=== PATIENT | female | born 2000 | race Caucasian/White ===

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

== ENCOUNTER 2022-06-24 16:35 | Emergency (ER) | payer OTHER, SELFPAY ==
[2022-06-24 16:53] VITALS: BP 140/79; PULSE 104; RESP 18; TEMP 36.7; O2SAT 98; BMI 30.7
--- NOTE | 2022-06-24 17:03 | EXP.UTC ---
Discharge Plan Disposition Patient Disposition: Home, Self-Care Condition: Good Prescriptions Prescriptions: New cephalexin 500 mg capsule 500 mg PO QID 7 Days Qty: 28 0RF No Action levothyroxine 112 mcg capsule 112 mcg PO DAILY loratadine 10 mg tablet See Rx Instructions .ROUTE .COMPLEX Qty: 90 0RF Dose Instruction: TAKE 1 TABLET BY MOUTH ONCE DAILY FOR ALLERGY SYMTPOMS Rx Instructions: TAKE 1 TABLET BY MOUTH ONCE DAILY FOR ALLERGY SYMTPOMS desmopressin 0.2 MG tablet 0.2 mg PO BID amitriptyline 25 MG tablet 25 mg PO DAILY prednisone 20 MG tablet 20 mg PO BID Qty: 10 0RF levofloxacin 500 MG tablet 500 mg PO DAILY Qty: 7 0RF ibuprofen 800 MG tablet 800 mg PO Q8HP PRN (Reason: Moderate Pain) Referrals Follow up/Referrals: Cliff Cruz MD [Primary Care Provider] - See instructions Activity Restrictions/Add. Instructions Additional Instructions/Restrictions: Keep the wound clean and dry. Keep a dressing on it if you are going to be getting it dirty. Watch the wound for signs of infection, such as redness, swelling, drainage, fever. etc. Take tylenol or ibuprofen for pain. Follow up with your regular doctor. Return in 7 days to have the sutures removed. GO TO THE ER FOR ANY WORSENING SYMPTOMS OR CONCERNS. Clinical Impressions Clinical Impression: Laceration of right thumb Instructions Patient Instructions: DI for Laceration Repair -- Finger Discharge ED Provider: Soto Frost [facility] [place] HPI General Stated complaint: [id number] LT thumb lac Mode of Arrival: Ambulatory Source of Information: Patient Limitations: No Limitations Time Seen by Provider: 06/24/22 17:03 Description of Symptoms (Recalled from Triage Doc. by RN): Laceration to L thumb, pt reports cut it when a knife while cutting a steak. No active bleeding noted. History of Present Illness Provider Complaint: She states that she was cutting steak when she slipped and cut her right thumb with the knife. Her tetanus immunization is up to date. Related Data Home Medications Medication Instructions Recorded Confirmed amitriptyline 25 mg tablet 25 mg PO DAILY migraines 05/18/17 02/03/21 desmopressin 0.2 mg tablet 0.2 mg PO BID Diabetes insipidus 05/18/17 02/03/21 ibuprofen 800 mg tablet 800 mg PO Q8HP PRN Moderate Pain 12/09/17 02/03/21 levothyroxine 112 mcg capsule 112 mcg PO DAILY thyroid 10/23/19 02/03/21 Previous Rx's Medication Instructions Recorded levofloxacin 500 mg tablet 500 mg PO DAILY #7 tabs 02/03/21 prednisone 20 mg tablet 20 mg PO BID #10 tabs 02/03/21 loratadine 10 mg tablet See Rx Instructions .Route 09/02/21 .COMPLEX #90 tabs cephalexin 500 mg capsule 500 mg PO QID 7 days #28 caps 06/24/22 Allergies Allergy/AdvReac Type Severity Reaction Status Date / Time No Known Allergies Allergy Verified 06/24/22 17:10 [facility] Disclaimer: The information contained in this section may have been updated after the patient was seen, as this information can be updated by other users. Medical History Encounter to establish care Social History Smoking Status: Never smoker alcohol intake: never substance use type: denies use current occupational status: other Travel in the last 8 weeks: None ROS Obtained: Yes All systems reviewed & no additional complaints except as documented Constitutional Constitutional: Denies chills and Denies fever(s) Eyes Eyes: Denies eye discharge ENT Ears, Nose, Mouth, and Throat: Denies dizziness, Denies otalgia and Denies sore throat Cardiovascular Cardiovascular: Denies chest pain Respiratory Respiratory: Denies shortness of breath, Denies chest congestion, Denies cough, Denies stridor and Denies wheezing Gastrointestinal Gastrointestingal: Denies nausea or vomiting Musculoskeletal Musculoskel
[2022-06-24 17:07] VITALS: BP 140/79; PULSE 104; RESP 17; TEMP 36.7; O2SAT 98; BMI 30.9
[2022-06-24 18:13] VITALS: BP 140/79; PULSE 104; RESP 17; TEMP 36.7
== END 2022-06-24 18:16 | disposition home or self-care (01) ==
PROVIDERS: Emergency Provider Nurse Practitioner Family; PCP Emergency Medicine
DX: S61.012A Laceration without foreign body of left thumb without damage to nail, initial encounter (principal); W26.0XXA Contact with knife, initial encounter
CPT/HCPCS: 12001; 99213; 99214; G0463

== ENCOUNTER 2022-08-31 17:57 | Emergency (ER) | payer OTHER, SELFPAY ==
[2022-08-31 18:07] VITALS: BP 143/84; PULSE 118; RESP 18; TEMP 36.8; O2SAT 96; BMI 32.5
[2022-08-31 18:16] LABS: Urine Pregnancy, HCG Qual. Negative (Negative)
[2022-08-31 18:30] VITALS: BP 122/71; PULSE 105; O2SAT 95
--- NOTE | 2022-08-31 18:49 | HMH.EDGENADL ---
Discharge Plan Disposition Patient Disposition: Home, Self-Care Prescriptions Prescriptions: No Action levothyroxine 112 mcg capsule 112 mcg PO DAILY desmopressin 0.2 MG tablet 0.2 mg PO BID Referrals Follow up/Referrals: Cliff Cruz MD [Primary Care Provider] - See instructions Activity Restrictions/Add. Instructions Additional Instructions/Restrictions: Please follow-up with your SUST[employer]INE[employer] doctor regarding your irregular menses and her abnormal uterine bleeding. Limited bedside ultrasound did not reveal an intrauterine in your urine test was negative. You may repeat your urine in 1 week that is possible that this was a false negative early on your but unlikely at this point given that you have not had a period in 2 months have had a regular menses. No other medical emergency was identified during your stay. You may take ibuprofen as needed for any type of discomfort that you are feeling return with any severe abdominal pain. Clinical Impressions Clinical Impression: Abnormal uterine bleeding, Encounter for medical screening examination Discharge ED Provider: Laina Arboleda General Adult HPI General Chief complaint: Vaginal Bleeding Stated complaint: test Time Seen by Provider: 08/31/22 18:49 Mode of Arrival: Ambulatory Source of Information: Patient Limitations: No Limitations Description of Symptoms (Recalled from ER Triage Doc. by RN): pt states she thinks she may be , she hasn't had a period in 2 months, reports lower abdominal pain and light vaginal bleeding, states she is spotting History of Present Illness HPI narrative: Patient is a 22-year-old female here to establish whether not she is . She states that she has not had a period in 2 months has had irregular menses in the past is trying to get and is a G2, P0 with 2 miscarriages in the past. She states that she has had some spotting but nothing of any significance no fevers or chills no significant abdominal pain basically wants to know whether not she is . Related Data Home Medications Medication Instructions Recorded Confirmed desmopressin 0.2 mg tablet 0.2 mg PO BID Diabetes insipidus 05/18/17 08/31/22 levothyroxine 112 mcg capsule 112 mcg PO DAILY thyroid 10/23/19 08/31/22 Allergies Allergy/AdvReac Type Severity Reaction Status Date / Time No Known Allergies Allergy Verified 06/24/22 17:10 [facility] Disclaimer: The information contained in this section may have been updated after the patient was seen, as this information can be updated by other users. Medical History Encounter to establish care Social History Smoking Status: Current every day smoker alcohol intake: never substance use type: denies use current occupational status: other Travel in the last 8 weeks: None ROS Obtained: Yes All systems reviewed & no additional complaints except as documented Physical Exam General General appearance: alert Respiratory Respiratory exam: Present normal lung sounds bilaterally Cardiovascular Cardiovascular exam: Present regular rate; Absent bradycardia Neurological Exam Neurological exam: Present alert and oriented X3 Medical Decision Making Rex Inquiry Pt receiving controlled substance: No Vital Signs: 08/31/22 18:07 08/31/22 18:30 Temperature 98.3 F Temperature Source Oral Pulse Rate 105 H Pulse Rate [Left Radial] 118 H Respiratory Rate 18 Blood Pressure 122/71 Blood Pressure [Right Arm] 143/84 H Blood Pressure Mean 88 Blood Pressure Mean [Right Arm] 103 Blood Pressure Source [Right Arm] Automatic Cuff Blood Pressure Position [Right Arm] Sitting 02 Sat by Pulse Oximetry 96 95 Oxygen Delivery Method Room Air Room Air Lab Data Lab results reviewed: Yes I reviewed the patient's lab results.
[2022-08-31 19:00] VITALS: BP 122/71; PULSE 105; RESP 16; TEMP 36.8
== END 2022-08-31 19:02 | disposition home or self-care (01) ==
PROVIDERS: Emergency Provider Student in an Organized Health Care Education/Training Program; PCP Emergency Medicine
DX: N93.9 Abnormal uterine and vaginal bleeding, unspecified (principal); R10.30 Lower abdominal pain, unspecified
CPT/HCPCS: 76705; 81025; 99283

== ENCOUNTER 2022-09-10 21:20 | Emergency (ER) | payer OTHER, SELFPAY ==
[2022-09-10 21:34] VITALS: BP 0/0; PULSE 0; RESP 0; TEMP -17.7; TEMP 0
== END 2022-09-10 21:50 | disposition left against medical advice (07) ==
LOC: ER 21:37
PROVIDERS: Emergency Provider Emergency Medicine; PCP Emergency Medicine
DX: Z53.21 Procedure and treatment not carried out due to patient leaving prior to being seen by health care provider (principal)
CPT/HCPCS: 99211

== ENCOUNTER → 2022-09-10 21:34 | Outpatient (CLI) | payer OTHER, SELFPAY ==
[2022-09-10 22:08] LABS: HCG Qualitative, Serum Negative (Negative)
[2022-09-10 22:32] LABS: HCG,Quantitative < 2 mIU/ml (0-5.42)
== END ==
PROVIDERS: PCP Emergency Medicine; Visit Provider Emergency Medicine
DX: Z32.00 Encounter for pregnancy test, result unknown (principal); N92.1 Excessive and frequent menstruation with irregular cycle
CPT/HCPCS: 84702; 84703

== ENCOUNTER 2022-10-10 14:18 | Emergency (ER) | payer OTHER, SELFPAY ==
[2022-10-10 14:19] VITALS: BP 117/75; PULSE 77; RESP 16; TEMP 36.4; O2SAT 99; BMI 32.9
--- NOTE | 2022-10-10 14:38 | HMH.EDGENADL ---
Discharge Plan Disposition Patient Disposition: Home, Self-Care Condition: Good Prescriptions Prescriptions: New clobetasol 0.05 % cream 1 applic topical BID 7 Days Qty: 15 0RF No Action levothyroxine 112 mcg capsule 112 mcg PO DAILY desmopressin 0.2 MG tablet 0.2 mg PO BID Referrals Follow up/Referrals: Cliff Cruz MD [Primary Care Provider] - See instructions Activity Restrictions/Add. Instructions Additional Instructions/Restrictions: At this time is felt you are safe to be discharged home. If new or worsening symptoms please do not hesitate to return to the emergency department. Please apply medication as prescribed. Clinical Impressions Clinical Impression: Contact dermatitis Discharge ED Provider: Vikram Garcia General Adult HPI General Chief complaint: Skin/Abscess/Foreign Body Stated complaint: rash on right side of face going into ear Time Seen by Provider: 10/10/22 14:25 Mode of Arrival: Ambulatory Source of Information: Patient Limitations: No Limitations Description of Symptoms (Recalled from ER Triage Doc. by RN): Presents to ED with complaints of right sided ear and face rash that appeared this morning. Patient reported using benadryl cream 1 hr [employer]. Patient also reports that her eyes are puffy . History of Present Illness HPI narrative: Patient is a 22-year-old female with no pertinent past medical history presents emergency department for evaluation of a rash. It is located retroauricular lesion on the right. Onset over the last 24 hours. Patient has been outside, unknown other exposures. Denies any other rashes. Denies oral involvement, chest pain, abdominal pain, acute arthralgias. Due to its itchiness she presents here for continued evaluation. No other acute complaints at this time. Related Data Home Medications Medication Instructions Recorded Confirmed desmopressin 0.2 mg tablet 0.2 mg PO BID Diabetes insipidus 05/18/17 08/31/22 levothyroxine 112 mcg capsule 112 mcg PO DAILY thyroid 10/23/19 08/31/22 Previous Rx's Medication Instructions Recorded clobetasol 0.05 % topical cream 1 applic topical BID 1 week #15 10/10/22 grams Allergies Allergy/AdvReac Type Severity Reaction Status Date / Time No Known Allergies Allergy Verified 06/24/22 17:10 [facility] Disclaimer: The information contained in this section may have been updated after the patient was seen, as this information can be updated by other users. Medical History Encounter to establish care Social History Smoking Status: Current every day smoker alcohol intake: never substance use type: denies use current occupational status: other Travel in the last 8 weeks: None ROS Obtained: Yes Systems reviewed as appropriate & no additional complaints except as documented Physical Exam General General appearance: alert and in no apparent distress Head Head exam: atraumatic and normocephalic Eye Eye exam: Present PERRL and EOMI; Absent conjunctival redness ENT ENT exam: Present normal oropharynx, mucous membranes moist and other (Retroauricular papular rash, no crusting, no oozing. No anterior effacement of the pinna, external auditory canal normal on the left, TM normal on the left) Neck Neck exam: Present normal inspection Chest Chest inspection: Present normal inspection and symmetric chest wall rise Respiratory Respiratory exam: Absent respiratory distress Cardiovascular Cardiovascular exam: Present regular rate and normal rhythm Abdominal Exam Abdominal exam: Absent tenderness Extremities Exam Extremities exam: Present normal inspection Neurological Exam Neurological exam: Present alert, oriented X3 and normal gait Psychiatric Psychiatric exam: Present normal affect Skin Skin exam: Present warm and dry Medical Decision Making Rex Inquiry Pt receiving
[2022-10-10 14:48] VITALS: BP 117/75; PULSE 77; RESP 16; TEMP 36.4; O2SAT 99
== END 2022-10-10 15:17 | disposition home or self-care (01) ==
PROVIDERS: Emergency Provider Emergency Medicine; PCP Emergency Medicine
DX: L23.9 Allergic contact dermatitis, unspecified cause (principal); F17.200 Nicotine dependence, unspecified, uncomplicated
CPT/HCPCS: 99283

== ENCOUNTER 2022-10-16 13:51 | Emergency (ER) | payer OTHER, SELFPAY ==
[2022-10-16 14:32] VITALS: BP 95/61; PULSE 76; RESP 19; TEMP 36.8; O2SAT 98; BMI 30.9
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
--- NOTE | 2022-10-16 14:40 | PC.NURSE ---
Rounded on patient; no needs at this time. call parikh within reach
[2022-10-16 15:05] LABS: Microscopic, Urine URINE MICROSCOPIC (MICROSCOPIC)
[2022-10-16 15:08] LABS: Basophils # 0.1 K/mm3 (0-0.2); Basophils % 0.8 % (0.1-2.0); Eosinophils # 0.3 K/mm3 (0.0-0.4); Eosinophils % 3.9 % (0.1-12.0); Hematocrit 41.1 % (37.0-47.0); Hemoglobin 13.5 g/dL (12.2-16.2); Lymphocytes # 3.3 K/mm3 (0.7-4.5); Lymphocytes % 37.4 % (10-50); Mean Corpuscular HGB Conc 32.9 g/dL (31.8-35.4); Mean Corpuscular Hemoglobin 27.5 pg (27.0-31.2); Mean Corpuscular Volume 83.7 fl (81-99); Mean Platelet Volume 9.2 fl (7.4-10.4); Monocytes # 0.5 K/mm3 (0.1-1.0); Monocytes % 5.2 % (1.7-9.3); Neutrophils # 4.6 K/mm3 (1.8-7.8); Neutrophils % 52.7 % (37.0-80.0); Platelet Count 219 K/mm3 (142-424); Red Blood Count 4.91 M/mm3 (4.20-5.40); White Blood Count 8.7 K/mm3 (4.5-13.0)
[2022-10-16 15:15] LABS: Alanine Aminotransferase 19 U/L (12-78); Albumin Level 4.2 g/dl (3.5-5.0); Albumin/Globulin Ratio 1.3 (1.1-1.8); Alkaline Phosphatase 94 U/L (38-126); Anion Gap 11.3 mEq/L (5-15); Aspartate Amino Transferase 29 U/L (14-36); Bilirubin,Total 0.2 mg/dl (0.2-1.3); Blood Urea Nitrogen 13 mg/dl (7-17); Calcium 9.5 mg/dl (8.4-10.2); Carbon Dioxide 30 mmol/L (22.0-30.0); Chloride 105 mmol/L (98-107); Creatinine Clearance Estimated 165 mL/min (50-200); Estimated Glomerular Filt Rate 107 ml/min (>60); GFR (African American) 129 ML/MIN (>60); Globulin 3.2 g/dL (1.3-3.2); Glucose 92 mg/dl (74-100); Potassium 4.3 mmoL/L (3.5-5.1); Sodium 142 mmol/L (136-145); Total Protein,Serum 7.4 g/dl (6.3-8.2)
[2022-10-16 15:17] LABS: Appearance,Urine CLEAR (Clear); Bilirubin,Urine Negative (Negative); Blood, Urine Negative (Negative); Color,Urine YELLOW (Yellow); Glucose,Urine (UA) Negative (Negative); Ketones,Urine Negative (Negative); Leukocyte Esterase,Urine Negative (Negative); Nitrate,Urine Negative (Negative); Protein,Urine Negative (Negative); Urobilinogen,Urine 0.2 EU/dl (0.2)
[2022-10-16 15:20] LABS: HCG Qualitative, Serum Negative (Negative)
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
[2022-10-16 16:36] VITALS: BP 128/79; PULSE 84; RESP 20; TEMP 36.8; O2SAT 99
== END 2022-10-16 16:37 | disposition home or self-care (01) ==
PROVIDERS: Emergency Provider Emergency Medicine; PCP Emergency Medicine
DX: R07.81 Pleurodynia (principal); F17.210 Nicotine dependence, cigarettes, uncomplicated; W22.8XXA Striking against or struck by other objects, initial encounter; Y93.I1 Activity, roller coaster riding
CPT/HCPCS: 71101; 80053; 81001; 84703; 85025; 99285

== ENCOUNTER → 2022-11-04 11:22 | Outpatient (CLI) | payer OTHER, SELFPAY ==
[2022-11-04 12:54] LABS: Chloride 103 mmol/L (98-107)
[2022-11-04 12:55] LABS: Potassium 4.3 mmoL/L (3.5-5.1); Sodium 139 mmol/L (136-145)
[2022-11-04 12:57] LABS: Alanine Aminotransferase 21 U/L (12-78); Anion Gap 10.3 mEq/L (5-15); Aspartate Amino Transferase 25 U/L (14-36); Bilirubin,Unconjugated 0.3 mg/dL (0.0-1.1); Blood Urea Nitrogen 13 mg/dl (7-17); Carbon Dioxide 30 mmol/L (22.0-30.0); Estimated Glomerular Filt Rate 127 ml/min (>60); GFR (African American) 154 ML/MIN (>60)
[2022-11-04 12:58] LABS: Albumin Level 4.1 g/dl (3.5-5.0); Alkaline Phosphatase 120 U/L (38-126); Bilirubin,Direct 0.2 mg/dl (0.0-0.4); Bilirubin,Indirect 0.3 mg/dL (0.0-0.9); Bilirubin,Total 0.5 mg/dl (0.2-1.3); Calcium 10.2 mg/dl (8.4-10.2); Chol/HDL Ratio 3.9 (1-3.5); Cholesterol 173 mg/dl (140-200); Glucose 93 mg/dl (74-100); HDL Cholesterol 44 mg/dl (40-60); Total Protein,Serum 7.3 g/dl (6.3-8.2); Triglycerides 175 mg/dl (30-150); VLDL Cholesterol 35 mg/dL (0-40)
[2022-11-04 13:09] LABS: Direct LDL Cholesterol 83.76 mg/dL (100-129)
[2022-11-04 13:19] LABS: Free T4 (Free Thyroxine) 1.43 ng/dl (0.78-2.19)
[2022-11-04 13:21] LABS: 25-OH Vitamin D, Total 38.3 ng/mL (30-100)
[2022-11-04 13:38] LABS: Gamma Glutamyl Transpeptidase 28 U/L (12-43)
[2022-11-04 13:39] LABS: Hemoglobin A1C 4.8 % (4.0-6.0)
[2022-11-05 08:34] LABS: Estradiol 18.9 pg/mL (.); LH 6.8 mIU/mL (.)
== END ==
PROVIDERS: PCP Emergency Medicine
DX: E23.2 Diabetes insipidus (principal); D44.4 Neoplasm of uncertain behavior of craniopharyngeal duct; E66.9 Obesity, unspecified; Z68.34 Body mass index [BMI] 34.0-34.9, adult
CPT/HCPCS: 36415; 80048; 80061; 80076; 82306; 82533; 82670; 82977; 83001; 83002; 83036; 84439

== ENCOUNTER 2022-12-22 13:51 | Emergency (ER) | payer OTHER, SELFPAY ==
[2022-12-22 13:53] VITALS: BP 120/72; PULSE 84; RESP 18; TEMP 36.3; O2SAT 97; BMI 35.2
[2022-12-22 14:15] VITALS: BP 120/72; PULSE 90; O2SAT 98
[2022-12-22 14:39] LABS: Coronavirus 19, PCR Not Detected (NotDetected); Influenza A, PCR Not Detected (NotDetected); Influenza B, PCR Not Detected (NotDetected)
--- NOTE | 2022-12-22 14:43 | HMH.EDGENADL ---
Discharge Plan Disposition Patient Disposition: Home, Self-Care Prescriptions Prescriptions: New hlvyirnwyxjpbxf-ysbdfwzjn-JV [Bromfed DM] 2-30-10 mg/5 mL syrup 5 ml PO Q6H PRN (Reason: cold symptoms) Qty: 118 0RF No Action levothyroxine 112 mcg capsule 112 mcg PO DAILY desmopressin 0.2 MG tablet 0.2 mg PO BID clobetasol 0.05 % cream 1 applic topical BID 7 Days Qty: 15 0RF Referrals Follow up/Referrals: Cliff Cruz MD [Primary Care Provider] - See instructions Activity Restrictions/Add. Instructions Additional Instructions/Restrictions: Call your family doctor to establish care for this visit to the emergency department and schedule follow-up within 48 hours to ensure improvement. If you have any worsening of your condition or any other concerning signs or symptoms, return to the emergency department or your primary care doctor for further evaluation. Take Tylenol 1000 mg every 6 hours (4 times daily) and ibuprofen 400 mg every 6 hours (4 times daily) as needed with food and water to prevent GI upset and kidney damage. Daily cetirizine or loratadine can help with symptoms of congestion long-term. Please take your cough syrup as prescribed. Clinical Impressions Clinical Impression: Rhinorrhea, URI (upper respiratory infection), Acute sore throat Discharge ED Provider: Ori Gonzalez General Adult HPI <Ori Gonzalez MD - Last Filed: 12/22/22 14:50> General Chief complaint: Upper Respiratory Infection Stated complaint: sore throat, soa, chills Time Seen by Provider: 12/22/22 14:00 Mode of Arrival: Ambulatory Source of Information: Patient Limitations: No Limitations Description of Symptoms (Recalled from ER Triage Doc. by RN): pt reports nasal congestion and sore throat that started today. History of Present Illness HPI narrative: 22-year-old female history of craniopharyngioma, schwannoma presenting with upper respiratory symptoms. Patient states started today, 12/22 when she woke up. Congestion, fevers and chills, intermittent cough that is nonproductive. Also having sore throat. Has not taken any medications including Tylenol, Motrin, antihistamines. Because has COVID exposure, wanted to come to the ER to ensure she did not have COVID. Related Data Home Medications Medication Instructions Recorded Confirmed desmopressin 0.2 mg tablet 0.2 mg PO BID Diabetes insipidus 05/18/17 08/31/22 levothyroxine 112 mcg capsule 112 mcg PO DAILY thyroid 10/23/19 08/31/22 Previous Rx's Medication Instructions Recorded clobetasol 0.05 % topical cream 1 applic topical BID 1 week #15 10/10/22 grams kiqcgrsosilveyw-jzeqkqhvileycmr-BC 5 ml PO Q6H PRN cold symptoms #118 12/22/22 2 mg-30 mg-10 mg/5 mL oral syrup mL (Bromfed DM) Allergies Allergy/AdvReac Type Severity Reaction Status Date / Time No Known Allergies Allergy Verified 06/24/22 17:10 PFSH <Ori Gonzalez MD - Last Filed: 12/22/22 14:50> PFS Disclaimer: The information contained in this section may have been updated after the patient was seen, as this information can be updated by other users. Medical History Encounter to establish care Social History Smoking Status: Never smoker alcohol intake: never substance use type: denies use current occupational status: other Travel in the last 8 weeks: None <Ori Gonzalez MD - Last Filed: 12/22/22 14:50> ROS Obtained: Yes All systems reviewed & no additional complaints except as documented Physical Exam <Ori Gonzalez MD - Last Filed: 12/22/22 14:50> General General appearance: alert and in no apparent distress Head Head exam: atraumatic and normocephalic Eye Eye exam: Present normal appearance, PERRL and EOMI ENT ENT exam: Present mucous membranes moist and other (rhinorrhea, pharyngeal erythema) Neck Neck exam: Present normal inspection, full ROM a
[2022-12-22 14:45] VITALS: BP 128/61; PULSE 87; O2SAT 99
[2022-12-22 15:08] LABS: Strep Scrn Group A (Rapid) Negative (Negative)
[2022-12-22 15:34] VITALS: BP 114/65; PULSE 83; O2SAT 96
--- NOTE | 2022-12-22 15:54 | PC.NURSE ---
Pt provided with drink and crackers for PO challenge
[2022-12-22 16:05] VITALS: BP 116/75; PULSE 76; RESP 18; TEMP 36.7; O2SAT 97
== END 2022-12-22 16:06 | disposition home or self-care (01) ==
PROVIDERS: Emergency Provider Emergency Medicine; PCP Emergency Medicine
DX: J02.9 Acute pharyngitis, unspecified (principal); R09.81 Nasal congestion; J06.9 Acute upper respiratory infection, unspecified
CPT/HCPCS: 87430; 87636; 99283

== ENCOUNTER 2022-12-23 19:50 | Emergency (ER) | payer OTHER, SELFPAY ==
[2022-12-23 19:52] VITALS: BP 126/82; PULSE 115; RESP 17; TEMP 36.8; O2SAT 98; BMI 35.2
--- NOTE | 2022-12-23 20:26 | HMH.EDGENADL ---
Discharge Plan Disposition Patient Disposition: Home, Self-Care Prescriptions Prescriptions: New prednisone 20 mg tablet 40 mg PO BID 5 Days Qty: 20 0RF Discontinued rknlwanxcudtjkq-ruyezrohb-RE [Bromfed DM] 2-30-10 mg/5 mL syrup 5 ml PO Q6H PRN (Reason: cold symptoms) Qty: 118 0RF No Action levothyroxine 112 mcg capsule 112 mcg PO DAILY desmopressin 0.2 MG tablet 0.2 mg PO BID clobetasol 0.05 % cream 1 applic topical BID Referrals Follow up/Referrals: Cliff Cruz MD [Primary Care Provider] - See instructions Activity Restrictions/Add. Instructions Additional Instructions/Restrictions: Call your family doctor to establish care for this visit to the emergency department and schedule follow-up within 48 hours to ensure improvement. If you have any worsening of your condition or any other concerning signs or symptoms, return to the emergency department or your primary care doctor for further evaluation. Take Tylenol 1000 mg every 6 hours (4 times daily) and ibuprofen 400 mg every 6 hours (4 times daily) as needed with food and water to prevent GI upset and kidney damage. Take prednisone each morning for 5 days. Daily cetirizine/Zyrtec will help as well. Clinical Impressions Clinical Impression: Medication side effect Discharge ED Provider: Ori Gonzalez General Adult HPI General Stated complaint: face is hot, feeling like she is allergic to medi Time Seen by Provider: 12/23/22 19:56 History of Present Illness HPI narrative: 22-year-old female with recent diagnosis of URI presenting with medication side effect. Patient states she took Bromfed about 3 hours prior to arrival. Woke up feeling flushed, hot. Nasal congestion improved, but patient concerned she is having allergic reaction. Denies nausea vomiting, abdominal cramping or pain, diarrhea, shortness of breath, chest pain, or any other concerns. No welts. Related Data Home Medications Medication Instructions Recorded Confirmed desmopressin 0.2 mg tablet 0.2 mg PO BID Diabetes insipidus 05/18/17 12/23/22 levothyroxine 112 mcg capsule 112 mcg PO DAILY thyroid 10/23/19 12/23/22 clobetasol 0.05 % topical cream 1 applic topical BID Skin Condition 12/23/22 12/23/22 Previous Rx's Medication Instructions Recorded prednisone 20 mg tablet 40 mg PO BID 5 days #20 tabs 12/23/22 Allergies Allergy/AdvReac Type Severity Reaction Status Date / Time No Known Allergies Allergy Verified 06/24/22 17:10 [facility] Disclaimer: The information contained in this section may have been updated after the patient was seen, as this information can be updated by other users. Medical History Encounter to establish care Social History Smoking Status: Never smoker alcohol intake: never substance use type: denies use current occupational status: other Travel in the last 8 weeks: None ROS Obtained: Yes All systems reviewed & no additional complaints except as documented Physical Exam General General appearance: alert and in no apparent distress Head Head exam: atraumatic and normocephalic Eye Eye exam: Present normal appearance, PERRL and EOMI ENT ENT exam: Present mucous membranes moist Neck Neck exam: Present normal inspection, full ROM and trachea midline Respiratory Respiratory exam: Absent respiratory distress, wheezes, stridor, accessory muscle use or prolonged expiratory phase Cardiovascular Cardiovascular exam: Present normal rhythm Abdominal Exam Abdominal exam: Present soft; Absent distention, tenderness, guarding, rebound, rigidity or normal bowel sounds Extremities Exam Extremities exam: Absent edema Neurological Exam Neurological exam: Present alert, oriented X3, CN II-XII intact and normal gait; Absent motor sensory deficit Skin Skin exam: Present warm, dry and erythema (facial flushing); Absen
[2022-12-23 20:27] VITALS: BP 125/80; PULSE 96; RESP 18; TEMP 36.7; O2SAT 100
== END 2022-12-23 20:43 | disposition home or self-care (01) ==
PROVIDERS: Emergency Provider Emergency Medicine; PCP Emergency Medicine
DX: R23.2 Flushing (principal); T48.3X5A Adverse effect of antitussives, initial encounter
CPT/HCPCS: 99283

== ENCOUNTER 2023-02-12 17:01 | Emergency (ER) | payer OTHER, SELFPAY ==
[2023-02-12 17:02] VITALS: BP 132/71; PULSE 78; RESP 18; TEMP 36.5; O2SAT 98; BMI 36.8
--- NOTE | 2023-02-12 17:35 | HMH.EDGENADL ---
Discharge Plan Disposition Patient Disposition: Home, Self-Care Prescriptions Prescriptions: New loperamide 2 mg capsule 2 mg PO Q6H PRN (Reason: loose stool) 5 Days Qty: 20 0RF Rx Instructions: Please take 4 mg initially, followed by 2 mg after each loose stool, maximum 16 mg/day ondansetron 4 mg tablet,disintegrating 4 mg PO Q6H PRN (Reason: nausea and vomiting) 5 Days Qty: 20 0RF No Action levothyroxine 112 mcg capsule 112 mcg PO DAILY desmopressin 0.2 MG tablet 0.2 mg PO BID clobetasol 0.05 % cream 1 applic topical BID prednisone 20 mg tablet 40 mg PO BID 5 Days Qty: 20 0RF Referrals Follow up/Referrals: Cliff Cruz MD [Primary Care Provider] - See instructions Activity Restrictions/Add. Instructions Additional Instructions/Restrictions: Your pharyngitis generalized malaise body aches and diarrhea with sick contacts are consistent with a viral syndrome. The treatment is supportive as discussed please take your loperamide as needed for your diarrhea your Zofran as needed for any nausea and vomiting that you had and take 1000 mg of Tylenol 3 times a day and 800 mg of ibuprofen 3 times a day as needed for body aches fevers or pain. Clinical Impressions Clinical Impression: Viral syndrome Discharge ED Provider: Laina Arboleda General Adult HPI General Chief complaint: Upper Respiratory Infection Stated complaint: diarrhea, vomiting, Time Seen by Provider: 02/12/23 17:24 Mode of Arrival: Ambulatory Source of Information: Patient Limitations: No Limitations Description of Symptoms (Recalled from ER Triage Doc. by RN): pt complains of cough, sore throat, runny nose x 3 days and took niquil for otc treatment History of Present Illness HPI narrative: Patient is a 22-year-old female with a history of craniopharyngioma and schwannoma but no ongoing or chronic medical problems who presents today with multiple complaints. She states she has had sick contacts at home and she has had some nausea with one episode of vomiting she has had diarrhea body aches and sore throat over the last few days. Related Data Home Medications Medication Instructions Recorded Confirmed desmopressin 0.2 mg tablet 0.2 mg PO BID Diabetes insipidus 05/18/17 12/23/22 levothyroxine 112 mcg capsule 112 mcg PO DAILY thyroid 10/23/19 12/23/22 clobetasol 0.05 % topical cream 1 applic topical BID Skin Condition 12/23/22 12/23/22 Previous Rx's Medication Instructions Recorded prednisone 20 mg tablet 40 mg PO BID 5 days #20 tabs 12/23/22 loperamide 2 mg capsule 2 mg PO Q6H PRN loose stool 5 days 02/12/23 #20 caps ondansetron 4 mg disintegrating 4 mg PO Q6H PRN nausea and 02/12/23 tablet vomiting 5 days #20 tabs Allergies Allergy/AdvReac Type Severity Reaction Status Date / Time No Known Allergies Allergy Verified 06/24/22 17:10 [facility] Disclaimer: The information contained in this section may have been updated after the patient was seen, as this information can be updated by other users. Medical History Encounter to establish care Social History Smoking Status: Current every day smoker alcohol intake: never substance use type: denies use current occupational status: other Travel in the last 8 weeks: None ROS Obtained: Yes All systems reviewed & no additional complaints except as documented Physical Exam General General appearance: alert ENT ENT exam: Present normal exam, normal oropharynx, mucous membranes moist, TM's normal bilaterally and normal external ear exam Neck Neck exam: Present normal inspection and full ROM Respiratory Respiratory exam: Present normal lung sounds bilaterally; Absent respiratory distress, wheezes or stridor Cardiovascular Cardiovascular exam: Present regular rate; Absent tachycardia Abdominal Exam Abdominal exam: Present soft; Ab
[2023-02-12 17:37] VITALS: BP 116/74; PULSE 79; RESP 17; TEMP 36.7; O2SAT 98
== END 2023-02-12 17:40 | disposition home or self-care (01) ==
PROVIDERS: Emergency Provider Student in an Organized Health Care Education/Training Program; PCP Emergency Medicine
DX: R11.2 Nausea with vomiting, unspecified (principal); R19.7 Diarrhea, unspecified; R07.0 Pain in throat; R05.9 Cough, unspecified; R09.81 Nasal congestion; B34.9 Viral infection, unspecified; F17.210 Nicotine dependence, cigarettes, uncomplicated
CPT/HCPCS: 99282

== ENCOUNTER 2023-02-14 17:24 | Emergency (ER) | payer OTHER, SELFPAY ==
[2023-02-14 17:26] VITALS: BP 129/86; PULSE 117; RESP 18; TEMP 37.3; O2SAT 95; BMI 36.8
[2023-02-14 17:46] VITALS: BMI 36.8
[2023-02-14 17:53] LABS: Coronavirus 19, PCR Not Detected (NotDetected); Influenza A, PCR Not Detected (NotDetected); Influenza B, PCR Not Detected (NotDetected)
[2023-02-14 18:03] LABS: Strep Scrn Group A (Rapid) Negative (Negative)
--- NOTE | 2023-02-14 18:26 | HMH.EDGENADL ---
Discharge Plan Disposition Patient Disposition: Home, Self-Care Prescriptions Prescriptions: New ondansetron 4 mg tablet,disintegrating 4 mg PO Q6H PRN (Reason: nausea and vomiting) Qty: 10 0RF No Action levothyroxine 112 mcg capsule 112 mcg PO DAILY desmopressin 0.2 MG tablet 0.2 mg PO BID clobetasol 0.05 % cream 1 applic topical BID prednisone 20 mg tablet 40 mg PO BID 5 Days Qty: 20 0RF loperamide 2 mg capsule 2 mg PO Q6H PRN (Reason: loose stool) 5 Days Qty: 20 0RF Rx Instructions: Please take 4 mg initially, followed by 2 mg after each loose stool, maximum 16 mg/day ondansetron 4 mg tablet,disintegrating 4 mg PO Q6H PRN (Reason: nausea and vomiting) 5 Days Qty: 20 0RF Referrals Follow up/Referrals: Cliff Cruz MD [Primary Care Provider] - See instructions Activity Restrictions/Add. Instructions Additional Instructions/Restrictions: Call your family doctor to establish care for this visit to the emergency department and schedule follow-up within 48 hours to ensure improvement. If you have any worsening of your condition or any other concerning signs or symptoms, return to the emergency department or your primary care doctor for further evaluation. Take Tylenol 1000 mg every 6 hours (4 times daily) and ibuprofen 400 mg every 6 hours (4 times daily) as needed with food and water to prevent GI upset and kidney damage. Zofran every 6 hours as needed for nausea and vomiting. Clinical Impressions Clinical Impression: Gastroenteritis Discharge ED Provider: Ori Gonzalez General Adult HPI General Chief complaint: Upper Respiratory Infection Stated complaint: POSSIBLE STREP OR COVID Time Seen by Provider: 02/14/23 17:32 Mode of Arrival: Ambulatory Source of Information: Patient Limitations: No Limitations Description of Symptoms (Recalled from ER Triage Doc. by RN): c/o v/d, sore throat, YAÑEZ, chills, cant breath out of her nose for a few days History of Present Illness HPI narrative: 22-year-old female no relevant medical history presenting with multiple complaints. Patient states that she has had cough productive of white sputum, vomiting and diarrhea, sore throat, body aches for the past few days. No known sick contacts. Patient was seen here couple days prior and was not swabbed. Wants to know if she has COVID or flu. Has not been taking any meds at home. Vomiting is nonbloody, nonbilious, diarrhea is also nonbloody. Has been able to tolerate p.o. intake, but with significant difficulty given vomiting with p.o. intake. No urinary symptoms. Related Data Home Medications Medication Instructions Recorded Confirmed desmopressin 0.2 mg tablet 0.2 mg PO BID Diabetes insipidus 05/18/17 12/23/22 levothyroxine 112 mcg capsule 112 mcg PO DAILY thyroid 10/23/19 12/23/22 clobetasol 0.05 % topical cream 1 applic topical BID Skin Condition 12/23/22 12/23/22 Previous Rx's Medication Instructions Recorded prednisone 20 mg tablet 40 mg PO BID 5 days #20 tabs 12/23/22 loperamide 2 mg capsule 2 mg PO Q6H PRN loose stool 5 days 02/12/23 #20 caps ondansetron 4 mg disintegrating 4 mg PO Q6H PRN nausea and 02/12/23 tablet vomiting 5 days #20 tabs ondansetron 4 mg disintegrating 4 mg PO Q6H PRN nausea and 02/14/23 tablet vomiting #10 tabs Allergies Allergy/AdvReac Type Severity Reaction Status Date / Time No Known Allergies Allergy Verified 06/24/22 17:10 [facility] Disclaimer: The information contained in this section may have been updated after the patient was seen, as this information can be updated by other users. Medical History Encounter to establish care Social History Smoking Status: Smoker, status unknown alcohol intake: never substance use type: denies use current occupational status: other Travel in the last 8 weeks: None ROS
[2023-02-14 20:06] LABS: Basophils % 0.4 % (0.1-2.0); Eosinophils # 0.1 K/mm3 (0.0-0.4); Eosinophils % 1.5 % (0.1-12.0); Hematocrit 39.5 % (37.0-47.0); Hemoglobin 13.4 g/dL (12.2-16.2); Lymphocytes # 1.6 K/mm3 (0.7-4.5); Lymphocytes % 17.8 % (10-50); Mean Corpuscular HGB Conc 33.8 g/dL (31.8-35.4); Mean Corpuscular Hemoglobin 28.2 pg (27.0-31.2); Mean Corpuscular Volume 83.4 fl (81-99); Monocytes # 0.4 K/mm3 (0.1-1.0); Monocytes % 4.6 % (1.7-9.3); Neutrophils # 6.9 K/mm3 (1.8-7.8); Neutrophils % 75.7 % (37.0-80.0); Platelet Count 245 K/mm3 (142-424); Red Blood Count 4.73 M/mm3 (4.20-5.40); Red Cell Distribution Width 13.4 % (11.5-17.5); White Blood Count 9.2 K/mm3 (4.5-13.0)
[2023-02-14 20:28] LABS: Chloride 105 mmol/L (98-107)
[2023-02-14 20:29] LABS: Potassium 3.8 mmoL/L (3.5-5.1); Sodium 138 mmol/L (136-145)
[2023-02-14 20:31] LABS: Alanine Aminotransferase 69 U/L (12-78); Aspartate Amino Transferase 47 U/L (14-36); Blood Urea Nitrogen 13 mg/dl (7-17); Creatinine Clearance Estimated 191 mL/min (50-200); Estimated Glomerular Filt Rate 107 ml/min (>60); GFR (African American) 129 ML/MIN (>60)
[2023-02-14 20:32] LABS: Albumin Level 3.9 g/dl (3.5-5.0); Albumin/Globulin Ratio 1.3 (1.1-1.8); Alkaline Phosphatase 83 U/L (38-126); Anion Gap 8.8 mEq/L (5-15); Bilirubin,Total 0.3 mg/dl (0.2-1.3); Carbon Dioxide 28 mmol/L (22.0-30.0); Globulin 3.1 g/dL (1.3-3.2); Glucose 89 mg/dl (74-100)
[2023-02-14 20:53] LABS: HCG,Quantitative < 2 mIU/ml (0-5.42)
[2023-02-14 21:04] VITALS: BP 112/70; PULSE 70; RESP 16; TEMP 36.8; O2SAT 98
== END 2023-02-14 21:05 | disposition home or self-care (01) ==
PROVIDERS: Emergency Provider Emergency Medicine; PCP Emergency Medicine
DX: K52.9 Noninfective gastroenteritis and colitis, unspecified (principal); R11.2 Nausea with vomiting, unspecified; R00.0 Tachycardia, unspecified; R51.9 Headache, unspecified; R07.0 Pain in throat; R68.83 Chills (without fever); R09.81 Nasal congestion; R05.9 Cough, unspecified; F17.210 Nicotine dependence, cigarettes, uncomplicated
CPT/HCPCS: 80053; 84702; 85025; 87430; 87636; 96361; 96374; 96375; 99284; J2405

== ENCOUNTER 2023-07-12 14:45 | Emergency (ER) | payer OTHER, SELFPAY ==
[2023-07-12 14:55] VITALS: BP 120/71; PULSE 99; RESP 18; TEMP 36.6; O2SAT 97; BMI 37.8
--- NOTE | 2023-07-12 14:55 | XR_ITS ---
FINAL REPORT CLINICAL HISTORY: pain, fell today and a couple days ago COMPARISON: 12/12/2017 FINDINGS: Right ankle Three views were obtained. There is no acute fracture or dislocation. The joint spaces appear normal. No soft tissue abnormality is identified. IMPRESSION: No acute process. Reviewed, Interpreted and Dictated by Salinas Lindsey MD Transcribed by Renee Cuba Authenticated and [facility]
--- NOTE | 2023-07-12 14:55 | XR_ITS ---
FINAL REPORT CLINICAL HISTORY: pain, fell today and a couple days ago FINDINGS: Right tibia fibula Two views were obtained. There is no acute fracture or dislocation. The joint spaces appear normal. No soft tissue abnormality is identified. IMPRESSION: No acute process. Reviewed, Interpreted and Dictated by Salinas Lindsey MD Transcribed by Renee Cuba Authenticated and [facility]
--- NOTE | 2023-07-12 14:58 | ED_ITS ---
Discharge Plan Disposition Patient Disposition: Home, Self-Care Condition: Good Prescriptions Prescriptions: New ibuprofen 600 mg tablet 600 mg PO Q6HP PRN (Reason: Mild Pain) Qty: 30 0RF No Action levothyroxine 112 mcg capsule 112 mcg PO DAILY desmopressin 0.2 MG tablet 0.2 mg PO BID clobetasol 0.05 % cream 1 applic topical BID prednisone 20 mg tablet 40 mg PO BID 5 Days Qty: 20 0RF ondansetron 4 mg tablet,disintegrating 4 mg PO Q6H PRN (Reason: nausea and vomiting) Qty: 10 0RF loperamide 2 mg capsule 2 mg PO Q6H PRN (Reason: loose stool) 5 Days Qty: 20 0RF Rx Instructions: Please take 4 mg initially, followed by 2 mg after each loose stool, maximum 16 mg/day ondansetron 4 mg tablet,disintegrating 4 mg PO Q6H PRN (Reason: nausea and vomiting) 5 Days Qty: 20 0RF Referrals Follow up/Referrals: Sai Hale DO [Primary Care Provider] - See instructions Hailey Rai DPM [Staff Physician] - See instructions Activity Restrictions/Add. Instructions Additional Instructions/Restrictions: Rest the extremity, apply ice for 15 minutes as tolerated three or four times per day, Wear the love wrap for compression, Elevate the extremity as tolerated while you are resting. Take ibuprofen for pain. I sent in a prescription to your pharmacy. Follow up with Dr. Rai (podiatry) if you continue to have symptoms. I put in a referral but you need to call her office and schedule an appointment. Follow up with your regular doctor. GO TO THE ER FOR ANY WORSENING SYMPTOMS Clinical Impressions Clinical Impression: Right foot sprain, Right ankle sprain Instructions Patient Instructions: DI for Ankle Sprain, DI for Foot Sprain, How to Apply an Elastic Wrap on Ankle Discharge ED Provider: Soto [facility] General Stated complaint: AO4/16@home, pain in Rt ankle Time Seen by Provider: 07/12/23 14:58 History of Present Illness Provider Complaint: She states that earlier today she twisted her right ankle. Since then she has had right ankle and right foot pain. She states that her pain is worse when she bears weight on the heel of that foot. She denies any other injury. Related Data Home Medications Medication Instructions Recorded Confirmed desmopressin 0.2 mg tablet 0.2 mg PO BID Diabetes insipidus 05/18/17 12/23/22 levothyroxine 112 mcg capsule 112 mcg PO DAILY thyroid 10/23/19 12/23/22 clobetasol 0.05 % topical cream 1 applic topical BID Skin Condition 12/23/22 12/23/22 Previous Rx's Medication Instructions Recorded prednisone 20 mg tablet 40 mg (2 x 20 mg) PO BID 5 days 12/23/22 #20 tabs loperamide 2 mg capsule 2 mg PO Q6H PRN loose stool 5 days 02/12/23 #20 caps ondansetron 4 mg disintegrating 4 mg PO Q6H PRN nausea and 02/12/23 tablet vomiting 5 days #20 tabs ondansetron 4 mg disintegrating 4 mg PO Q6H PRN nausea and 02/14/23 tablet vomiting #10 tabs ibuprofen 600 mg tablet 600 mg PO Q6HP PRN Mild Pain #30 07/12/23 tabs Allergies Allergy/AdvReac Type Severity Reaction Status Date / Time No Known Allergies Allergy Verified 07/12/23 15:06 [facility] Disclaimer: The information contained in this section may have been updated after the patient was seen, as this information can be updated by other users. Medical History Encounter to [facility] Social History Smoking Status: Smoker, status unknown alcohol intake: never substance use type: denies use current occupational status: other Travel in the last 8 weeks: None ROS Obtained: Yes All systems reviewed & no additional complaints except as documented Constitutional Constitutional: Denies chills and Denies fever(s) Eyes Eyes: Denies eye discharge ENT Ears, Nose, Mouth, and Throat: Denies dizziness, Denies otalgia and Denies sore throat Cardiovascular Cardiovascular: Denies chest pain Respiratory Respiratory: Denies shortness of breath, Denies chest congestion, Denies cough, Denies stridor and Denies wheezing Gastrointestinal Gastrointestingal: Denies nausea or vomiting Musculoskeletal Musculoskeletal: Reports as per HPI Integumentary/Breasts Skin/Breast: Denies redness, Denies rash and Denies wounds Neurologic Neurologic: Denies dizziness and Denies paresthesias Allergic/Immunologic Allergic/Immunologic: Denies wheezing Physical Exam General General appearance: alert and in no apparent distress Head Head exam: atraumatic, normocephalic and normal inspection Eye Eye exam: Present normal appearance, PERRL and EOMI ENT ENT exam: Present normal exam, normal oropharynx, mucous membranes moist, TM's normal bilaterally and normal external ear exam Neck Neck exam: Present normal inspection, full ROM and trachea midline; Absent meningismus or lymphadenopathy Chest Chest inspection: Present normal inspection and symmetric chest wall rise; Absent tenderness Respiratory Respiratory exam: Present normal lung sounds bilaterally; Absent respiratory distress Cardiovascular Cardiovascular exam: Present regular rate and normal rhythm; Absent JVD Abdominal Exam Abdominal exam: Present soft and normal bowel sounds; Absent distention, tenderness or guarding Extremities Exam Extremities exam: Present normal capillary refill; Absent calf tenderness Expanded Lower Extremity Exam Right: Knee exam: Present normal inspection, full ROM and knee extension intact; Absent tenderness Lower leg exam: Present full ROM, tenderness and Achilles tendon intact; Absent swelling, abrasion, laceration, ecchymosis, deformity, crepitus, dislocation, erythema, palpable cord or Homans' sign Ankle exam: Present full ROM and tenderness; Absent swelling, abrasion, laceration, ecchymosis, deformity, crepitus, dislocation, erythema, tenderness over talofibular lig or anterior draw sign Foot/toe exam: Present full ROM, tenderness and swelling; Absent abrasion, laceration, ecchymosis, deformity, crepitus, dislocation, erythema, amputation, puncture wound, foreign body, calcaneal tenderness, tenderness at base of 5th metatarsal, nail avulsion or subungual hematoma Neurovascular/Tendon exam: Present normal capillary refill and normal 2- point discrimination; Absent pulse deficit, motor deficit, sensory deficit, tendon deficit, extremity cold to touch or pallor Gait: observed and limited by pain Back Exam Back exam: Present normal inspection; Absent tenderness Neurological Exam Neurological exam: Present alert and oriented X3 Psychiatric Psychiatric exam: Present normal affect and normal mood Skin Skin exam: Present warm, dry, intact and normal color Lymphatic Lymphatic Findings: no adenopathy Medical Decision Making Medical Records Medical records reviewed: No I reviewed the patient's medical records. Rex Inquiry Pt receiving controlled substance: No Orders (Tests/Meds): ORDERS Category Date Time Status Fibula/tibia XR right 2 views [XR tibia fibula RT 2V] Exams 07/12/23 14:55 Ordered Stat XR ankle RT min 3V Stat Exams 07/12/23 14:55 Ordered Radiology Data #1: Image(s): Ankle Image Reviewed: Yes I reviewed the patient's radiology image Preliminary Findings: No Fracture Seen #2: Image(s): Foot/Toes Image Reviewed: Yes I reviewed the patient's radiology image Preliminary Findings: No Fracture Seen Procedures Risk/Benefits of Procedure(s) Were Explained: Yes Orthopedic Splinting/Casting Injury #1: Side: right Lower Extremity Injury Location: lower leg, ankle and foot Lower Extremity Immobilizer: boot orthosis and applied by nurse/dr lucero Post Cast/Splinting Neuro Status: intact and no change Post Cast/Splinting Vasc Status: intact and no change
--- NOTE | 2023-07-12 15:18 | PC.NURSE ---
Pt back from RAD
[2023-07-12 16:05] VITALS: BP 120/71; PULSE 99; RESP 18; TEMP 36.6; O2SAT 97
== END 2023-07-12 16:05 | disposition home or self-care (01) ==
PROVIDERS: Emergency Provider Nurse Practitioner Family; PCP Internal Medicine
DX: S93.401A Sprain of unspecified ligament of right ankle, initial encounter (principal); S93.601A Unspecified sprain of right foot, initial encounter; F17.210 Nicotine dependence, cigarettes, uncomplicated; X50.1XXA Overexertion from prolonged static or awkward postures, initial encounter
CPT/HCPCS: 73590; 73610; 99212; 99214; G0463

== ENCOUNTER 2023-07-26 13:17 | Outpatient (CLI) | payer OTHER, SELFPAY ==
--- NOTE | 2023-07-26 13:27 | XR_ITS ---
FINAL REPORT CLINICAL HISTORY: foot pain..keeps giving out..fell on it 2 days ago COMPARISON: None FINDINGS: Three views of the right foot show no evidence of acute displaced fracture or dislocation of the visualized bony architecture. The joint spaces appear normal. IMPRESSION: Unremarkable exam. Reviewed, Interpreted and Dictated by Shana Branham MD Transcribed by Ara Thurston Authenticated and [facility]
== END 2023-07-26 23:59 | disposition home or self-care (01) ==
LOC: RAD 13:18
PROVIDERS: PCP Internal Medicine; Visit Provider Nurse Practitioner
DX: M79.671 Pain in right foot (principal); S93.601A Unspecified sprain of right foot, initial encounter
CPT/HCPCS: 73630

== ENCOUNTER 2023-08-15 17:35 | Emergency (ER) | payer OTHER, SELFPAY ==
[2023-08-15 17:36] VITALS: BP 138/86; PULSE 77; RESP 15; TEMP 37; O2SAT 97; BMI 36.8
--- NOTE | 2023-08-15 17:59 | XR_ITS ---
PROCEDURE INFORMATION: Exam: XR Right Ankle Exam date and time: 08/15/2023 6:31 PM Age: 23 years old Clinical indication: Pain; Ankle; Right; Additional info: Inversion injury, achilles injury TECHNIQUE: Imaging protocol: Radiologic exam of the right ankle. Views: 3 or more views. COMPARISON: CR XR ANKLE RT MIN 3V 07/12/2023 2:58 PM FINDINGS: Bones/joints: Normal. Soft tissues: Normal. IMPRESSION: No acute findings.
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
[2023-08-15] MEDS: ACETAMINOPHEN 500MG TAB 1000 MG PO (18:12)
[2023-08-15 18:19] LABS: Urine Pregnancy, HCG Qual. Negative (Negative)
[2023-08-15 19:28] VITALS: BP 128/75; PULSE 74; RESP 15; TEMP 36.7
== END 2023-08-15 19:29 | disposition home or self-care (01) ==
PROVIDERS: Emergency Provider Emergency Medicine; PCP Internal Medicine
DX: M79.671 Pain in right foot (principal); S99.911A Unspecified injury of right ankle, initial encounter; R22.41 Localized swelling, mass and lump, right lower limb; F17.210 Nicotine dependence, cigarettes, uncomplicated; X50.0XXA Overexertion from strenuous movement or load, initial encounter
CPT/HCPCS: 73610; 81025; 99283

== ENCOUNTER 2023-09-14 13:41 | Outpatient (CLI) | payer OTHER, SELFPAY ==
--- NOTE | 2023-09-14 13:47 | MR_ITS ---
FINAL REPORT TECHNIQUE: Multiplanar MRI without gadolinium enhancement CLINICAL HISTORY: LATERAL SIDED Rt Ankle AND HEEL PAIN. INSTABILITY IN ANKLE. COMPARISON: None FINDINGS: Articular cartilage: No focal osteochondral defect Marrow signal: Marrow edema in the lateral malleolus with suggestion of healing nondisplaced fracture. Joint fluid: Small Tendons: No evidence of tear Ligaments: Major ligaments unremarkable Plantar fascia: No evidence of tear or fasciitis. IMPRESSION: No evidence of ligamentous injury. Edema of the lateral malleolus with a questionable extremely subtle nondisplaced healing fracture. Reviewed, Interpreted and Dictated by Shana Branham MD Transcribed by Ara Thurston Authenticated and [facility]
== END 2023-09-14 23:59 | disposition home or self-care (01) ==
LOC: RAD 13:43
PROVIDERS: PCP Internal Medicine Adolescent Medicine; Visit Provider Orthopaedic Surgery
DX: M25.571 Pain in right ankle and joints of right foot (principal); S99.911A Unspecified injury of right ankle, initial encounter
CPT/HCPCS: 73721

== ENCOUNTER 2023-10-11 13:59 | Outpatient (CLI) | payer OTHER, SELFPAY ==
--- NOTE | 2023-10-11 14:12 | XR_ITS ---
FINAL REPORT CLINICAL HISTORY: SOB - smoker COMPARISON: 02/03/2021 FINDINGS: PA and lateral views of the chest were obtained. The cardiac and mediastinal silhouettes are within normal limits. The lungs are clear. There is no pleural effusion or pneumothorax. No acute osseous abnormality is identified. IMPRESSION: No radiographic evidence of acute cardiac or pulmonary disease. Reviewed, Interpreted and Dictated by Yazmin Banerjee MD Transcribed by Renee Cuba Authenticated and [facility]
[2023-10-11 14:29] LABS: Basophils # 0.1 K/mm3 (0-0.2); Basophils % 0.6 % (0.1-2.0); Eosinophils # 0.2 K/mm3 (0.0-0.4); Eosinophils % 1.8 % (0.1-12.0); Hematocrit 45.4 % (37.0-47.0); Hemoglobin 15.2 g/dL (12.2-16.2); Lymphocytes # 3.2 K/mm3 (0.7-4.5); Lymphocytes % 31.5 % (10-50); Mean Corpuscular HGB Conc 33.5 g/dL (31.8-35.4); Mean Corpuscular Hemoglobin 28.6 pg (27.0-31.2); Mean Corpuscular Volume 85.2 fl (81-99); Mean Platelet Volume 8.3 fl (7.4-10.4); Monocytes # 0.5 K/mm3 (0.1-1.0); Monocytes % 4.5 % (1.7-9.3); Neutrophils # 6.3 K/mm3 (1.8-7.8); Neutrophils % 61.6 % (37.0-80.0); Platelet Count 276 K/mm3 (142-424); Red Blood Count 5.33 M/mm3 (4.20-5.40); Red Cell Distribution Width 14.5 % (11.5-17.5); White Blood Count 10.3 K/mm3 (4.8-10.8)
[2023-10-11 14:31] LABS: Urine Pregnancy, HCG Qual. Negative (Negative)
[2023-10-11 14:40] LABS: Alanine Aminotransferase 28 U/L (12-78); Albumin Level 4.4 g/dl (3.5-5.0); Albumin/Globulin Ratio 1.4 (1.1-1.8); Alkaline Phosphatase 102 U/L (38-126); Anion Gap 12.2 mEq/L (5-15); Aspartate Amino Transferase 29 U/L (14-36); Bilirubin,Total 0.5 mg/dl (0.2-1.3); Blood Urea Nitrogen 15 mg/dl (7-17); Calcium 10.1 mg/dl (8.4-10.2); Carbon Dioxide 27 mmol/L (22.0-30.0); Chloride 105 mmol/L (98-107); Estimated Glomerular Filt Rate 106 ml/min (>60); GFR (African American) 128 ML/MIN (>60); Globulin 3.2 g/dL (1.3-3.2); Glucose 101 mg/dl (74-100); Potassium 4.2 mmoL/L (3.5-5.1); Sodium 140 mmol/L (136-145); Total Protein,Serum 7.6 g/dl (6.3-8.2)
--- NOTE | 2023-10-11 14:47 | ECG_ITS ---
APPROVED REPORT Exam: Resting ECG HR:82 bpm ECG Measurements Heart Rate 82 AXES KS 153 P 31 QRSd 73 QRS 45 QT 360 T 24 QTc 398 Conclusion SINUS RHYTHM NORMAL ECG UNCONFIRMED REPORT Electronically signed by : Yfn Orosco MD 10/12/2023 07:09:45
[2023-10-22 04:48] LABS: 1,25 Dihydroxy Vitamin D 43 pg/mL (.); 1,25-Dihydroxy, Vitamin D-2 <10 pg/mL (.); 1,25-Dihydroxy, Vitamin D-3 43 pg/mL (.)
== END 2023-10-11 23:59 | disposition home or self-care (01) ==
PROVIDERS: PCP Internal Medicine Adolescent Medicine; Visit Provider Podiatrist
DX: Z01.818 Encounter for other preprocedural examination (principal)
CPT/HCPCS: 36415; 71046; 80053; 81025; 82652; 85025; 93005

== ENCOUNTER 2023-10-11 23:03 | Emergency (ER) | payer OTHER, SELFPAY ==
[2023-10-11 23:04] VITALS: BP 125/88; PULSE 97; RESP 20; TEMP 36.9; O2SAT 99; BMI 36.7
--- NOTE | 2023-10-11 23:13 | XR_ITS ---
PROCEDURE INFORMATION: Exam: XR Right Hand Exam date and time: 10/11/2023 11:14 PM Age: 23 years old Clinical indication: Pain; Hand; Right; Additional info: Trauma TECHNIQUE: Imaging protocol: Radiologic exam of the right hand. Views: 3 or more views. Total images: 3 COMPARISON: CR XR HAND RT MIN 3V 04/09/2019 11:55 PM FINDINGS: Bones/joints: No acute fracture or joint dislocation. No concerning bone lesions or calcifications. Joint spaces are unremarkable. Soft tissues: Unremarkable soft tissues. IMPRESSION: Negative right hand.
--- NOTE | 2023-10-11 23:16 | XR_ITS ---
PROCEDURE INFORMATION: Exam: XR Right Wrist Exam date and time: 10/11/2023 11:14 PM Age: 23 years old Clinical indication: Pain; Wrist; Right TECHNIQUE: Imaging protocol: Radiologic exam of the right wrist. Views: 3 or more views. Total images: 3 COMPARISON: CR XR WRIST RT MIN 3V 10/11/2023 11:14 PM FINDINGS: Bones/joints: No acute fracture or joint dislocation. No concerning bone lesions or calcifications. Carpal alignment is well maintained. Joint spaces are appropriate for age. Soft tissues: Unremarkable soft tissues. IMPRESSION: Negative right wrist.
[2023-10-11] MEDS: IBUPROFEN 400 MG TABLET 800 MG PO (23:26)
[2023-10-11] MEDS: ACETAMINOPHEN 500MG TAB 1000 MG PO (23:26)
[2023-10-11 23:30] VITALS: BP 124/87; PULSE 95; O2SAT 99
--- NOTE | 2023-10-11 23:44 | ED_ITS ---
Discharge Plan Disposition Patient Disposition: Home, Self-Care Condition: Good Prescriptions Prescriptions: No Action levothyroxine 112 mcg capsule 112 mcg PO DAILY desmopressin 0.2 MG tablet 0.2 mg PO BID ibuprofen 600 mg tablet 600 mg PO Q6HP PRN (Reason: Mild Pain) Qty: 30 0RF Referrals Follow up/Referrals: Yfn Orosco MD [Primary Care Provider] - See instructions Activity Restrictions/Add. Instructions Additional Instructions/Restrictions: You were evaluated in the emergency department today. Your x-rays do not demonstrate any acute broken bones. Please take Tylenol and ibuprofen at home as needed for pain. Ice the area to reduce swelling. Follow-up with your primary care provider over the next week for reassessment. Return to the emergency department for new or worsening symptoms. Clinical Impressions Clinical Impression: Right wrist sprain, Contusion of hand, right Stand Alone Forms Stand Alone Forms: Work/School Release Instructions Patient Instructions: DI for Contusion, DI for Wrist Strain Discharge ED Provider: Stephanie Russell General Adult HPI General Chief complaint: Extremity Injury, Upper Stated complaint: AO07/16 RT hand inj Time Seen by Provider: 10/11/23 23:09 Mode of Arrival: Ambulatory Source of Information: Patient Limitations: No Limitations Description of Symptoms (Recalled from ER Triage Doc. by RN): 23 F presents from home after punching a wall because she was angry. Patient has obvious ecchymosis and swelling to the dorsal aspect of right hand. Patient unable to make a fist or flatten hand out. Pulse and sensation intact. History of Present Illness HPI narrative: This patient is a 23-year-old female presenting to the emergency department for evaluation with concern for right hand injury. Patient reports that approximately 30 minutes prior to arrival, she got angry and punched a wall. She has bruising and swelling to the dorsal aspect of her right hand. She has limited range of motion secondary to pain. No open wounds. No numbness, tingling, or other concerns. She was well prior to this. Related Data Home Medications Medication Instructions Recorded Confirmed desmopressin 0.2 mg tablet 0.2 mg PO BID Diabetes insipidus 05/18/17 10/10/23 levothyroxine 112 mcg capsule 112 mcg PO DAILY thyroid 10/23/19 10/10/23 Previous Rx's Medication Instructions Recorded ibuprofen 600 mg tablet 600 mg PO Q6HP PRN Mild Pain #30 07/12/23 tabs Allergies Allergy/AdvReac Type Severity Reaction Status Date / Time No Known Allergies Allergy Verified 10/10/23 14:21 [facility] Disclaimer: The information contained in this section may have been updated after the patient was seen, as this information can be updated by other users. Medical History Brain tumor (benign) Brain tumor Torn ligament Encounter to establish care Surgical History H/O brain surgery Social History Smoking Status: Current every day smoker alcohol intake: never substance use type: denies use current occupational status: other Travel in the last 8 weeks: None ROS Obtained: Yes All systems reviewed & no additional complaints except as documented Physical Exam General General appearance: alert and in no apparent distress Head Head exam: atraumatic and normocephalic Eye Eye exam: Present normal appearance, PERRL and EOMI ENT ENT exam: Present normal exam, normal oropharynx, mucous membranes moist and normal external ear exam Neck Neck exam: Present normal inspection, full ROM and trachea midline; Absent tenderness Chest Chest inspection: Present normal inspection and symmetric chest wall rise; Absent tenderness Respiratory Respiratory exam: Present normal lung sounds bilaterally; Absent respiratory distress, wheezes, stridor or accessory muscle use Cardiovascular Cardiovascular exam: Present regular rate and normal rhythm Abdominal Exam Abdominal exam: Present soft; Absent distention, tenderness or guarding Extremities Exam Extremities exam: Present tenderness (Bruising and tenderness to palpation of the dorsal aspect of the right hand, worse at the third and fourth metacarpals), normal capillary refill and other (Compartment soft, neurovascularly intact dis tally.); Absent full ROM (Limited range of motion of the right hand secondary to pain) or edema Back Exam Back exam: Present normal inspection and full ROM; Absent tenderness Neurological Exam Neurological exam: Present alert, oriented X3, CN II-XII intact and normal gait; Absent motor sensory deficit Psychiatric Psychiatric exam: Present normal affect and normal mood Skin Skin exam: Present warm and dry Medical Decision Making Medical Records Medical records reviewed: Yes I reviewed the patient's medical records. Rex Inquiry Pt receiving controlled substance: No Vital Signs: 10/11/23 23:04 10/11/23 23:30 Temperature 98.5 F Temperature Source Oral Pulse Rate 95 H Pulse Rate [Bilateral] 97 H Respiratory Rate 20 Blood Pressure 124/87 Blood Pressure [Right Arm] 125/88 Blood Pressure Mean 99 Blood Pressure Mean [Right Arm] 100 Blood Pressure Source [Right Arm] Automatic Cuff Blood Pressure Position [Right Arm] Sitting 02 Sat by Pulse Oximetry 99 99 Oxygen Delivery Method Room Air Room Air Lab Data Lab results reviewed: Yes I reviewed the patient's lab results. Orders (Tests/Meds): ED MEDICATIONS Discontinued Medications Generic Name Dose Route Start Last Admin Trade Name Freq PRN Reason Stop Dose Admin Acetaminophen 1,000 mg 10/11/23 23:16 10/11/23 23:26 Acetaminophen 500mg Tab PO 10/11/23 23:17 1,000 mg ONCE ONE Administration Ibuprofen 800 mg 10/11/23 23:16 10/11/23 23:26 Ibuprofen 400 Mg Tablet PO 10/11/23 23:17 800 mg ONCE ONE Administration ORDERS Category Date Time Status XR hand RT min 3V Stat Exams 10/11/23 23:13 Completed XR wrist RT min 3V Stat Exams 10/11/23 23:16 Completed Medical Decision Narrative: In summary, this patient is a 23-year-old female presenting to the Emergency Department for evaluation of pain and swelling to the dorsal aspect of the right hand after punching a wall. Differential diagnoses considered include but are not limited to fracture, contusion, strain/pain, neurovascular injury. Ruling out the most morbid conditions drove assessment. On exam, the patient is well-appearing. She is neurovascularly intact workup included to the right wrist and hand. She was given oral Tylenol and ibuprofen for pain. I independently interpreted x-ray prior to the radiologist read and noted no obvious fracture. Please see their read for final interpretation. Patient has no scaphoid tenderness, so patient was not splinted. She was given an Sherif wrap for compression and supportive management. At this time, she is deemed to be appropriate for discharge. Advised that she follow-up very closely outpatient for reassessment should her pain persist, as sometimes fractures can be missed on initial x-ray. She was given instructions for supportive management, strict return precautions, and she was discharged after all questions were answered. Critical Care Critical Care Time Critical Care Time: No
[2023-10-12 00:05] VITALS: BP 124/68; PULSE 80; RESP 16; TEMP 36.7; O2SAT 98
--- NOTE | 2023-10-12 00:06 | PC.NURSE ---
pt requested a velcro wrist splint instead of love wrap, [employer] ARCHITECT applied and pms intact post application
== END 2023-10-12 00:07 | disposition home or self-care (01) ==
PROVIDERS: Emergency Provider Emergency Medicine; PCP Internal Medicine Adolescent Medicine
DX: S63.501A Unspecified sprain of right wrist, initial encounter (principal); S60.221A Contusion of right hand, initial encounter; F17.210 Nicotine dependence, cigarettes, uncomplicated; W22.8XXA Striking against or struck by other objects, initial encounter
CPT/HCPCS: 73110; 73130; 99283

== ENCOUNTER 2023-10-18 14:11 | Emergency (ER) | payer OTHER, SELFPAY ==
[2023-10-18 14:40] VITALS: BP 120/78; PULSE 87; RESP 20; TEMP 36.5; O2SAT 98; BMI 36.7
--- NOTE | 2023-10-18 14:42 | EXP.UTC ---
Discharge Plan Disposition Patient Disposition: Home, Self-Care Condition: Good Prescriptions Prescriptions: New ondansetron 4 mg Tablet,Disintegrating 4 mg PO Q8H PRN (Reason: Nausea) Qty: 12 0RF triamcinolone acetonide 0.1 % cream 1 applic topical BID PRN (Reason: itching) Qty: 30 0RF No Action desmopressin 0.2 mg tablet 0.2 mg PO DAILY norethindrone-e.estradiol-iron [[place] 04/16 ()] 1 mg-20 mcg (21)/75 mg (7) tablet 1 tab PO DAILY levothyroxine 125 mcg tablet 125 mcg PO DAILY Referrals Follow up/Referrals: Yfn Orosco MD [Primary Care Provider] - See instructions Activity Restrictions/Add. Instructions Additional Instructions/Restrictions: Drink plenty of fluids. Water or a sports electrolyte drink (like gatorade) would be best. Take tylenol or ibuprofen for pain or fever. Take the medications as directed. Follow up with your regular doctor. GO TO THE ER FOR ANY WORSENING SYMPTOMS Apply the topical steroid cream to the affected area of your right arm as directed. Clinical Impressions Clinical Impression: Gastroenteritis, Insect bite of arm, right Stand Alone Forms Stand Alone Forms: Work/School Release Instructions Patient Instructions: Viral Gastroenteritis, DI for Viral Gastroenteritis -- Adult, Ondansetron Discharge ED Provider: Soto Frost [facility] General Stated complaint: n/v/d Time Seen by Provider: 10/18/23 14:42 History of Present Illness Provider Complaint: She states that she has had n/v/d since early this morning. She denies any abdominal pain. She is also having redness and itching of an area on her right upper arm. Related Data Home Medications Medication Instructions Recorded Confirmed desmopressin 0.2 mg tablet 0.2 mg PO DAILY 10/18/23 10/18/23 levothyroxine 125 mcg tablet 125 mcg PO DAILY 10/18/23 10/18/23 norethindrone 1 mg-ethinyl 1 tab PO DAILY 10/18/23 10/18/23 estradiol 20 mcg (21)-iron 75 mg (7) tablet ([place] 04/16 ()) Previous Rx's Medication Instructions Recorded ondansetron 4 mg disintegrating 4 mg PO Q8H PRN Nausea #12 tabs 07/23/24 tablet triamcinolone acetonide 0.1 % 1 applic topical BID PRN itching 10/18/23 topical cream #30 grams Allergies Allergy/AdvReac Type Severity Reaction Status Date / Time No Known Allergies Allergy Verified 10/10/23 14:21 [facility] Disclaimer: The information contained in this section may have been updated after the patient was seen, as this information can be updated by other users. Medical History Brain tumor (benign) Brain tumor Torn ligament Encounter to establish care Surgical History H/O brain surgery Social History Smoking Status: Current every day smoker alcohol intake: never substance use type: denies use current occupational status: other Travel in the last 8 weeks: None ROS Obtained: Yes All systems reviewed & no additional complaints except as documented Constitutional Constitutional: Denies chills, Denies fever(s) and Reports poor appetite ENT Ears, Nose, Mouth, and Throat: Denies dizziness and Denies sore throat Cardiovascular Cardiovascular: Denies dyspnea Respiratory Respiratory: Denies chest congestion, Denies cough and Denies dyspnea Gastrointestinal Gastrointestingal: Reports as per HPI and abdominal pain Genitourinary Female Genitourinary: Denies difficulty voiding, Denies dysuria, Denies hematuria, Denies urinary frequency, Denies urinary incontinence, Denies urinary hesitancy and Denies urinary urgency Musculoskeletal Musculoskeletal: Denies arthralgias Integumentary/Breasts Skin/Breast: Denies rash Neurologic Neurologic: Denies dizziness Physical Exam General General appearance: alert and in no apparent distress Head Head exam: atraumatic and normocephalic Eye Eye exam: Present normal appearance, PERRL and EOMI ENT ENT exam: Present normal exam, normal oropharynx, mucous membranes moist, TM's normal bilaterally and normal external ear exam Neck Neck exam: Present normal inspection, full ROM and trachea midline; Absent tenderness, meningismus or lymphadenopathy Chest Chest inspection: Present normal inspection and symmetric chest wall rise; Absent tenderness, rash or abscess Respiratory Respiratory exam: Present normal lung sounds bilaterally; Absent respiratory distress, wheezes or stridor Cardiovascular Cardiovascular exam: Present regular rate and normal rhythm; Absent irregular rhythm, systolic murmur, diastolic murmur or JVD Abdominal Exam Abdominal exam: Present soft and hyperactive bowel sounds; Absent distention, tenderness, guarding, rebound, rigidity, psoas sign, obturator sign, heel tap sign, Tavarez's sign, Rovsing's sign or tenderness at McBurney's Point Extremities Exam Extremities exam: Present normal inspection and full ROM; Absent tenderness Back Exam Back exam: Present normal inspection and full ROM; Absent tenderness, CVA tenderness (R) or CVA tenderness (L) Neurological Exam Neurological exam: Present alert, oriented X3 and CN II-XII intact Psychiatric Psychiatric exam: Present normal affect and normal mood Skin Skin exam: Present warm, dry, intact and normal color Lymphatic Lymphatic Findings: no adenopathy Medical Decision Making Medical Records Medical records reviewed: No I reviewed the patient's medical records. Rex Inquiry Pt receiving controlled substance: No
[2023-10-18] MEDS: PROMETHAZINE HCL 25MG/ML 1ML VIAL 25 MG IM (15:07)
[2023-10-18 15:17] VITALS: BP 120/78; PULSE 87; RESP 20; TEMP 36.5; O2SAT 98
== END 2023-10-18 15:25 | disposition home or self-care (01) ==
PROVIDERS: Emergency Provider Nurse Practitioner Family; PCP Internal Medicine Adolescent Medicine
DX: K52.9 Noninfective gastroenteritis and colitis, unspecified (principal); R11.2 Nausea with vomiting, unspecified; S40.861A Insect bite (nonvenomous) of right upper arm, initial encounter; W57.XXXA Bitten or stung by nonvenomous insect and other nonvenomous arthropods, initial encounter
CPT/HCPCS: 96372; 99212; 99214; G0463; J2550

== ENCOUNTER 2023-11-16 07:54 | Day surgery (SDC) | payer OTHER, SELFPAY ==
--- NOTE | 2023-11-14 11:37 | SUR.PREOP ---
attempted to call patient twice with no voicemail set up to leave a message. will try again later or again tomorrow
[2023-11-15 12:43] VITALS: BMI 40.2
[2023-11-16] VITALS (9 sets, daily range): BP systolic 107–163; BP diastolic 66–105; PULSE 86–112; RESP 15–21; TEMP 36.1–36.6; O2SAT 95–100
[2023-11-16] MEDS: LACTATED RINGERS 1000ML 1,000 ML 25 ML IV (08:32)
--- NOTE | 2023-11-16 08:39 | EXP.ANES.CKL ---
[facility] Disclaimer: The information contained in this section may have been updated after the patient was seen, as this information can be updated by other users. Medical History (Updated 11/16/23 @ 08:31 by Yaneli Chen RN) Hypothyroid Insect bite of arm, right Gastroenteritis Brain tumor (benign) Brain tumor Torn ligament Encounter to establish care Surgical History H/O brain surgery Family History Other No significant family history Social History (Updated 11/16/23 @ 08:31 by Yaneli Chen RN) Smoking Status: Current every day smoker alcohol intake: never substance use type: denies use current occupational status: unemployed Travel in the last 8 weeks: None [facility] Anesthesia Checklist Patient Identification Patient Identification: Arm Band, Family and Verbal (Name & ) Structural Data Admitted From: Home Planned Operative Procedure/s: RT. ORFI Tib/Fib w/ankle stabilization Consent for Planned Operative Procedure(s) Verified: Yes Verified Documents: Surgical Consent and History and Physical NPO Status Verified Time NPO: 23:00 Chart Verification Results Verified: CBC, BMP, ECG, Chest Xray and HCG Additional verifications Patient : No Anesthesia Reactions: No Hx Blood Transfusions: Yes Blood Transfusion Reaction: No Cardiovascular Assessment Heart Sounds: S1 & S2 Pulse Rhythm: Irregular Peripheral Edema: No Airway Assessment Mallampati Score:: Class II C-Spine Mobility Assessed: Yes (FROM) TMJ Mobility Assessed: Yes Dentition: Good Dentition (Nothing loose per pt.) Neurological Assessment Level of Consciousness: Awake, Alert, Appropriate and Follows Commands Hx Seizures: No Numbness or tingling in extremities: No Anesthesia Plan Anesthesia Risk discussed: Yes Anesthesia Plan: Verified ASA Class: III Anesthesia Type: General Preoperative Comments Pre-Operative Comments: Extensively explained R/B/A of popliteal/adductor canal block for post-op pain control w/pt./mother/boyfriend. Pt declines to accept peripheral nerve block.
[2023-11-16 08:48] LABS: HCG Qualitative, Serum Negative (Negative)
[2023-11-16] MEDS: CEFAZOLIN SODIUM 2 GM in 0.9 % SODIUM CHLORIDE 100 ML IV (10:05)
--- NOTE | 2023-11-16 11:10 | XR_ITS ---
FINAL REPORT CLINICAL HISTORY: ANKLE ORIF .37 mgy 0.09 fluoro time FINDINGS: FLUOROSCOPY LESS THAN 1 HOUR HISTORY: Fluoroscopy guidance. FINDINGS: Fluoroscopic guidance was provided for right ankle ORIF. A single spot film was obtained. A total of 0.09 minutes of fluoroscopy time were used. DAP: 0.37 mGy IMPRESSION: As above. Reviewed, Interpreted and Dictated by Salinas Lindsey MD Transcribed by Ara Thurston Authenticated and [facility]
--- NOTE | 2023-11-16 11:15 | XR_ITS ---
FINAL REPORT CLINICAL HISTORY: Postop ankle stab COMPARISON: 08/15/2023 FINDINGS: RIGHT ANKLE 3 views of the right ankle were obtained. There is no acute fracture or dislocation. There is some high density lateral to the lateral malleolus. Overlying skin gina are noted. There is subcutaneous emphysema consistent with recent surgery. The mortise is intact. IMPRESSION: Postoperative changes overlying the lateral malleolus as described. Reviewed, Interpreted and Dictated by Salinas Lindsey MD Transcribed by Ara Thurston Authenticated and [facility]
--- NOTE | 2023-11-16 11:37 | P.PNANES_ITS ---
[facility] Anesthesia Record Part I Anesthesia Record I Intake, IV Amount: 1,900 Hydration: Adequate Estimated blood loss (mL): 0 Urine output (mL): 0 Blood Pressure: 107/86 SaO2: 97 Pulse Rate: 110 Airway Patency: Patent Respiratory Rate: 16 Temperature: 97.5 F Patient is:: Awake and Stable Stable to PACU at:: 11:35
[2023-11-16] MEDS: MORPHINE 2MG/ML SYRINGE 2 MG IV (11:49)
--- NOTE | 2023-11-16 12:05 | SUR.PHASEI ---
1150 - Laina Avalos CRNA notified of pt c/o pain. Pt received nerve block in pre-op, currently reporting pain to be a 10/10 in her right ankle. 1156 - Laina Avalos CRNA at bedside. Time out performed at 1159 for popliteal block by this nurse. Popliteal nerve block performed by Laina Avalos CRNA. Times [phone] Pt tolerated procedure and reports improvement in pain.
--- NOTE | 2023-11-16 12:05 | EXP.OP.NOTE ---
Date of procedure: 11/16/23 Pre-op Diagnosis:: Right ankle instability Right peroneal tendinitis Right ankle pain Right nondisplaced distal fibula fracture Post-op Diagnosis:: Same Procedure performed:: Right modified Brostr?m ankle ligament stabilization (ATFL, CFL) Peroneus brevis tendon debridement and repair Peroneus longus tenosynovectomyv Bone graft distal fibular fracture Right ankle synovectomy Surgeon:: Hailey Rai DPM BREWERY REPRESENTATIVE:: Juliocesar Avalos Anesthesia: GETA and regional (RLE nerve block) Estimated blood loss (mL): 20 Operative findings:: Right ankle instability noted. Attenuation of ATFL and CFL. ATFL tear noted. Tenosynovitis of the peroneus longus. Tenosynovitis with a 2 cm split tear of the peroneus brevis at the level of the distal fibula. The distal fibula fracture visible on MRI appeared to be healed on intraoperative x-ray and when looking directly at the bone. When putting in the distal fibula anchor to reattach the ATFL, the distal fibula bone was soft and crumbly. Bone graft was inserted at the level of the distal fibula to strengthen and harden the bone. Bone graft was checked on intraoperative fluoroscopy and no bone graft extended into the ankle joint. Post bone hardening and post soft tissue repair, range of motion was smooth without crepitus and there was a negative anterior drawer. Operative note:: On this date and time patient was deemed an appropriate surgical candidate. Pre-op regional nerve block performed by anesthesia. With informed consent signed, the patient was taken to the operating theater. The patient was positioned supine. General anesthesia was induced. Tourniquet was applied to the right thigh. The lower extremity was prepped and draped in normal sterile fashion. IV Ancef given. Right modified Brostr?m lateral ankle ligament stabilization: Attention was directed to the lateral ankle where intra-op fluoroscopy was utilized to una anatomical landmarks. A linear incision was made distal to the lateral ankle and extending over the distal fibula. Dissection was carried thru skin and subcutaneous tissue with care taken to maintain surgical hemostasis and safely retract neurovascular structures. Dissection was then carried thru deep fascia to bone. The peroneal tendons were visible and safely retracted. ATFL and CFL was noted to be torn. The ATFL was noted to be attenuated with thick fibrous scar tissue. The tendons were sharply debrided and a 3.5 mm anchor was inserted in standard technique. A 4.5 mm anchor was inserted into the lateral talus to use as an internal brace. When inserted into the distal fibula the bone was soft and cracked at the area of the previous distal fibula fracture site. Right ankle bone graft: The patient was initially consented for ORIF but given that the fracture was healed on x-ray and was not visible clinically, it was decided not to do that procedure. When the anchor was inserted and the bone was noted to be soft decision was made to debride the distal part of the fibula and pack synthetic bone graft into the defect. No internal fixation was utilized. Utilizing intraoperative fluoroscopy the ankle joint was taken through range of motion. There was reduction of talar tilt and negative anterior ankle drawer. Despite the bone being soft and cracking, the 2 bone anchors were intact and felt intact once the bone graft had hardened. 2-0 Vicryl was used to re-enforce the extensor retinaculum into the repair. The wound was flushed with copious amounts of normal sterile saline. Right peroneus longus tenosynovectomy, peroneus brevis debridement and repair: There was synovitis noted around the peroneal tendons. There was a low-lying muscle belly noted to the brevis tendon. It was sharply debrided. The longus was intact with no obvious tear noted. The brevis had a longitudinal split tear inferior to the lateral malleolus. Tendon tear and flattened tissue was sharply debrided. A piece of the tendon was sent as a specimen. Utilizing 4-0 Vicryl the tendon was re-tubularized in a running locking baseball fashion. Wounds were flushed. Right ankle synovectomy: The ankle joint was visualized and there was scar tissue and synovitis noted in the ankle joint. Synovitic fluid was expressed. Using 15 blade the synovitic tissue was sharply debrided. The ankle joint was flushed with copious amounts of normal sterile saline. Talus was identified and there was a small scuff noted medially but no definitive fracture or deep defect noted to the medial dome. The wound was flushed with copious amounts of normal sterile saline. Vicryl was then utilized to reapproximate the deep issue and subcutaneous layer in a running fashion. 2-0 Nylon and skin gina used to reapproximate the skin. The tourniquet was deflated at 100 minutes and immediate hyperemic response was noted to the digits. The wounds were cleansed. Xeroform, dry sterile dressing was then applied. The patient was awoken from anesthesia and transferred to recovery with vital signs stable and neurovascular status intact. She appeared to tolerate procedure and anesthesia well without complication. Materials: Paracus 3.5mm bone anchorx2, 4.5mm knotless anchor (internal brace), [employer] Prodense x1 (10cc) Discharge/Plan: Patient is to maintain splint clean dry and intact. Polar pack/ice behind the knee and elevate on foam ramp or two pillows. Non weight bearing with crutches and RKS. Obtain post op films, 3 views right ankle. Follow up in one week. Tourniquet time (min): 100 Condition: stable Disposition: same day Specimens:: Right peroneal tendon Complications:: None
--- NOTE | 2023-11-17 10:48 | EXP.ANES.II ---
[facility] Anesthesia Record Part II Anesthesia Record Part II Discharge Time: 11:55 Destination: Surgical Day Care (OP Surgery) PACU nurse assessment reviewed?: Yes Patient Condition:: Good Anesthesia Complications:: None Swallowing reflex intact?: Yes Airway Patency: Patent Cyanosis?: No Blood Pressure: 163/105 SaO2: 98 Respiratory Rate: 21 Pulse Rate: 98 Temperature: 97.8 F Mental Status: Alert & Oriented Pain level:: 10 Nausea and/or vomitting:: None Intake, IV Amount: 0 Hydration: Adequate
[2023-11-17 10:49] VITALS: BP 163/105; PULSE 98; RESP 21; TEMP 36.6; O2SAT 98
== END 2023-11-16 12:40 | disposition home or self-care (01) ==
PROVIDERS: Visit Provider Podiatrist
PROC: (CPT 27828; principal; 2023-11-16 09:15)
PROC: (CPT 27626; 2023-11-16 09:15)
DX: M25.371 Other instability, right ankle (principal); F17.210 Nicotine dependence, cigarettes, uncomplicated; Z79.899 Other long term (current) drug therapy; S86.311A Strain of muscle(s) and tendon(s) of peroneal muscle group at lower leg level, right leg, initial encounter; S82.831K Other fracture of upper and lower end of right fibula, subsequent encounter for closed fracture with nonunion; M76.71 Peroneal tendinitis, right leg
CPT/HCPCS: 27626; 27658; 27696; 28120; 73600; 73610; 76000; 84703; 96374; C1602; C1713; J0690; J1100; J2250; J2270; J2405; J3010; J7120

== ENCOUNTER 2023-12-22 12:30 | Outpatient (CLI) | payer OTHER, SELFPAY | END 2023-12-22 23:59 | disposition home or self-care (01) | LOC: LAB.DROPOF 12-23 14:44 | PROVIDERS: PCP Podiatrist; Visit Provider Podiatrist | DX: Z51.89 Encounter for other specified aftercare (principal) | CPT/HCPCS: 87070; 87077; 87186; 87205 ==

== ENCOUNTER 2023-12-27 11:17 | Outpatient (RCR) | payer OTHER, SELFPAY ==
--- NOTE | 2023-12-27 11:54 | HMH.PTOPWND ---
Rehab Outpt Wound Evaluation Rehab OP Wound Evaluation Start: 12/27/23 11:22 Freq: Status: Active Protocol: Document 12/27/23 11:47 PHOALYSHA (Rec: 12/27/23 11:54 PHORWILBUR [id number]) E-signed By Ric Salmeron, PT Subjective/History History History This is the initial PT eval for Nubia Tate, 23 yowf who presents with R lateral foot wound after complications with post-surgical healing. Pt presents S/P L lateral ankle tendon repair ~ 6 wks ago. She reports she was healing well until she, fell through a porch and suffered resulting wound dehiscence. She is continuing to take her prescribed oral abx and using appropriate dressings currently. She reports no pain at this time. PMH of 2 prior brain tumor removals as a child. Subjective Subjective No pain or TTP noted at this time. New diagnosis of cancer in past 12 No months? Wound Eval Wound Right Lateral Foot Wound Type Incision Is This a Chronic Wound Yes Wound Length (cm) 1.0 Wound Width (cm) 1.0 Wound Depth (cm) 0.1 Wound Bed Appearance Beefy Red,[place] Percentage Granulated (%) 100 Wound Margins Description Well Defined Tunneling Position 1 o'clock Tunneling Depth (cm) 1.1 Drainage Description Serosanguineous Drainage Amount Small Wound Topical Solution/Irrigant Saline Irrigant Primary Dressing Silver Dressing Comment opticell Ag Wound Secondary Dressing Type Composite Comment optifoam gentle border lite Wound Debridement Method Gauze,Mechanical Wound Debridement Amount of Tissue Minimal Removed Dressing Change Patient Tolerance Tolerated Well Wound Problems/Impairments Impairments Problems/Impairmments Impaired Walking,Impaired Stair Climbing,Increased Edema ,Wound Care Needs,Impaired Self Care/Self Management Prognosis Rehab Potential Good Comment Skilled therapy is indicated to reduce overall wound surface area and return pt to PLOF. Clinical Impression Consistent with Diagnosis Yes Short Term Goals Number of Weeks 2 Decrease Wound Area Yes: by 25% Fci Goals Number of Weeks 4 Decrease Wound Area Yes: by 75% Decrease Drainage Yes: by 75% Outpatient Therapy Plan of Care Treatment Plan May Include Therapeutic Exercise Including Home Yes Exercise Program Manual Therapy Techniques Yes Neuromuscular Re-education Yes Therapeutic Activities to Return to Yes Previous Functional/Work Level ADL/Self Care Education Yes Orthotics/Bracing/Splinting Yes Manual Lymphatic Drainage Yes Wound Care Yes Eval/Re-Eval Yes Frequency Times per week 1-2 Duration Number of Weeks 4 Addendums This patient is a candidate for social No or vocational rehab? Patient/Guardian verbally acknowledges Yes understanding of treatment program and consents to further treatment? Patient/Guardian verbally acknowledges Yes understanding of diagnosis, prognosis and goals for treatment? Eval Complexity PT Charges 67313 - High Complexity PHYSICIAN CERTIFICATION: I certify the specified therapy services for Nubia Tate are required, authorized, and reviewed every 30 days.
== END 2023-12-27 11:20 | disposition home or self-care (01) ==
LOC: PT 11:17
PROVIDERS: Visit Provider Podiatrist
DX: Z98.890 Other specified postprocedural states (principal); T81.89XA Other complications of procedures, not elsewhere classified, initial encounter
CPT/HCPCS: 97163

== ENCOUNTER 2024-01-04 09:31 | Outpatient (CLI) | payer OTHER, SELFPAY | END 2024-01-04 23:59 | disposition home or self-care (01) | LOC: LAB.DROPOF 01-05 09:32 | PROVIDERS: Visit Provider Podiatrist | DX: S91.001D Unspecified open wound, right ankle, subsequent encounter; T81.31XS Disruption of external operation (surgical) wound, not elsewhere classified, sequela | CPT/HCPCS: 87070; 87205 ==

== ENCOUNTER 2024-01-17 19:41 | Emergency (ER) | payer OTHER, SELFPAY ==
[2024-01-17 19:42] VITALS: BP 120/97; PULSE 91; RESP 20; TEMP 36.8; O2SAT 97; BMI 37.8
--- NOTE | 2024-01-17 19:49 | HMH.EDGENADL ---
Discharge Plan Disposition Patient Disposition: Home, Self-Care Condition: Good Prescriptions Prescriptions: No Action mupirocin 2 % ointment 1 applic topical BID 21 Days Qty: 22 1RF Rx Instructions: Apply to affected area up to twice daily ibuprofen 800 mg tablet 800 mg PO BID PRN (Reason: pain) 30 Days Qty: 60 2RF desmopressin 0.2 mg tablet 0.2 mg PO DAILY levothyroxine 125 mcg tablet 125 mcg PO DAILY Referrals Follow up/Referrals: Beverly Wallace DO [Staff Physician] - See instructions Provider,Referral, [Primary Care Provider] - See instructions Activity Restrictions/Add. Instructions Additional Instructions/Restrictions: Please call in the morning to establish an appointment with [facility]. Follow-up with your PCP for any new or worsening symptoms or return to the ER as needed. Clinical Impressions Clinical Impression: Vaginal bleeding Print Language Print Language: Lao Discharge ED Provider: Ori Gonzalez General Adult HPI <SAMAN England - Last Filed: 01/17/24 21:24> General Chief complaint: Vaginal Bleeding Stated complaint: vaginal bleeding Time Seen by Provider: 01/17/24 19:49 History of Present Illness HPI narrative: Patient presents for evaluation of vaginal bleeding. Patient states that she took a test and November that was positive. However since 01/09/2024 patient reports vaginal bleeding with some cramping. She does not have an [facility]. And the last 2 days patient is going through a box of tampons. She denies any fever chills hemoptysis hematochezia melena hematemesis. Patient does have a history of pituitary tumor status post resection is on DDAVP and control pills as a result. Related Data Home Medications ?Medication ?Instructions ?Recorded ?Confirmed desmopressin 0.2 mg tablet 0.2 mg PO DAILY 10/18/23 01/04/24 levothyroxine 125 mcg tablet 125 mcg PO DAILY 10/18/23 01/04/24 Previous Rx's ?Medication ?Instructions ?Recorded mupirocin 2 % topical ointment 1 applic topical BID cellulitis 3 12/22/23 weeks #22 grams ibuprofen 800 mg tablet 800 mg PO BID PRN pain 30 days #60 01/12/24 tabs Allergies Allergy/AdvReac Type Severity Reaction Status Date / Time No Known Allergies Allergy Verified 01/12/24 10:21 [facility] <SAMAN England - Last Filed: 01/17/24 21:24> [facility] Disclaimer: The information contained in this section may have been updated after the patient was seen, as this information can be updated by other users. Medical History Hypothyroid Insect bite of arm, right Gastroenteritis Brain tumor (benign) 2019 Brain tumor 2009, malignant Torn ligament right ankle Encounter to establish care Surgical History H/O brain surgery malignant tumor removed 06/21/18 Family History Other No significant family history Social History Smoking Status: Never smoker alcohol intake: never substance use type: denies use current occupational status: unemployed Travel in the last 8 weeks: None Other Medical History Have you received the Flu Vaccine for this season: Yes Have you received the Pneumonia Vaccine: Yes <SAMAN England - Last Filed: 01/17/24 21:24> ROS Obtained: Yes Systems reviewed as appropriate & no additional complaints except as documented Physical Exam <SAMAN England - Last Filed: 01/17/24 21:24> General General appearance: alert and in no apparent distress Respiratory Respiratory exam: Present normal lung sounds bilaterally Cardiovascular Cardiovascular exam: Present regular rate Neurological Exam Neurological exam: Present alert and oriented X3 Medical Decision Making <SAMAN England - Last Filed: 01/17/24 21:24> Medical Records Medical records reviewed: Yes I reviewed the patient's medical records. Screening: Per USPSTF and CDC recommendations, given the prevalence of disease in our region, it is our hospital?s policy to screen for HIV and viral Hepatitis for all patients aged 18 and over and those with ongoing risk factors. Rex Inquiry Pt receiving controlled substance: No Vital Signs: 01/17/24 19:42 01/17/24 20:47 01/17/24 21:35 Temperature 98.2 F 98.2 F Temperature Source Oral Pulse Rate 85 80 Pulse Rate [Right Radial] 91 H Respiratory Rate 20 18 Blood Pressure 119/89 132/79 Blood Pressure [Right Arm] 120/97 H Blood Pressure Mean [Right Arm] 104 02 Sat by Pulse Oximetry 97 98 Oxygen Delivery Method Room Air Room Air Lab Data Lab results reviewed: Yes I reviewed the patient's lab results. Lab Results 01/17/24 20:00: Urine Color Yellow, Urine Appearance Clear, Urine pH 6.0, Ur Specific [place] 1.025, Urine Protein Negative, Urine Glucose (UA) Negative, Urine Ketones Negative, Urine Blood 2+ A, Urine Nitrate Negative, Urine Bilirubin Negative, Urine Urobilinogen 0.2, Ur Leukocyte Esterase Negative, Urine RBC Occasional, Urine WBC Occasional, Ur Squamous Epith Cells Occasional, Urine Bacteria 1+, Urine HCG, Qual Negative 01/17/24 20:15: WBC 9.0, RBC 5.00, Hgb 14.1, Hct 42.0, MCV 83.9, MCH 28.1, MCHC 33.5, RDW 14.3, Plt Count 253, MPV 8.7, Neut % (Auto) 59.5, Lymph % (Auto) 32.4, [place] % (Auto) 5.0, Eos % (Auto) 2.3, Baso % (Auto) 0.8, Neut # (Auto) 5.4, Lymph # (Auto) 2.9, [place] # (Auto) 0.5, Eos # (Auto) 0.2, Baso # (Auto) 0.1, Sodium 138, Potassium 4.1, Chloride 105, Carbon Dioxide 26, Anion Gap 11.1, BUN 14, Creatinine 0.70, Estimated Creat Clear 200, Estimated GFR 106, Est GFR ( Amer) 128, Glucose 99, Calcium 9.7, HCG, Quant < 2 01/17/24 20:15 01/17/24 20:15 Orders (Tests/Meds): ORDERS Category Date Time Status BMP [Basic Metabolic Panel] Stat Lab 01/17/24 20:15 Completed CBC w/Auto Diff [Complete Blood Count Auto Diff] Stat Lab 01/17/24 20:15 Completed HCG,Quantitative Stat Lab 01/17/24 20:15 Completed UA [Urinalysis and Microscopic] Stat Lab 01/17/24 20:00 Completed Urine , HCG Qual. Stat Lab 01/17/24 20:00 Completed Medical Decision Narrative: In summary patient is a 23-year-old female who presents to the emergency department for evaluation of vaginal bleeding. Patient is hemodynamically stable upon arrival, afebrile. Physical exam is remarkable for diffuse mild abdominal tenderness to palpation but normal bowel sounds no rebound or guarding or rigidity.. Differential diagnosis includes dysfunctional uterine bleeding versus miscarriage. Initial workup will be conducted with hematologic labs urinalysis. Initial interventions were considered however given vaginal bleeding and possible miscarriage are deferred for now. Initial workup reviewed by me shows that her urine is negative urinalysis itself shows 2+ blood and microscopic exam shows occasional red blood cells occasional white blood cells occasional epithelial cells and 1+ bacteria and her hematologic labs are nonactionable beta-hCG serum is less than 2. Given this patient is referred to [facility] for ongoing follow-up and care. <Ori Gonzalez MD - Last Filed: 01/18/24 15:46> Vital Signs: 01/17/24 19:42 01/17/24 20:47 01/17/24 21:35 Temperature 98.2 F 98.2 F Temperature Source Oral Pulse Rate 85 80 Pulse Rate [Right Radial] 91 H Respiratory Rate 20 18 Blood Pressure 119/89 132/79 Blood Pressure [Right Arm] 120/97 H Blood Pressure Mean [Right Arm] 104 02 Sat by Pulse Oximetry 97 98 Oxygen Delivery Method Room Air Room Air Lab Data Lab Results 01/17/24 20:00: Urine Color Yellow, Urine Appearance Clear, Urine pH 6.0, Ur Specific [place] 1.025, Urine Protein Negative, Urine Glucose (UA) Negative, Urine Ketones Negative, Urine Blood 2+ A, Urine Nitrate Negative, Urine Bilirubin Negative, Urine Urobilinogen 0.2, Ur Leukocyte Esterase Negative, Urine RBC Occasional, Urine WBC Occasional, Ur Squamous Epith Cells Occasional, Urine Bacteria 1+, Urine HCG, Qual Negative 01/17/24 20:15: WBC 9.0, RBC 5.00, Hgb 14.1, Hct 42.0, MCV 83.9, MCH 28.1, MCHC 33.5, RDW 14.3, Plt Count 253, MPV 8.7, Neut % (Auto) 59.5, Lymph % (Auto) 32.4, [place] % (Auto) 5.0, Eos % (Auto) 2.3, Baso % (Auto) 0.8, Neut # (Auto) 5.4, Lymph # (Auto) 2.9, [place] # (Auto) 0.5, Eos # (Auto) 0.2, Baso # (Auto) 0.1, Sodium 138, Potassium 4.1, Chloride 105, Carbon Dioxide 26, Anion Gap 11.1, BUN 14, Creatinine 0.70, Estimated Creat Clear 200, Estimated GFR 106, Est GFR ( Amer) 128, Glucose 99, Calcium 9.7, HCG, Quant < 2 Orders (Tests/Meds): ORDERS Category Date Time Status BMP [Basic Metabolic Panel] Stat Lab 01/17/24 20:15 Completed CBC w/Auto Diff [Complete Blood Count Auto Diff] Stat Lab 01/17/24 20:15 Completed HCG,Quantitative Stat Lab 01/17/24 20:15 Completed UA [Urinalysis and Microscopic] Stat Lab 01/17/24 20:00 Completed Urine , HCG Qual. Stat Lab 01/17/24 20:00 Completed Medical Decision Narrative: In summary patient is a 23-year-old female who presents to the emergency department for evaluation of vaginal bleeding. Patient is hemodynamically stable upon arrival, afebrile. Physical exam is remarkable for diffuse mild abdominal tenderness to palpation but normal bowel sounds no rebound or guarding or rigidity.. Differential diagnosis includes dysfunctional uterine bleeding versus miscarriage. Initial workup will be conducted with hematologic labs urinalysis. Initial interventions were considered however given vaginal bleeding and possible miscarriage are deferred for now. Initial workup reviewed by me shows that her urine is negative urinalysis itself shows 2+ blood and microscopic exam shows occasional red blood cells occasional white blood cells occasional epithelial cells and 1+ bacteria and her hematologic labs are nonactionable beta-hCG serum is less than 2. Given this patient is referred to [facility] for ongoing follow-up and care. I was consulted by the ELLIS, and we discussed the complexity of the problems being addressed. I approved the treatment and management plan for this patient's care in the Emergency Department, thus performing a substantive portion of the medical decision making. Ori Gonzalez MD Critical Care <SAMAN England - Last Filed: 01/17/24 21:24> Critical Care Time Critical Care Time: No
--- NOTE | 2024-01-17 19:58 | PC.NURSE ---
Lab called asking if type & screen was still needed. In the TAR it is confirmed she is O + blood type. Lakhwinder France PA-C states it is no longer needed. Lab educated on this, .
[2024-01-17 20:03] LABS: Microscopic, Urine URINE MICROSCOPIC (MICROSCOPIC)
[2024-01-17 20:06] LABS: Appearance,Urine CLEAR (Clear); Bilirubin,Urine Negative (Negative); Blood, Urine 2+ (Negative); Color,Urine YELLOW (Yellow); Glucose,Urine (UA) Negative (Negative); Ketones,Urine Negative (Negative); Leukocyte Esterase,Urine Negative (Negative); Nitrate,Urine Negative (Negative); Protein,Urine Negative (Negative); Specific Gravity, Urine 1.025 (1.005-1.030); Urobilinogen,Urine 0.2 EU/dl (0.2)
[2024-01-17 20:22] LABS: Urine Pregnancy, HCG Qual. Negative (Negative)
[2024-01-17 20:26] LABS: RBC,Urine Occasional #/hpf (0-3); Squamous Epithelial Cell,Urine Occasional #/hpf (0-5); WBC,Urine Occasional #/hpf (0-3)
[2024-01-17 20:27] LABS: Bacteria,Urine 1+ /lpf
[2024-01-17 20:39] LABS: Chloride 105 mmol/L (98-107); Sodium 138 mmol/L (136-145)
[2024-01-17 20:40] LABS: Potassium 4.1 mmoL/L (3.5-5.1)
[2024-01-17 20:43] LABS: Anion Gap 11.1 mEq/L (5-15); Blood Urea Nitrogen 14 mg/dl (7-17); Calcium 9.7 mg/dl (8.4-10.2); Carbon Dioxide 26 mmol/L (22.0-30.0); Creatinine Clearance Estimated 200 mL/min (50-200); Estimated Glomerular Filt Rate 106 ml/min (>60); GFR (African American) 128 ML/MIN (>60); Glucose 99 mg/dl (74-100)
[2024-01-17 20:47] VITALS: BP 119/89; PULSE 85; O2SAT 98
[2024-01-17 20:51] LABS: Basophils # 0.1 K/mm3 (0-0.2); Basophils % 0.8 % (0.1-2.0); Eosinophils # 0.2 K/mm3 (0.0-0.4); Eosinophils % 2.3 % (0.1-12.0); Hemoglobin 14.1 g/dL (12.2-16.2); Lymphocytes # 2.9 K/mm3 (0.7-4.5); Lymphocytes % 32.4 % (10-50); Mean Corpuscular HGB Conc 33.5 g/dL (31.8-35.4); Mean Corpuscular Hemoglobin 28.1 pg (27.0-31.2); Mean Corpuscular Volume 83.9 fl (81-99); Mean Platelet Volume 8.7 fl (7.4-10.4); Monocytes # 0.5 K/mm3 (0.1-1.0); Neutrophils # 5.4 K/mm3 (1.8-7.8); Neutrophils % 59.5 % (37.0-80.0); Platelet Count 253 K/mm3 (142-424); Red Cell Distribution Width 14.3 % (11.5-17.5)
[2024-01-17 21:20] LABS: HCG,Quantitative < 2 mIU/ml (0-5.42)
[2024-01-17 21:35] VITALS: BP 132/79; PULSE 80; RESP 18; TEMP 36.8; O2SAT 98
== END 2024-01-17 21:36 | disposition home or self-care (01) ==
PROVIDERS: Physician Assistant; Emergency Provider Emergency Medicine
DX: N93.9 Abnormal uterine and vaginal bleeding, unspecified (principal)
CPT/HCPCS: 80048; 81001; 81025; 84702; 85025; 99283

== ENCOUNTER 2024-02-06 13:48 | Outpatient (CLI) | payer OTHER, SELFPAY ==
--- NOTE | 2024-02-06 13:51 | US_ITS ---
PROCEDURE: US TRANSVAGINAL CLINICAL INDICATION: f/u on SAB COMPARISON: No exams were available for comparison FINDINGS: Transvaginal sonographic images of the pelvis were obtained. UTERUS: 6.1cm x 3.3cmx 3.0cm retroverted with a combined endometrial thickness of 5.1mm. LEFT OVARY: Not visualized RIGHT OVARY: 22cmx 1.3cmx1.1cm with a volume of 1.6ml. Right ovary is seen and appears normal. Doppler flow to right ovary is seen. There is no fluid in the cul-de-sac. IMPRESSION: 1. Retroverted uterus normal in shape and size. The endometrium is thin. Examination was difficult. 2. There does not appear to be any retained products of conception. 3. The right ovary is seen and appears normal. There are a few small right ovarian follicles. The left ovary was not visualized. 4. No fluid in the cul-de-sac. Dictated by: Willie Foley MD 02/06/2024 16:01 Willie Foley MD in OV 02/06/2024 16:01
== END 2024-02-06 23:59 | disposition home or self-care (01) ==
LOC: RAD 13:48
PROVIDERS: Visit Provider Obstetrics & Gynecology
DX: O03.9 Complete or unspecified spontaneous abortion without complication (principal)
CPT/HCPCS: 76830

== ENCOUNTER 2024-04-27 15:40 | Outpatient (CLI) | payer OTHER, SELFPAY ==
[2024-04-27 17:13] LABS: HIV Combo NEGATIVE (Negative)
[2024-04-27 17:21] LABS: Hepatitis C Ab Qual. W/ RFX NEGATIVE (Negative)
[2024-04-28 00:35] LABS: RPR W/RFX Titers Nonreactive (Nonreactive)
[2024-04-28 05:11] LABS: HBsAg Screen Negative (Negative); HCV Ab Non Reactive (Non Reactive); Hep A Ab, IGM Negative (Negative); Hep B Core Ab, IgM Negative (Negative)
== END 2024-04-27 23:59 | disposition home or self-care (01) ==
LOC: LAB 15:41
PROVIDERS: Visit Provider Obstetrics & Gynecology
DX: R53.83 Other fatigue (principal)
CPT/HCPCS: 36415; 80074; 86592; 86803; 87389

== ENCOUNTER 2024-06-01 10:57 | Outpatient (CLI) | payer OTHER, SELFPAY | END 2024-06-01 23:59 | disposition home or self-care (01) | LOC: LAB.DROPOF 06-02 10:58 | PROVIDERS: PCP Student in an Organized Health Care Education/Training Program; Visit Provider Student in an Organized Health Care Education/Training Program | DX: Z20.822 Contact with and (suspected) exposure to COVID-19 (principal) | CPT/HCPCS: 87635 ==

== ENCOUNTER 2024-06-19 06:14 | Emergency (ER) | payer OTHER, SELFPAY ==
[2024-06-19 06:20] VITALS: BP 131/91; PULSE 79; RESP 20; TEMP 36.4; O2SAT 98; BMI 35.9
--- NOTE | 2024-06-19 06:24 | PC.NURSE ---
Pt awake alert and oriented Skin pink warm and dry Resp full and easy Speech clear and appropriate
--- NOTE | 2024-06-19 06:27 | HMH.EDGENADL ---
Discharge Plan Disposition Patient Disposition: Home, Self-Care Condition: Good Prescriptions Prescriptions: No Action norethindrone-e.estradiol-iron [[place] 04/16 (28)] 1 mg-20 mcg (21)/75 mg (7) tablet PO DAILY oseltamivir 75 mg capsule 75 mg PO BID 5 Days Qty: 10 0RF benzonatate 100 mg capsule 100 mg PO BID PRN (Reason: cough) Qty: 20 0RF ondansetron 4 mg tablet,disintegrating 4 mg PO Q8H PRN (Reason: nausea and vomiting) Qty: 14 0RF desmopressin 0.2 mg tablet 0.2 mg PO DAILY levothyroxine 125 mcg tablet 125 mcg PO DAILY Referrals Follow up/Referrals: Kaitlynn De Souza PA [Primary Care Provider] - See instructions Activity Restrictions/Add. Instructions Additional Instructions/Restrictions: You were evaluated in the ER and are appropriate for discharge at this time. Take Tylenol and ibuprofen if needed for sore throat, body aches, fever, etc. Do not exceed the recommended dose on the bottle. Drink water and eat a small snack each time you take these medications to avoid side effects. Drink plenty of fluids including water, Gatorade, Pedialyte. Follow-up the results of the viral swab and the patient portal. Make an appointment with your primary care doctor for reevaluation in 2 to 3 days. Return to the ER with new, worsening, or otherwise concerning symptoms. Clinical Impressions Clinical Impression: Pharyngitis, Nasal congestion Stand Alone Forms Stand Alone Forms: Work/School Release Print Language Print Language: [place] Islander Discharge ED Provider: Vibha Syed Adult HPI General Chief complaint: Upper Respiratory Infection Stated complaint: sore throat, tonsils swollen, congestion Time Seen by Provider: 06/19/24 06:26 Mode of Arrival: Ambulatory Source of Information: Patient Description of Symptoms (Recalled from ER Triage Doc. by RN): Pt states she woke up with swollen tonsils and congestion History of Present Illness HPI narrative: 24-year-old female who reports a history of central hypothyroidism, diabetes insipidus, history of brain tumor with removal in 2008 presents to the ER for complaints of sore throat, congestion. 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 She has not had fevers, does report chills, no numbness, tingling, or weakness, no headache, dizziness, no chest pain or difficulty breathing, she reports mild cough, no nausea or vomiting, she has had mild diarrhea, no abdominal pain, no dysuria or hematuria. She reports no chance of being . No other complaints or concerns at this time. Related Data Home Medications ?Medication ?Instructions ?Recorded ?Confirmed desmopressin 0.2 mg tablet 0.2 mg PO DAILY 10/18/23 06/01/24 levothyroxine 125 mcg tablet 125 mcg PO DAILY 10/18/23 06/01/24 norethindrone 1 mg-ethinyl tab PO DAILY 04/27/24 06/01/24 estradiol 20 mcg (21)-iron 75 mg (7) tablet ([place] 04/16 (28)) Previous Rx's ?Medication ?Instructions ?Recorded benzonatate 100 mg capsule 100 mg PO BID PRN cough #20 caps 05/29/24 oseltamivir 75 mg capsule 75 mg PO BID 5 days #10 caps 05/29/24 ondansetron 4 mg disintegrating 4 mg PO Q8H PRN nausea and 06/01/24 tablet vomiting #14 tabs Allergies Allergy/AdvReac Type Severity Reaction Status Date / Time No Known Allergies Allergy Verified 06/01/24 16:59 PFSH PFS Disclaimer: The information contained in this section may have been updated after the patient was seen, as this information can be updated by other users. Medical History Hypothyroid Insect bite of arm, right Gastroenteritis Brain tumor (benign) 2019 Brain tumor 2009, malignant Torn ligament right ankle Encounter to establish care Surgical History History of ankle surgery H/O brain surgery malignant tumor removed 06/21/18 Family History Other No significant family history Social History Smoking Status: Current every day smoker alcohol intake: never substance use type: denies use current occupational status: unemployed Travel in the last 8 weeks: None Have you lived/traveled outside US in past 30 days?: No Contact w/someone who lives/traveled outside US past 30 days?: No Exposure to someone with infectious disease in past 14 days?: Yes Do you have a fever (greater than 100.4 F or 38 C)?: No Have you tested positive for COVID-19: No Exposed to someone with COVID-19 in past 14 days?: No Do you have a sore throat?: Yes Do you have a cough?: No Do you have any weakness?: No Do you have any diarrhea?: No Are you experiencing any unusual bleeding?: No Do you have any muscle aches/pain?: No Do you have any abdominal pain?: No Are you experiencing loss of taste or smell?: No Other Medical History Have you received the Flu Vaccine for this season: Yes Have you received the Pneumonia Vaccine: Yes ROS Obtained: Yes Systems reviewed as appropriate & no additional complaints except as documented Per HPI Physical Exam General General appearance: alert and in no apparent distress Head Head exam: atraumatic and normocephalic Eye Eye exam: Present PERRL and EOMI ENT ENT exam: Present mucous membranes moist and other (Mildly erythematous tonsils without significant enlargement, no exudate) Neck Neck exam: Present normal inspection, full ROM and lymphadenopathy (Slight anterior cervical chain lymphadenopathy, nodes are mildly enlarged but not significantly tender, they are soft and mobile) Chest Chest inspection: Present symmetric chest wall rise Respiratory Respiratory exam: Present normal lung sounds bilaterally; Absent respiratory distress, wheezes or stridor Cardiovascular Cardiovascular exam: Present regular rate and normal rhythm Abdominal Exam Abdominal exam: Present soft; Absent distention or tenderness Extremities Exam Extremities exam: Present full ROM Neurological Exam Neurological exam: Present alert and oriented X3; Absent motor sensory deficit Psychiatric Psychiatric exam: Present normal affect and normal mood Skin Skin exam: Present warm and dry Medical Decision Making Medical Records Medical records reviewed: Yes I reviewed the patient's medical records. Screening: Per USPSTF and CDC recommendations, given the prevalence of disease in our region, it is our hospital?s policy to screen for HIV and viral Hepatitis for all patients aged 18 and over and those with ongoing risk factors. MR Comment: Review of records demonstrates patient was exposed to COVID back in May. She saw Kaitlynn De Souza and reported symptoms of loss of taste and smell. She was actively being treated with Tamiflu for flu a at that time. Rex Inquiry Pt receiving controlled substance: No Vital Signs: 06/19/24 06:20 Temperature 97.5 F L Temperature Source Oral Pulse Rate [Right Brachial] 79 Respiratory Rate 20 Blood Pressure [Right Arm] 131/91 H Blood Pressure Mean [Right Arm] 104 Blood Pressure Source [Right Arm] Automatic Cuff Blood Pressure Position [Right Arm] Sitting 02 Sat by Pulse Oximetry 98 Oxygen Delivery Method Room Air Lab Data Lab Results 06/19/24 06:23: Group A Strep Rapid Negative Orders (Tests/Meds): ED MEDICATIONS Discontinued Medications Generic Name Dose Route Start Last Admin Trade Name Ronak PRN Reason Stop Dose Admin Acetaminophen 1,000 mg 06/19/24 06:31 06/19/24 06:34 Acetaminophen 500mg Tab PO 06/19/24 06:32 1,000 mg ONCE ONE Administration Ibuprofen 600 mg 06/19/24 06:31 06/19/24 06:34 Ibuprofen 600 Mg Tablet PO 06/19/24 06:32 600 mg ONCE ONE Administration ORDERS Category Date Time Status Rapid PCR Covid and Flu A/B Stat Lab 06/19/24 06:26 Ordered Rapid Strep Scrn Group A [Strep Scrn Group A (Rapid)] Lab 06/19/24 06:26 Ordered Stat Strep Screen Confirmation Stat Micro 06/19/24 06:23 Received Medical Decision Narrative: In summary, this 24-year-old female with comorbidities described in the HPI which may not be at goal therapy presents to the emergency department today with sore throat, congestion, mild cough. On initial evaluation patient is hemodynamically stable, afebrile, she has mildly enlarged and erythematous tonsils with no exudate, mild anterior cervical chain lymphadenopathy, lungs clear bilaterally, remainder of exam benign. Differential diagnosis includes but is not limited to viral syndrome including COVID, influenza, other virus, also considered the possibility of strep throat otherwise lower suspicion for the. Based on these concerns, I ordered viral swab, strep test. Patient received Tylenol and ibuprofen for symptomatic management in the ER. Strep test is negative. Patient reports she had reaction to Tamiflu in the past so she is not interested in receiving this medication even if she is positive for flu. 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 She has the patient portal and is going to follow-up the results of the swab in the portal. Patient was given instructions on symptomatic management, follow up instructions, and return precautions for the emergency department. Patient indicated understanding and was discharged in stable condition. Critical Care Critical Care Time Critical Care Time: No
[2024-06-19 06:30] LABS: Coronavirus 19, PCR Not Detected (NotDetected); Influenza A, PCR Not Detected (NotDetected); Influenza B, PCR Not Detected (NotDetected)
[2024-06-19] MEDS: IBUPROFEN 600 MG TABLET PO (06:34)
[2024-06-19] MEDS: ACETAMINOPHEN 500MG TAB 1000 MG PO (06:34)
[2024-06-19 06:39] LABS: Strep Scrn Group A (Rapid) Negative (Negative)
[2024-06-19 06:50] VITALS: BP 110/68; PULSE 77; RESP 20; TEMP 36.7; O2SAT 97
== END 2024-06-19 06:53 | disposition home or self-care (01) ==
PROVIDERS: Emergency Provider Emergency Medicine; PCP Student in an Organized Health Care Education/Training Program
DX: J02.9 Acute pharyngitis, unspecified (principal); R09.81 Nasal congestion
CPT/HCPCS: 87430; 87636; 99283

== ENCOUNTER 2024-07-25 19:22 | Emergency (ER) | payer OTHER, SELFPAY ==
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
--- NOTE | 2024-07-25 20:25 | PC.NURSE ---
Attemped to call EMS again for a transfer to , no answer at this time
[2024-07-25 20:47] VITALS: BP 135/88; PULSE 100; TEMP 36.4; O2SAT 98
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
[2024-07-25] MEDS: LORazepam 1MG TABLET 1 MG PO (20:48)
[2024-07-25] MEDS: AMOXICILLIN/CLAVULANATE POTASSIUM 875/125MG TABLET 1 EACH PO (20:48)
[2024-07-25 21:00] VITALS: BP 129/82; PULSE 105; O2SAT 97
[2024-07-25 21:25] VITALS: BP 119/83; PULSE 107; RESP 18; TEMP 36.7; O2SAT 99; BMI 34.8
[2024-07-25 21:30] VITALS: BP 133/94; PULSE 105; O2SAT 98
[2024-07-25] MEDS: LIDOCAINE 1% W/EPI 1:100,000 20ML VIAL 20 ML IJ (21:36)
--- NOTE | 2024-07-25 21:42 | PC.NURSE ---
Dr Gerber at bedside
[2024-07-25] MEDS: OXYCODONE 5MG IMMEDIATE RELEASE TABLET 5 MG PO (21:57)
[2024-07-25 22:04] VITALS: BP 117/81; PULSE 98; RESP 18; TEMP 36.7; O2SAT 98
== END 2024-07-25 22:06 | disposition home or self-care (01) ==
PROVIDERS: Emergency Provider Student in an Organized Health Care Education/Training Program; PCP Family Medicine
DX: L02.211 Cutaneous abscess of abdominal wall (principal)
CPT/HCPCS: 10060; 99284

== ENCOUNTER 2024-10-07 18:12 | Emergency (ER) | payer OTHER, SELFPAY ==
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
--- OUTSIDE RECORDS SUMMARY | 2024-10-07 18:23 | XMS_ITS | Encounter Summary ---
Author Organization [facility] Address [address] [place] [address] Care Team Providers Care Terminal Operator Name Role Phone Cliff Cruz MD Primary Care Provider [phone] Source Comments This information has been disclosed to you from confidential records protectfrom disclosure by state law. You shall make no further disclosure of thisinformation without the specific, written, and informed release of theindividual to whom it pertains, or as otherwise permitted by law. A generalauthorization for the release of medical or other information is not sufficientfor the purposes of the release of HIV test results or diagnoses. [id number] Health Encounter Details Date Type Department Care Team (Late st Contact Info) Description 06/22/2018 Ophth Exam [facility] Ophthalmology at [address] [place] [address] Jerson Nielsen MD [address] [place] [id number] Social History Tobacco Use Types Packs/Day Years Used Date Smoking Tobacco: Never Smokeless Tobacco: Never Alcohol Use Standard Drinks/Week Comments No 0 (1 standard drink = 0.6 oz pur e alcohol) Comments No Sex and Gender Information Value Date Recorded Sex Assigned at Not on file Legal Sex Female 4:10 PM EST Gender Identity Not on file Sexual Orientation Not on file documented as of this encounter Plan of Treatment Not on file documented as of this encounter Visit Diagnoses Not on filedocumented in this encounter Care Teams Terminal Operator Relationship Specialty Start Date End Date Cliff Cruz MD [address] [place] [id number] PCP - General Emergency Medicine 05/22/18 documented as of this encounter
--- OUTSIDE RECORDS SUMMARY | 2024-10-07 18:23 | XMS_ITS | Clinical Summary ---
Author Organization [facility] Address [address] [place] [id number] Care Team Providers Care Metal Bonder Name Role Phone Cliff Cruz MD Primary Care Provider [phone] Source Comments This information has been disclosed to you from confidential records protectedfrom disclosure by state law. You shall make no further disclosure of thisinformation without the specific, written, and informed release of theindividual to whom it pertains, or as otherwise permitted by law. A generalauthorization for the release of medical or other information is not sufficientfor the purposes of therelease of HIV test results or diagnoses. [id number] Allergies No known active allergies Medications levothyroxine (SYNTHROID, LEVOTHROID) 88 MCG tablet 9 Active amitriptyline (ELAVIL) 25 MG tablet 9 Active estradiol (ESTRACE) 1 MG tablet 9 Active medroxyPROGESTE Dereck (PROVERA) 10 MG tablet Take by mouth. 8 Active loratadine (CLARITIN) 10 mg tablet 9 Active ibuprofen (ADVIL,MOTRIN) 800 MG tablet 9 Active mupirocin (BACTROBAN) 2 % ointmentIndicat ions:Acoustic neuroma (CMS-HCC) Apply topically 3 times a day. Use for five days prior to surgery 22 g 9 Active desmopressin (DDAVP) 0.2 MG tabletIndicatio ns:Diabetes insipidus (CMS-HCC) Take 3 tablets (0.6 mg total) by mouth 2 times a day. 30 tablet 9 Active desmopressin (DDAVP) 0.2 MG tabletIndicatio ns:Diabetes insipidus (CMS-HCC) Take 1 tablet (0.2 mg total) by mouth daily. 30 tablet 9 Active pantoprazole (PROTONIX) 40 MG tablet Take 1 tablet (40 mg total) by mouth daily. 30 tablet 9 Active polyethylene glycol (MIRALAX) 17 gram packet Take 17 g by mouth daily. 14 packet 9 Active bacitracin-poly myxin b (POLYSPORIN) ointment Apply topically 2 times a day. 30 g 9 Active carboxymethylce llulose sodium (REFRESH TEARS) 0.5 % Drop Place 2 drops into both eyes 3 times a day. 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 Overview (05/19/2018): Added automatically from request for surgery [id number] Family History Medical History Relation Comments Hypertension Maternal Grandfather Diabetes Maternal Grandmother Hypertension Maternal Grandmother Relation Status Comments Maternal Grandfather Maternal Grandmother Mother Alive Social History Tobacco Use Types Packs/Day Years Used Date Smoking Tobacco: Every Day E-cigs/Vape Smokeless Tobacco: Never Tobacco Cessation:Ready to Q uit: Not Asked Alcohol Use Standard Drinks/Week Comments No 0 (1 standard drink = 0.6 oz pur e alcohol) PHQ-2 Answer Date Recorded PHQ-2 Total Score 0 01/27/2023 Yearly Questionnaire Answer Date Record ed Do you need any assistance w ith obtaining housing, meals, medication, transportation or medical equipment? No 01/27 Assistance needed for: Not on file 3 Yearly Questionnaire Answer Date Record ed Do you need any assistance w ith obtaining housing, meals, medication, transportation or medical equipment? No 01/27 Assistance needed for: Not on file 3 Yearly Questionnaire Answer Date Record ed Do you need any assistance w ith obtaining housing, meals, medication, transportation or medical equipment? No 01/27 Assistance needed for: Not on file Comments No Sex and Gender Information Value Date Recorded Sex Assigned at Not on file Legal Sex Female 4:10 PM EST Gender Identity Not on file Sexual Orientation Not on file Last Filed Vital Signs Vital Sign Reading Time Taken Comments Blood Pressure 114/83 01/27/2023 3:24 PM EDT Pulse 91 01/27/2023 3:24 PM EDT Temperature 36.7 C (98 F) 06/26/2018 12:00 PM EDT Respiratory Rate 14 10/02/2018 12:0 1 PM EDT Oxygen Saturation 100% 01/27/2023 3:24 PM EDT Inhaled Oxygen Concentration 100% 01/27/2023 3 :24 PM EDT Weight 94.7 kg (208 lb 11.2 oz) 01/27/2023 3:24 PM EDT Height 162.6 cm (5' 4 ) 01/27/2023 3:24 PM EDT Body Mass Index 35.82 01/27/2023 3:24 PM EDT Plan of Treatment Health Maintenance Due Date Last Done Comments Diabetes Screening 2002 Hepatitis C Screening (Online [employer]) 2002 Immunization: HPV (1 - 3-dose series) 2017 Alcohol Misuse Screening 2020 HIV Screening 2020 Immunization: Pneumococcal (1 of 2 - PCV) 2021 04/23/2003, 2002, 2002, Additional history exists Cervical Cancer Screening/Pap Smear (Online [employer]) 2023 Immunization: DTaP/Tdap/Td (7 - Td or Tdap) 08/25/2023 08/24/2013, 06/10/2006, 05/14/2004, Additional history exists Immunization: COVID-19 ( season) 2023 Depression Screening 01/28/2024 01/27/2023 Immunization: Influenza (Online [employer]) (#1) 2024 01/11/2018, 01/08/2016, 03/02/2013, Additional history exists Immunization: Hepatitis B Completed 2003, 2002, 2002 Immunization: Meningococcal ACWY Aged Out 08/24/2013 No longer eligible based on patient's age to complete this topic Medical Devices Implanted Type Area Hiv/Aids Care Nurse Device Identifier Shelf Expiration Date Model / Serial / Lot Gft Sft Tis 3x3in Drfrm Spng - [id number] Implanted:Qty: 1 on 06/21/2018 by Hernandez Phillips MD at [facility] Graft Brain [employer] 10/26/2019 [id number] / / [id number] Plt .4mm Strg Crnmxf Ti 2 Hl - [id number] Implanted:Qty: 1 on 06/21/2018 by Hernandez Phillips MD at [facility] Plate Right: Brain CHITO LEIBINGER [id number] / / Plt 62x30x.3mm Sm Suboccipital - [id number] Implanted:Qty: 1 on 06/21/2018 by Hernandez Phillips MD at [facility] Plate Right: Brain CH[employer]O LEIBINGER [id number] / / Scr Bn 4mm 1.5mm Slf Drl Ax - [id number] Implanted:Qty: 9 on 06/21/2018 by Hernandez Phillips MD at [facility] Screw Right: Brain [employer] LEIBINGER [id number] / / [facility] Advance Directives For more information, please contact: [phone] * Full Code (Latest Code Status on File) Date Activated Date Inactivated Comments 06/21/2018 7:28 PM 06/26/2018 8:02 PM * Full Code Date Activated Date Inactivated Comments 06/20/2018 7:33 PM 06/21/2018 7:28 PM Care Teams Metal Bonder Relationship Specialty Start Date End Date Cliff Cruz MD [address] [facility] [place] [address] PCP - General Emergency Medicine 05/22/18"
--- OUTSIDE RECORDS SUMMARY | 2024-10-07 18:23 | XMS_ITS | Clinical Summary ---
Author Organization Healthcare Address [address] [place] [address] Care Team Providers Care Radio Engineering Teacher Name Role Phone Cliff Cruz MD Primary Care Provider [phone] Allergies No known active allergies Medications methocarbamol (Robaxin) 500 MG tablet Take 1 tablet (500 mg) by mouth 4 (four) times a day if needed for muscle spasms for up to 10 days. 40 tablet 05/02/2023 Active Social History Tobacco Use Types Packs/Day Years Used Date Smoking Tobacco: Every Day Comments Unknown Sex and Gender Information Value Date Recorded Sex Assigned at Not on file Legal Sex Female 8:53 PM EDT Gender Identity Not on file Sexual Orientation Not on file Last Filed Vital Signs Vital Sign Reading Time Taken Comments Blood Pressure 110/74 05/28/2023 10:20 PM EST Pulse 97 05/28/2023 10:20 PM EST Temperature 36.8 C (98.2 F) 05/28/2023 10:20 PM EST Respiratory Rate 19 05/28/2023 10:20 PM EST Oxygen Saturation 98% 05/28/2023 10:20 PM EST Inhaled Oxygen Concentration - - Weight 95.8 kg (211 lb 3.2 oz) 05/28/2023 10:20 PM EST Height 154.9 cm (5' 1 ) 05/28/2023 10:20 PM EST Body Mass Index 39.91 05/28/2023 10:20 PM EST Plan of Treatment Health Maintenance Due Date Last Done Comments [facility]-Depression Screening 2002 [facility]-HIV Screening 2002 [facility]-Hepatitis C Screening 2002 [facility]-Infant/Child/Adol SDOH Screenings 2002 [facility]-Obesity Intervention 2008 HPV Vaccines (1 - 3-dose series) 2017 [facility]-Hepatitis A Vaccines (2 of 2 - 2-dose series) 07/12/2018 01/11/2018 [facility]- SDOH Screenings 2020 [facility]-Adult SDOH Screenings 2020 [facility]-Pap Smear 2023 [facility]-DTaP,Tdap,and Td Vaccines (7 - Td or Tdap) 08/25/2023 08/24/2013, 06/10/2006, 05/14/2004, Additional history exists [id number] Vaccine (1 - 2023- season) 2023 [facility]-Influenza Vaccine (#1) 11/26/202401/11, 01/08/2016, 03/02/2013, Additional history exists [facility]-Zoster Vaccines (1 of 2) 2052 08/24/2013, 11/01/2003 [facility]-Pneumococcal Vaccine: Pediatrics (0 to 5 Years) and At-Risk Patients (6 to 49 Years) Aged Out 04/23/2003, 2002, 2002, Additional history exists No longer eligible based on patient's age to complete this topic [facility]-HIB Vaccines Completed 11/01/2003, 12/2002, 2002 [facility]-Hepatitis B Vaccines Completed 004, 2002, 2002 [facility]-IPV Vaccines Completed 06/10/2006, , 2002, Additional history exists [facility]-Varicella Vaccines Completed 08/24/2013, 2003 [facility]-Rotavirus Vaccines Aged Out No lo nger eligible based on patient's age to complete this topic Insurance [employer] [facility] MEDICAID Care Teams Radio Engineering Teacher Relationship Specialty Start Date End Date Cliff Cruz MD [address] [place] [id number] PCP - General 08/08/20
[2024-10-07 18:25] VITALS: BP 126/82; PULSE 104; RESP 20; TEMP 36.9; O2SAT 99; BMI 37.5
[2024-10-07 18:39] LABS: Microscopic, Urine URINE MICROSCOPIC (MICROSCOPIC)
[2024-10-07 18:40] LABS: Bilirubin,Urine Negative (Negative); Color,Urine YELLOW (Yellow); Glucose,Urine (UA) Negative (Negative); Ketones,Urine Negative (Negative); Leukocyte Esterase,Urine Negative (Negative); PH,Urine 7.0 (5.0-8.5); Protein,Urine Negative (Negative); Specific Gravity, Urine <= 1.005 (1.005-1.030); Urobilinogen,Urine 0.2 EU/dl (0.2)
[2024-10-07 18:43] LABS: Urine Pregnancy, HCG Qual. Negative (Negative)
[2024-10-07 19:02] LABS: Bacteria,Urine Trace /lpf; Squamous Epithelial Cell,Urine Occasional #/hpf (0-5); WBC,Urine Occasional #/hpf (0-3)
[2024-10-07 19:19] VITALS: BP 120/73; PULSE 103; RESP 20; TEMP 36.9; O2SAT 97
== END 2024-10-07 19:27 | disposition home or self-care (01) ==
PROVIDERS: Physician Assistant; Emergency Provider Student in an Organized Health Care Education/Training Program; PCP Family Medicine
DX: R10.84 Generalized abdominal pain (principal); R11.0 Nausea
CPT/HCPCS: 81001; 81025; 99283

== ENCOUNTER 2024-10-10 16:41 | Outpatient (CLI) | payer OTHER, SELFPAY ==
--- OUTSIDE RECORDS SUMMARY | 2024-10-10 16:44 | XMS_ITS | Clinical Summary ---
Author Organization Healthcare Address [address] [place] [address] Care Team Providers Care Production Line Operator Name Role Phone Cliff Cruz MD Primary Care Provider + [phone] Allergies No known active allergies Medications methocarbamol [...] 08/25/2023 08/24/2013, 06/10/2006, 05/14/2004, Additional history exists [id number] Vaccine (1 - 2023- season) 2023 [facility]-Influenza [...] age to complete this topic Insurance [employer] [facility] MEDICAID Care Teams Production Line Operator Relationship Specialty Start Date End Date Cliff Cruz MD [address] [place] [id number] PCP - General 08/08/20
--- OUTSIDE RECORDS SUMMARY | 2024-10-10 16:44 | XMS_ITS | Clinical Summary ---
Author Organization [facility] Address [address] [place] [address] Care Team Providers Care Draw Frame Operator Name Role Phone Cliff Cruz MD Primary Care Provider [phone] Source Comments This information has been disclosed [...] therelease of HIV test results or diagnoses. [id number] Allergies No known active allergies Medications [...] (05/19/2018): Added automatically from request for surgery [id number] Family History Medical History Relation Comments Hypertension [...] Comments Diabetes Screening 2002 Hepatitis C Screening (Dinos Rulehart) 2002 Immunization: HPV (1 - 3-dose series) 2017 Alcohol Misuse Screening 2020 HIV Screening 2020 Immunization: Pneumococcal (1 of 2 - PCV) 2021 04/23/2003, 2002, 2002, Additional history exists Cervical Cancer Screening/Pap Smear (Dinos Rulehart) 2023 Immunization: DTaP/Tdap/Td (7 - Td or Tdap) 08/25/2023 08/24/2013, 06/10/2006, 05/14/2004, Additional history exists Immunization: COVID-19 ( season) 2023 Depression Screening 01/28/2024 01/27/2023 Immunization: Influenza (Dinos Rulehart) (#1) 2024 01/11/2018, 01/08/2016, 03/02/2013, Additional history exists Immunization: Hepatitis B Completed 2003, 2002, 2002 Immunization: Meningococcal ACWY Aged Out 08/24/2013 No longer eligible based on patient's age to complete this topic Medical Devices Implanted Type Area Collector Device Identifier Shelf Expiration Date Model / Serial / Lot Gft Sft Tis 3x3in Drfrm Spng - [id number] Implanted:Qty: 1 on 06/21/2018 by Hernandez Phillips MD at [facility] Main Graft Brain [employer] 10/26/2019 [id number] / / [id number] Plt .4mm Strg Crnmxf Ti 2 Hl - [id number] Implanted:Qty: 1 on 06/21/2018 by Hernandez Phillips MD at [facility] Main Plate Right: Brain CHITO LEIBINGER [id number] / / Plt 62x30x.3mm Sm Suboccipital - [id number] Implanted:Qty: 1 on 06/21/2018 by Hernandez Phillips MD at [facility] Main Plate Right: Brain CHITO LEIBINGER [id number] / / Scr Bn 4mm 1.5mm Slf Drl Ax - [id number] Implanted:Qty: 9 on 06/21/2018 by Hernandez Phillips MD at [facility] Main Screw Right: Brain CHITO LEIBINGER [id number] / / [facility] Advance Directives For more information, please contact: [phone] * Full Code (Latest Code Status on File) Date Activated Date Inactivated Comments 06/21/2018 7:28 PM 06/26/2018 8:02 PM * Full Code Date Activated Date Inactivated Comments 06/20/2018 7:33 PM 06/21/2018 7:28 PM Care Teams Draw Frame Operator Relationship Specialty Start Date End Date Cliff Cruz MD [address] [place] [address] PCP - General Emergency Medicine 05/22/18
--- OUTSIDE RECORDS SUMMARY | 2024-10-10 16:44 | XMS_ITS | Encounter Summary ---
Author Organization [facility] Address [address] [place] [address] Care Team Providers Care Manager Regulatory Name Role Phone Cliff Cruz MD Primary Care Provider [phone] Source Comments This information has been disclosed [...] release of HIV test results or diagnoses. [id number] Health Encounter Details Date Type Department Care Team (Late st Contact Info) Description 06/22/2018 Ophth Exam [facility] Ophthalmology at [address] [place] [address] Jesron Nielsen MD [address] [place] [address] Social History Tobacco Use Types Packs/Day [...] on filedocumented in this encounter Care Teams Manager Regulatory Relationship Specialty Start Date End Date Cliff Cruz MD [address] [place] [id number] PCP - General Emergency Medicine 05/22/18 documented as of this encounter
[2024-10-12 04:18] LABS: Neisseria gonorrhoeae, NAA Negative (Negative)
== END 2024-10-10 23:59 | disposition home or self-care (01) ==
LOC: LAB.DROPOF 16:42
PROVIDERS: PCP Obstetrics & Gynecology; Visit Provider Obstetrics & Gynecology
DX: R10.9 Unspecified abdominal pain (principal)
CPT/HCPCS: 87491; 87591

== ENCOUNTER 2024-10-25 14:38 | Outpatient (CLI) | payer OTHER, SELFPAY ==
--- OUTSIDE RECORDS SUMMARY | 2024-08-29 13:00 | XMS_ITS | Encounter Summary ---
Author Organization [facility] Address [address] [place] [id number] Care Team Providers Care Mechanical Handyman Name Role Phone Cliff Cruz M.D. Primary Care Provider [phone] Reason for Visit * Reason Comments Follow Up Encounter Details Date Type Department Care Team (Latest Contact Info) Description 08/29/2024 1:00 PM EDT Office Visit [facility] Division of Endocrinology [address] [place] [phone] Cathleen Bajwa M.D. 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 Yes 08/29/2024 If you are in a relationship , do you feel safe in that relationship? Yes 08/29/2024 Safety and Environment Answer Date Vladislav rded Do you have any concerns of physical abuse, sexual abuse, or neglect of your child? No 08/29/2024 Is an adult hurting you or your family? No 08/29/2024 Has someone ever touched you in a sexual way that was not ok with you? No 08/29/2024 Is someone hurting your or your family? No 08/29/2024 Historical abuse worry Not on file If you have firearms in the home, are they all in locked storage AND unloaded? Not on file 08/29/2024 Comments Unknown Sex and Gender Information Value Date Recorded Sex Assigned at Not on file Legal Sex Female 5:31 AM EST Gender Identity Not on file Sexual Orientation Not on file documented as of this encounter Last Filed Vital Signs Vital Sign Reading Time Taken Comments Blood Pressure 123/77 08/29/2024 1:42 PM EDT Pulse 90 08/29/2024 1:42 PM EDT Temperature - - Respiratory Rate - - Oxygen Saturation - - Inhaled Oxygen Concentration - - Weight 94.3 kg (207 lb 14.3 oz) 08/29/2024 1:42 PM EDT Height 158 cm (5' 2.21 ) 08/29/2024 1:42 PM EDT Body Mass Index 37.77 08/29/2024 1:42 PM EDT documented in this encounter Patient Instructions * Patient Instructions* Cathleen Merino M.D. - 08/29/2024 1:00 PM EDT Thank you for coming to your Endocrine visit today. Please review the below instruction We will reach out to some of our contacts in fertility to find the appropriate person to refer you to. We will reach out when we have the results of your labs. We would like for you to follow up with endocrinology in 1 year. Contact information Kelli preferred Families who need assistance with [employer] can email [email or web address] or call [phone] or Patient-Related Calls Please call Option #1 - Scheduling Option #2 - Refills Option #3 - To speak to your clinical cps team lead Refills Please contact your pharmacy for refills first. If your pharmacy cannot refill your medication, refills will be completed by our staff during regular office hours and may take up to 48 business hours. However, for medications requiring prior authorizations or through specialty pharmacies, it may take 2 or more weeks. If your medication bottle says you are out of refills, please call our office [phone] option #2. Patients must keep their scheduled appointments to obtain refills. Patients who do not keep appointments may be referred to their primary doctor. [facility] Lab Hours Where We Perform Lab Testing Laboratory testing is available at the following [facility] locations: Location Tuesday-Tuesday [facility] ([facility]) - Test Referral Center 7 am - 8 pm 8 am - 3 pm 10 am - 2 pm [place] 8 am - 11 pm 8 am - 7 pm Noon - 7 pm [facility] 8:30 am - 5 pm closed closed [place] 9 am - 5 pm closed closed [facility] 8 am - 11 pm 8 am - 7 pm Noon - 7 pm [place] 7 am - 8 pm 8 am - 3 pm 10 am - 2 pm [place] 8 am - 11 pm 8 am - 7 pm Noon - 7 pm [facility] 8 am - 6 pm 8 am - noon closed To Schedule an appointment The Scheduling Center at [facility] is committed to helping families quickly schedule appointments, procedures and testing. Call our Scheduling Center for information and assistance: Tuesday - : 7:30 a.m. to 6 p.m. Tuesday: 7:30 a.m. to 5:30 p.m. documented in this encounter Progress Notes * Cathleen Merino M.D. - 08/29/2024 1:00 PM EDT Nubia Tate is a 24 y.o. 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 She was last seen on 05/18/2023. Medications: Levothyroxine 125 mcg daily DDAVP 0.6mg/0.2mg/0.6mg (07:00/13:00/19:00) OCP- intermittently taking Growth hormone - off 2019 HPI Updated history 08/30/24: Nubia is a 24 year old female with craniopharyngioma s/p resection in 09/2008 without any radiation or chemotherapy treatment. She is followed by endocrinology for central DI, growth hormone deficiency, central hypothyroidism, and hypogonadotropic hypogonadism. She is accompanied to the visit by tristen. She is due for labs today. 1. DI - Nubia is able to sleep through the night without UOP. She tends to have urine breakthrough ~1 hour before her next DDAVP dose is due. Overall, she is satisfied with current treatment regimen. She was unsure whether it was safe to continue DDAVP, since someone at her [employer] office told her that the DDAVP might be causing some issues with her ability to get . 2. Growth - Nubia was on GH but due to insurance issues has been off GH for multiple years now. Oncology was fine with restarting treatment but she remains off. She previously noted interest in a weekly version if available. 3. Thyroid - Doing well on current dose Levothyroxine 125 mcg. Overall good energy levels. 4. Hypogonadism - Notable history is that Nubia reports ending in miscarriage in 2020. Previously diagnosed as hypogonadotropic hypogonadism with low but detectable AMH levels. In the past year (2023), Nubia reports 2 miscarriages which have caused significant psychological distress. Prior to each , she had stopped her OCP for a week or two. After her last miscarriage (Jan 2024), she has been consistent with her OCP. She is wondering how her underlying medical issues may be impacting her ability to conceive and maintain a . Within the next 5 years, wants to have a baby and wants to have her own place. She is currently from her but has not formally completed her divorce, and she is with another partner who she would like to have children with. Interested in meeting with a fertility specialist. On her OCP, she has a period each month. Since her last visit, diagnosed with bipolar disorder, anxiety, and PTSD. She is doing a better on medication currently. Historic Labs Latest Reference Range & Units 05/18/23 11:45 ANTI-MULLERIAN HORMONE 0.401 - 16.015 ng/mL 1.218 ESTRADIOL US pg/mL 15.1 FSH mIU/mL 6.3 GLUCOSE LEVEL 65 - 106 mg/dL 94 T4 FREE 0.90 - 2.30 ng/dL 1.50 Ref. Range 06/01/2018 10:54 GLUCOSE LEVEL Latest Ref Range: 65 - 106 mg/dL 92 HEMOGLOBIN A1C Latest Ref Range: <=6.3 % 4.6 IGF-I, SOMATOMEDIN C Latest Ref Range: 127.9 - 541.5 ng/mL 82.7 (L) T4 FREE BY DIRECT DIALYSIS Latest Ref Range: 1.0 - 2.8 ng/dL 2.5 Ref. Range 10/21/2016 12:16 10/21/2016 12:49 CORTISOL 0 MIN LO DOSE ACTH STIM Latest Units: mcg/dL 7.9 CORTISOL 20 MIN LO DOSE ACTH STIM Latest Units: mcg/dL 22.3 Interim reports reviewed: office notes historical medical records growth curves Review of Systems Review of systems, including Constitutional, Eyes, HENT, Lungs, Cardiovascular, Endocrine, GI, , Musculoskeletal, Skin, Psychiatric, Neurologic, Hematologic, and Allergic were reviewed and normal except as noted in the HPI or as follows: All previously documented Additional History No Data Recorded cm I have reviewed past medical, surgical, social and family history, medications and allergies as documented in the patient's electronic medical record. Physical Exam BP 123/77 (BP Location: Right arm, Patient Position: Sitting, Cuff Size: Adult) Pulse 90 Ht 158cm Wt 94.3 kg BMI 37.77 kg/m?? Facility age limit for growth %zoe is 20 years. Facility age limit for growth %zoe is 20 years. Body mass index is 37.77 kg/m??. Facility age limit for growth %zoe is 20 years. Growth %ile Smart[employer] can only be used for patients less than 20 years old. Body surface area is 2.03 meters squared. Patient Vitals for the past 1000 hrs: BP Pulse Method BP Location Patient Position Cuff Size Activity 08/29/24 1342 123/77 90 Dinemap Right arm Sitting Adult Quiet General: alert, active, well developed, obese and in no acute distress Skin: no rashes, moist with normal texture Neck: supple Lungs: clear to auscultation, with good air entry throughout. No wheezes, crackles, or stridor. Cardiac: regular rate and rhythm, normal S1 and S2, no murmur Abdomen: nondistended Ext: well perfused, no edema Assessment Nubia is a 24 y.o. female with craniopharyngioma s/p resection in 09/2008 without any radiation or chemotherapy treatment. She is followed by endocrinology for central DI, growth hormone deficiency, central hypothyroidism, and partial hypogonadotropic hypogonadism. 1. DI- Nubia describes good control of DI with current dose of DDAVP: 0.6mg/0.2mg/0.6mg (07:00/13:00/19:00). We reviewed that DDAVP is NOT associated with decreased ability to conceive or maintain a and that she should continue this medication as she needs it to appropriately maintain herfree water balance. 2. GH Deficiency- Reviewed with primary oncology team at prior visit and medically okay to resume, but insurance and professional security officer shortage are barriers. Nubia is not interested in pursuing adult GHT at this time. 3. Hypothyroidism - Nubia is clinically euthyroid. Repeat labs today. 4. 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 Last AMH was normal at 1.218. She has now undergone several miscarriages. It is possible with her HHthat she has enough function to periodically ovulate but is unable to produce adequate levels of hormones to maintain a healthy . Given the severe psychological distress that miscarriages elicit, we discussed continuing her OCP until Nubia is able to meet with a fertility specialist and better understand her options. We agree with her [employer] [facility]'s recommendation to start a vitamin if she is planning to conceive. 5. ACTH - prior ACTH stimulation test results are reassuring. Plan 1. Laboratory Work: CMP, A1c, estradiol, AMH, free T4, 25OH Vit D 2. Treatment: Continue Levothyroxine 125 mcg daily Continue DDAVP 0.6mg/0.2mg/0.6mg (07:00/13:00/19:00) Continue Lo-estrin for estrogen HRT; advised on condom use to prevent STI 3. We will reach out to the oncology fertility team to coordinate referral to adult fertility specialists 4. Follow up 6 months Cathleen Merino MD, MPH Clinical Fellow Division of Endocrinology [facility] * Kait Avitia, R.N. - 08/29/2024 1:00 PM EDT This RN used 23 G butterfly needle to patient's LAC for lab draw per MD orders. Patient tolerated well. * Cathleen Bajwa M.D. - 08/29/2024 1:00 PM EDT I have reviewed the history and examined the patient. I have reviewed the resident/fellow's note and agree with their findings and plan as documented. Nubia presents for follow up. Overall she is doing well but does report another interval miscarriage (now 3rd). She confirmed with a home test each time. She had a follow up visitwith gynecology for ultrasound to confirm passing of all products of conception. Currently, Nubia is on OCP for hormone replacement of partial HH and contraception. She is and from that partner. She is interested in future with a different partner. Referral made to fertility specialist for evaluation of recurrent miscarriage and fertility potential (AMH low but detectable). Cathleen Bajwa M.D. Endocrinology attending documented in this encounter Plan of Treatment Upcoming Encounters Date Type Department Care Team (Late st Contact Info) Description 02/12/2025 8:10 AM EST Appointment [facility] Division of Endocrinology [address] [place] [phone] Cathleen Bajwa M.D. 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 T4 FREE, RAPID Routine 08/29/2024 2:57 PM EDT Child craniopharyngioma GLYCOSYLATED HGB (HGB A1C) Routine 08/29/2024 2:57 PM EDT Child craniopharyngioma ESTRADIOL US Routine 08/29/2024 2:57 PM EDT Child craniopharyngioma 25OH VITAMIN D Routine 08/29/2024 2:57 PM EDT 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 CHEMISTRY ORDERABLES Fi nal Result Performing Organization Address City/[facility]/ZIP Co de Phone Number [facility] [address] [place] [address] * T4 Free, Rapid (08/29/2024 2:57 PM EDT) Thyroxine Free 1.40 0.90 - 2.30 ng/dL ATELLICA IM SARS-COV-2 TOTAL (COV2T)_[employer] [facility]EUA 08/29/2024 4:24 PM EDT [facility] Blood Venipuncture / Unknown 08/29/2024 2:57 PM EDT 08/29/2024 3:51 PM EDT Cathleen Merino M.D. CHEMISTRY ORDERABLES Fi nal Result Performing Organization Address [facility] Co de Phone Number [facility] [address] [place] [address], [place] * Anti-Mullerian Hormone (08/29/2024 2:57 PM EDT) ANTI-MULLERIAN HORMONE 1.270 0.401 - 16.015 ng/mL 08/31/2024 10:55 PM EDT [facility] Comment: INTERPRETIVE INFORMATION: Anti-Mullerian Hormone FEMALE: 6 months - 14 years: 0.256 - 6.345 ng/mL 15-17 years: 0.861 - 10.451 ng/mL 18-29 years: 0.401 - 16.015 ng/mL 30-39 years: 0.176 - 11.705 ng/mL 40-45 years: 6.282 ng/mL or less 46-50 years: 0.064 ng/mL or less Post-menopausal: 0.003 ng/mL or less MALE: 6-11 months: 56.677 - 495.299 ng/mL 1-6 years: 33.442 - 342.450 ng/mL 7-9 years: 20.245 - 189.781 ng/mL 10-12 years: 2.903 - 178.243 ng/mL 13 years and older: 2.079 - 30.656 ng/mL This test was developed and its performance characteristics determined by [employer]. It has not been cleared or approved by the [place] Food and Drug Administration. This test was performed in a CLIA certified laboratory and is intended for clinical purposes. Performed By: [facility] [employer] [address] [place] [id number] Stock Selector: Mich Salazar MD, PhD CLIA Number: [id number] Blood Venipuncture / Unknown 08/29/2024 2:57 PM EDT 08/29/2024 3:51 PM EDT Cathleen Merino M.D. CHEMISTRY ORDERABLES Fi nal Result Performing Organization Address [facility] Co de Phone Number [address] [address] * Estradiol Us (08/29/2024 2:57 PM EDT) ESTRADIOL BY TMS 218.8 pg/mL 09/04/19 25 2:11 AM EDT [facility] Comment: REFERENCE INTERVAL: Estradiol by Automated Logistics Specialist Pre-menopausal: Early follicular 30.0-100.0 pg/mL Pre-menopausal: Late follicular 100.0-400.0 pg/mL Pre-menopausal: Luteal 50.0-150.0 pg/mL Post-menopausal 2.0-21.0 pg/mL REFERENCE INTERVAL: Estradiol by Automated Logistics Specialist For a complete set of all established reference intervals, refer to [employer]/Tests/Pub/[id number]. This test was developed and its performance characteristics determined by [employer]. It has not been cleared or approved by the US Food and Drug Administration. This test was performed in a CLIA certified laboratory and is intended for clinical purposes. Performed By: [employer] [address] [place], [place] [id number] Stock Selector: Mich Salazar MD, PhD CLIA Number: [id number] Blood Venipuncture / Unknown 08/29/2024 2:57 PM EDT 08/29/2024 3:51 PM EDT Cathleen Merino M.D. CHEMISTRY ORDERABLES Fi nal Result Performing Organization Address [facility]/ZIP Co de Phone Number [address] [address] * Glycosated Hgb (Hgb A1C) (08/29/2024 2:57 PM EDT) Hb A1c 4.9 <=6.3 % 08/30/2024 11: 29 AM EDT [facility] Blood Venipuncture / Unknown 08/29/2024 2:57 PM EDT 08/29/2024 3:51 PM EDT Cathleen Merino M.D. CHEMISTRY ORDERABLES nal Result [facility] [address] [place] [address] * (ABNORMAL) Comp Metabolic Panel (BMP+Alb,TProt,AST,ALT,Alk phos,Tbili) (08/29/2024 2:57 PM EDT) Pathologist [facility] Potassium 4.3 3.5 - 5.1 mmol/L ATELLICA IM SARS-COV-2 TOTAL (COV2T)_[employer] [facility]EUA 08/29/2024 4:24 PM EDT [facility] Chloride 105 98 - 107 mmol/L ATELLICA IM SARS-COV-2 TOTAL (COV2T)_[employer] [facility]EUA 08/29/2024 4:24 PM EDT [facility] Carbon Dioxide 27 20 - 31 mmol/L ATELLICA IM SARS-COV-2 TOTAL (COV2T)_[employer]EUA 08/29/2024 4:24 PM EDT [facility] Anion Gap 7 4 - 15 mmol/L ATELLICA IM SARS-COV-2 TOTAL (COV2T)_[employer]EUA 08/29/2024 4:24 PM EDT [facility] Blood Urea Nitrogen 13 9 - 23 mg/dL ATELLICA IM SARS-COV-2 TOTAL (COV2T)_[employer]EUA 08/29/2024 4:24 PM EDT [facility] Creatinine 0.62 0.50 - 0.80 mg/dL ATELLICA IM SARS-COV-2 TOTAL (COV2T)_[employer] [facility]EUA 08/29/2024 4:24 PM EDT [facility] Glucose 86 65 - 106 mg/dL ATELLICA IM SARS-COV-2 TOTAL (COV2T)_[facility] [employer] [facility]EU08/29/2024 4:24 PM EDT [facility] Calcium 10.1 8.7 - 10.4 mg/dL ATELLICA IM SARS-COV-2 TOTAL (COV2T)_[facility] [facility]EU08/29/2024 4:24 PM EDT [facility] Albumin 4.0 3.4 - 5.0 gm/dL ATELLICA IM SARS-COV-2 TOTAL (COV2T)_[facility]EU08/29/2024 4:24 PM EDT [facility] Alkaline Phosphatase 102 46 - 116 unit/L ATELLICA IM SARS-COV-2 TOTAL (COV2T)_[facility] [facility] [facility]EU08/29/2024 4:24 PM EDT [facility] Alanine Aminotransferase 34 9 - 40 unit/L ATELLICA IM SARS-COV-2 TOTAL (COV2T)_[facility]EU08/29/2024 4:24 PM EDT [facility] Aspartate Aminotransferase 32 8 - 35 unit/L ATELLICA IM SARS-COV-2 TOTAL (COV2T)_[facility]EU08/29/2024 4:24 PM EDT [facility] Bilirubin Total 0.3 0.1 - 1.0 mg/dL ATELLICA IM SARS-COV-2 TOTAL (COV2T)_[facility]EU08/29/2024 4:24 PM EDT [facility] Globulin 3.6 gm/dl ATELLICA IM SARS-COV-2 TOTAL (COV2T)_[facility]EU08/29/2024 4:24 PM EDT [facility] Albumin/Globulin Ratio 1 1 - 2 ATELLICA IM SARS-COV-2 TOTAL (COV2T)_[facility]EUA 08/29/2024 4:24 PM EDT [facility] Sodium 139 136 - 145 mmol/L ATELLICA IM SARS-COV-2 TOTAL (COV2T)_[facility]UA 08/29/2024 4:24 PM EDT [facility] TOTAL PROTEIN LEVEL 7.6 5.7 - 8.2 gm/dL ATELLICA IM SARS-COV-2 TOTAL (COV2T)_[employer] [facility]EUA 08/29/2024 4:24 PM EDT [facility] Estimated Gfr >60 >=60 mL/min/1.7 3m2 ATELLICA IM SARS-COV-2 TOTAL (COV2T)_[employer] [facility] [facility]EUA 08/29/2024 4:24 PM EDT [facility] Comment:Estimated GFR calcul ated using CKD-EPI study equation. Hemolysis None to Slight(A ) None Detected ATELLICA IM SARS-COV-2 TOTAL (COV2T)_[employer] [facility]EUA 08/29/2024 4:24 PM EDT [facility] Comment: The presence of hemolysis in the specimen may result in falsely elevated results for: Ammonia, AST, CK, GGT, Iron, Magnesium, LDH, Phenobarbitol, Phosphorus, Potassium and TIBC. falsely decreased results for: Amylase, B-hCG, Cholesterol, CK-MB, Direct Bilirubin, Prolactin and Troponin-I. Blood Venipuncture / Unknown 08/29/2024 2:57 PM EDT 08/29/2024 3:51 PM EDT us Cathleen Merino M.D. 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 Primary Care [address] [place] [address] PCP - General External Family Practice 12/22/15 documented as of this encounter
--- NOTE | 2024-10-25 14:30 | US_ITS ---
PROCEDURE: US TRANSVAGINAL CLINICAL INDICATION: Pain associated with IUD COMPARISON: US US TRANSVAGINAL from 02/06/2024 FINDINGS: Transvaginal sonographic images of the pelvis were obtained. UTERUS: 5.4cm x 3.6 cmx 3.6 cm retroverted with a combined endometrial thickness of 11.4mm. There is an IUD within the uterine cavity that appears to be in the correct position. LEFT OVARY: Not visualized RIGHT OVARY: Not visualized Both ovaries are not seen. There is no fluid in the cul-de-sac. IMPRESSION: 1. Retroverted uterus normal in shape and size. The endometrium is thickened measuring 11.4 mm. 2. There is an IUD within the uterine cavity in the correct position. 3. Neither ovary could be seen in both transvaginally and transabdominally. 4. No fluid in the cul-de-sac. Dictated by: Willie Foley MD 10/25/2024 20:09 Willie Foley MD in OV 10/25/2024 20:09
--- OUTSIDE RECORDS SUMMARY | 2024-10-25 14:41 | XMS_ITS | Encounter Summary ---
Author Organization [facility] Address [address] [place] [address] Care Team Providers Care Station Supervisor Name Role Phone Cliff Cruz M.D. Primary Care Provider [phone] Reason for Visit * Reason Onset Date Comments Lab Results 09/03/2024 Encounter Details Date Type Department Care Team (Late st Contact Info) Description 09/03/2024 Telephone [facility] Division of Endocrinology [address] [place] [phone] Cathleen Merino M.D. Endocrinology [address] [place] [address] [address] [place] [address] Lab Results Social History Tobacco Use Types Packs/Day Years [...] on file documented as of this encounter Miscellaneous Notes * Telephone Encounter - Cathleen Merino M.D. - 09/03/2024 10:08 AM EDT Called to share results from recent labs. No changes based on current results. No answer, left voicemail and will try to call again later. Addendum 1:20 PM: Nubia reached out to me. I shared lab results and let her know to be looking out for a call from material yard clerk to assist with referral to adult fertility specialists. Latest Reference Range & Units 08/29/24 14:57 VITAMIN D 25-HYDROXY 20.0 - 60.0 ng/mL 32.7 TOTAL PROTEIN LEVEL 5.7 - 8.2 gm/dL 7.6 ANTI-MULLERIAN HORMONE 0.401 - 16.015 ng/mL 1.270 ESTRADIOL US pg/mL 218.8 GLUCOSE LEVEL 65 - 106 mg/dL 86 HEMOGLOBIN A1C <=6.3 % 4.9 Latest Reference Range & Units 08/29/24 14:57 SODIUM LEVEL 136 - 145 mmol/L 139 POTASSIUM LEVEL 3.5 - 5.1 mmol/L 4.3 CHLORIDE LEVEL 98 - 107 mmol/L 105 CO2 LEVEL 20 - 31 mmol/L 27 BUN 9 - 23 mg/dL 13 CREATININE LEVEL 0.50 - 0.80 mg/dL 0.62 ESTIMATED GFR >=60 mL/min/1.73m2 >60 ANION GAP 4 - 15 mmol/L 7 GLUCOSE LEVEL 65 - 106 mg/dL 86 CALCIUM 8.7 - 10.4 mg/dL 10.1 TOTAL PROTEIN LEVEL 5.7 - 8.2 gm/dL 7.6 ALBUMIN LEVEL 3.4 - 5.0 gm/dL 4.0 GLOBULIN gm/dl 3.6 A/G RATIO 1 - 2 1 ALT 9 - 40 unit/L 34 AST 8 - 35 unit/L 32 BILIRUBIN TOTAL 0.1 - 1.0 mg/dL 0.3 ALK PHOS 46 - 116 unit/L 102 Cathleen Merino MD, MPH Clinical Fellow Division of Endocrinology [facility] documented in this encounter Plan of Treatment Upcoming Encounters Date Type Department Care Team (Late st Contact Info) Description 02/12/2025 8:10 AM EST Appointment [facility] Division of Endocrinology [address] [place] [phone] Cathleen Bajwa M.D. Endocrinology [address] [place] [address] [place] [phone] Discharge Disposition: Home or Self Care documented as of this encounter Visit Diagnoses Not on filedocumented in this encounter Care Teams Station Supervisor Relationship Specialty Start Date End Date Cliff Cruz M.D. Primary Care [address] [place] [address] PCP - General External Family Practice 12/22/15 documented as of this encounter
--- OUTSIDE RECORDS SUMMARY | 2024-10-25 14:41 | XMS_ITS | Encounter Summary ---
Author Organization [facility] Address [address] [place] [address] Care Team Providers Care Cutter Brake Lining Name Role Phone Cliff Cruz M.D. Primary Care Provider [phone] Reason for Visit * Reason Comments Medication Refill Encounter Details Date Type Department Care Team (Late st Contact Info) Description 03/11/2020 Refill [facility] Division of Endocrinology [address] [place] [phone] Cathleen Gray M.D. Endocrinology [address] [place] [address] [address] [place] [address] Medication Refill Social History Tobacco Use Types Packs/Day Years Used Date Smoking Tobacco: Never Smokeless Tobacco: Never Alcohol Use Standard Drinks/Week Comments No 0 (1 standard drink = 0.6 oz pur e alcohol) Intimate Partner Violence Answer Date R ecorded Safe in relationship? (up to 18) Yes 03/09/2020 Safe in relationship? (18 and older) Not on file 03/09/2020 Safety and Environment Answer Date Vladislav rded Abuse or neglect worry (Parent/Guardian) No 03/09/2020 Adult hurting you or family (11-18) No 03/09/2020 Someone touched you in a sexual way? (11-18) No 03/09/2020 Someone hurting you or family (18 and older) Not on file 03/09/2020 Historical abuse worry Not on file 0 If you have firearms in the home, are they all in locked storage AND unloaded? Not on file 03/09/2020 (RETIRED 12/2021) Guns In Home Not on file 1 05/10/2019 (RETIRED 12/2021) Guns Unloaded or Locked Away N ot on file 03/09/2020 Comments Unknown Sex and Gender Information Value Date Recorded Sex Assigned at Not on file Legal Sex Female 5:31 AM EST Gender Identity Not on file Sexual Orientation Not on file documented as of this encounter Miscellaneous Notes * Telephone Encounter - Ai Gonzalez R.N. - 03/11/2020 5:23 PM EST Spoke to patient's mother after refill requested for DDAVP. She does not want to transfer care to or [place] Location. [place]. She stated Nubia has not had periods yet and has not seen a Sfd[employer] Technical Architect as recommended. She agreed to follow up on this before her follow up in Apr. documented in this encounter Plan of Treatment Upcoming Encounters Date Type Department Care Team (Late st Contact Info) Description 02/12/2025 8:10 AM EST Appointment [facility] Division of Endocrinology [address] [place] [phone] Cathleen Bajwa M.D. 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 BELLI: [id number] Primary Care [address] [place] [address] PCP - General External Family Practice 12/22/15 documented as of this encounter
--- OUTSIDE RECORDS SUMMARY | 2024-10-25 14:41 | XMS_ITS | Encounter Summary ---
Author Organization [facility] Address [address] [place] [address] Care Team Providers Care Well Logger Name Role Phone Cliff Cruz M.D. Primary Care Provider [phone] Reason for Visit * Reason Comments Medication Refill Encounter Details Date Type Department Care Team (Late st Contact Info) Description 10/05/2024 Refill [facility] Division of Endocrinology [address] [place] [phone] Cathleen Bajwa M.D. Endocrinology [address] [place] [address] [place] [phone] Medication Refill Social History Tobacco Use [...] encounter Miscellaneous Notes * Telephone Encounter - Nalini Rivero R.N. - 10/05/2024 4:46 PM EDT 11 refills sent last month documented in this encounter Plan of Treatment Upcoming Encounters Date Type Department Care Team (Late st Contact Info) Description 02/12/2025 8:10 AM EST Appointment [facility] Division of Endocrinology [address] [place] [phone] Cathleen Bajwa M.D. 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 Primary Care [address] [place] [address] PCP - General External Family Practice 12/22/15 documented as of this encounter
--- OUTSIDE RECORDS SUMMARY | 2024-10-25 14:41 | XMS_ITS | Encounter Summary ---
Author Organization [facility] Address [address] [place] [address] Care Team Providers Care Store Promoter Name Role Phone Cliff Cruz M.D. Primary Care Provider [phone] [phone] Encounter Details Date Type Department Care Team (Late st Contact Info) Description 07/24/2012 Telephone [facility] Cancer and Blood Diseases [place] [address] [place] [phone] Lou Arboleda LISW Social History Tobacco Use Types Packs/Day Years Used Date Smoking Tobacco: Never Assessed Comments Unknown Sex and Gender Information Value Date Recorded Sex Assigned at Not on file Legal Sex Female 5:31 AM EST Gender Identity Not on file Sexual Orientation Not on file documented as of this encounter Progress Notes * Lou Arboleda LISW - 07/24/2012 2:39 PM EDT Left message for Nubia's mother to call me in regards to having a nomination made for Nubia to become enrolled with the [facility] program which will allow in home therapy and support. documented in this encounter Plan of Treatment Upcoming Encounters Date Type Department Care Team (Late st Contact Info) Description 02/12/2025 8:10 AM EST Appointment [facility] Division of Endocrinology [address] [place] [address] Cathleen Bajwa M.D. Endocrinology [facility] [address] [place] [address] Discharge Disposition: Home or Self Care documented as of this encounter Visit Diagnoses Not on filedocumented in this encounter Care Teams Store Promoter Relationship Specialty Start Date End Date Cliff Cruz M.D. Primary Care [address] [place] [address] PCP - General External Family Practice 12/22/15 documented as of this encounter
--- OUTSIDE RECORDS SUMMARY | 2024-10-25 14:41 | XMS_ITS | Encounter Summary ---
Author Organization [facility] Address [address] [place] [address] Care Team Providers Care Moveman Name Role Phone Cliff Cruz M.D. Primary Care Provider [phone] Reason for Visit * Reason Comments Medication Refill Encounter Details Date Type Department Care Team (Late st Contact Info) Description 05/27/2020 Refill [facility] Division of Endocrinology [address] [place] [phone] Cathleen Bajwa M.D. Endocrinology [address] [place] [address] [address] [place] [address] Medication Refill Social History Tobacco [...] as of this encounter Plan of Treatment Upcoming Encounters Date Type Department Care Team (Late st Contact Info) Description 02/12/2025 8:10 AM EST Appointment [facility] Division of Endocrinology [address] [place] [phone] Cathleen Bajwa M.D. Endocrinology [address] [place] [phone] Discharge Disposition: Home or Self Care documented as of this encounter Visit Diagnoses Diagnosis Attention deficit disorder with hyperactivity Attention deficit disorder Attention deficit disorder without mention of hyperactivity documented in this encounter Care Teams Moveman Relationship Specialty Start Date End Date Cliff Cruz M.D. Primary Care [address] [place] [address] PCP - General External Family Practice 12/22/15 documented as of this encounter
--- OUTSIDE RECORDS SUMMARY | 2024-10-25 14:41 | XMS_ITS | Encounter Summary ---
Author Organization [facility] Address [address] [place] [address] Care Team Providers Care Pants Cutter Name Role Phone Cliff Cruz M.D. Primary Care Provider [phone] Reason for Visit * Reason Comments Medication Refill Encounter Details Date Type Department Care Team (Late st Contact Info) Description 05/27/2020 Refill [facility] Division of Endocrinology [address] [place] [phone] Cathleen Gray M.D. Endocrinology [address] [place] [address] [address] [place] [address] Medication Refill Social History Tobacco [...] Info) Description 02/12/2025 8:10 AM EST Appointment [facility] Division of Endocrinology [address] [place] [phone] Cathleen Bajwa M.D. 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 Primary Care [address] [place] [address] PCP - General External Family Practice 12/22/15 documented as of this encounter
--- OUTSIDE RECORDS SUMMARY | 2024-10-25 14:41 | XMS_ITS | Encounter Summary ---
Author Organization [facility] Address [address] [place] [address] Care Team Providers Care High School Band Teacher Name Role Phone Cliff Cruz M.D. Primary Care Provider [phone] Encounter Details Date Type Department Care Team (Late st Contact Info) Description 02/14/2013 Telephone [facility] Division of Endocrinology [address] [place] [phone] Cathleen Gray M.D. Endocrinology [address] [place] [address] [place] [phone] Social History Tobacco Use Types Packs/Day Years Used Date Smoking Tobacco: Never Assessed Comments Unknown Sex and Gender Information Value Date Recorded Sex Assigned at Not on file Legal Sex Female 5:31 AM EST Gender Identity Not on file Sexual Orientation Not on file documented as of this encounter Miscellaneous Notes * Telephone Encounter - Darlene Lin R.N. - 02/14/2013 2:41 PM EST Faxed for the second time * Telephone Encounter - Beverley Abarca - 02/14/2013 1:35 PM EST Lab calling for orders. Free T4 and Renal function. Please fax to [phone]. Please call [phone] and let them know it has been faxed. documented in this encounter Plan of Treatment Upcoming Encounters Date Type Department Care Team (Late st Contact Info) Description 02/12/2025 8:10 AM EST Appointment [facility] Division of Endocrinology [address] [place] [phone] Cathleen Bajwa M.D. Endocrinology [address] [place] [address] [place] [phone] Discharge Disposition: Home or Self Care documented as of this encounter Visit Diagnoses Not on filedocumented in this encounter Care Teams High School Band Teacher Relationship Specialty Start Date End Date Cliff Cruz M.D. Primary Care [address] [place] [address] PCP - General External Family Practice 12/22/15 documented as of this encounter
--- OUTSIDE RECORDS SUMMARY | 2024-10-25 14:41 | XMS_ITS | Encounter Summary ---
Author Organization [facility] Address [address] [place] [address] Care Team Providers Care Court Messenger Name Role Phone Cliff Cruz M.D. Primary Care Provider +1 [phone] Encounter Details Date Type Department Care Team (Late st Contact Info) Description 02/15/2013 Abstract [facility] Division of Endocrinology [address] [place] [phone] Cathleen Gray M.D. Endocrinology [address] [place] [address] [address] [place] [address] Social History Tobacco Use Types Packs/Day [...] Info) Description 02/12/2025 8:10 AM EST Appointment [facility] Division of Endocrinology [address] [place] [phone] Cathleen Bajwa M.D. Endocrinology [address] [place] [address] [place], [address] [place] [address] Discharge Disposition: Home or Self Care documented as of this encounter Procedures Procedure Name Priority Date/Time Associated Diagnosis Comments EXTERNAL LAB RENAL PROFILE (KIDNEY) Routine 02/07/2013 4:43 PM EST documented in this encounter Results * (ABNORMAL) External Lab Renal Profile (02/07/2013 4:43 PM EST) SODIUM LEVEL EXT 143 136 - 145 mmoL/L EXTERNAL LAB POTASSIUM LEVEL EXT 3.7 3.5 - 5.1 mmoL/L EXTERNAL LAB CHLORIDE LEVEL EXT 103 98 - 107 mmoL/L EXTERNAL LAB CO2 LEVEL EXT 29 21.0 - 32.0 mmoL/L EXTERNAL LAB BUN EXT 15 7 - 18 mg/dL EXTERNAL LAB CREATININE LEVEL EXT 0.5(A) 0.6 - 1.0 mg/dL EXTERNAL LAB PERFORMING LAB IN NARRATIVE Yes EXTERNAL LAB GLUCOSE LEVEL EXT 89 74 - 106 mg/dL EXTERNAL LAB CALCIUM EXT 8.9 8.5 - 10.1 mg/dL EXTERNAL LAB PHOSPHORUS (PHOSPHATE) 3.7 3.4 - 5.0 gm/dL EXTERNAL LAB ALBUMIN LEVEL EXT 3.7 3.4 - 5.0 gm/dL EXTERNAL LAB T4 FREE EXT 1.01 0.76 - 1.46 ng/dL EXTERNAL LAB Blood specimen (specimen) 02/07/2013 4:43 PM EST Narrative EXTERNAL LAB - 02/07/2013 4:43 PM EST [facility] [place] [address] us Historical Provider EXTERNAL LAB ORDERABLES Maria Elena l Result EXTERNAL LAB documented in this encounter Visit Diagnoses Not on filedocumented in this encounter Care Teams Court Messenger Relationship Specialty Start Date End Date Cliff Cruz M.D. BELLI: [id number] Primary Care [address] [place] [address] PCP - General External Family Practice 12/22/15 documented as of this encounter
--- OUTSIDE RECORDS SUMMARY | 2024-10-25 14:41 | XMS_ITS | Encounter Summary ---
Author Organization [facility] Address [address] [place] [address] Care Team Providers Care Facer Operator Name Role Phone Cliff Cruz M.D. Primary Care Provider [phone] Reason for Visit * Reason Onset Date Comments Schedule Appointment 06/14/2016 Have made n umerous attempts to contact patient to schedule and havent been able to get ahold of them. Multiple numbers on [employer] don't work. Will go ahead and schedule and mail itinerary. [place] [id number] Encounter Details Date Type Department Care Team (Late st Contact Info) Description 06/14/2016 Telephone [facility] Cancer and Blood Diseases [place] [address] [place] [phone] Anand Magana M.D. Hematology-Oncology [address] [place] [address] [address] [place] [address] Schedule Appointment (Have made numerous attempts to contact patient to schedule and havent been able to get ahold of them. Multiple numbers on [employer] don't work. Will go ahead and schedule and mail itinerary. Ricky [id number]) Social History Tobacco Use Types Packs/Day Years Used Date Smoking Tobacco: Never Alcohol Use Standard Drinks/Week Comments No 0 (1 standard drink = 0.6 oz pur e alcohol) Comments Unknown Sex and Gender Information Value Date Recorded Sex Assigned at Not on file Legal Sex Female 5:31 AM EST Gender Identity Not on file Sexual Orientation Not on file documented as of this encounter Plan of Treatment Upcoming Encounters Date Type Department Care Team (Late st Contact Info) Description 02/12/2025 8:10 AM EST Appointment [facility] Division of Endocrinology [address] [place] [phone] Cathleen Bajwa M.D. Endocrinology [address] [place] [address] [place] [phone] Discharge Disposition: Home or Self Care documented as of this encounter Visit Diagnoses Not on filedocumented in this encounter Care Teams Facer Operator Relationship Specialty Start Date End Date Cliff Cruz M.D. Primary Care [address] [place] [address] PCP - General External Family Practice 12/22/15 documented as of this encounter
--- OUTSIDE RECORDS SUMMARY | 2024-10-25 14:41 | XMS_ITS | Encounter Summary ---
Author Organization [facility] Address [address] [place] [address] Care Team Providers Care Geophysical Laboratory Supervisor Name Role Phone Cliff Cruz M.D. Primary Care Provider +1 -[phone] Encounter Details Date Type Department Care Team (Late st Contact Info) Description 07/24/2012 Telephone [facility] Cancer and Blood Diseases [place] [address] [place] [phone] Lou Arboleda LISW Social History Tobacco Use Types Packs/Day Years Used Date Smoking Tobacco: Never Assessed Comments Unknown Sex and Gender Information Value Date Recorded Sex Assigned at Not on file Legal Sex Female 5:31 AM EST Gender Identity Not on file Sexual Orientation Not on file documented as of this encounter Progress Notes * Lou Arboleda LISW - 07/24/2012 4:20 PM EDT Spoke with Nubia Prado's mother, about my conversation with Nubia Byrd's school counselor. I told her about the [facility] Intensive Treatment Team program, and she expressed interest. I urged her to call Alma Franco and request a nomination be made. I told mom I would follow up with her in about a week or two. documented in this encounter Plan of Treatment Upcoming Encounters Date Type Department Care Team (Late st Contact Info) Description 02/12/2025 8:10 AM EST Appointment [facility] Division of Endocrinology [address] [place] [phone] Cathleen Bajwa M.D. Endocrinology [address] [place] [address] [place] [phone] Discharge Disposition: Home or Self Care documented as of this encounter Visit Diagnoses Not on filedocumented in this encounter Care Teams Geophysical Laboratory Supervisor Relationship Specialty Start Date End Date Cliff Cruz M.D. Primary Care [address] [place] [address] PCP - General External Family Practice 12/22/15 documented as of this encounter
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
--- OUTSIDE RECORDS SUMMARY | 2024-10-25 14:41 | XMS_ITS | Encounter Summary ---
Author Organization [facility] Address [address] [place] [address] Care Team Providers Care Hot Dip Tinning Supervisor Name Role Phone Cliff Cruz M.D. Primary Care Provider +1 -[phone] Encounter Details Date Type Department Care Team (Late st Contact Info) Description 04/22/2018 Abstract [facility] Cancer and Blood Diseases [place] [address] [place] [phone] Anand Magana M.D. Hematology-Oncology [address] [place] [address] [place] [phone] Social History Tobacco Use Types Packs/Day [...] Info) Description 02/12/2025 8:10 AM EST Appointment [facility] Division of Endocrinology [address] [place] [phone] Cathleen Bajwa M.D. Endocrinology [address], [address] [place] [address] Discharge Disposition: Home or Self Care documented as of this encounter Visit Diagnoses Not on filedocumented in this encounter Care Teams Hot Dip Tinning Supervisor Relationship Specialty Start Date End Date Cliff Cruz M.D. Primary Care [address] [place] [address] PCP - General External Family Practice 12/22/15 documented as of this encounter
--- OUTSIDE RECORDS SUMMARY | 2024-10-25 14:41 | XMS_ITS | Encounter Summary ---
Author Organization [facility] Address [address] [place] [address] Care Team Providers Care Mysql Database Developer Name Role Phone Cliff Cruz M.D. Primary Care Provider +1 -[phone] Encounter Details Date Type Department Care Team (Late st Contact Info) Description 05/01/2009 Abstract [facility] Cancer and Blood Diseases [place] [address] [place] [phone] Crepe Sole Scourer, [facility] Social History Tobacco Use Types Packs/Day Years Used Date Smoking Tobacco: Never Assessed Comments Unknown Sex and Gender Information Value Date Recorded Sex Assigned at Not on file Legal Sex Female 5:31 AM EST Gender Identity Not on file Sexual Orientation Not on file documented as of this encounter Last Filed Vital Signs Vital Sign Reading Time Taken Comments Blood Pressure - - Pulse - - Temperature - - Respiratory Rate - - Oxygen Saturation - - Inhaled Oxygen Concentration - - Weight 24.5 kg (54 lb 0.2 oz) 03/06/2009 4:21 PM EST Height 111.8 cm (3' 8.02 ) 03/06/2009 4:21 PM ES T Body Mass Index 19.6 03/06/2009 4:21 PM EST Body Mass Index Percentile 95.09% 03/06/2009 4:2 1 PM EST Growth Chart: CDC (Girls, 2- 20 Years) documented in this encounter Plan of Treatment Upcoming Encounters Date Type Department Care Team (Late st Contact Info) Description 02/12/2025 8:10 AM EST Appointment [facility] Division of Endocrinology [facility] [place] [address] Cathleen Bajwa M.D. Endocrinology [address] [place], [place] [address], [address] [place] [address] Discharge Disposition: Home or Self Care documented as of this encounter Visit Diagnoses Not on filedocumented in this encounter Care Teams Mysql Database Developer Relationship Specialty Start Date End Date Cliff Cruz M.D. Primary Care [address] [place] [address] PCP - General External Family Practice 12/22/15 documented as of this encounter
--- OUTSIDE RECORDS SUMMARY | 2024-10-25 14:41 | XMS_ITS | Encounter Summary ---
Author Organization [facility] Address [address] [place] [address] Care Team Providers Care Business Performance Specialist Name Role Phone Cliff Cruz M.D. Primary Care Provider +1 -[phone] Reason for Visit * Reason Onset Date Comments medication/supply question:Other 10/11/2024 Patient calling and didn't know if medication needs a PA for Synthroid and desmopressin. Encounter Details Date Type Department Care Team (Late st Contact Info) Description 10/11/2024 Telephone [facility] Division of Endocrinology [address] [place] [phone] Delilah Mujica Medical Asst medication/supply question:Other (Patient calling and didn't know if medication needs a PA for Synthroid and desmopressin.) Social History Tobacco Use Types Packs/Day Years [...] encounter Miscellaneous Notes * Telephone Encounter - Delilah Mujica Director Surgical - 10/11/2024 2:43 PM EDT Marisol ( [facility])reports the Provider that Rx medications was not covered by [place] Medicaid verbal was give to switch to Dr Bajwa for the following :desmopressin (DDAVP) 0.2 MG tabletOrder Details: TAKE 3 TABLETS BY MOUTH EACH MORNING , ONE TABLET MIDDAY AND 3 TABS AT BEDTIME Dispense: 210 tablet, Refills: 11 ordered Admin Instructions: TAKE 3 TABLETS BY MOUTH EACH MORNING , ONE TABLET MIDDAY AND 3 TABS AT BEDTIME Ordering Department: [facility] ENDOCRINOLOGY Authorized By: Cathleen Merino M.D. And Levothyroxine (synthroid 125 mcg tablet -vv Take 1 tablet by mouth at bedtime. Dispense: 30 tablet, Refills: 11 ordered Ordering Department: [facility] ENDOCRINOLOGY Authorized By: Cathleen Merino M No additional questions * Telephone Encounter - Delilah Mujica Director Surgical - 10/11/2024 2:11 PM EDT Images from the original note were not included. Patient calling and didn't know if medication needs a PA for Synthroid and desmopressin. Patient reports she will have pharmacy reach out to us . No further questions Nalini Rivero R.N. 10/05/24 4:46 PM Note 11 refills sent last month Order refused Desmopressin Acetate 0.2 MG TAKE 3 TABLETS BY MOUTH EACH MORNING , ONE TABLET MIDDAY AND 3 TABS AT BEDTIME Protocol Details documented in this encounter Plan of Treatment Upcoming Encounters Date Type Department Care Team (Late st Contact Info) Description 02/12/2025 8:10 AM EST Appointment [facility] Division of Endocrinology [address] [place] [phone] Cathleen Bajwa M.D. Endocrinology [address] [place] [address] [place] [phone] Discharge Disposition: Home or Self Care documented as of this encounter Visit Diagnoses Not on filedocumented in this encounter Care Teams Business Performance Specialist Relationship Specialty Start Date End Date Cliff Cruz M.D. Primary Care [address] [place] [address] PCP - General External Family Practice 12/22/15 documented as of this encounter
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
--- OUTSIDE RECORDS SUMMARY | 2024-10-25 14:41 | XMS_ITS | Encounter Summary ---
Author Organization [facility] Address [address] [place] [address] Care Team Providers Care Supervisor [address] Name Role Phone Cliff Cruz M.D. Primary Care Provider +1 -[phone] Reason for Visit * Reason Onset Date Comments Fertility Counseling 08/31/2024 Encounter Details Date Type Department Care Team (Late st Contact Info) Description 08/31/2024 Telephone [facility] Division of Gynecology [address] [place] [phone] Mely Barragan, R.N. Fertility Counseling Social History Tobacco Use Types Packs/Day Years [...] encounter Miscellaneous Notes * Telephone Encounter - Mely Barragan R.N. - 08/31/2024 9:34 AM EDT Patient seeking information regarding Reproductive endocrinology infertility physician. 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 [facility] [phone] RN attempted to contact patient, left detailed voicemail requesting a call back. Mely Barragan R.N. documented in this encounter Plan of Treatment Upcoming Encounters Date Type Department Care Team (Late st Contact Info) Description 02/12/2025 8:10 AM EST Appointment [facility] Division of Endocrinology [address] [place] [phone] Cathleen Bajwa M.D. Endocrinology [address] [place] [address] [place] [phone] Discharge Disposition: Home or Self Care documented as of this encounter Visit Diagnoses Not on filedocumented in this encounter Care Teams Supervisor Eng[address] Relationship Specialty Start Date End Date Cliff Cruz M.D. Primary Care [address] [place] [address] PCP - General External Family Practice 12/22/15 documented as of this encounter
--- OUTSIDE RECORDS SUMMARY | 2024-10-25 14:41 | XMS_ITS | Encounter Summary ---
Author Organization [facility] Address [address] [place] [address] Care Team Providers Care Road Cutter Name Role Phone Cliff Cruz M.D. Primary Care Provider +1 -[phone] Encounter Details Date Type Department Care Team (Late st Contact Info) Description 12/09/2015 Abstract [facility] Cancer and Blood Diseases [place] [address] [place] [phone] Emma Syed R.N. Social History Tobacco Use Types Packs/Day Years [...] Info) Description 02/12/2025 8:10 AM EST Appointment [facility] Division of Endocrinology [address] [place] [phone] Cathleen Bajwa M.D. Endocrinology [address] [place] [address] [address] [place] [address] Discharge Disposition: Home or Self Care documented as of this encounter Visit Diagnoses Not on filedocumented in this encounter Care Teams Road Cutter Relationship Specialty Start Date End Date Cliff Cruz M.D. BELLI: [id number] Primary Care [address] [place] [address] PCP - General External Family Practice 12/22/15 documented as of this encounter
--- OUTSIDE RECORDS SUMMARY | 2024-10-25 14:41 | XMS_ITS | Encounter Summary ---
Author Organization [facility] Address [address] [place] [address] Care Team Providers Care Candy Supervisor Name Role Phone Cliff Cruz M.D. Primary Care Provider +1 -[phone] Encounter Details Date Type Department Care Team (Late st Contact Info) Description 10/10/2024 Orders Only [facility] Division of Endocrinology [address] [place] [address] Jerica Nichosl, R.N. 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 - 10/10/2024 11:42 AM EDT Can not gume scripts written from Dr. Samson, daryl licensure in [place] - reordered from Dr. Bajwa documented in this encounter Plan of Treatment Upcoming Encounters Date Type Department Care Team (Late st Contact Info) Description 02/12/2025 8:10 AM EST Appointment [facility] Division of Endocrinology [address] [place] [phone] Cathleen Bajwa M.D. 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 Primary Care [address] [place] [address] PCP - General External Family Practice 12/22/15 documented as of this encounter
--- OUTSIDE RECORDS SUMMARY | 2024-10-25 14:41 | XMS_ITS | Encounter Summary ---
Author Organization [facility] Address [address] [place] [address] Care Team Providers Care Flat Cutter Name Role Phone Cliff Cruz M.D. Primary Care Provider +1 -[phone] Reason for Visit * Reason Onset Date Comments medications: medication refill 05/18/2013 Encounter Details Date Type Department Care Team (Late st Contact Info) Description 05/18/2013 Telephone [facility] Division of Endocrinology [address] [place] [phone] Lida Mak M.D. [address] [place], [place] [id number] medications: medication refill Social History Tobacco Use Types Packs/Day Years Used Date Smoking Tobacco: Never Assessed Comments Unknown Sex and Gender Information Value Date Recorded Sex Assigned at Not on file Legal Sex Female 5:31 AM EST Gender Identity Not on file Sexual Orientation Not on file documented as of this encounter Miscellaneous Notes * Telephone Encounter - Camila Tavera R.N. - 05/18/2013 3:38 PM EST Dose confirmed * Telephone Encounter - Dania Astudillo - 05/18/2013 2:51 PM EST Pharmacy is calling for (2) refills: levothyroxine and Desmopressin. Please call them: [phone] fax: [phone]. Nubia has an appt scheduled with Dr. Mak 05/24/13. documented in this encounter Plan of Treatment Upcoming Encounters Date Type Department Care Team (Late st Contact Info) Description 02/12/2025 8:10 AM EST Appointment [facility] Division of Endocrinology [address] [place] [phone] Cathleen Bajwa M.D. 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 Primary Care [address] [place] [address] PCP - General External Family Practice 12/22/15 documented as of this encounter
--- OUTSIDE RECORDS SUMMARY | 2024-10-25 14:41 | XMS_ITS | Encounter Summary ---
Author Organization [facility] Address [address] [place] [address] Care Team Providers Care Night Worker Name Role Phone Cliff Cruz M.D. Primary Care Provider +1 -[phone] Encounter Details Date Type Department Care Team (Late st Contact Info) Description 12/09/2015 Abstract [facility] Cancer and Blood Diseases [place] [address] [place] [phone] Emma Syed R.N. Social History Tobacco [...] Appointment [facility] Division of Endocrinology [address] [place] [phone] Cathleen Bajwa M.D. Endocrinology [address] [place] [address] [address] [place] [address] Discharge Disposition: Home or Self Care documented as of this encounter Visit Diagnoses Not on filedocumented in this encounter Care Teams Night Worker Relationship Specialty Start Date End Date Cliff Cruz M.D. BELLI: [id number] Primary Care [address] [place] [address] PCP - General External Family Practice 12/22/15 documented as of this encounter
--- OUTSIDE RECORDS SUMMARY | 2024-10-25 14:42 | XMS_ITS | Encounter Summary ---
Author Organization [facility] Address [address] [place] [address] Care Team Providers Care Physiotherapy Aide Name Role Phone Cliff Cruz M.D. Primary Care Provider [phone] Reason for Visit * Reason Comments Medication Refill Elavil and motrin Encounter Details Date Type Department Care Team (Late st Contact Info) Description 01/28/2021 Refill [facility] Division of Neurology [address] [place] [phone] Dania Arce M.D. Neurology [address] [place] [address] [place] [address] Medication Refill (Elavil and motrin) Social History Tobacco Use Types Packs/Day Years Used Date Smoking Tobacco: Never Smokeless Tobacco: Never Alcohol Use Standard Drinks/Week Comments No 0 (1 standard drink = 0.6 oz pur e alcohol) Intimate Partner Violence Answer Date R ecorded If you are in a relationship , do you feel safe in that relationship? Yes 06/03/2020 If you are in a relationship , do you feel safe in that relationship? Yes 06/03/2020 Safety and Environment Answer Date Vladislav rded Do you have any concerns of physical abuse, sexual abuse, or neglect of your child? No 06/03/2020 Is an adult hurting you or your family? No 06/03/2020 Has someone ever touched you in a sexual way that was not ok with you? No 06/03/2020 Is someone hurting your or your family? No 06/03/2020 Historical abuse worry Not on file If you have firearms in the home, are they all in locked storage AND unloaded? Not on file 06/03/2020 (RETIRED 12/2021) Guns In Home Not on file 0 06/03/2020 (RETIRED 12/2021) Guns Unloaded or Locked Away N ot on file 06/03/2020 Comments Unknown Sex and Gender Information Value Date Recorded Sex Assigned at Not on file Legal Sex Female 5:31 AM EST Gender Identity Not on file Sexual Orientation Not on file documented as of this encounter Miscellaneous Notes * Telephone Encounter - Agustina Mak R.N. - 01/28/2021 3:20 PM EDT Both numbers on file are out of service. Patient was last seen by Dr. Arce in 2019. RN will refuse Rxs and request family to contact neurology in regards to establishing care with newneurologist. * Telephone Encounter - Yun Bauer, Manager Activities - 01/28/2021 3:03 PM EDT Please review, pt is due for an appt. No appt has been scheduled yet. Medication refill request for: Elavil and motrin LAST TELEHEALTH VISIT: LAST IN CLINIC VISIT : No appointment found Advised to follow up in: 1 year Follow up appointment: No appointment found PHARMACY IS VERIFIED AND PLACED IN PENDED ORDER. (If there is a discrepancy, a question or needs appt ., please send to nurse pool . ) documented in this encounter Plan of Treatment Upcoming Encounters Date Type Department Care Team (Late st Contact Info) Description 02/12/2025 8:10 AM EST Appointment [facility] Division of Endocrinology [address] [place] [address] Cathleen Bajwa M.D. Endocrinology [facility], [address] [place] [address] Discharge Disposition: Home or Self Care documented as of this encounter Visit Diagnoses Diagnosis Migraine without aura and without status migrainosus, not intractable Migraine without aura, without mention of intractable migraine without mention of status migrainosus documented in this encounter Care Teams Physiotherapy Aide Relationship Specialty Start Date End Date Cliff Cruz M.D. Primary Care [address] [place] [address] PCP - General External Family Practice 12/22/15 documented as of this encounter
--- OUTSIDE RECORDS SUMMARY | 2024-10-25 14:42 | XMS_ITS | Clinical Summary ---
Author Organization [facility] Address [address] [place] [address] Care Team Providers Care Spool Cleaner Hand Name Role Phone Cliff Cruz M.D. Primary Care Provider [phone] Source Comments [facility] is fully rolled out with thefollowing exceptions:[facility] Allergies No known active allergies Medications ARIPiprazole 10 MG tablet Take 1 tablet by mouth 1 time a day. Active hydrOXYzine pamoate (VISTARIL) 25 MG capsule Take 1 capsule by mouth 1 time a day. 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 30 tablet 10/12/19 25 Active norethindrone-ethinyl estradiol-iron (MALIK FE 04/16) 1-20 MG-MCG tabletIndications:Kelsie tral hypothyroidism,Hypogo nadotropic hypogonadism Take 1 tablet by mouth at bedtime. 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 30 tablet 08/30/19 25 025 Discontin ued(Physi anali to reorder) norethindrone-ethinyl estradiol-iron (MALIK FE 04/16) 1-20 MG-MCG tabletIndications:Hyp ogonadotropic hypogonadism Take 1 tablet by mouth at bedtime. 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 TAKE 3 TABLETS BY MOUTH EACH MORNING , ONE TABLET MIDDAY AND 3 TABS AT BEDTIME 210 tablet 08/30/19 25 025 Discontin ued(Physi anali to reorder) Active Problems Problem Noted Date Diagnosed Date Obesity due to excess calori es without serious comorbidity with body mass index (BMI) in 95th to 98th percentile for age in pediatric patient 06/01/2018 Hypogonadotropic hypogonadism 10/23/2016 Cranial nerve lesion 01/08/2016 Overview (08/25/2017): Right cranial nerve VIII lesion - stable Repeat Audiogram in 1 year, MRI in one year 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 Given that she has not had symptoms from this lesion will follow up on next MRI, will obtain hearing screen at that time. MRI 06/2015 - Stable MRI though there is a slight increase in conspicuity of the right internal auditory canal lesion, presumably a schwannoma. Stable postsurgical findings in the suprasellar region without evidence of residual/recurrent tumor. Repeat MRI in 1 year (or 3-4 months after starting growth hormone) MRI 07/2016: Stable MRI - repeat MRI in 1 year MRI 07/2017: Stable MRI - repeat MRI in 1 year Generalized headaches 10/09/2008 Overview (08/25/2017): Doing well since on Elavil. Dr. Arce has been following. Resolved Problems Problem Noted Date Diagnosed Date Resolved Date Tension type headache 08/25/20172017 Sensorineural hearing loss ( SNHL) of right ear with unrestricted hearing of left ear 08/19/2017 08/25/2017 Migraine without aura and wi thout status migrainosus, not intractable 01/08/2016 08/25/2017 Abnormal weight gain 01/08/2016 017 Hypogonadotropic hypogonadism 01/08/2016 08/19/2016 Cognitive complaints 01/30/2015 016 GHD (growth hormone deficiency) 07/25/2014 08/25/2017 Overview (07/17/2015): Going to discuss restarting GH with endocrine Migraine 12/13/2013 07/17/2015 GHD (growth hormone deficiency) 05/24/2013 05/30/2013 Growth problem from early or fast puberty, height < expected for age 0205/24/2013 05/30/2013 Abnormal weight gain 05/24/2013 016 Secondary hypersomnolence disorder 05/24/2013 07/17/2015 Vitamin D deficiency 05/24/2013 016 Paranasal sinus disease 05/24/201306/27 Overview (05/30/2013): ? Secondary to Perennial Rhinits. Will start on Claritin. 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 Central hypopit. Excessive somnolence disorder 11/12/2010 05/20/2011 Surgical Resection of brain tumor 07/16/2010 05/20/2011 Other headache syndromes(339.89) 05/14/2010 05/15/2010 Concussion with loss of cons ciousness <= 30 min 05/14/2010 05/15/2010 Short stature 05/14/2010 07/17/2015 Overview (05/30/2013): On Growth hormone. Growth deceleration 05/14/2010 11/18/19 12 Overview (05/20/2011): To be seen by alen in 2-3 weeks Excessive somnolence disorder 11/20/2009 05/15/2010 Severe frontal headaches 11/20/2009 Migraine 11/20/2009 11/18/2011 Overview (05/20/2011): Re-Eval by Dr Arce in 2-3 weeks. Sleep apnea 07/10/2009 05/20/2011 Hyperopia 10/09/2008 11/12/2010 Overview (05/15/2010): Seen in ophtho -due for follow up soon Regular astigmatism 10/09/2008 05/15/19 11 Encounters Date Type Department Care Team Description 10/11/2024 Telephone [facility] Division of Endocrinology [address] [place] [address] Delilah Mujica, Wick Tender medication/supply question:Other (Patient calling and didn't know if medication needs a PA for Synthroid and desmopressin.) 10/10/2024 Orders Only [facility] Division of Endocrinology [address] [place] [address] Jerica Nichols, R.N. 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 Medication Refill 09/03/2024 Telephone [facility] Division of Endocrinology [address] [place] [phone] Cathleen Merino M.D. Lab Results 08/31/2024 Telephone [facility] Division of Gynecology [address] [place] [phone] Mely Barragan R.N. Fertility Counseling 08/29/2024 1:00 PM EDT Office Visit [facility] Division of Endocrinology [address] [place] [phone] Cathleen Bajwa M.D. 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; Craniopharyngioma; History of recurrent miscarriages Discharge Disposition: Home or Self Care from Last 3 Months Immunizations Immunization Administration Dates Next Due Dtap, Unspecified Formulation 06/10/2006 ,05/14/2004,2002,09/04,2002 Haemophilus Influenzae Type B Vaccine, Prp-omp Conjugate 2002 Hep B, Unspecified Formulation 2002 HepB/HiB Vaccine 11/01/2003,2002 Hepatitis A Vaccine 01/11/2018 Influenza Vaccine 0.25 mL 03/02/2013,03/06/2009 Influenza Vaccine 0.5 mL - f or patients 6 months and older 01/08/2016 Influenza, Injectable, Quadr ivalent, Contains Preservative 01/11/2018 Measles/Mumps/Rubella Vaccine 06/10/2006, 005 Meningococcal Vaccine 08/24/2013 Pneumococcal 7 Conjugate 04/23/2003,11/26,2002,07/05 Polio Vaccine Inactivated 06/10/2006,,2002,07/05 TDAP Vaccine 08/24/2013 Varicella Virus Vaccine 08/24/2013,11/01/2003 Family History Medical History Relation Name Comments Arthritis, Rheumatoid Father Liver Disease Maternal Aunt Stroke Maternal Aunt Thyroid Disease Maternal Aunt Anxiety Maternal Grandfather Diabetes Maternal Grandfather Hyperlipidemia Maternal Grandfather Anxiety Maternal Grandmother Hepatitis C Maternal Grandmother Liver Disease Maternal Grandmother Thyroid Disease Maternal Grandmother Anxiety Mother Bipolar Disorder Mother Bruising Mother Depression Mother Diabetes Type 2 Mother Heart Disease Mother Hypertension Mother ADHD/ADD Other Defects Other MGGM's brother with spina bifida Cancer Other MGGF - prostate cancer Learning Disabilities Other Other Other MGGm - diabetes Sickle Cell Anemia Other distant c ousin with sickle cell Jaundice Sister at Anemia Neg Hx Autoimmune Disease Neg Hx Bleeding Prob Neg Hx Clotting Disorder Neg Hx Gallstones Neg Hx Genetic Disease Neg Hx Hearing Loss Neg Hx Immunodeficiency Neg Hx Kidney Problems Neg Hx Lung Disease Neg Hx Malignant Hyperthermia Neg Hx Pancreatitis Neg Hx Rashes/Skin Problems Neg Hx Splenectomy Neg Hx Thalassemia Neg Hx Relation Name Status Comments Father Maternal Aunt Maternal Grandfather Maternal Grandmother Mother Other Sister Social History Tobacco Use Types Packs/Day Years Used Date Smoking Tobacco: Never Smokeless Tobacco: Never Tobacco Cessation:Counseling Given: Not Answered Alcohol Use Standard Drinks/Week Comments No 0 [...] Pulse 90 08/29/2024 1:42 PM EDT Temperature 36.7 C (98.1 F) 01/13/2023 1:06 PM EDT Respiratory Rate 16 01/13/2023 1:06 PM EDT Oxygen Saturation - - Inhaled Oxygen Concentration - - Weight 94.3 kg (207 lb 14.3 oz) 08/29/2024 1:42 PM EDT Height 158 cm (5' 2.21 ) 08/29/2024 1:42 PM EDT Body Mass Index 37.77 08/29/2024 1:42 PM EDT Plan of Treatment Upcoming Encounters Date Type Department Care Team (Late st Contact Info) Description 02/12/2025 8:10 AM EST Appointment [facility] Division of Endocrinology [address] [place] [phone] Cathleen Bajwa M.D. Endocrinology [address] [place] [address] [place] [phone] Discharge Disposition: Home or Self Care Health Maintenance Due Date Last Done Comments MENINGOCOCCAL B VACCINE (1 of 2 - Standard) 2018 DTAP/Tdap/Td IMMUNIZATION (7 - Td or Tdap) 08/25/2023 08/24/2013, 06/10/2006, 05/14/2004, Additional history exists COVID-19 Vaccine ( - season) 2023 HPV IMMUNIZATION (3 - 3-dose series) 10/25/2024 05/24/2024, 04/27/2024 AMB SEASONAL FLU VACCINE (#1) 11/26/2024 01/11/2018, 01/08/2016, 03/02/2013, Additional history exists PNEUMOCOCCAL IMMUNIZATION Aged Out 2003, 2002, 2002, Additional history exists No longer eligible based on patient's age to complete this topic HEPATITIS B IMMUNIZATION Completed 004, 2002, 2002 HIB IMMUNIZATION Completed 11/01/2003, 12/2002, 2002 IPV IMMUNIZATION Completed 06/10/2006, , 2002, Additional history exists MMR IMMUNIZATION Completed 06/10/2006, 05/14/2004 MCV4 IMMUNIZATION Aged Out 08/24/2013 No longer eligible based on patient's age to complete this topic VARICELLA IMMUNIZATION Completed 08/24/2013, 2003 Respiratory Syncytial Virus (RSV) <20mo Aged Out No longer eligible based on patient's age to complete this topic Medical Devices Implanted Type Area Exhibition Designer Device Identifier Shelf Expiration Date Model / Serial / Lot Screws Self Drilling 3mm Implanted:Qty: 13 on 10/25/2008 at [facility] [employer] [facility] [id number]. [id number] / / Description:SCREWS SELF DRIL LING 3MM Screw Empergency 4mm Implanted:Qty: 1 on 10/25/2008 at [employer] [facility] 05.503 .[id number]. 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 ANTI-MULLERIAN HORMONE Routine 08/29/2024 2:57 PM EDT 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 It has not been cleared or approved by the US Food and Drug Administration. This test was performed in a CLIA certified laboratory and is intended for clinical purposes. Performed By: [facility] [address] [place] [address] Medical Registrar: Mich Salazar MD, PhD CLIA Number: [id number] Blood Venipuncture / Unknown 08/29/2024 2:57 PM EDT 08/29/2024 3:51 PM EDT Cathleen Merino M.D. CHEMISTRY ORDERABLES Fi nal Result [place] [address] [place] [address] * (ABNORMAL) Comp Metabolic Panel (BMP+Alb,TProt,AST,ALT,Alk phos,Tbili) (08/29/2024 2:57 PM EDT) [facility] Potassium 4.3 3.5 - 5.1 mmol/L ATELLICA IM SARS-COV-2 TOTAL (COV2T)_[facility] [facility]UA 08/29/2024 4:24 PM EDT [facility] Chloride 105 98 - 107 mmol/L ATELLICA IM SARS-COV-2 TOTAL (COV2T)_[facility]UA 08/29/2024 4:24 PM EDT [facility] Carbon Dioxide 27 20 - 31 mmol/L ATELLICA IM SARS-COV-2 TOTAL (COV2T)_[facility]UA 08/29/2024 4:24 PM EDT [facility] Anion Gap 7 4 - 15 mmol/L ATELLICA IM SARS-COV-2 TOTAL (COV2T)_[facility] 08/29/2024 4:24 PM EDT [facility] Blood Urea Nitrogen 13 9 - 23 mg/dL ATELLICA IM SARS-COV-2 TOTAL (COV2T)_[employer] [facility] [employer]UA 08/29/2024 4:24 PM EDT [facility] Creatinine 0.62 0.50 - 0.80 mg/dL ATELLICA IM SARS-COV-2 TOTAL (COV2T)_[employer] [facility] [employer]UA 08/29/2024 4:24 PM EDT [facility] Glucose 86 65 - 106 mg/dL ATELLICA IM SARS-COV-2 TOTAL (COV2T)_[facility]UA 08/29/2024 4:24 PM EDT [facility] Calcium 10.1 8.7 - 10.4 mg/dL ATELLICA IM SARS-COV-2 TOTAL (COV2T)_[facility]UA 08/29/2024 4:24 PM EDT [facility] Albumin 4.0 3.4 - 5.0 gm/dL ATELLICA IM SARS-COV-2 TOTAL (COV2T)_[facility]08/29/2024 4:24 PM EDT [facility] Alkaline Phosphatase 102 46 - 116 unit/L ATELLICA IM SARS-COV-2 TOTAL (COV2T)_[facility] [employer]08/29/2024 4:24 PM EDT [facility] Alanine Aminotransferase 34 9 - 40 unit/L ATELLICA IM SARS-COV-2 TOTAL (COV2T)_[facility] [employer]08/29/2024 4:24 PM EDT [facility] Aspartate Aminotransferase 32 8 - 35 unit/L ATELLICA IM SARS-COV-2 TOTAL (COV2T)_[facility] [employer]08/29/2024 4:24 PM EDT [facility] Bilirubin Total 0.3 0.1 - 1.0 mg/dL ATELLICA IM SARS-COV-2 TOTAL (COV2T)_[facility] [employer]08/29/2024 4:24 PM EDT [facility] Globulin 3.6 gm/dl ATELLICA IM SARS-COV-2 TOTAL (COV2T)_[facility] [employer]08/29/2024 4:24 PM EDT [facility] Albumin/Globulin Ratio 1 1 - 2 ATELLICA IM SARS-COV-2 TOTAL (COV2T)_[facility] [employer]08/29/2024 4:24 PM EDT [facility] Sodium 139 136 - 145 mmol/L ATELLICA IM SARS-COV-2 TOTAL (COV2T)_[facility] [employer]08/29/2024 4:24 PM EDT [facility] TOTAL PROTEIN LEVEL 7.6 5.7 - 8.2 gm/dL ATELLICA IM SARS-COV-2 TOTAL (COV2T)_[facility] [employer]08/29/2024 4:24 PM EDT [facility] Estimated Gfr >60 >=60 mL/min/1.7 3m2 ATELLICA IM SARS-COV-2 TOTAL (COV2T)_[facility] [employer]08/29/2024 4:24 PM EDT [facility] Comment:Estimated GFR calcul ated using CKD-EPI study equation. Hemolysis None to Slight(A ) None Detected ATELLICA IM SARS-COV-2 TOTAL (COV2T)_[employer] [facility] [employer]EUA 08/29/2024 4:24 PM EDT [facility] Comment: The presence of hemolysis in [...] ORDERABLES Fi nal Result Performing Organization Address [facility] Co de Phone Number [facility] [address] [place] [address], * T4 Free, Rapid (08/29/2024 2:57 PM EDT) Pathologist [facility] Thyroxine Free 1.40 0.90 - 2.30 ng/dL ATELLICA IM SARS-COV-2 TOTAL (COV2T)_[employer] 08/29/2024 4:24 PM EDT [facility] Blood Venipuncture / Unknown 08/29/2024 2:57 PM EDT 08/29/2024 3:51 PM EDT Cathleen Merino M.D. CHEMISTRY ORDERABLES Fi nal Result Performing Organization Address [facility] Co de Phone Number [facility] [address] [place] [address], * Glycosated Hgb (Hgb A1C) (08/29/2024 2:57 PM EDT) Pathologist [facility] Hb A1c 4.9 <=6.3 % 08/30/2024 11: 29 AM EDT [facility] Blood Venipuncture / Unknown 08/29/2024 2:57 PM EDT 08/29/2024 3:51 PM EDT Cathleen Merino M.D. CHEMISTRY ORDERABLES Fi nal Result [facility] [address] [place] [address] * Estradiol Us (08/29/2024 2:57 PM EDT) ESTRADIOL BY TMS 218.8 pg/mL 09/04/19 2:11 AM EDT [facility] Comment: REFERENCE INTERVAL: Estradiol by Shore Working Supervisor Pre-menopausal: Early follicular 30.0-100.0 pg/mL Pre-menopausal: Late follicular 100.0-400.0 pg/mL Pre-menopausal: Luteal 50.0-150.0 pg/mL Post-menopausal 2.0-21.0 pg/mL REFERENCE INTERVAL: Estradiol by [employer] Working Super[employer] For a complete set of all established reference intervals, refer to [id number]. This test was developed and its performance characteristics determined by [facility]. It has not been cleared or approved by the [place] Food and Drug Administration. This test was performed in a CLIA certified laboratory and is intended for clinical purposes. Performed By: [facility] [address] [place] [address] Medical Registrar: Mich Salazar MD, PhD CLIA Number: [id number] Blood Venipuncture / Unknown 08/29/2024 2:57 PM EDT 08/29/2024 3:51 PM EDT Cathleen Merino M.D. CHEMISTRY ORDERABLES Fi nal Result Performing Organization Address City/[facility]/ZIP Co de Phone Number [address] [address] * 25OH Vitamin D (08/29/2024 2:57 PM EDT) Vitamin D 25 [place] 32.7 20.0 - 60.0 ng/mL 08/30/2024 11:52 AM EDT [facility] Blood Venipuncture / Unknown 08/29/2024 2:57 PM EDT 08/29/2024 3:51 PM EDT Narrative [facility] - 08/30/2024 11:52 AM EDT IOM recommended ranges Cathleen Merino M.D. CHEMISTRY ORDERABLES Fi nal Result [facility] [address] [place] [address] from Last 3 Months Insurance [facility] Care Teams Spool Cleaner Hand Relationship Specialty Start Date End Date Cliff Cruz M.D. Primary [address] [address] PCP - General External Family Practice 12/22/15
--- OUTSIDE RECORDS SUMMARY | 2024-10-25 14:42 | XMS_ITS | Encounter Summary ---
Author Organization [facility] Address [address] [place] [address] Care Team Providers Care Sweeping Compound Blender Name Role Phone Cliff Cruz M.D. Primary Care Provider +1 -[phone] Encounter Details Date Type Department Care Team (Late st Contact Info) Description 02/20/2010 Abstract [facility] Division of Endocrinology [address] [place] [phone] Lida Gonzalez, RGael. Social History Tobacco Use Types Packs/Day Years [...] - Inhaled Oxygen Concentration - - Weight 25.6 kg (56 lb 7 oz) 06/26/2009 12:46 PM EDT Height 113.5 cm (3' 8.69 ) 06/26/2009 12:46 PM E DT Body Mass Index 19.87 06/26/2009 12:46 PM EDT Body Mass Index Percentile 95.06% 06/26/2009 12: 46 PM EDT Growth Chart: CDC (Girls, 2- 20 Years) documented in this encounter Plan of Treatment Upcoming Encounters Date Type Department Care Team (Late st Contact Info) Description 02/12/2025 8:10 AM EST Appointment [facility] Division of Endocrinology [address] [place] [address] Cathleen Bajwa M.D. Endocrinology [facility] [place] [address], [address] [place] [address] Discharge Disposition: Home or Self Care documented as of this encounter Visit Diagnoses Not on filedocumented in this encounter Care Teams Sweeping Compound Blender Relationship Specialty Start Date End Date Cliff Cruz M.D. Primary Care [address] [place] [address] PCP - General External Family Practice 12/22/15 documented as of this encounter
--- OUTSIDE RECORDS SUMMARY | 2024-10-25 14:42 | XMS_ITS | Encounter Summary ---
Author Organization [facility] Address [address] [place] [address] Care Team Providers Care Clinical Services Manager Name Role Phone Cliff Cruz M.D. Primary Care Provider +1 -[phone] Encounter Details Date Type Department Care Team (Late st Contact Info) Description 11/23/2011 [facility][1] Social Work [facility] Cancer and Blood Diseases [place] [address] [place] [phone] Lou Arboleda LISW Social History Tobacco Use Types Packs/Day Years Used Date Smoking Tobacco: Never Assessed Comments Unknown Sex and Gender Information Value Date Recorded Sex Assigned at Not on file Legal Sex Female 5:31 AM EST Gender Identity Not on file Sexual Orientation Not on file documented as of this encounter Progress Notes * Lou Arboleda LISW - 11/23/2011 12:53 PM EDT Spoke with a [facility] canvas products sales representative. She reported that they do not have any counseling resources in the [facility] area. They only have access to local resources. I attempted to call Nubia Prado's mother, to discuss progress in locating counseling resources. documented in this encounter Plan of Treatment Upcoming Encounters Date Type Department Care Team (Late st Contact Info) Description 02/12/2025 8:10 AM EST Appointment [facility] Division of Endocrinology [address] [place] [address] Cathleen Bajwa M.D. Endocrinology [address] [place], [place] [address], [address] [place] [address] Discharge Disposition: Home or Self Care documented as of this encounter Visit Diagnoses Not on filedocumented in this encounter Care Teams Clinical Services Manager Relationship Specialty Start Date End Date Cliff Cruz M.D. Primary Care [address] [place] [address] PCP - General External Family Practice 12/22/15 documented as of this encounter
--- OUTSIDE RECORDS SUMMARY | 2024-10-25 14:42 | XMS_ITS | Encounter Summary ---
Author Organization [facility] Address [address] [place] [address] Care Team Providers Care Plant Protection Guard Name Role Phone Cliff Cruz M.D. Primary Care Provider +1 -[phone] Reason for Visit * Reason Comments Medication Refill Encounter Details Date Type Department Care Team (Late st Contact Info) Description 11/29/[address] [facility] Division of Neurology [address] [place] [phone] Dania Arce M.D. Neurology [address] [place] [address] [place] [address] Medication Refill Social History Tobacco [...] encounter Miscellaneous Notes * Telephone Encounter - Dania Guan Medical Asst - 12/02/2020 4:16 PM EDT Called [facility] the pharmacy verified that they have 5 refills on file. documented in this encounter Plan of Treatment Upcoming Encounters Date Type Department Care Team (Late st Contact Info) Description 02/12/2025 8:[address] [facility] Division of Endocrinology [address] [place] [phone] Cathleen Bajwa M.D. Endocrinology [address] [place] [address] [place] [phone] Discharge Disposition: Home or Self Care documented as of this encounter Visit Diagnoses Diagnosis Migraine without aura and without status migrainosus, not intractable Migraine without aura, without mention of intractable migraine without mention of status migrainosus documented in this encounter Care Teams Plant Protection Guard Relationship Specialty Start Date End Date Cliff Cruz M.D. RAHEL: [id number] Primary Care [address] [place] [address] PCP - General External Family Practice 12/22/15 documented as of this encounter
--- OUTSIDE RECORDS SUMMARY | 2024-10-25 14:42 | XMS_ITS | Encounter Summary ---
Author Organization [facility] Address [address] [place] [address] Care Team Providers Care Assistant Mechanic Name Role Phone Cliff Cruz M.D. Primary Care Provider +1 -[phone] Reason for Visit * Reason Comments Medication Refill Encounter Details Date Type Department Care Team (Late st Contact Info) Description 06/22/2019 Refill [facility] Division of Endocrinology [address] [place] [phone] Humera Dolan M.D. Endocrinology [address] [place] [address] [address] [place] [address] Medication Refill Social History Tobacco [...] Info) Description 02/12/2025 8:10 AM EST Appointment [facility] Division of Endocrinology [address] [place] [phone] Cathleen Bajwa M.D. 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 Primary Care [address] [place] [address] PCP - General External Family Practice 12/22/15 documented as of this encounter
--- OUTSIDE RECORDS SUMMARY | 2024-10-25 14:42 | XMS_ITS | Encounter Summary ---
Author Organization [facility] Address [address] [place] [address] Care Team Providers Care Cinder Pit Worker Name Role Phone Cliff Cruz M.D. Primary Care Provider +1 -[phone] Reason for Visit * Reason Comments Medication Refill Encounter Details Date Type Department Care Team (Late st Contact Info) Description 12/11/2019 Refill [facility] Division of Endocrinology [address] [place] [phone] Ara Vasquez M.D. Endocrinology [address] [place] [address] [place] [phone] Medication Refill Social History Tobacco Use [...] Telephone Encounter - Darlene Lin R.N. - 12/11/2019 1:45 PM EDT Limited refilll documented in this encounter Plan of Treatment Upcoming Encounters Date Type Department Care Team (Late st Contact Info) Description 02/12/2025 8:10 AM EST Appointment [facility] Division of Endocrinology [address] [place] [phone] Cathleen Bajwa M.D. 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 Primary Care [address] [place] [address] PCP - General External Family Practice 12/22/15 documented as of this encounter
--- OUTSIDE RECORDS SUMMARY | 2024-10-25 14:42 | XMS_ITS | Encounter Summary ---
Author Organization [facility] Address [address] [place] [address] Care Team Providers Care Wire Preparation Worker Name Role Phone Cliff Cruz M.D. Primary Care Provider +1 -[phone] Encounter Details Date Type Department Care Team (Late st Contact Info) Description 07/01/2020 Abstract [facility] Cancer and Blood Diseases [place] [address] [place] [phone] Emma Syed R.N. Social History Tobacco [...] Info) Description 02/12/2025 8:10 AM EST Appointment [facility] Division of Endocrinology [address] [place] [phone] Cathleen Bajwa M.D. Endocrinology [address] [place] [address] [place] [phone] Discharge Disposition: Home or Self Care documented as of this encounter Visit Diagnoses Not on filedocumented in this encounter Care Teams Wire Preparation Worker Relationship Specialty Start Date End Date Cliff Cruz M.D. Primary Care [address] [place] [address] PCP - General External Family Practice 12/22/15 documented as of this encounter
--- OUTSIDE RECORDS SUMMARY | 2024-10-25 14:42 | XMS_ITS | Clinical Summary ---
Author Organization [facility] Address [address] [place] [address] Care Team Providers Care Payroll Accounting Clerk Name Role Phone Cliff Cruz MD Primary Care Provider + [phone] Allergies No known active allergies Medications methocarbamol [...] 08/25/2023 08/24/2013, 06/10/2006, 05/14/2004, Additional history exists [id number] Vaccine (1 - 2023- season) 2023 UKY-Influenza [...] age to complete this topic Insurance [employer] [facility] MEDICAID Care Teams Payroll Accounting Clerk Relationship Specialty Start Date End Date Cliff Cruz MD [address] [place] [address] PCP - General 08/08/20
--- OUTSIDE RECORDS SUMMARY | 2024-10-25 14:42 | XMS_ITS | Encounter Summary ---
Author Organization [facility] Address [address] [place] [address] Care Team Providers Care Turbo Electric Operator Name Role Phone Cliff Cruz M.D. Primary Care Provider +1 -[phone] Reason for Visit * Reason Comments Medication Refill Encounter Details Date Type Department Care Team (Late st Contact Info) Description 01/09/2020 Refill [facility] Division of Neurology [address] [place] [phone] Dania Arce M.D. Neurology [address] [place] [address] [place] [address] Medication Refill Social History Tobacco [...] Miscellaneous Notes * Telephone Encounter - Dania Arce M.D. - 01/11/2020 12:12 PM EDT I refilled the ibuprofen. * Telephone Encounter - Darlene Stein C.M.A. - 01/09/2020 2:50 PM EDT Medication refill request for: Ibuprofen Medication dose, strength, and quantity verified? yes Last recorded patient weight: Wt Readings from Last 1 Encounters: 11/09/19 92.2 kg (98 %, Z= 2.03)* * Growth percentiles are based on CDC (Girls, 2-20 Years) data. LAST TELEHEALTH VISIT: LAST IN CLINIC VISIT : 11/2018 Advised to follow up in: 12 m Follow up appointment: No appointment found Action: Refill pended to nurse for review. Pharmacy: [facility] documented in this encounter Plan of Treatment Upcoming Encounters Date Type Department Care Team (Late st Contact Info) Description 02/12/2025 8:10 AM EST Appointment [facility] Division of Endocrinology [address] [place] [phone] Cathleen Bajwa M.D. Endocrinology [address] [place] [phone] Discharge Disposition: Home or Self Care documented as of this encounter Visit Diagnoses Diagnosis Migraine without aura and without status migrainosus, not intractable Migraine without aura, without mention of intractable migraine without mention of status migrainosus documented in this encounter Care Teams Turbo Electric Operator Relationship Specialty Start Date End Date Cliff rCuz M.D. Primary Care [address] [place] [address] PCP - General External Family Practice 12/22/15 documented as of this encounter
--- OUTSIDE RECORDS SUMMARY | 2024-10-25 14:42 | XMS_ITS | Encounter Summary ---
Author Organization [facility] Address [address] [place] [address] Care Team Providers Care Course Instructor Name Role Phone Cliff Cruz M.D. Primary Care Provider +1 -[phone] Reason for Visit * Reason Comments Medication Refill Encounter Details Date Type Department Care Team (Late st Contact Info) Description 12/11/2019 Refill [facility] Division of Endocrinology [address] [place] [phone] Cathleen Gray M.D. Endocrinology [address] [place] [address] [place] [phone] Medication Refill Social History Tobacco Use [...] Encounter - Darlene Lin R.N. - 12/11/2019 1:40 PM EDT Limited refills documented in this encounter Plan of Treatment Upcoming Encounters Date Type Department Care Team (Late st Contact Info) Description 02/12/2025 8:10 AM EST Appointment [facility] Division of Endocrinology [address] [place] [phone] Cathleen Bajwa M.D. 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 Primary Care [address] [place] [address] PCP - General External Family Practice 12/22/15 documented as of this encounter
== END 2024-10-25 23:59 | disposition home or self-care (01) ==
LOC: RAD 14:38
PROVIDERS: PCP Obstetrics & Gynecology; Visit Provider Obstetrics & Gynecology
DX: N85.4 Malposition of uterus (principal); R93.89 Abnormal findings on diagnostic imaging of other specified body structures; T83.84XA Pain due to genitourinary prosthetic devices, implants and grafts, initial encounter; Z30.431 Encounter for routine checking of intrauterine contraceptive device
CPT/HCPCS: 76830

== ENCOUNTER 2024-11-02 15:20 | Emergency (ER) | payer OTHER, SELFPAY ==
[2024-11-02 15:28] VITALS: BP 153/99; PULSE 90; RESP 18; TEMP 36.6; O2SAT 98; BMI 39.1
--- OUTSIDE RECORDS SUMMARY | 2024-11-02 15:29 | XMS_ITS | Encounter Summary ---
Author Organization [facility] Address [address] [place] [address] Care Team Providers Care Spaghetti Machine Operator Name Role Phone Cliff Cruz M.D. 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 I told her about the [facility] Intensive Treatment Team program, and she expressed [...] Appointment [facility] Division of Endocrinology [address] [place] [phone] Cathleen Bajwa M.D. Endocrinology [address] [place] [address] [place] [phone] Discharge Disposition: Home or Self Care documented as of this encounter Visit Diagnoses Not on filedocumented in this encounter Care Teams Spaghetti Machine Operator Relationship Specialty Start Date End Date Cliff Cruz M.D. Primary Care [address] [place] [address] PCP - General External Family Practice 12/22/15 documented as of this encounter
--- OUTSIDE RECORDS SUMMARY | 2024-11-02 15:29 | XMS_ITS | Encounter Summary ---
Author Organization [facility] Address [address] [place] [address] Care Team Providers Care Dishtank Operator Name Role Phone Cliff Cruz M.D. Primary Care Provider [phone] [phone] Encounter Details Date Type Department Care Team (Late st Contact Info) Description 07/24/[address] [facility] Cancer and Blood Diseases [place] [address] [place] [phone] Lou Arboleda LISW Social History Tobacco [...] Description 02/12/2025 8:10 AM EST Appointment [facility] Division of Endocrinology [address] [place] [address] Cathleen Bajwa M.D. Endocrinology [facility], [address] [place] [address] Discharge Disposition: Home or Self Care documented as of this encounter Visit Diagnoses Not on filedocumented in this encounter Care Teams Dishtank Operator Relationship Specialty Start Date End Date Cliff Cruz M.D. Primary Care [address] [place] [address] PCP - General External Family Practice 12/22/15 documented as of this encounter
--- OUTSIDE RECORDS SUMMARY | 2024-11-02 15:29 | XMS_ITS | Encounter Summary ---
Author Organization [facility] Address [address] [place] [address] Care Team Providers Care Jar Capper Name Role Phone Cliff Cruz M.D. Primary Care Provider +1 -[phone] Encounter Details Date Type Department Care Team (Late st Contact Info) Description 07/18/2012 HemOnc Social Work [facility] [place] [facility] Cancer and Blood Diseases [place] [address] [place] [phone] Lou Arboleda LISW Social History Tobacco [...] for the family. It is called the [facility] Intensive Treatment Team. It is offered as [...] Info) Description 02/12/2025 8:10 AM EST Appointment [facility] [place] [facility] Division of Endocrinology [address] [place] [phone] Cathleen Bajwa M.D. Endocrinology [address] [place] [address] [place] [phone] Discharge Disposition: Home or Self Care documented as of this encounter Visit Diagnoses Not on filedocumented in this encounter Care Teams Jar Capper Relationship Specialty Start Date End Date Cliff Cruz M.D. Primary Care [address] [place] [address] PCP - General External Family Practice 12/22/15 documented as of this encounter
--- OUTSIDE RECORDS SUMMARY | 2024-11-02 15:30 | XMS_ITS | Encounter Summary ---
Author Organization [facility] Address [address] [place] [address] Care Team Providers Care Dramatic Reader Name Role Phone Cliff Cruz M.D. Primary Care Provider +1 -[phone] Reason for Visit * Reason Comments Medication Refill Elavil and motrin Encounter Details Date Type Department Care Team (Late st Contact Info) Description 01/28/2021 Refill [facility] Division of Neurology [address] [place] [phone] Dania Arce M.D. Neurology [address] [place] [address] [place] [address] Medication Refill (Elavil and motrin) [...] Yes 06/03/2020 Safety and Environment Answer Date Vldaislav rded Do you have any concerns of [...] newneurologist. * Telephone Encounter - Yun Bauer, Extractor Loader And Unloader - 01/28/2021 3:03 PM EDT Please review, [...] Info) Description 02/12/2025 8:10 AM EST Appointment [facility] Division of Endocrinology [address] [place] [address] Cathleen Bajwa M.D. Endocrinology [facility], [address] [place] [address] Discharge Disposition: Home or Self Care documented as of this encounter Visit Diagnoses Diagnosis Migraine without aura and without status migrainosus, not intractable Migraine without aura, without mention of intractable migraine without mention of status migrainosus documented in this encounter Care Teams Dramatic Reader Relationship Specialty Start Date End Date Cliff Cruz M.D. Primary Care [address] [place] [address] PCP - General External Family Practice 12/22/15 documented as of this encounter
--- OUTSIDE RECORDS SUMMARY | 2024-11-02 15:30 | XMS_ITS | Encounter Summary ---
Author Organization [facility] Address [address] [place] [address] Care Team Providers Care Plisse Machine Operator Name Role Phone Cliff Cruz M.D. Primary Care Provider +1 -[phone] Reason for Visit * Reason Comments Medication Refill Encounter Details Date Type Department Care Team (Late st Contact Info) Description 05/27/2020 Refill [facility] Division of Endocrinology [address] [place] [phone] Cathleen Gray M.D. Endocrinology [address] [place] [address] [address] [place] [address] Medication Refill Social History Tobacco [...] Info) Description 02/12/2025 8:10 AM EST Appointment [facility] Division of Endocrinology [address] [place] [phone] Cathleen Bajwa M.D. 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 Primary Care [address] [place] [address] PCP - General External Family Practice 12/22/15 documented as of this encounter
--- OUTSIDE RECORDS SUMMARY | 2024-11-02 15:30 | XMS_ITS | Encounter Summary ---
Author Organization [facility] Address [address] [place] [address] Care Team Providers Care Rubber Engraver Name Role Phone Cliff Cruz M.D. Primary Care Provider +1 -[phone] Encounter Details Date Type Department Care Team (Late st Contact Info) Description 12/09/2015 Abstract [facility] Cancer and Blood Diseases [place] [address] [place] [phone] Emma Syed R.N. Social History Tobacco [...] 02/12/2025 8:10 AM EST Appointment [facility] Division of Endocrinology [address] [place] [phone] Cathleen Bajwa M.D. Endocrinology [address] [place] [address] [address] [place] [address] Discharge Disposition: Home or Self Care documented as of this encounter Visit Diagnoses Not on filedocumented in this encounter Care Teams Rubber Engraver Relationship Specialty Start Date End Date Cliff Cruz M.D. BELLI: [id number] Primary Care [address] [place] [address] PCP - General External Family Practice 12/22/15 documented as of this encounter
--- OUTSIDE RECORDS SUMMARY | 2024-11-02 15:30 | XMS_ITS | Encounter Summary ---
Author Organization [facility] Address [address] [place] [address] Care Team Providers Care Automotive Service Manager Name Role Phone Cliff Cruz M.D. Primary Care Provider +1 -[phone] Encounter Details Date Type Department Care Team (Late st Contact Info) Description 04/22/2018 Abstract [facility] Cancer and Blood Diseases [place] [address] [place] [phone] Anand Magana M.D. Hematology-Oncology [address] [place] [address] [place] [phone] Social History Tobacco Use Types Packs/Day [...] Info) Description 02/12/2025 8:10 AM EST Appointment [facility] Division of Endocrinology [address] [place] [phone] Cathleen Bajwa M.D. Endocrinology [address], [address] [place] [address] Discharge Disposition: Home or Self Care documented as of this encounter Visit Diagnoses Not on filedocumented in this encounter Care Teams Automotive Service Manager Relationship Specialty Start Date End Date Cliff Cruz M.D. Primary Care [address] [place] [address] PCP - General External Family Practice 12/22/15 documented as of this encounter
--- OUTSIDE RECORDS SUMMARY | 2024-11-02 15:30 | XMS_ITS | Encounter Summary ---
Author Organization [facility] Address [address] [place] [address] Care Team Providers Care Spiral Spring Winder Name Role Phone Cliff Cruz M.D. Primary Care Provider +1 -[phone] Reason for Visit * Reason Onset Date Comments Fertility Counseling 08/31/2024 Encounter Details Date Type Department Care Team (Late st Contact Info) Description 08/31/2024 Telephone [facility] Division of Gynecology [address] [place] [phone] Mely Barragan, R.N. Fertility Counseling Social [...] including hypogonadotropic hypogonadism. [facility] [phone] RN attempted to contact patient, left detailed voicemail requesting a call back. Mely Barragan R.N. documented in this encounter Plan of Treatment Upcoming Encounters Date Type Department Care Team (Late st Contact Info) Description 02/12/2025 8:10 AM EST Appointment [facility] Division of Endocrinology [address] [place] [phone] Cathleen Bajwa M.D. Endocrinology [address] [place] [address] [place] [address] Discharge Disposition: Home or Self Care documented as of this encounter Visit Diagnoses Not on filedocumented in this encounter Care Teams Spiral Spring Winder Relationship Specialty Start Date End Date Cliff Cruz M.D. Primary Care [address] [place] [address] PCP - General External Family Practice 12/22/15 documented as of this encounter
--- OUTSIDE RECORDS SUMMARY | 2024-11-02 15:30 | XMS_ITS | Encounter Summary ---
Author Organization [facility] Address [address] [place] [address] Care Team Providers Care Educational Assistant Teacher Name Role Phone Cliff Cruz M.D. Primary Care Provider +1 -[phone] Encounter Details Date Type Department Care Team (Late st Contact Info) Description 02/15/2013 Abstract [facility] Division of Endocrinology [address] [place] [phone] Cathleen Gray M.D. Endocrinology [address] [place] [address] [address] [place] [address] Social History Tobacco Use Types [...] 02/12/2025 8:10 AM EST Appointment [facility] Division of Endocrinology [address] [place] [phone] Cathleen Bajwa M.D. Endocrinology [address] [place] [address] Rebecca, [address] [place] [address] Discharge Disposition: Home or Self [...] EXTERNAL LAB - 02/07/2013 4:43 PM EST [facility] [place] [address] us Historical Provider EXTERNAL LAB ORDERABLES Maria Elena l Result EXTERNAL LAB documented in this encounter Visit Diagnoses Not on filedocumented in this encounter Care Teams Educational Assistant Teacher Relationship Specialty Start Date End Date Cliff Cruz M.D. BELLI: [id number] Primary Care [address] [place] [address] PCP - General External Family Practice 12/22/15 documented as of this encounter
--- OUTSIDE RECORDS SUMMARY | 2024-11-02 15:30 | XMS_ITS | Clinical Summary ---
Author Organization [facility] Address [address] [place] [address] Care Team Providers Care Natural Resources Technician Name Role Phone Cliff Cruz MD Primary Care Provider + [phone] Allergies No known active allergies Medications methocarbamol [...] 08/25/2023 08/24/2013, 06/10/2006, 05/14/2004, Additional history exists [id number] Vaccine (1 - 2023- season) 2023 UKY-Influenza [...] age to complete this topic Insurance [employer] [facility] MEDICAID Care Teams Natural Resources Technician Relationship Specialty Start Date End Date Cliff Cruz MD [address] [place] [address] PCP - General 08/08/20
--- OUTSIDE RECORDS SUMMARY | 2024-11-02 15:30 | XMS_ITS | Encounter Summary ---
Author Organization [facility] Address [address] [place] [address] Care Team Providers Care Transitions Manager Name Role Phone Cliff Cruz M.D. Primary Care Provider +1 -[phone] Encounter Details Date Type Department Care Team (Late st Contact Info) Description 10/10/[address] [facility] Division of Endocrinology [address] [place] [address] Jerica Nichols, R.N. Central hypothyroidism; [...] written from Dr. Samson, daryl licensure in [place] - reordered from Dr. Bajwa documented in this encounter Plan of Treatment Upcoming Encounters Date Type Department Care Team (Late st Contact Info) Description 02/12/2025 8:10 AM EST Appointment [facility] Division of Endocrinology [address] [place] [phone] Cathleen Bajwa M.D. 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 Primary Care [address] [place] [address] PCP - General External Family Practice 12/22/15 documented as of this encounter
--- OUTSIDE RECORDS SUMMARY | 2024-11-02 15:30 | XMS_ITS | Encounter Summary ---
Author Organization [facility] Address [address] [place] [address] Care Team Providers Care Client Reporting Associate Name Role Phone Cliff Cruz M.D. Primary Care Provider +1 -[phone] Encounter Details Date Type Department Care Team (Late st Contact Info) Description 02/20/2010 Abstract [facility] Division of Endocrinology [address] [place] [phone] Lida Gonzalez, RGael. Social History Tobacco [...] 06/26/2009 12: 46 PM EDT Growth Chart: [facility] (Girls, 2- 20 Years) documented in this encounter Plan of Treatment Upcoming Encounters Date Type Department Care Team (Late st Contact Info) Description 02/12/2025 8:10 AM EST Appointment [facility] Division of Endocrinology [address] [place] [address] Cathleen Bajwa M.D. Endocrinology [facility] [place], [address] [place] [address] Discharge Disposition: Home or Self Care documented as of this encounter Visit Diagnoses Not on filedocumented in this encounter Care Teams Client Reporting Associate Relationship Specialty Start Date End Date Cliff Cruz M.D. Primary Care [address] [place] [address] PCP - General External Family Practice 12/22/15 documented as of this encounter
--- OUTSIDE RECORDS SUMMARY | 2024-11-02 15:30 | XMS_ITS | Encounter Summary ---
Author Organization [facility] Address [address] [place] [address] Care Team Providers Care Home Paraprofessional Name Role Phone Cliff Cruz M.D. Primary Care Provider +1 -[phone] Reason for Visit * Reason Onset Date Comments Lab Results 09/03/2024 Encounter Details Date Type Department Care Team (Late st Contact Info) Description 09/03/2024 Telephone [facility] Division of Endocrinology [address] [place] [phone] Cathleen Merino M.D. Endocrinology [address] [place] [address] [address] [place] [address] Lab Results Social History Tobacco [...] be looking out for a call from electrical power station technician to assist with referral to adult fertility [...] MD, MPH Clinical Fellow Division of Endocrinology [facility] documented in this encounter Plan of Treatment Upcoming Encounters Date Type Department Care Team (Late st Contact Info) Description 02/12/2025 8:10 AM EST Appointment [facility] Division of Endocrinology [address] [place] [phone] Cathleen Bajwa M.D. Endocrinology [address] [place] [address] [place] [phone] Discharge Disposition: Home or Self Care documented as of this encounter Visit Diagnoses Not on filedocumented in this encounter Care Teams Home Paraprofessional Relationship Specialty Start Date End Date Cliff Cruz M.D. Primary Care [address] [place] [address] PCP - General External Family Practice 12/22/15 documented as of this encounter
--- OUTSIDE RECORDS SUMMARY | 2024-11-02 15:30 | XMS_ITS | Encounter Summary ---
Author Organization [facility] Address [address] [place] [address] Care Team Providers Care Corporate Development Analyst Name Role Phone Cliff Cruz M.D. Primary Care Provider +1 -[phone] Reason for Visit * Reason Onset Date Comments medication/supply question:Other 10/11/2024 Patient calling and didn't know if medication needs a PA for Synthroid and desmopressin. Encounter Details Date Type Department Care Team (Late st Contact Info) Description 10/11/2024 Telephone [facility] Division of Endocrinology [address] [place] [phone] Delilah Mujica Medical Asst medication/supply question:Other [...] Notes * Telephone Encounter - Delilah Mujica Munitions Handler Supervisor - 10/11/2024 2:43 PM EDT Marisol ( [facility])reports the Provider that Rx medications [...] AND 3 TABS AT BEDTIME Ordering Department: [facility] Authorized By: Cathleen Merino M.D. And Levothyroxine (synthroid 125 mcg tablet -vv Take 1 tablet by mouth at bedtime. Dispense: 30 tablet, Refills: 11 ordered Ordering Department: [facility] Authorized By: Cathleen Merino M No additional questions * Telephone Encounter - Delilah Mujica Munitions Handler Supervisor - 10/11/2024 2:11 PM EDT Images from [...] Description 02/12/2025 8:10 AM EST Appointment [facility] Division of Endocrinology [address] [place] [phone] Cathleen Bajwa M.D. Endocrinology [address] [place] [address] [place] [phone] Discharge Disposition: Home or Self Care documented as of this encounter Visit Diagnoses Not on filedocumented in this encounter Care Teams Corporate Development Analyst Relationship Specialty Start Date End Date Cliff Cruz M.D. Primary Care [address] [place] [address] PCP - General External Family Practice 12/22/15 documented as of this encounter
--- OUTSIDE RECORDS SUMMARY | 2024-11-02 15:30 | XMS_ITS | Encounter Summary ---
Author Organization [facility] Address [address] [place] [address] Care Team Providers Care Application Chemist Name Role Phone Cliff Cruz M.D. Primary Care Provider +1 -[phone] Reason for Visit * Reason Comments Medication Refill Encounter Details Date Type Department Care Team (Late st Contact Info) Description 12/11/2019 Refill [facility] Division of Endocrinology [address] [place] [phone] Cathleen Gray M.D. Endocrinology [address] [place] [address] [place] [phone] Medication Refill Social History Tobacco Use [...] Info) Description 02/12/2025 8:10 AM EST Appointment [facility] Division of Endocrinology [address] [place] [phone] Cathleen Bajwa M.D. 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 Primary Care [address] [place] [address] PCP - General External Family Practice 12/22/15 documented as of this encounter
--- OUTSIDE RECORDS SUMMARY | 2024-11-02 15:30 | XMS_ITS | Encounter Summary ---
Author Organization [facility] Address [address] [place] [address] Care Team Providers Care High Heel Builder Name Role Phone Cliff Cruz M.D. Primary Care Provider +1 -[phone] Encounter Details Date Type Department Care Team (Late st Contact Info) Description 02/14/2013 Telephone [facility] Division of Endocrinology [address] [place] [phone] Cathleen Gray M.D. Endocrinology [address] [place] [address] [place] [phone] Social History Tobacco Use Types Packs/Day [...] T4 and Renal function. Please fax to [phone]. Please call [phone] and let them know it has been faxed. documented in this encounter Plan of Treatment Upcoming Encounters Date Type Department Care Team (Late st Contact Info) Description 02/12/2025 8:10 AM EST Appointment [facility] Division of Endocrinology [address] [place] [phone] Cathleen Bajwa M.D. Endocrinology [address] [place] [address] [place] [phone] Discharge Disposition: Home or Self Care documented as of this encounter Visit Diagnoses Not on filedocumented in this encounter Care Teams High Heel Builder Relationship Specialty Start Date End Date Cliff Cruz M.D. Primary Care [address] [place] [address] PCP - General External Family Practice 12/22/15 documented as of this encounter
--- OUTSIDE RECORDS SUMMARY | 2024-11-02 15:30 | XMS_ITS | Encounter Summary ---
Author Organization [facility] Address [address] [place] [address] Care Team Providers Care Equine Vet Name Role Phone Cliff Cruz M.D. Primary Care Provider +1 -[phone] Encounter Details Date Type Department Care Team (Late st Contact Info) Description 05/31/2012 [facility] Cancer and Blood Diseases [place] [address] [place] [phone] Lou Arboleda LISW Social History Tobacco [...] Info) Description 02/12/2025 8:10 AM EST Appointment [facility] Division of Endocrinology [address] [place] [phone] Cathleen Bajwa M.D. Endocrinology [address] [facility] [address] [place] [address] Discharge Disposition: Home or Self Care documented as of this encounter Visit Diagnoses Not on filedocumented in this encounter Care Teams Equine Vet Relationship Specialty Start Date End Date Cliff Cruz M.D. Primary Care [address] [place] [address] PCP - General External Family Practice 12/22/15 documented as of this encounter
--- OUTSIDE RECORDS SUMMARY | 2024-11-02 15:30 | XMS_ITS | Encounter Summary ---
Author Organization [facility] Address [address] [place] [address] Care Team Providers Care Direct Mail Marketer Name Role Phone Cliff Cruz M.D. Primary Care Provider +1 -[phone] Reason for Visit * Reason Comments Medication Refill Encounter Details Date Type Department Care Team (Late st Contact Info) Description 10/05/[address] [facility] Division of Endocrinology [address] [place] [phone] Cathleen Bajwa M.D. Endocrinology [address] [place] [address] [place] [phone] Medication Refill Social History Tobacco Use [...] 02/12/2025 8:10 AM EST Appointment [facility] Division of Endocrinology [address] [place] [phone] Cathleen Bajwa M.D. 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 Primary Care [address] [place] [address] PCP - General External Family Practice 12/22/15 documented as of this encounter
--- OUTSIDE RECORDS SUMMARY | 2024-11-02 15:30 | XMS_ITS | Encounter Summary ---
Author Organization [facility] Address [address] [place] [address] Care Team Providers Care Credit Compliance Officer Name Role Phone Cliff Cruz M.D. Primary Care Provider +1 -[phone] Reason for Visit * Reason Comments Medication Refill Encounter Details Date Type Department Care Team (Late st Contact Info) Description 11/29/2020 Refill [facility] Division of Neurology [address] [place] [phone] Dania Arce M.D. Neurology [address] [place] [address] [place] [address] Medication Refill Social History Tobacco [...] Info) Description 02/12/2025 8:10 AM EST Appointment [facility] Division of Endocrinology [address] [place] [phone] Cathleen Bajwa M.D. Endocrinology [address] [place] [address] [place] [phone] Discharge Disposition: Home or Self Care documented as of this encounter Visit Diagnoses Diagnosis Migraine without aura and without status migrainosus, not intractable Migraine without aura, without mention of intractable migraine without mention of status migrainosus documented in this encounter Care Teams Credit Compliance Officer Relationship Specialty Start Date End Date Cliff Cruz M.D. RAHEL: [phone] Primary Care [address] [place] [address] PCP - General External Family Practice 12/22/15 documented as of this encounter
--- OUTSIDE RECORDS SUMMARY | 2024-11-02 15:30 | XMS_ITS | Encounter Summary ---
Author Organization [facility] Address [address] [place] [address] Care Team Providers Care Dye Room Helper Name Role Phone Cliff Cruz M.D. Primary Care Provider +1 -[phone] Reason for Visit * Reason Onset Date Comments medications: medication refill 05/18/2013 Encounter Details Date Type Department Care Team (Late st Contact Info) Description 05/18/[address] [facility] Division of Endocrinology [address] [place] [phone] Lida Mak M.D. [address] [place], [place] [phone] medications: medication refill Social History Tobacco Use [...] refills: levothyroxine and Desmopressin. Please call them: [phone] fax: [phone]. Nubia has an appt scheduled with Dr. Mak 05/24/13. documented in this encounter Plan of Treatment Upcoming Encounters Date Type Department Care Team (Late st Contact Info) Description 02/12/2025 8:[address] [facility] Division of Endocrinology [address] [place] [phone] Cathleen Bajwa M.D. 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 Primary Care [address] [place] [address] PCP - General External Family Practice 12/22/15 documented as of this encounter
--- OUTSIDE RECORDS SUMMARY | 2024-11-02 15:30 | XMS_ITS | Encounter Summary ---
Author Organization [facility] Address [address] [place] [address] Care Team Providers Care Hoop Punch And Coiler Operator Helper Name Role Phone Cliff Cruz M.D. Primary Care Provider +1 -[phone] Encounter Details Date Type Department Care Team (Late st Contact Info) Description 07/01/2020 Abstract [facility] Cancer and Blood Diseases [place] [address] [place] [phone] Emma Syed R.N. Social History Tobacco [...] Info) Description 02/12/2025 8:10 AM EST Appointment [facility] Division of Endocrinology [address] [place] [phone] Cathleen Bajwa M.D. Endocrinology [address] [place] [address] [place] [phone] Discharge Disposition: Home or Self Care documented as of this encounter Visit Diagnoses Not on filedocumented in this encounter Care Teams Hoop Punch And Coiler Operator Helper Relationship Specialty Start Date End Date Cliff Cruz M.D. Primary Care [address] [place] [address] PCP - General External Family Practice 12/22/15 documented as of this encounter
--- OUTSIDE RECORDS SUMMARY | 2024-11-02 15:30 | XMS_ITS | Encounter Summary ---
Author Organization [facility] Address [address] [place] [address] Care Team Providers Care Senior Qa Analyst Name Role Phone Cliff Cruz M.D. Primary Care Provider +1 -[phone] Reason for Visit * Reason Comments Medication Refill Encounter Details Date Type Department Care Team (Late st Contact Info) Description 06/22/2019 Refill [facility] Division of Endocrinology [address] [place] [phone] Humera Dolan M.D. Endocrinology [address] [place] [address] [address] [place] [address] Medication Refill Social History Tobacco [...] Info) Description 02/12/2025 8:10 AM EST Appointment [facility] Division of Endocrinology [address] [place] [phone] Cathleen Bajwa M.D. 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 Primary Care [address] [place] [address] PCP - General External Family Practice 12/22/15 documented as of this encounter
--- OUTSIDE RECORDS SUMMARY | 2024-11-02 15:30 | XMS_ITS | Encounter Summary ---
Author Organization [facility] Address [address] [place] [address] Care Team Providers Care Oil Field Pumper Name Role Phone Cliff Cruz M.D. Primary Care Provider +1 -[phone] Reason for Visit * Reason Comments Medication Refill Encounter Details Date Type Department Care Team (Late st Contact Info) Description 03/11/2020 Refill [facility] Division of Endocrinology [address] [place] [phone] Cathleen Gray M.D. Endocrinology [address] [place] [address] [address] [place] [address] Medication Refill Social History Tobacco [...] not want to transfer care to or [place] Location. [place]. She stated Nubia has not had periods yet and has not seen a Head Stock Operator as recommended. She agreed to follow up on this before her follow up in Apr. documented in this encounter Plan of Treatment Upcoming Encounters Date Type Department Care Team (Late st Contact Info) Description 02/12/2025 8:10 AM EST Appointment [facility] Division of Endocrinology [address] [place] [phone] Cathleen Bajwa M.D. 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 BELLI: [id number] Primary Care [address] [place] [address] PCP - General External Family Practice 12/22/15 documented as of this encounter
--- OUTSIDE RECORDS SUMMARY | 2024-11-02 15:30 | XMS_ITS | Encounter Summary ---
Author Organization [facility] Address [address] [place] [address] Care Team Providers Care Meteorological Technician Name Role Phone Cliff Cruz M.D. Primary Care Provider +1 [phone] Encounter Details Date Type Department Care Team (Late st Contact Info) Description 12/09/2015 Abstract [facility] Cancer and Blood Diseases [place] [address] [place] [phone] Emma Syed R.N. Social History Tobacco [...] Info) Description 02/12/2025 8:10 AM EST Appointment [facility] Division of Endocrinology [address] [place] [phone] Cathleen Bajwa M.D. Endocrinology [address] [place] [address] 7[address] [place] [address] Discharge Disposition: Home or Self Care documented as of this encounter Visit Diagnoses Not on filedocumented in this encounter Care Teams Meteorological Technician Relationship Specialty Start Date End Date Cliff Cruz M.D. BELLI: [phone] Primary Care [address] [place] [address] PCP - General External Family Practice 12/22/15 documented as of this encounter
--- OUTSIDE RECORDS SUMMARY | 2024-11-02 15:30 | XMS_ITS | Clinical Summary ---
Author Organization [facility] Address [address] [place] [address] Care Team Providers Care Etl Analyst Developer Name Role Phone Cliff Curz M.D. Primary Care Provider +1 -[phone] Source Comments [facility] is fully rolled out with thefollowing exceptions:[facility] Allergies No known active allergies Medications ARIPiprazole [...] Type Department Care Team Description 10/11/2024 Telephone [facility] Division of Endocrinology [address] [place] [address] Delilah Mujica, Surgical Services Tech medication/supply question:Other (Patient calling and didn't know if medication needs a PA for Synthroid and desmopressin.) 10/10/2024 Orders Only [facility] Division of Endocrinology [address] [place] [address] Jerica Nichols, R.N. 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 Medication Refill 09/03/2024 Telephone [facility] Division of Endocrinology [address] [place] [address] Cathleen Merino M.D. Lab Results 08/31/2024 Telephone [facility] Division of Gynecology [address] [place] [phone] Mely Barragan R.N. Fertility Counseling 08/29/2024 1:00 PM EDT Office Visit [facility] Division of Endocrinology [address] [place] [phone] Cathleen Bajwa M.D. 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 Endocrinology [address] [place] [address] [place] [phone] Discharge Disposition: Home or Self Care [...] this topic Medical Devices Implanted Type Area Accounts Payable Specialist Device Identifier Shelf Expiration Date Model / Serial / Lot Screws Self Drilling 3mm Implanted:Qty: 13 on 10/25/2008 at [facility] [employer] RUST 04. [id number]. [id number] / / Description:SCREWS SELF DRIL LING 3MM Screw Empergency 4mm Implanted:Qty: 1 on 10/25/2008 at [employer] RUST 05.503 .114. 01 / / Description:SCREW EMPERGENCY 4MM Plate -X 14mm X 14m Implanted:Qty: 1 on 10/25/2008 at [employer] RUST 04.503 .065 / / Description:PLATE -X 14MM X 14M Plate Adaption 7 Holes Implanted:Qty: 1 on 10/25/2008 at [employer] 04.503 .071 / / Description:PLATE ADAPTION 7 [...] - 16.015 ng/mL 08/31/2024 10:55 PM EDT [facility] Comment: INTERPRETIVE INFORMATION: Anti-Mullerian Hormone [...] developed and its performance characteristics determined by [facility]. It has not been cleared or approved by the US Food and Drug Administration. This test was performed in a CLIA certified laboratory and is intended for clinical purposes. Performed By: [facility] [address] [place] [address] Nautical Instrument Mechanic: Mich Salazar MD, PhD CLIA Number: [id number] Blood Venipuncture / Unknown 08/29/2024 2:57 PM EDT 08/29/2024 3:51 PM EDT Cathleen Merino M.D. CHEMISTRY ORDERABLES Fi nal Result [place] [address] [place] [address] * (ABNORMAL) Comp Metabolic Panel (BMP+Alb,TProt,AST,ALT,Alk phos,Tbili) (08/29/2024 2:57 PM EDT) [facility] Potassium 4.3 3.5 - 5.1 mmol/L ATELLICA IM SARS-COV-2 TOTAL (COV2T)_[facility] [employer] 08/29/2024 4:24 PM EDT [facility] Chloride 105 98 - 107 mmol/L ATELLICA IM SARS-COV-2 TOTAL (COV2T)_[facility] [employer]UA 08/29/2024 4:24 PM EDT [facility] Carbon Dioxide 27 20 - 31 mmol/L ATELLICA IM SARS-COV-2 TOTAL (COV2T)_[facility] [employer]UA 08/29/2024 4:24 PM EDT [facility] Anion Gap 7 4 - 15 mmol/L ATELLICA IM SARS-COV-2 TOTAL (COV2T)_[facility] [employer]UA 08/29/2024 4:24 PM EDT [facility] Blood Urea Nitrogen 13 9 - 23 mg/dL ATELLICA IM SARS-COV-2 TOTAL (COV2T)_[facility] [employer]UA 08/29/2024 4:24 PM EDT [facility] Creatinine 0.62 0.50 - 0.80 mg/dL ATELLICA IM SARS-COV-2 TOTAL (COV2T)_[facility] [employer]UA 08/29/2024 4:24 PM EDT [facility] Glucose 86 65 - 106 mg/dL ATELLICA IM SARS-COV-2 TOTAL (COV2T)_[facility] [employer] 08/29/2024 4:24 PM EDT [facility] Calcium 10.1 8.7 - 10.4 mg/dL ATELLICA IM SARS-COV-2 TOTAL (COV2T)_[facility] [employer] 08/29/2024 4:24 PM EDT [facility] Albumin 4.0 3.4 - 5.0 gm/dL ATELLICA IM SARS-COV-2 TOTAL (COV2T)_[facility] [employer]08/29/2024 4:24 PM EDT [facility] Alkaline Phosphatase 102 46 - 116 unit/L ATELLICA IM SARS-COV-2 TOTAL (COV2T)_[facility] [employer]08/29/2024 4:24 PM EDT [facility] Alanine Aminotransferase 34 9 - 40 unit/L ATELLICA IM SARS-COV-2 TOTAL (COV2T)_[facility] [employer]08/29/2024 4:24 PM EDT [facility] Aspartate Aminotransferase 32 8 - 35 unit/L ATELLICA IM SARS-COV-2 TOTAL (COV2T)_[facility] [employer]08/29/2024 4:24 PM EDT [facility] Bilirubin Total 0.3 0.1 - 1.0 mg/dL ATELLICA IM SARS-COV-2 TOTAL (COV2T)_[facility] [employer]08/29/2024 4:24 PM EDT [facility] Globulin 3.6 gm/dl ATELLICA IM SARS-COV-2 TOTAL (COV2T)_[facility] [employer]08/29/2024 4:24 PM EDT [facility] Albumin/Globulin Ratio 1 1 - 2 ATELLICA IM SARS-COV-2 TOTAL (COV2T)_[facility] [employer]08/29/2024 4:24 PM EDT [facility] Sodium 139 136 - 145 mmol/L ATELLICA IM SARS-COV-2 TOTAL (COV2T)_[facility] [employer]08/29/2024 4:24 PM EDT [facility] TOTAL PROTEIN LEVEL 7.6 5.7 - 8.2 gm/dL ATELLICA IM SARS-COV-2 TOTAL (COV2T)_[facility] [employer]08/29/2024 4:24 PM EDT [facility] Estimated Gfr >60 >=60 mL/min/1.7 3m2 ATELLICA IM SARS-COV-2 TOTAL (COV2T)_[facility] [employer]08/29/2024 4:24 PM EDT [facility] Comment:Estimated GFR calcul ated using CKD-EPI study equation. Hemolysis None to Slight(A ) None Detected ATELLICA IM SARS-COV-2 TOTAL (COV2T)_[facility] [employer] 08/29/2024 4:24 PM EDT [facility] Comment: The presence of hemolysis in [...] ORDERABLES Fi nal Result Performing Organization Address [facility] Co de Phone Number [facility] [address] [place] [address], * T4 Free, Rapid (08/29/2024 2:57 PM EDT) Pathologist [facility] Thyroxine Free 1.40 0.90 - 2.30 ng/dL ATELLICA IM SARS-COV-2 TOTAL (COV2T)_[facility] 08/29/2024 4:24 PM EDT [facility] Blood Venipuncture / Unknown 08/29/2024 2:57 PM EDT 08/29/2024 3:51 PM EDT Cathleen Merino M.D. CHEMISTRY ORDERABLES Fi nal Result Performing Organization Address [facility] Co de Phone Number [facility] [address] [place] [address], * Glycosated Hgb (Hgb A1C) (08/29/2024 2:57 PM EDT) Pathologist [facility] Hb A1c 4.9 <=6.3 % 08/30/2024 11: 29 AM EDT [facility] EDL Blood Venipuncture / Unknown 08/29/2024 2:57 PM EDT 08/29/2024 3:51 PM EDT Cathleen Merino M.D. CHEMISTRY ORDERABLES Fi nal Result [facility] [address] [place] [address] * Estradiol Us (08/29/2024 2:57 PM EDT) ESTRADIOL BY TMS 218.8 pg/mL 09/04/19 2:11 AM EDT [facility] Comment: REFERENCE INTERVAL: Estradiol by Post Splitter Pre-menopausal: Early follicular 30.0-100.0 pg/mL Pre-menopausal: Late follicular 100.0-400.0 pg/mL Pre-menopausal: Luteal 50.0-150.0 pg/mL Post-menopausal 2.0-21.0 pg/mL REFERENCE INTERVAL: Estradiol by Post Splitter For a complete set of all established reference intervals, refer to [employer]/Tests/Pub/[id number]. This test was developed and its performance characteristics determined by [facility]. It has not been cleared or approved by the US Food and Drug Administration. This test was performed in a CLIA certified laboratory and is intended for clinical purposes. Performed By: [facility] [address] [place] [address] Nautical Instrument Mechanic: Mich Salazar MD, PhD CLIA Number: [id number] Blood Venipuncture / Unknown 08/29/2024 2:57 PM EDT 08/29/2024 3:51 PM EDT Cathleen Merino M.D. CHEMISTRY ORDERABLES Fi nal Result Performing Organization Address City/[facility]/ZIP Co de Phone Number [address] [address] * 25OH Vitamin D (08/29/2024 2:57 PM EDT) Vitamin D 25 [place] 32.7 20.0 - 60.0 ng/mL 08/30/2024 11:52 AM EDT [facility] Blood Venipuncture / Unknown 08/29/2024 2:57 PM EDT 08/29/2024 3:51 PM EDT Narrative [facility] - 08/30/2024 11:52 AM EDT IOM recommended ranges Cathleen Merino M.D. CHEMISTRY ORDERABLES Fi nal Result [facility] [address] [place] [address] from Last 3 Months Insurance [facility] Medicaid Address: [facility] [id number] [place] [address] [facility] Care Teams Etl Analyst Developer Relationship Specialty Start Date End Date Cliff Cruz M.D. Primary [address] [address] PCP - General External Family Practice 12/22/15
--- OUTSIDE RECORDS SUMMARY | 2024-11-02 15:30 | XMS_ITS | Encounter Summary ---
Author Organization [facility] Address [address] [place] [address] Care Team Providers Care It Software Developer Name Role Phone Cliff Cruz M.D. Primary Care Provider +1 -[phone] Reason for Visit * Reason Comments Medication Refill Encounter Details Date Type Department Care Team (Late st Contact Info) Description 01/09/2020 Refill [facility] Division of Neurology [address] [place] [phone] Dania Arce M.D. Neurology [address] [place] [address] [place] [address] Medication Refill Social History Tobacco [...] Refill pended to nurse for review. Pharmacy: [facility] documented in this encounter Plan of Treatment Upcoming Encounters Date Type Department Care Team (Late st Contact Info) Description 02/12/2025 8:10 AM EST Appointment [facility] Division of Endocrinology [address] [place] [phone] Cathleen Bajwa M.D. Endocrinology [address] [place] [phone] Discharge Disposition: Home or Self Care documented as of this encounter Visit Diagnoses Diagnosis Migraine without aura and without status migrainosus, not intractable Migraine without aura, without mention of intractable migraine without mention of status migrainosus documented in this encounter Care Teams It Software Developer Relationship Specialty Start Date End Date Cliff Cruz M.D. Primary Care [address] [place] [address] PCP - General External Family Practice 12/22/15 documented as of this encounter
--- OUTSIDE RECORDS SUMMARY | 2024-11-02 15:30 | XMS_ITS | Encounter Summary ---
Author Organization [facility] Address [address] [place] [address] Care Team Providers Care Fry Cook Name Role Phone Cliff Cruz M.D. Primary Care Provider +1 -[phone] Encounter Details Date Type Department Care Team (Late st Contact Info) Description 11/23/2011 [facility] Social Work [facility] Cancer and Blood Diseases [place] [address] [place] [phone] Lou Arboleda LISW Social History Tobacco [...] 11/23/2011 12:53 PM EDT Spoke with a [facility] business development representative. She reported that they do not have any counseling resources in the [place] area. They only have access to local resources. I attempted to call Nubia Prado's mother, to discuss progress in locating counseling resources. documented in this encounter Plan of Treatment Upcoming Encounters Date Type Department Care Team (Late st Contact Info) Description 02/12/2025 8:10 AM EST Appointment [facility] Division of Endocrinology [address] [place] [address] Cathleen Bajwa M.D. Endocrinology [address] [place], [place] [address], [address] [place] [address] Discharge Disposition: Home or Self Care documented as of this encounter Visit Diagnoses Not on filedocumented in this encounter Care Teams Fry Cook Relationship Specialty Start Date End Date Cliff Cruz M.D. Primary Care [address] [place] [address] PCP - General External Family Practice 12/22/15 documented as of this encounter
--- OUTSIDE RECORDS SUMMARY | 2024-11-02 15:30 | XMS_ITS | Encounter Summary ---
Author Organization [facility] Address [address] [place] [address] Care Team Providers Care Grinding Supervisor Name Role Phone Cliff Cruz M.D. Primary Care Provider +1 -[phone] Reason for Visit * Reason Comments Medication Refill Encounter Details Date Type Department Care Team (Late st Contact Info) Description 12/11/2019 Refill [facility] Division of Endocrinology [address] [place] [phone] Ara Vasquez M.D. Endocrinology [address] [place] [address] [place] [phone] Medication Refill Social History Tobacco Use [...] Info) Description 02/12/2025 8:10 AM EST Appointment [facility] Division of Endocrinology [address] [place] [phone] Cathleen Bajwa M.D. 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 Primary Care [address] [place] [address] PCP - General External Family Practice 12/22/15 documented as of this encounter
--- OUTSIDE RECORDS SUMMARY | 2024-11-02 15:30 | XMS_ITS | Encounter Summary ---
Author Organization [facility] Address [address] [place] [address] Care Team Providers Care Half Backer Name Role Phone Cliff Cruz M.D. Primary Care Provider +1 -[phone] Reason for Visit * Reason Onset Date Comments Schedule Appointment 06/14/2016 Have made n umerous attempts to contact patient to schedule and havent been able to get ahold of them. Multiple numbers on [employer] don't work. Will go ahead and schedule and mail itinerary. Ricky [id number] Encounter Details Date Type Department Care Team (Late st Contact Info) Description 06/14/2016 Telephone [facility] Cancer and Blood Diseases [place] [address] [place] [phone] Anand Magana M.D. Hematology-Oncology [address] [place] [address] [address] [place] [address] Schedule Appointment (Have made numerous attempts to contact patient to schedule and havent been able to get ahold of them. Multiple numbers on [employer] don't work. Will go ahead and schedule and mail itinerary. Ricky [phone]) Social History Tobacco Use Types Packs/Day Years [...] Info) Description 02/12/2025 8:10 AM EST Appointment [facility] Division of Endocrinology [address] [place] [phone] Cathleen Bajwa M.D. Endocrinology [address] [place] [address] [place] [phone] Discharge Disposition: Home or Self Care documented as of this encounter Visit Diagnoses Not on filedocumented in this encounter Care Teams Half Backer Relationship Specialty Start Date End Date Cliff Cruz M.D. Primary Care [address] [place] [address] PCP - General External Family Practice 12/22/15 documented as of this encounter
--- OUTSIDE RECORDS SUMMARY | 2024-11-02 15:30 | XMS_ITS | Encounter Summary ---
Author Organization [facility] Address [address] [place] [address] Care Team Providers Care Cosmetologist Apprentice Name Role Phone Cliff Cruz M.D. Primary Care Provider +1 -[phone] Reason for Visit * Reason Comments Medication Refill Encounter Details Date Type Department Care Team (Late st Contact Info) Description 05/27/2020 Refill [facility] Division of Endocrinology [address] [place] [phone] Cathleen Bajwa M.D. Endocrinology [address] [place] [address] [address] [place] [address] Medication Refill Social History Tobacco [...] Info) Description 02/12/2025 8:10 AM EST Appointment [facility] Division of Endocrinology [address] [place] [phone] Cathleen Bajwa M.D. Endocrinology [address] [place] [phone] Discharge Disposition: Home or Self Care documented as of this encounter Visit Diagnoses Diagnosis Attention deficit disorder with hyperactivity Attention deficit disorder Attention deficit disorder without mention of hyperactivity documented in this encounter Care Teams Cosmetologist Apprentice Relationship Specialty Start Date End Date Cliff Cruz M.D. Primary Care [address] [place] [address] PCP - General External Family Practice 12/22/15 documented as of this encounter
--- OUTSIDE RECORDS SUMMARY | 2024-11-02 15:30 | XMS_ITS | Encounter Summary ---
Author Organization [facility] Address [address] [place] [address] Care Team Providers Care Payer Specialist Name Role Phone Cliff Cruz M.D. Primary Care Provider +1 [phone] Encounter Details Date Type Department Care Team (Late st Contact Info) Description 05/01/2009 Abstract [facility] Cancer and Blood Diseases [place] [address] [place] [phone] Tankage Grinder Operator, [facility] Social History Tobacco Use Types Packs/Day Years [...] Info) Description 02/12/2025 8:10 AM EST Appointment [facility] Division of Endocrinology [facility] [place] [address] Cathleen Bajwa M.D. Endocrinology [address] [place], [place] [address]socorro, [address] [place] [address] Discharge Disposition: Home or Self Care documented as of this encounter Visit Diagnoses Not on filedocumented in this encounter Care Teams Payer Specialist Relationship Specialty Start Date End Date Cliff Curz M.D. Primary Care [address] [place] [address] PCP - General External Family Practice 12/22/15 documented as of this encounter
--- NOTE | 2024-11-02 15:31 | XR_ITS ---
PROCEDURE INFORMATION: Exam: XR Thoracic Spine Exam date and time: 11/02/2024 4:07 PM Age: 24 years old Clinical indication: Injury or trauma; Fall; Blunt trauma (contusions or hematomas) TECHNIQUE: Imaging protocol: Radiologic exam of the thoracic spine. Views: 2 views. COMPARISON: CR XR LUMBAR SPINE MIN 4V 11/02/2024 4:04 PM FINDINGS: Bones/joints: No acute fracture. No bone lesions. Normal alignment. Disc spaces are well preserved. Soft tissues: No paraspinal soft tissue masses. IMPRESSION: No acute findings in the thoracic spine.
--- NOTE | 2024-11-02 15:31 | XR_ITS ---
PROCEDURE INFORMATION: Exam: XR Pelvis Exam date and time: 11/02/2024 4:03 PM Age: 24 years old Clinical indication: Injury or trauma; Fall; Blunt trauma (contusions or hematomas); Bilateral; Pelvic region TECHNIQUE: Imaging protocol: Radiologic exam of the pelvis. Views: 1 or 2 view. COMPARISON: US TRANSVAGINAL 02/11/2021 4:51 PM FINDINGS: Bones/joints: No fractures, dislocations, or bone lesions. Hip and sacroiliac joint spaces are well preserved. Soft tissues: No soft tissue masses or radiopaque foreign bodies. IUD to the left of midline. IMPRESSION: No acute findings in the pelvis.
--- NOTE | 2024-11-02 15:31 | XR_ITS ---
PROCEDURE INFORMATION: Exam: XR Lumbosacral Spine Exam date and time: 11/02/2024 4:04 PM Age: 24 years old Clinical indication: Injury or trauma; Fall; Blunt trauma (contusions or hematomas) TECHNIQUE: Imaging protocol: Radiologic exam of the lumbosacral spine. Views: 4 or 5 views. COMPARISON: CR XR PELVIS 1-2V 11/02/2024 4:03 PM FINDINGS: Bones/joints: No acute fracture. No bone lesions. Normal alignment. Disc spaces are well preserved. Soft tissues: No paraspinal soft tissue masses. IUD in the pelvis to the left of midline. IMPRESSION: No acute findings in the lumbosacral spine.
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
[2024-11-02 16:11] LABS: Urine Pregnancy, HCG Qual. Negative (Negative)
--- NOTE | 2024-11-02 16:18 | PC.NURSE ---
pt in xray
[2024-11-02 17:04] VITALS: BP 141/86; PULSE 80; RESP 20; TEMP 36.7; O2SAT 98
== END 2024-11-02 17:05 | disposition home or self-care (01) ==
PROVIDERS: Emergency Provider Student in an Organized Health Care Education/Training Program; PCP Family Medicine
DX: S39.012A Strain of muscle, fascia and tendon of lower back, initial encounter (principal); W01.10XA Fall on same level from slipping, tripping and stumbling with subsequent striking against unspecified object, initial encounter
CPT/HCPCS: 72070; 72110; 72170; 81025; 99284

== ENCOUNTER 2024-11-07 11:21 | Outpatient (CLI) | payer OTHER, SELFPAY ==
--- OUTSIDE RECORDS SUMMARY | 2024-11-09 11:24 | XMS_ITS | Encounter Summary ---
Author Organization [facility] Address [address] [place] [address] Care Team Providers Care Laborer Gold Leaf Name Role Phone Cliff Cruz M.D. Primary Care Provider [phone] [phone] Reason for Visit * Reason Onset Date Comments medication/supply question:Other 10/11/2024 Patient calling and didn't know if medication needs a PA for Synthroid and desmopressin. Encounter Details Date Type Department Care Team (Late st Contact Info) Description 10/11/2024 Telephone [facility] Division of Diabetes and Endocrinology [address] [place] [phone] Delilah Mujica Medical Asst medication/supply question:Other [...] Notes * Telephone Encounter - Delilah Mujica Hoeing Row Boss - 10/11/2024 2:43 PM EDT Marisol ( [facility])reports the Provider that Rx medications was [...] AND 3 TABS AT BEDTIME Ordering Department: [facility] ENDOCRINOLOGY Authorized By: Cathleen Merino M.D. And Levothyroxine (synthroid 125 mcg tablet -vv Take 1 tablet by mouth at bedtime. Dispense: 30 tablet, Refills: 11 ordered Ordering Department: [facility] ENDOCRINOLOGY Authorized By: Cathleen Merino M No additional questions * Telephone Encounter - Delilah Mujica Medical Asst - 10/11/2024 2:11 PM EDT Images from [...] 02/12/2025 8:10 AM EST Appointment [facility] Division of Diabetes and Endocrinology [address] [place] [phone] Cathleen Bajwa M.D. Endocrinology [address] [place] [address] [place] [phone] Discharge Disposition: Home or Self Care documented as of this encounter Visit Diagnoses Not on filedocumented in this encounter Care Teams Laborer Gold Leaf Relationship Specialty Start Date End Date Cliff Cruz M.D. Primary Care [address] [place] [address] PCP - General External Family Practice 12/22/15 documented as of this encounter
--- OUTSIDE RECORDS SUMMARY | 2024-11-09 11:24 | XMS_ITS | Encounter Summary ---
Author Organization [facility] Address [address] [place] [address] Care Team Providers Care Hydrator Operator Name Role Phone Cliff Crzu M.D. Primary Care Provider [phone] Reason for Visit * Reason Comments Medication Refill Encounter Details Date Type Department Care Team (Late st Contact Info) Description 05/27/2020 Refill [facility] Division of Diabetes and Endocrinology [address] [place] [phone] Cathleen Bajwa M.D. Endocrinology [address] [place] [address] [address] [place] [phone] Medication Refill Social History Tobacco [...] Info) Description 02/12/2025 8:10 AM EST Appointment [facility] Division of Diabetes and Endocrinology [address] [place] [phone] Cathleen Bajwa M.D. Endocrinology [address] [place] [phone] Discharge Disposition: Home or Self Care documented as of this encounter Visit Diagnoses Diagnosis Attention deficit disorder with hyperactivity Attention deficit disorder Attention deficit disorder without mention of hyperactivity documented in this encounter Care Teams Hydrator Operator Relationship Specialty Start Date End Date Cliff Cruz M.D. Primary Care [address] [place] [address] PCP - General External Family Practice 12/22/15 documented as of this encounter
--- OUTSIDE RECORDS SUMMARY | 2024-11-09 11:24 | XMS_ITS | Encounter Summary ---
Author Organization [facility] Address [address] [place] [address] Care Team Providers Care Stove Mechanic Name Role Phone Cliff Cruz M.D. Primary Care Provider [phone] Reason for Visit * Reason Comments Medication Refill Encounter Details Date Type Department Care Team (Late st Contact Info) Description 06/22/[address] [facility] Division of Diabetes and Endocrinology [address] [place] [phone] Humera Dolan M.D. Endocrinology [address] [place] [address] [address] [place] [phone] Medication Refill Social History Tobacco [...] 8:10 AM EST Appointment [facility] Division of Diabetes and Endocrinology [address] [place] [phone] Cathleen Bajwa M.D. 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 Primary Care [address] [place] [address] PCP - General External Family Practice 12/22/15 documented as of this encounter
--- OUTSIDE RECORDS SUMMARY | 2024-11-09 11:24 | XMS_ITS | Encounter Summary ---
Author Organization [facility] Address [address] [place] [address] Care Team Providers Care Infantry Weapons Officer Name Role Phone Cliff Cruz M.D. Primary Care Provider [phone] [phone] Encounter Details Date Type Department Care Team (Late st Contact Info) Description 11/23/2011 [facility] Social Work [facility] Cancer and Blood Diseases [place] [address] [place] [phone] Lou Arboleda LISW Social History Tobacco [...] 11/23/2011 12:53 PM EDT Spoke with a [facility] market survey representative. She reported that they do not have any counseling resources in the [facility] area. They only have access to local resources. I attempted to call Nubia Prado's mother, to discuss progress in locating counseling resources. documented in this encounter Plan of Treatment Upcoming Encounters Date Type Department Care Team (Late st Contact Info) Description 02/12/2025 8:10 AM EST Appointment [facility] Division of Diabetes and Endocrinology [address] [place] [phone] Cathleen Bajwa M.D. Endocrinology [address] [place] [address] [facility] [address] [place] [phone] Discharge Disposition: Home or Self Care documented as of this encounter Visit Diagnoses Not on filedocumented in this encounter Care Teams Infantry Weapons Officer Relationship Specialty Start Date End Date Cliff Cruz M.D. Primary Care [address] [place] [address] PCP - General External Family Practice 12/22/15 documented as of this encounter
--- OUTSIDE RECORDS SUMMARY | 2024-11-09 11:24 | XMS_ITS | Encounter Summary ---
Author Organization [facility] Address [address] [place] [address] Care Team Providers Care Freelance Director Name Role Phone Cliff Cruz MD Primary Care Provider [phone] Source Comments This information has been disclosed [...] release of HIV test results or diagnoses. [id number] Health Encounter Details Date Type Department Care Team (Late st Contact Info) Description 06/22/2018 Ophth Exam [facility] Ophthalmology at [address] [place] [address] Jerson Nielsen MD [address] [place] [address] Social History Tobacco Use Types Packs/Day [...] on filedocumented in this encounter Care Teams Freelance Director Relationship Specialty Start Date End Date Cliff Cruz MD [address] [place] [id number] PCP - General Emergency Medicine 05/22/18 documented as of this encounter
--- OUTSIDE RECORDS SUMMARY | 2024-11-09 11:24 | XMS_ITS | Encounter Summary ---
Author Organization [facility] Address [address] [place] [address] Care Team Providers Care Dump Motorman Name Role Phone Cliff Cruz M.D. Primary Care Provider [phone] [phone] Encounter Details Date Type Department Care Team (Late st Contact Info) Description 02/20/2010 Abstract [facility] Division of Diabetes and Endocrinology [address] [place] [phone] Lida Gonzalez, RJamesN. Social History Tobacco Use Types Packs/Day Years [...] Info) Description 02/12/2025 8:10 AM EST Appointment [facility] Division of Diabetes and Endocrinology [address] [place] [phone] Cathleen Bajwa M.D. Endocrinology [address] [place] [address] [facility] [address] [place] [address] Discharge Disposition: Home or Self Care documented as of this encounter Visit Diagnoses Not on filedocumented in this encounter Care Teams Dump Motorman Relationship Specialty Start Date End Date Cliff Cruz M.D. Primary Care [address] [place] [address] PCP - General External Family Practice 12/22/15 documented as of this encounter
--- OUTSIDE RECORDS SUMMARY | 2024-11-09 11:24 | XMS_ITS | Encounter Summary ---
Author Organization [facility] Address [address] [place] [address] Care Team Providers Care Narrative Writer Name Role Phone Cliff Cruz M.D. Primary Care Provider [phone] Encounter Details Date Type Department Care Team (Late st Contact Info) Description 04/22/2018 Abstract [facility] Cancer and Blood Diseases [place] [address] [place] [phone] Anand Magana M.D. Hematology-Oncology [address] [place] [address] [place] [phone] Social History Tobacco Use Types Packs/Day [...] 02/12/2025 8:10 AM EST Appointment [facility] Division of Diabetes and Endocrinology [address] [place] [phone] Cathleen Bajwa M.D. Endocrinology [address], [place] [address] [place] [phone] Discharge Disposition: Home or Self Care documented as of this encounter Visit Diagnoses Not on filedocumented in this encounter Care Teams Narrative Writer Relationship Specialty Start Date End Date Cliff Cruz M.D. Primary Care [address] [place] [address] PCP - General External Family Practice 12/22/15 documented as of this encounter
--- OUTSIDE RECORDS SUMMARY | 2024-11-09 11:24 | XMS_ITS | Encounter Summary ---
Author Organization [facility] Address [address] [place] [address] Care Team Providers Care Processing Technician Name Role Phone Cliff Cruz M.D. Primary Care Provider [phone] Reason for Visit * Reason Comments Medication Refill Encounter Details Date Type Department Care Team (Late st Contact Info) Description 10/05/2024 Refill [facility] Division of Diabetes and Endocrinology [address] [place] [phone] Cathleen Bajwa M.D. Endocrinology [address] [place] [address] [address] [place] [phone] Medication Refill Social History [...] Description 02/12/2025 8:10 AM EST Appointment [facility] Division of Diabetes and Endocrinology [address] [place] [phone] Cathleen Bajwa M.D. 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 BELLI: [id number] Primary Care [address] [place] [address] PCP - General External Family Practice 12/22/15 documented as of this encounter
--- OUTSIDE RECORDS SUMMARY | 2024-11-09 11:24 | XMS_ITS | Encounter Summary ---
Author Organization [facility] Address [address] [place] [address] Care Team Providers Care Nitric Acid Concentrator Operator Name Role Phone Cliff Cruz M.D. Primary Care Provider [phone] Encounter Details Date Type Department Care Team (Late st Contact Info) Description 07/24/2012 Telephone [facility] Cancer and Blood Diseases [place] [address] [place] [phone] Lou Arboleda LISW Social History Tobacco [...] Info) Description 02/12/2025 8:10 AM EST Appointment [facility] Division of Diabetes and Endocrinology [address] [place] [phone] Cathleen Bajwa M.D. Endocrinology [address] [place] [address] [place] [phone] Discharge Disposition: Home or Self Care documented as of this encounter Visit Diagnoses Not on filedocumented in this encounter Care Teams Nitric Acid Concentrator Operator Relationship Specialty Start Date End Date Cliff Cruz M.D. BELLI: [id number] Primary Care [address] [place] [address] PCP - General External Family Practice 12/22/15 documented as of this encounter
--- OUTSIDE RECORDS SUMMARY | 2024-11-09 11:24 | XMS_ITS | Encounter Summary ---
Author Organization [facility] Address [address] [place] [address] Care Team Providers Care Gospel Worker Name Role Phone Cliff Cruz M.D. Primary Care Provider [phone] Reason for Visit * Reason Onset Date Comments medications: medication refill 05/18/2013 Encounter Details Date Type Department Care Team (Late st Contact Info) Description 05/18/2013 Telephone [facility] Division of Diabetes and Endocrinology [address] [place] [phone] Lida Mak M.D. [address] [place], [place] [id number] medications: medication refill Social History Tobacco Use [...] refills: levothyroxine and Desmopressin. Please call them: [phone] fax: [phone]. Nubia has an appt scheduled with Dr. Mak 05/24/13. documented in this encounter Plan of Treatment Upcoming Encounters Date Type Department Care Team (Late st Contact Info) Description 02/12/2025 8:10 AM EST Appointment [facility] Division of Diabetes and Endocrinology [address] [place] [phone] Cathleen Bajwa M.D. 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 Primary Care [address] [place] [address] PCP - General External Family Practice 12/22/15 documented as of this encounter
--- OUTSIDE RECORDS SUMMARY | 2024-11-09 11:24 | XMS_ITS | Encounter Summary ---
Author Organization [facility] Address [address] [place] [address] Care Team Providers Care Agile Java Developer Name Role Phone Cliff Cruz M.D. Primary Care Provider [phone] [phone] Encounter Details Date Type Department Care Team (Late st Contact Info) Description 12/09/2015 Abstract [facility] [place] [facility] Cancer and Blood Diseases [place] [address] [place] [phone] Emma Syed R.N. Social History Tobacco [...] 02/12/2025 8:10 AM EST Appointment [facility] [place] [facility] Division of Diabetes and Endocrinology [address] [place] [phone] Catlheen Bajwa M.D. Endocrinology [address] [place] [address] [place] [address] Discharge Disposition: Home or Self Care documented as of this encounter Visit Diagnoses Not on filedocumented in this encounter Care Teams Agile Java Developer Relationship Specialty Start Date End Date Cliff Cruz M.D. Primary Care [address] [place] [address] PCP - General External Family Practice 12/22/15 documented as of this encounter
--- OUTSIDE RECORDS SUMMARY | 2024-11-09 11:24 | XMS_ITS | Clinical Summary ---
Author Organization [facility] Address [address] [place] [address] Care Team Providers Care Medical Reception Specialist Name Role Phone Cliff Cruz MD Primary Care Provider [phone] Source Comments This information has been disclosed [...] therelease of HIV test results or diagnoses. [id number] Allergies No known active allergies Medications [...] (05/19/2018): Added automatically from request for surgery [id number] Family History Medical History Relation Comments Hypertension [...] Comments Diabetes Screening 2002 Hepatitis C Screening ([employer]) 2002 Immunization: HPV (1 - 3-dose series) 2017 Immunization: Meningococcal B (1 of 2 - Standard) 2018 Alcohol Misuse Screening 2020 HIV Screening 2020 Immunization: Pneumococcal (1 of 2 - PCV) 2021 04/23/2003, 2002, 2002, Additional history exists Cervical Cancer Screening/Pap Smear ([employer]) 2023 Immunization: DTaP/Tdap/Td (7 - Td or Tdap) 08/25/2023 08/24/2013, 06/10/2006, 05/14/2004, Additional history exists Immunization: COVID-19 ( season) 2023 Depression Screening 01/28/2024 01/27/2023 Immunization: Influenza ([employer]) (#1) 2024 01/11/2018, 01/08/2016, 03/02/2013, Additional history exists Immunization: Hepatitis B Completed 2003, 2002, 2002 Immunization: Meningococcal ACWY Aged Out 08/24/2013 No longer eligible based on patient's age to complete this topic Medical Devices Implanted Type Area Chief Physical Therapist Device Identifier Shelf Expiration Date Model / Serial / Lot Gft Sft Tis 3x3in Drfrm Spng - [id number] Implanted:Qty: 1 on 06/21/2018 by Hernandez Phillips MD at [facility] Main Graft Brain [employer] 10/26/2019 [id number] / / [id number] Plt .4mm Strg Crnmxf Ti 2 Hl - [id number] Implanted:Qty: 1 on 06/21/2018 by Hernandez Phillips MD at [facility] Main Plate Right: Brain [employer] [id number] / / Plt 62x30x.3mm Sm Suboccipital - [id number] Implanted:Qty: 1 on 06/21/2018 by Hernandez Phillips MD at [facility] Main Plate Right: Brain [employer] [id number] / / Scr Bn 4mm 1.5mm Slf Drl Ax - [id number] Implanted:Qty: 9 on 06/21/2018 by Hernandez Phillips MD at [facility] Main Screw Right: Brain [employer] [id number] / / Insurance [employer] MDCD BET[employer] Advance Directives For more information, please contact: [phone] * Full Code (Latest Code Status on File) Date Activated Date Inactivated Comments 06/21/2018 7:28 PM 06/26/2018 8:02 PM * Full Code Date Activated Date Inactivated Comments 06/20/2018 7:33 PM 06/21/2018 7:28 PM Care Teams Medical Reception Specialist Relationship Specialty Start Date End Date Cliff Cruz MD [address] [place] [address] PCP - General Emergency Medicine 05/22/18
--- OUTSIDE RECORDS SUMMARY | 2024-11-09 11:24 | XMS_ITS | Encounter Summary ---
Author Organization [facility] Address [address] [place] [address] Care Team Providers Care Client Care Coordinator Name Role Phone Cliff Cruz M.D. Primary Care Provider [phone] Reason for Visit * Reason Comments Medication Refill Encounter Details Date Type Department Care Team (Late st Contact Info) Description 01/09/2020 Refill [facility] Division of Neurology [address] [place] [phone] Dania Arce M.D. Neurology [address] [place] [address] [place] [address] Medication Refill Social History Tobacco [...] pended to nurse for review. Pharmacy: [facility] documented in this encounter Plan of Treatment Upcoming Encounters Date Type Department Care Team (Late st Contact Info) Description 02/12/2025 8:10 AM EST Appointment [facility] Division of Diabetes and Endocrinology [address] [place] [phone] Cathleen Bajwa M.D. Endocrinology [address] [place] [phone] Discharge Disposition: Home or Self Care documented as of this encounter Visit Diagnoses Diagnosis Migraine without aura and without status migrainosus, not intractable Migraine without aura, without mention of intractable migraine without mention of status migrainosus documented in this encounter Care Teams Client Care Coordinator Relationship Specialty Start Date End Date Cliff Cruz M.D. Primary Care [address] [place] [address] PCP - General External Family Practice 12/22/15 documented as of this encounter
--- OUTSIDE RECORDS SUMMARY | 2024-11-09 11:24 | XMS_ITS | Encounter Summary ---
Author Organization [facility] Address [address] [place] [address] Care Team Providers Care Screw Machine Set Up Operator Name Role Phone Cliff Cruz M.D. Primary Care Provider [phone] Reason for Visit * Reason Comments Medication Refill Encounter Details Date Type Department Care Team (Late st Contact Info) Description 11/29/2020 Refill [facility] Division of Neurology [address] [place] [phone] Dania Arce M.D. Neurology [address] [place] [address] [place] [address] Medication Refill Social History Tobacco [...] Appointment [facility] Division of Diabetes and Endocrinology [address] [place] [phone] Cathleen Bajwa M.D. Endocrinology [address] [place] [phone] Discharge Disposition: Home or Self Care documented as of this encounter Visit Diagnoses Diagnosis Migraine without aura and without status migrainosus, not intractable Migraine without aura, without mention of intractable migraine without mention of status migrainosus documented in this encounter Care Teams Screw Machine Set Up Operator Relationship Specialty Start Date End Date Cliff Cruz M.D. BELLI: [id number] Primary Care [address] [place] [address] PCP - General External Family Practice 12/22/15 documented as of this encounter
--- OUTSIDE RECORDS SUMMARY | 2024-11-09 11:24 | XMS_ITS | Encounter Summary ---
Author Organization [facility] Address [address] [place] [address] Care Team Providers Care Access Developer Name Role Phone Cliff Cruz M.D. Primary Care Provider [phone] Reason for Visit * Reason Comments Medication Refill Encounter Details Date Type Department Care Team (Late st Contact Info) Description 03/11/2020 Refill [facility] Division of Diabetes and Endocrinology [address] [place] [phone] Cathleen Gray M.D. Endocrinology [address] [place] [address] [address] [place] [address] Medication Refill Social History Tobacco [...] periods yet and has not seen a Safety Inspector as recommended. She agreed to follow up on this before her follow up in Apr. documented in this encounter Plan of Treatment Upcoming Encounters Date Type Department Care Team (Late st Contact Info) Description 02/12/2025 8:10 AM EST Appointment [facility] Division of Diabetes and Endocrinology [address] [place] [phone] Cathleen Bajwa M.D. 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 BELLI: [id number] Primary Care [address] [place] [address] PCP - General External Family Practice 12/22/15 documented as of this encounter
--- OUTSIDE RECORDS SUMMARY | 2024-11-09 11:24 | XMS_ITS | Encounter Summary ---
Author Organization [facility] Address [address] [place] [address] Care Team Providers Care Finish Off Operator Name Role Phone Cliff Cruz M.D. Primary Care Provider [phone] Encounter Details Date Type Department Care Team (Late st Contact Info) Description 10/10/2024 Orders Only [facility] Division of Endocrinology [address] [place] [address] Jerica Nichols, R.N. Central hypothyroidism; [...] written from Dr. Samson, daryl licensure in [place] - reordered from Dr. Bajwa documented in this encounter Plan of Treatment Upcoming Encounters Date Type Department Care Team (Late st Contact Info) Description 02/12/2025 8:10 AM EST Appointment [facility] Division of Diabetes and Endocrinology [address] [place] [phone] Cathleen Bajwa M.D. 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 Primary Care [address] [place] [address] PCP - General External Family Practice 12/22/15 documented as of this encounter
--- OUTSIDE RECORDS SUMMARY | 2024-11-09 11:24 | XMS_ITS | Clinical Summary ---
Author Organization [facility] Address [address] [place] [address] Care Team Providers Care Data Capture Clerk Name Role Phone Cliff Cruz M.D. Primary Care Provider +1 [phone] Source Comments [facility] is fully rolled out with thefollowing exceptions:[facility] Allergies No known active allergies Medications ARIPiprazole 10 MG tablet Take 1 tablet by mouth 1 time a day. Active hydrOXYzine pamoate (VISTARIL) 25 MG capsule Take 1 capsule by mouth 1 time a day. 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 30 tablet 5 Active norethindrone-eth inyl estradiol-iron (MALIK FE 04/16) 1-20 MG-MCG tabletIndications :Central hypothyroidism,Hy pogonadotropic hypogonadism Take 1 tablet by mouth at bedtime. 28 tablet 11 5 Active Active Problems Problem Noted Date Diagnosed [...] 12 Overview (05/20/2011): To be seen by endo in 2-3 weeks Excessive somnolence disorder 11/20/2009 05/15/2010 Severe frontal headaches 11/20/2009 Migraine 11/20/2009 11/18/2011 Overview (05/20/2011): Re-Eval by Dr Arce in 2-3 weeks. Sleep apnea 07/10/2009 05/20/2011 Hyperopia 10/09/2008 11/12/2010 Overview (05/15/2010): Seen in ophtho -due for follow up soon Regular astigmatism 10/09/2008 05/15/19 11 Encounters Date Type Department Care Team Description 10/11/2024 Telephone [facility] Division of Diabetes and Endocrinology [address] [place] [phone] Delilah Mujica, Line Person medication/supply question:Other (Patient calling and didn't know if medication needs a PA for Synthroid and desmopressin.) 10/10/2024 Orders Only [facility] Division of Endocrinology [address] [place] [phone] Jerica Nichols, R.N. 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 Medication Refill 09/03/2024 Telephone [facility] Division of Diabetes and Endocrinology [address] [place] [phone] Cathleen Merino M.D. Lab Results 08/31/2024 Telephone [facility] Division of Gynecology [address] [place] [phone] Mely Barragan, R.N. Fertility Counseling 08/29/2024 1:00 PM EDT Office Visit [facility] Division of Diabetes and Endocrinology [address] [place] [phone] Cathleen Bajwa M.D. 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 Endocrinology [facility], [address] [place] [address] Discharge Disposition: Home or Self Care Health Maintenance Due Date Last Done Comments MENINGOCOCCAL B VACCINE (1 of 2 - Standard) 2018 DTAP/Tdap/Td IMMUNIZATION (7 - Td or Tdap) 08/25/2023 08/24/2013, 06/10/2006, 05/14/2004, Additional history exists COVID-19 Vaccine ( - 2023- season) 2023 HPV IMMUNIZATION (3 - 3-dose series) 10/25/2024 05/24/2024, 04/27/2024 AMB SEASONAL FLU VACCINE (#1) 01/26/2025 01/11/2018, 01/08/2016, 03/02/2013, Additional history exists PNEUMOCOCCAL [...] this topic Medical Devices Implanted Type Area Masonry Contractor Administrator Device Identifier Shelf Expiration Date Model / Serial / Lot Screws Self Drilling 3mm Implanted:Qty: 13 on 10/25/2008 at [facility] [employer] RUST 04. [id number] / / Description:SCREWS SELF DRIL LING 3MM Screw Empergency 4mm Implanted:Qty: 1 on 10/25/2008 at [facility] [employer] [facility] 05.503 [id number] / / Description:SCREW EMPERGENCY 4MM Plate -X 14mm X 14m Implanted:Qty: 1 on 10/25/2008 at [facility] [employer] [facility] 04.503 .065 / / Description:PLATE -X 14MM X 14M Plate Adaption 7 Holes Implanted:Qty: 1 on 10/25/2008 at [facility] [employer]UST .503 .071 / / Description:PLATE ADAPTION 7 HOLES [...] - 16.015 ng/mL 08/31/2024 10:55 PM EDT [facility] Comment: INTERPRETIVE INFORMATION: Anti-Mullerian Hormone FEMALE: 6 [...] developed and its performance characteristics determined by [employer]. It has not been cleared or approved by the US Food and Drug Administration. This test was performed in a CLIA certified laboratory and is intended for clinical purposes. Performed By: [facility] [address] [place] [address] Beer Coil Cleaner: Mich Salazar MD, PhD CLIA Number: [id number] Blood Venipuncture / Unknown 08/29/2024 2:57 PM EDT 08/29/2024 3:51 PM EDT Cathleen Merino M.D. CHEMISTRY ORDERABLES nal Result [facility] [address] [place] [address] * (ABNORMAL) Comp Metabolic Panel (BMP+Alb,TProt,AST,ALT,Alk phos,Tbili) (08/29/2024 2:57 PM EDT) Potassium 4.3 3.5 - 5.1 mmol/L ATELLICA IM SARS-COV-2 TOTAL (COV2T)_[employer]EUA 08/29/2024 4:24 PM EDT [facility] Chloride 105 98 - 107 mmol/L ATELLICA IM SARS-COV-2 TOTAL (COV2T)_[employer]UA 08/29/2024 4:24 PM EDT [facility] Carbon Dioxide 27 20 - 31 mmol/L ATELLICA IM SARS-COV-2 TOTAL (COV2T)_[employer]UA 08/29/2024 4:24 PM EDT [facility] Anion Gap 7 4 - 15 mmol/L ATELLICA IM SARS-COV-2 TOTAL (COV2T)_[facility] [employer]EU08/29/2024 4:24 PM EDT [facility] Blood Urea Nitrogen 13 9 - 23 mg/dL ATELLICA IM SARS-COV-2 TOTAL (COV2T)_[facility] [employer]EU08/29/2024 4:24 PM EDT [facility] Creatinine 0.62 0.50 - 0.80 mg/dL ATELLICA IM SARS-COV-2 TOTAL (COV2T)_[facility] [employer]EU08/29/2024 4:24 PM EDT [facility] Glucose 86 65 - 106 mg/dL ATELLICA IM SARS-COV-2 TOTAL (COV2T)_[facility] [employer]EU08/29/2024 4:24 PM EDT [facility] Calcium 10.1 8.7 - 10.4 mg/dL ATELLICA IM SARS-COV-2 TOTAL (COV2T)_[facility] [employer]EU08/29/2024 4:24 PM EDT [facility] Albumin 4.0 3.4 - 5.0 gm/dL ATELLICA IM SARS-COV-2 TOTAL (COV2T)_[facility] [employer]EU08/29/2024 4:24 PM EDT [facility] Alkaline Phosphatase 102 46 - 116 unit/L ATELLICA IM SARS-COV-2 TOTAL (COV2T)_[facility] [employer]EU08/29/2024 4:24 PM EDT [facility] Alanine Aminotransferase 34 9 - 40 unit/L ATELLICA IM SARS-COV-2 TOTAL (COV2T)_[facility] [employer]EU08/29/2024 4:24 PM EDT [facility] Aspartate Aminotransferase 32 8 - 35 unit/L ATELLICA IM SARS-COV-2 TOTAL (COV2T)_[facility] [employer]EU08/29/2024 4:24 PM EDT [facility] Bilirubin Total 0.3 0.1 - 1.0 mg/dL ATELLICA IM SARS-COV-2 TOTAL (COV2T)_[facility] [employer]EU08/29/2024 4:24 PM EDT [facility] Globulin 3.6 gm/dl ATELLICA IM SARS-COV-2 TOTAL (COV2T)_[facility] [employer]EU08/29/2024 4:24 PM EDT [facility] Albumin/Globulin Ratio 1 1 - 2 ATELLICA IM SARS-COV-2 TOTAL (COV2T)_[facility] [employer]EU08/29/2024 4:24 PM EDT [facility] Sodium 139 136 - 145 mmol/L ATELLICA IM SARS-COV-2 TOTAL (COV2T)_[facility] [employer]EU08/29/2024 4:24 PM EDT [facility] TOTAL PROTEIN LEVEL 7.6 5.7 - 8.2 gm/dL ATELLICA IM SARS-COV-2 TOTAL (COV2T)_[facility] [employer]08/29/2024 4:24 PM EDT [facility] Estimated Gfr >60 >=60 mL/min/1.7 3m2 ATELLICA IM SARS-COV-2 TOTAL (COV2T)_[facility] [employer]08/29/2024 4:24 PM EDT [facility] Comment:Estimated GFR calcul ated using CKD-EPI study equation. Hemolysis None to Slight(A ) None Detected ATELLICA IM SARS-COV-2 TOTAL (COV2T)_[facility] [employer]08/29/2024 4:24 PM EDT [facility] Comment: The presence of hemolysis in the specimen may result in falsely elevated results for: Ammonia, AST, CK, GGT, Iron, Magnesium, LDH, Phenobarbitol, Phosphorus, Potassium and TIBC. falsely decreased results for: Amylase, B-hCG, Cholesterol, CK-MB, Direct Bilirubin, Prolactin and Troponin-I. Blood Venipuncture / Unknown 08/29/2024 2:57 PM EDT 08/29/2024 3:51 PM EDT us Cathleen Merino M.D. CHEMISTRY ORDERABLES Fi nal Result [facility] [address] [place] [address], * T4 Free, Rapid (08/29/2024 2:57 PM EDT) [facility] Thyroxine Free 1.40 0.90 - 2.30 ng/dL ATELLICA IM SARS-COV-2 TOTAL (COV2T)_[employer]EUA 08/29/2024 4:24 PM EDT [facility] Blood Venipuncture / Unknown 08/29/2024 2:57 PM EDT 08/29/2024 3:51 PM EDT Cathleen Merino M.D. CHEMISTRY ORDERABLES Fi nal Result Performing Organization Address City/[facility]/ZIP Co de Phone Number [facility] [address] [place] [address], [place] * Glycosated Hgb (Hgb A1C) (08/29/2024 2:57 PM EDT) [facility] Hb A1c 4.9 <=6.3 % 08/30/2024 11: 29 AM EDT [facility] EDL Blood Venipuncture / Unknown 08/29/2024 2:57 PM EDT 08/29/2024 3:51 PM EDT Cathleen Merino M.D. CHEMISTRY ORDERABLES Fi nal Result Performing Organization Address [facility] Co de Phone Number [facility] [address] [place] [address] * Estradiol Us (08/29/2024 2:57 PM EDT) [facility] ESTRADIOL BY TMS 218.8 pg/mL 09/04/19 2:11 AM EDT [facility] Comment: REFERENCE INTERVAL: Estradiol by Barrel Washer Pre-menopausal: Early follicular 30.0-100.0 pg/mL Pre-menopausal: Late follicular 100.0-400.0 pg/mL Pre-menopausal: Luteal 50.0-150.0 pg/mL Post-menopausal 2.0-21.0 pg/mL REFERENCE INTERVAL: Estradiol by Barrel Washer For a complete set of all established reference intervals, refer to [place]/Tests/Pub/[id number]. This test was developed and its performance characteristics determined by [employer]. It has not been cleared or approved by the US Food and Drug Administration. This test was performed in a CLIA certified laboratory and is intended for clinical purposes. Performed By: [address] [address] Beer Coil Cleaner: Mich Salazar MD, PhD CLIA Number: [id number] Blood Venipuncture / Unknown 08/29/2024 2:57 PM EDT 08/29/2024 3:51 PM EDT Cathleen Merino M.D. CHEMISTRY ORDERABLES Fi nal Result Performing Organization Address [facility] Co de Phone Number [address] [address] * 25OH Vitamin D (08/29/2024 2:57 PM EDT) [facility] Vitamin D 25 [place] 32.7 20.0 - 60.0 ng/mL 08/30/2024 11:52 AM EDT [facility] Blood Venipuncture / Unknown 08/29/2024 2:57 PM EDT 08/29/2024 3:51 PM EDT Narrative [facility] - 08/30/2024 11:52 AM EDT IO recommended ranges Cathleen Merino M.D. CHEMISTRY ORDERABLES Fi nal Result Performing Organization Address City/[facility]/ZIP Co de Phone Number [facility] [address] [place] [address] from Last 3 Months Insurance [facility] Care Teams Data Capture Clerk Relationship Specialty Start Date End Date Cliff Cruz M.D. Primary Care [address] [place] [address] PCP - General External Family Practice 12/22/15
--- OUTSIDE RECORDS SUMMARY | 2024-11-09 11:24 | XMS_ITS | Encounter Summary ---
Author Organization [facility] Address [address] [place] [address] Care Team Providers Care Production Intern Name Role Phone Cliff Cruz M.D. Primary Care Provider +1 [phone] Encounter Details Date Type Department Care Team (Late st Contact Info) Description 02/14/2013 Telephone [facility] Division of Diabetes and Endocrinology [address] [place] [phone] Cathleen Gray M.D. Endocrinology [address] [place] [address] [place] [phone] Social History Tobacco Use Types Packs/Day [...] T4 and Renal function. Please fax to [phone]. Please call [phone] and let them know it has been faxed. documented in this encounter Plan of Treatment Upcoming Encounters Date Type Department Care Team (Late st Contact Info) Description 02/12/2025 8:10 AM EST Appointment [facility] Division of Diabetes and Endocrinology [address] [place] [phone] Cathleen Bajwa M.D. Endocrinology [address] [place] [phone] Discharge Disposition: Home or Self Care documented as of this encounter Visit Diagnoses Not on filedocumented in this encounter Care Teams Production Intern Relationship Specialty Start Date End Date Cliff Cruz M.D. Primary Care [address] [place] [address] PCP - General External Family Practice 12/22/15 documented as of this encounter
--- OUTSIDE RECORDS SUMMARY | 2024-11-09 11:24 | XMS_ITS | Encounter Summary ---
Author Organization [facility] Address [address] [place] [address] Care Team Providers Care Machine Design Teacher Name Role Phone Cliff Cruz M.D. Primary Care Provider +1 [phone] Reason for Visit * Reason Comments Medication Refill Encounter Details Date Type Department Care Team (Late st Contact Info) Description 12/11/2019 Refill [facility] Division of Diabetes and Endocrinology [address] [place] [phone] Ara Vasquez M.D. Endocrinology [address] [place] [address] [place] [phone] Medication Refill Social History Tobacco Use [...] 02/12/2025 8:10 AM EST Appointment [facility] Division of Diabetes and Endocrinology [address] [place] [phone] Cathleen Bajwa M.D. 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 Primary Care [address] [place] [address] PCP - General External Family Practice 12/22/15 documented as of this encounter
--- OUTSIDE RECORDS SUMMARY | 2024-11-09 11:24 | XMS_ITS | Encounter Summary ---
Author Organization [facility] Address [address] [place] [address] Care Team Providers Care Private Duty Rn Name Role Phone Cliff Cruz M.D. Primary Care Provider +1 -[phone] Reason for Visit * Reason Onset Date Comments Fertility Counseling 08/31/2024 Encounter Details Date Type Department Care Team (Late st Contact Info) Description 08/31/2024 Telephone [facility] Division of Gynecology [address] [place] [phone] Mely Barragan, R.N. Fertility Counseling Social [...] including hypogonadotropic hypogonadism. [facility] [phone] RN attempted to contact patient, left detailed voicemail requesting a call back. Mely Barragan R.N. documented in this encounter Plan of Treatment Upcoming Encounters Date Type Department Care Team (Late st Contact Info) Description 02/12/2025 8:10 AM EST Appointment [facility] Division of Diabetes and Endocrinology [address] [place] [phone] Cathleen Bajwa M.D. Endocrinology [address] [place] [address] [place] [phone] Discharge Disposition: Home or Self Care documented as of this encounter Visit Diagnoses Not on filedocumented in this encounter Care Teams Private Duty Rn Relationship Specialty Start Date End Date Cliff Cruz M.D. BELLI: [phone] Primary Care [address] [place] [address] PCP - General External Family Practice 12/22/15 documented as of this encounter
--- OUTSIDE RECORDS SUMMARY | 2024-11-09 11:24 | XMS_ITS | Encounter Summary ---
Author Organization [facility] Address [address] [place] [address] Care Team Providers Care Stick Roller Name Role Phone Cliff Cruz M.D. Primary Care Provider +1 -[phone] Encounter Details Date Type Department Care Team (Late st Contact Info) Description 05/01/2009 Abstract [facility] Cancer and Blood Diseases [place] [address] [place] [phone] Channel Development Director, [facility] Social History Tobacco Use Types Packs/Day Years [...] Info) Description 02/12/2025 8:10 AM EST Appointment [facility] Division of Diabetes and Endocrinology [facility] [place] [address] Cathleen Bajwa M.D. Endocrinology [address] [place], [place] [address] [address] [place] [address] Discharge Disposition: Home or Self Care documented as of this encounter Visit Diagnoses Not on filedocumented in this encounter Care Teams Stick Roller Relationship Specialty Start Date End Date Cliff Cruz M.D. Primary Care [address] [place] [address] PCP - General External Family Practice 12/22/15 documented as of this encounter
--- OUTSIDE RECORDS SUMMARY | 2024-11-09 11:24 | XMS_ITS | Encounter Summary ---
Author Organization [facility] Address [address] [place] [address] Care Team Providers Care Roaster Supervisor Name Role Phone Cliff Cruz M.D. Primary Care Provider +1 [phone] Encounter Details Date Type Department Care Team (Late st Contact Info) Description 02/15/2013 Abstract [facility] Division of Diabetes and Endocrinology [address] [place] [phone] Cathleen Gray M.D. Endocrinology [address] [place], [place] [address]socorro [address] [place] [phone] Social History Tobacco Use Types Packs/Day [...] 02/12/2025 8:10 AM EST Appointment [facility] Division of Diabetes and Endocrinology [address] [place] [phone] Cathleen Bajwa M.D. Endocrinology [address] [place] [address] [address] [place] [phone] Discharge Disposition: Home or Self Care documented [...] EXTERNAL LAB - 02/07/2013 4:43 PM EST [facility] [address] [place] [address] us Historical Provider EXTERNAL LAB ORDERABLES Maria Elena l Result EXTERNAL LAB documented in this encounter Visit Diagnoses Not on filedocumented in this encounter Care Teams Roaster Supervisor Relationship Specialty Start Date End Date Cliff Cruz M.D. RAHEL: [phone] Primary Care [address] [place] [address] PCP - General External Family Practice 12/22/15 documented as of this encounter
--- OUTSIDE RECORDS SUMMARY | 2024-11-09 11:24 | XMS_ITS | Encounter Summary ---
Author Organization [facility] Address [address] [place] [address] Care Team Providers Care Product Controller Name Role Phone Cliff Cruz M.D. Primary Care Provider [phone] [phone] Reason for Visit * Reason Onset Date Comments Schedule Appointment 06/14/2016 Have made n umerous attempts to contact patient to schedule and havent been able to get ahold of them. Multiple numbers on [employer] don't work. Will go ahead and schedule and mail itinerary. Ricky [id number] Encounter Details Date Type Department Care Team (Late st Contact Info) Description 06/14/2016 Telephone [facility] Cancer and Blood Diseases [place] [address] [place] [phone] Anand Magana M.D. Hematology-Oncology [address] [place] [address] [address] [place] [address] Schedule Appointment (Have made numerous attempts to contact patient to schedule and havent been able to get ahold of them. Multiple numbers on [employer] don't work. Will go ahead and schedule and mail itinerary. Ricky [id number]) Social History Tobacco Use Types Packs/Day Years [...] 02/12/2025 8:10 AM EST Appointment [facility] Division of Diabetes and Endocrinology [address] [place] [phone] Cathleen Bajwa M.D. Endocrinology [address] [place] [address] [place] [phone] Discharge Disposition: Home or Self Care documented as of this encounter Visit Diagnoses Not on filedocumented in this encounter Care Teams Product Controller Relationship Specialty Start Date End Date Cliff Cruz M.D. Primary Care [address] [place] [address] PCP - General External Family Practice 12/22/15 documented as of this encounter
--- OUTSIDE RECORDS SUMMARY | 2024-11-09 11:24 | XMS_ITS | Clinical Summary ---
Author Organization [facility] Address [address] [place] [address] Care Team Providers Care Galvanometer Assembler Name Role Phone Cliff Cruz MD Primary Care Provider [phone] Allergies No known active allergies Medications methocarbamol [...] [facility]-HIV Screening 2002 [facility]-Hepatitis C Screening 2002 [facility]-/Child/Adol SDOH Screenings 2002 [facility]-Obesity Intervention 2008 HPV Vaccines (1 - 3-dose series) 2017 [facility]-Hepatitis A Vaccines (2 of 2 - 2-dose series) 07/12/2018 01/11/2018 [facility]- SDOH Screenings 2020 [facility]-Adult SDOH Screenings 2020 [facility]-Pap Smear 2023 [facility]-DTaP,Tdap,and Td Vaccines (7 - Td or Tdap) 08/25/2023 08/24/2013, 06/10/2006, 05/14/2004, Additional history exists AEL-DJBTO-18 Vaccine (1 - 2023- season) 2023 [facility]-Influenza [...] age to complete this topic Insurance [facility] MED[facility] Care Teams Galvanometer Assembler Relationship Specialty Start Date End Date Cliff Cruz MD [address] [place] [address] PCP - General 08/08/20
--- OUTSIDE RECORDS SUMMARY | 2024-11-09 11:24 | XMS_ITS | Encounter Summary ---
Author Organization [facility] Address [address] [place] [address] Care Team Providers Care Felt Cutter Name Role Phone Cliff Cruz M.D. Primary Care Provider +1 [phone] Reason for Visit * Reason Comments Medication Refill Encounter Details Date Type Department Care Team (Late st Contact Info) Description 12/11/2019 Refill [facility] Division of Diabetes and Endocrinology [address] [place] [phone] Cathleen Gray M.D. Endocrinology [address] [place] [address] [place] [phone] Medication Refill Social History Tobacco Use [...] Info) Description 02/12/2025 8:10 AM EST Appointment [facility] Division of Diabetes and Endocrinology [address] [place] [phone] Cathleen Bajwa M.D. 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 Primary Care [address] [place] [address] PCP - General External Family Practice 12/22/15 documented as of this encounter
--- OUTSIDE RECORDS SUMMARY | 2024-11-09 11:24 | XMS_ITS | Encounter Summary ---
Author Organization [facility] Address [address] [place] [address] Care Team Providers Care Marine Service Manager Name Role Phone Cliff Cruz M.D. Primary Care Provider +1 [phone] Encounter Details Date Type Department Care Team (Late st Contact Info) Description 07/24/2012 Telephone [facility] Cancer and Blood Diseases [place] [address] [place] [phone] Lou Arboleda LISW Social History Tobacco [...] Info) Description 02/12/2025 8:10 AM EST Appointment [facility] Division of Diabetes and Endocrinology [address] [place] [address] Cathleen Bajwa M.D. Endocrinology [address] [place], [place] [address] [address] [place] [address] Discharge Disposition: Home or Self Care documented as of this encounter Visit Diagnoses Not on filedocumented in this encounter Care Teams Marine Service Manager Relationship Specialty Start Date End Date Cliff Cruz M.D. BELLI: [id number] Primary Care [address] [place] [address] PCP - General External Family Practice 12/22/15 documented as of this encounter
--- OUTSIDE RECORDS SUMMARY | 2024-11-09 11:24 | XMS_ITS | Encounter Summary ---
Author Organization [facility] Address [address] [place] [address] Care Team Providers Care Road Advisor Name Role Phone Cliff Cruz M.D. Primary Care Provider +1 [phone] Reason for Visit * Reason Comments Medication Refill Encounter Details Date Type Department Care Team (Late st Contact Info) Description 05/27/2020 Refill [facility] Division of Diabetes and Endocrinology [address] [place] [phone] Cathleen Gray M.D. Endocrinology [address] [place] [address] [address] [place] [address] Medication Refill Social History Tobacco [...] Description 02/12/2025 8:10 AM EST Appointment [facility] Division of Diabetes and Endocrinology [address] [place] [phone] Cathleen Bajwa M.D. 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 Primary Care [address] [place] [address] PCP - General External Family Practice 12/22/15 documented as of this encounter
--- OUTSIDE RECORDS SUMMARY | 2024-11-09 11:24 | XMS_ITS | Encounter Summary ---
Author Organization [facility] Address [address] [place] [address] Care Team Providers Care Electronic Heat Seal Operator Name Role Phone Cliff Cruz M.D. Primary Care Provider +1 [phone] Encounter Details Date Type Department Care Team (Late st Contact Info) Description 07/01/2020 Abstract [facility] Cancer and Blood Diseases [place] [address] [place] [phone] Emma Syed R.N. Social History Tobacco [...] 02/12/2025 8:10 AM EST Appointment [facility] Division of Diabetes and Endocrinology [address] [place] [phone] Cathleen Bajwa M.D. Endocrinology [address] [place] [address] [place] [phone] Discharge Disposition: Home or Self Care documented as of this encounter Visit Diagnoses Not on filedocumented in this encounter Care Teams Electronic Heat Seal Operator Relationship Specialty Start Date End Date Cliff Cruz M.D. Primary Care [address] [place] [address] PCP - General External Family Practice 12/22/15 documented as of this encounter
--- OUTSIDE RECORDS SUMMARY | 2024-11-09 11:24 | XMS_ITS | Encounter Summary ---
Author Organization [facility] Address [address] [place] [address] Care Team Providers Care Leather Stitcher Name Role Phone Cliff Cruz M.D. Primary Care Provider +1 [phone] Encounter Details Date Type Department Care Team (Late st Contact Info) Description 12/09/2015 Abstract [facility] Cancer and Blood Diseases [place] [address] [place] [phone] Emma Syed R.N. Social History Tobacco [...] Appointment [facility] Division of Diabetes and Endocrinology [address] [place] [phone] Cathleen Bajwa M.D. Endocrinology [address] [place] [address] [address] [place] [address] Discharge Disposition: Home or Self Care documented as of this encounter Visit Diagnoses Not on filedocumented in this encounter Care Teams Leather Stitcher Relationship Specialty Start Date End Date Cliff Cruz M.D. Primary Care [address] [place] [address] PCP - General External Family Practice 12/22/15 documented as of this encounter
--- OUTSIDE RECORDS SUMMARY | 2024-11-09 11:24 | XMS_ITS | Encounter Summary ---
Author Organization [facility] Address [address] [place] [address] Care Team Providers Care Medical Radiation Therapist Name Role Phone Cliff Cruz M.D. Primary Care Provider +1 [phone] Reason for Visit * Reason Comments Medication Refill Elavil and motrin Encounter Details Date Type Department Care Team (Late st Contact Info) Description 01/28/2021 Refill [facility] Division of Neurology [address] [place] [phone] Dania Arce M.D. Neurology [address] [place] [address] [place] [address] Medication Refill (Elavil and motrin) [...] newneurologist. * Telephone Encounter - Yun Bauer, Pelt Salter - 01/28/2021 3:03 PM EDT Please review, [...] Info) Description 02/12/2025 8:10 AM EST Appointment [facility] Division of Diabetes and Endocrinology [address] [place] [address] Cathleen Bajwa M.D. Endocrinology [facility] [address] [place] [address] Discharge Disposition: Home or Self Care documented as of this encounter Visit Diagnoses Diagnosis Migraine without aura and without status migrainosus, not intractable Migraine without aura, without mention of intractable migraine without mention of status migrainosus documented in this encounter Care Teams Medical Radiation Therapist Relationship Specialty Start Date End Date Cliff Cruz M.D. Primary Care [address] [place] [address] PCP - General External Family Practice 12/22/15 documented as of this encounter
--- OUTSIDE RECORDS SUMMARY | 2024-11-09 11:24 | XMS_ITS | Encounter Summary ---
Author Organization [facility] Address [address] [place] [address] Care Team Providers Care Netbackup Administrator Name Role Phone Cliff Cruz M.D. Primary Care Provider +1 [phone] Encounter Details Date Type Department Care Team (Late st Contact Info) Description 05/31/2012 HemOn Social Work [facility] Cancer and Blood Diseases [place] [address] [place] [phone] Lou Arboleda LISW Social History Tobacco [...] Info) Description 02/12/2025 8:10 AM EST Appointment [facility] Division of Diabetes and Endocrinology [address] [place] [address] [place] [phone] Cathleen Bajwa M.D. Endocrinology [facility] [address] [place] [address] Discharge Disposition: Home or Self Care documented as of this encounter Visit Diagnoses Not on filedocumented in this encounter Care Teams Netbackup Administrator Relationship Specialty Start Date End Date Cliff Cruz M.D. Primary Care [address] [place] [address] PCP - General External Family Practice 12/22/15 documented as of this encounter
--- OUTSIDE RECORDS SUMMARY | 2024-11-09 11:24 | XMS_ITS | Encounter Summary ---
Author Organization [facility] Address [address] [place] [address] Care Team Providers Care Supervisor Cell Maintenance Name Role Phone Cliff Cruz M.D. Primary Care Provider +1 [phone] Encounter Details Date Type Department Care Team (Late st Contact Info) Description 07/18/2012 HemOnc Social Work [facility] Cancer and Blood Diseases [place] [address] [place] [phone] Lou Arboleda LISW Social History Tobacco [...] for the family. It is called the [facility] Intensive Treatment Team. It is offered as [...] Description 02/12/2025 8:10 AM EST Appointment [facility] Division of Diabetes and Endocrinology [address] [place] [phone] Cathleen Bajwa M.D. Endocrinology [address] [place] [address] [place] [phone] Discharge Disposition: Home or Self Care documented as of this encounter Visit Diagnoses Not on filedocumented in this encounter Care Teams Supervisor Cell Maintenance Relationship Specialty Start Date End Date Cliff Cruz M.D. Primary Care [address] [place] [address] PCP - General External Family Practice 12/22/15 documented as of this encounter
== END 2024-11-07 23:59 | disposition home or self-care (01) ==
LOC: LAB.DROPOF 11-09 11:22
PROVIDERS: PCP Family Medicine; Visit Provider Obstetrics & Gynecology
DX: L02.211 Cutaneous abscess of abdominal wall (principal); R10.2 Pelvic and perineal pain
CPT/HCPCS: 87070; 87205

== ENCOUNTER 2024-12-24 20:23 | Emergency (ER) | payer OTHER, SELFPAY ==
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
[2024-12-24 20:54] VITALS: BP 133/84; PULSE 101; RESP 16; TEMP 36.9; O2SAT 99; BMI 40.2
--- OUTSIDE RECORDS SUMMARY | 2024-12-24 21:04 | XMS_ITS | Encounter Summary ---
Author Organization [facility] Address [address] [place] [address] Care Team Providers Care Vp Foundation Name Role Phone Cliff Cruz M.D. Primary Care Provider [phone] [phone] Encounter Details Date Type Department Care Team (Late st Contact Info) Description 05/01/[address] [facility] Cancer and Blood Diseases [place] [address] [place] [phone] Finishing Machine Operator, [facility] Social History Tobacco Use Types Packs/Day [...] EST Appointment [facility] Division of Diabetes and Endocrinology [facility], [id number] [place] [address] Cathleen Bajwa M.D. Endocrinology [address] [place], [place] [address] [address] [place] [address] Discharge Disposition: Home or Self Care documented as of this encounter Visit Diagnoses Not on filedocumented in this encounter Care Teams Vp Foundation Relationship Specialty Start Date End Date Cliff Cruz M.D. Primary Care [address] [place] [address] PCP - General External Family Practice 12/22/15 documented as of this encounter
--- OUTSIDE RECORDS SUMMARY | 2024-12-24 21:04 | XMS_ITS | Encounter Summary ---
Author Organization [facility] Address [address] [place] [address] Care Team Providers Care Long Wall Mining Machine Helper Name Role Phone Cliff Cruz M.D. Primary Care Provider [phone] [phone] Reason for Visit * Reason Comments Medication Refill Encounter Details Date Type Department Care Team (Late st Contact Info) Description 11/29/2020 Refill [facility] Division of Neurology [address] [place] [phone] Dania Arce M.D. Neurology [address] [place] [address] [place] [address] Medication Refill Social History Tobacco [...] Info) Description 02/12/2025 8:10 AM EST Appointment [facility] Division of Diabetes and Endocrinology [address] [place] [phone] Cathleen Bajwa M.D. Endocrinology [address] [place] [phone] Discharge Disposition: Home or Self Care documented as of this encounter Visit Diagnoses Diagnosis Migraine without aura and without status migrainosus, not intractable Migraine without aura, without mention of intractable migraine without mention of status migrainosus documented in this encounter Care Teams Long Wall Mining Machine Helper Relationship Specialty Start Date End Date Cliff Cruz M.D. BELLI: [phone] Primary Care [address] [place] [address] PCP - General External Family Practice 12/22/15 documented as of this encounter
--- OUTSIDE RECORDS SUMMARY | 2024-12-24 21:04 | XMS_ITS | Clinical Summary ---
Author Organization [facility] Address [address] [place] [address] Care Team Providers Care Cherry Pitter Name Role Phone Cliff Cruz MD Primary Care Provider [phone] Allergies No known active allergies Medications methocarbamol [...] 08/25/2023 08/24/2013, 06/10/2006, 05/14/2004, Additional history exists [id number] Vaccine (1 - 2023- season) 2024 UKY-Influenza Vaccine (#1) 11/26/202401/11, 01/08/2016, 03/02/2013, Additional [...] age to complete this topic Insurance [employer] [facility] MEDICAID Care Teams Cherry Pitter Relationship Specialty Start Date End Date Cliff Cruz MD [address] [place] [address] PCP - General 08/08/20
--- OUTSIDE RECORDS SUMMARY | 2024-12-24 21:04 | XMS_ITS | Encounter Summary ---
Author Organization [facility] Address [address] [place] [address] Care Team Providers Care Rn Peritoneal Dialysis Name Role Phone Cliff Cruz M.D. Primary Care Provider +1 -[phone] Encounter Details Date Type Department Care Team (Late st Contact Info) Description 07/01/2020 Abstract [facility] Cancer and Blood Diseases [place] [address] [place] [phone] Emma Syed R.N. Social History Tobacco [...] Info) Description 02/12/2025 8:10 AM EST Appointment [facility] Division of Diabetes and Endocrinology [address] [place] [phone] Cathleen Bajwa M.D. Endocrinology [address] [place] [address] [place] [address] Discharge Disposition: Home or Self Care documented as of this encounter Visit Diagnoses Not on filedocumented in this encounter Care Teams Rn Peritoneal Dialysis Relationship Specialty Start Date End Date Cliff Cruz M.D. Primary Care [address] [place] [address] PCP - General External Family Practice 12/22/15 documented as of this encounter
--- OUTSIDE RECORDS SUMMARY | 2024-12-24 21:04 | XMS_ITS | Encounter Summary ---
Author Organization [facility] Address [address] [place] [address] Care Team Providers Care Medical Technologist Microbiology Name Role Phone Cliff Cruz M.D. Primary Care Provider +1 -[phone] Reason for Visit * Reason Comments Medication Refill Encounter Details Date Type Department Care Team (Late st Contact Info) Description 05/27/2020 Refill [facility] Division of Diabetes and Endocrinology [address] [place] [phone] Cathleen Bajwa M.D. Endocrinology [address] [place] [address] [address] [place] [address] Medication Refill Social History [...] Appointment [facility] Division of Diabetes and Endocrinology [address] [place] [phone] Cathleen Bajwa M.D. Endocrinology [address] [place] [phone] Discharge Disposition: Home or Self Care documented as of this encounter Visit Diagnoses Diagnosis Attention deficit disorder with hyperactivity Attention deficit disorder Attention deficit disorder without mention of hyperactivity documented in this encounter Care Teams Medical Technologist Microbiology Relationship Specialty Start Date End Date Cliff Cruz M.D. Primary Care [address] [place] [address] PCP - General External Family Practice 12/22/15 documented as of this encounter
--- OUTSIDE RECORDS SUMMARY | 2024-12-24 21:04 | XMS_ITS | Encounter Summary ---
Author Organization [facility] Address [address] [place] [address] Care Team Providers Care Curb Worker Name Role Phone Cliff Cruz M.D. Primary Care Provider +1 -[phone] Reason for Visit * Reason Comments Medication Refill Encounter Details Date Type Department Care Team (Late st Contact Info) Description 10/05/2024 Refill [facility] Division of Diabetes and Endocrinology [address] [place] [phone] Cathleen Bajwa M.D. Endocrinology [address] [place] [address] [address] [place] [address] Medication Refill Social History Tobacco [...] EST Appointment [facility] Division of Diabetes and Endocrinology [address] [place] [phone] Cathleen Bajwa M.D. 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 BELLI: [id number] Primary Care [address] [place] [address] PCP - General External Family Practice 12/22/15 documented as of this encounter
--- OUTSIDE RECORDS SUMMARY | 2024-12-24 21:04 | XMS_ITS | Encounter Summary ---
Author Organization [facility] Address [address] [place] [address] Care Team Providers Care Patient Financial Rep Name Role Phone Cliff Cruz M.D. Primary Care Provider +1 -[phone] Reason for Visit * Reason Comments Medication Refill Elavil and motrin Encounter Details Date Type Department Care Team (Late st Contact Info) Description 01/28/2021 Refill [facility] Division of Neurology [address] [place] [phone] Dania Arce M.D. Neurology [address] [place] [address] [place] [address] Medication Refill (Elavil and motrin) [...] newneurologist. * Telephone Encounter - Yun Bauer, Forestry Farm Laborer - 01/28/2021 3:03 PM EDT Please review, [...] Info) Description 02/12/2025 8:10 AM EST Appointment [facility] Division of Diabetes and Endocrinology [address] [place] [address] Cathleen Bajwa M.D. Endocrinology [facility] [address] [place] [address] Discharge Disposition: Home or Self Care documented as of this encounter Visit Diagnoses Diagnosis Migraine without aura and without status migrainosus, not intractable Migraine without aura, without mention of intractable migraine without mention of status migrainosus documented in this encounter Care Teams Patient Financial Rep Relationship Specialty Start Date End Date Cliff Cruz M.D. Primary Care [address] [place] [address] PCP - General External Family Practice 12/22/15 documented as of this encounter
--- OUTSIDE RECORDS SUMMARY | 2024-12-24 21:04 | XMS_ITS | Encounter Summary ---
Author Organization [facility] Address [address] [place] [address] Care Team Providers Care Forestry Faculty Member Name Role Phone Cliff Cruz M.D. Primary Care Provider +1 -[phone] Encounter Details Date Type Department Care Team (Late st Contact Info) Description 12/09/2015 Abstract [facility] Cancer and Blood Diseases [place] [address] [place] [phone] Emma Syed R.N. Social History Tobacco [...] [facility] [address] [place] [phone] Cathleen Bajwa M.D. Endocrinology [address] [place] [address] 7012 [place] [address] Discharge Disposition: Home or Self Care documented as of this encounter Visit Diagnoses Not on filedocumented in this encounter Care Teams Forestry Faculty Member Relationship Specialty Start Date End Date Cliff Cruz M.D. Primary Care [address] [place] [address] PCP - General External Family Practice 12/22/15 documented as of this encounter
--- OUTSIDE RECORDS SUMMARY | 2024-12-24 21:04 | XMS_ITS | Encounter Summary ---
Author Organization [facility] Address [address] [place] [address] Care Team Providers Care Die Maker Electronic Name Role Phone Cliff Cruz M.D. Primary Care Provider +1 -[phone] Encounter Details Date Type Department Care Team (Late st Contact Info) Description 02/15/2013 Abstract [facility] Division of Diabetes and Endocrinology [address] [place] [phone] Cathleen Gray M.D. Endocrinology [address] [place], [place] [address] [address] [place] [phone] Social History Tobacco Use Types Packs/Day [...] Info) Description 02/12/2025 8:10 AM EST Appointment [facility] Division of Diabetes and Endocrinology [address] [place] [phone] Cathleen Bajwa M.D. Endocrinology [address] [place] [address] [place] [address] Discharge Disposition: Home or Self Care documented [...] EXTERNAL LAB - 02/07/2013 4:43 PM EST [facility] [address] [place] [address] us Historical Provider EXTERNAL LAB ORDERABLES Maria Elena l Result EXTERNAL LAB documented in this encounter Visit Diagnoses Not on filedocumented in this encounter Care Teams Die Maker Electronic Relationship Specialty Start Date End Date Cliff Cruz M.D. RAHEL: [id number] Primary Care [address] [place] [address] PCP - General External Family Practice 12/22/15 documented as of this encounter
--- OUTSIDE RECORDS SUMMARY | 2024-12-24 21:04 | XMS_ITS | Encounter Summary ---
Author Organization [facility] Address [address] [place] [address] Care Team Providers Care Side Laster Name Role Phone Cliff Cruz M.D. Primary Care Provider +1 -[phone] Reason for Visit * Reason Onset Date Comments Fertility Counseling 08/31/2024 Encounter Details Date Type Department Care Team (Late st Contact Info) Description 08/31/2024 Telephone [facility] Division of Gynecology [address] [place] [phone] Mely Barragan, R.N. Fertility Counseling Social [...] including hypogonadotropic hypogonadism. [facility] [phone] RN attempted to contact patient, left detailed voicemail requesting a call back. Mely Barragan R.N. documented in this encounter Plan of Treatment Upcoming Encounters Date Type Department Care Team (Late st Contact Info) Description 02/12/2025 8:10 AM EST Appointment [facility] Division of Diabetes and Endocrinology [address] [place] [phone] Cathleen Bajwa M.D. Endocrinology [address] [place] [address] [place] [phone] Discharge Disposition: Home or Self Care documented as of this encounter Visit Diagnoses Not on filedocumented in this encounter Care Teams Side Laster Relationship Specialty Start Date End Date Cliff Cruz M.D. BELLI: [id number] Primary Care [address] [place] [address] PCP - General External Family Practice 12/22/15 documented as of this encounter
--- OUTSIDE RECORDS SUMMARY | 2024-12-24 21:04 | XMS_ITS | Encounter Summary ---
Author Organization [facility] Address [address] [place] [address] Care Team Providers Care Integrity Consultant Name Role Phone Cliff Cruz MD Primary Care Provider Source Comments This information has been disclosed [...] release of HIV test results or diagnoses. [id number] Health Encounter Details Date Type Department Care Team (Late st Contact Info) Description 06/22/2018 Ophth Exam [facility]mology at [address] [place] [address] Jerson Nielsen MD [address] [place] [address] Social History Tobacco Use Types Packs/Day [...] on filedocumented in this encounter Care Teams Integrity Consultant Relationship Specialty Start Date End Date Cliff Cruz MD [address] [place] [id number] PCP - General Emergency Medicine 05/22/18 documented as of this encounter
--- OUTSIDE RECORDS SUMMARY | 2024-12-24 21:04 | XMS_ITS | Encounter Summary ---
Author Organization [facility] Address [address] [place] [address] Care Team Providers Care Road Maker Name Role Phone Cliff Cruz M.D. Primary Care Provider +1 -[phone] Encounter Details Date Type Department Care Team (Late st Contact Info) Description 04/22/2018 Abstract [facility] Cancer and Blood Diseases [place] [address] [place] [phone] Anand Magana M.D. Hematology-Oncology [address] [place] [address] [place] [phone] Social History Tobacco Use Types Packs/Day [...] EST Appointment [facility] Division of Diabetes and Endocrinology [address] [place] [phone] Cathleen Bajwa M.D. Endocrinology [address], [place] [address] [place] [address] Discharge Disposition: Home or Self Care documented as of this encounter Visit Diagnoses Not on filedocumented in this encounter Care Teams Road Maker Relationship Specialty Start Date End Date Cliff Cruz M.D. Primary Care [address] [place] [address] PCP - General External Family Practice 12/22/15 documented as of this encounter
--- OUTSIDE RECORDS SUMMARY | 2024-12-24 21:04 | XMS_ITS | Encounter Summary ---
Author Organization [facility] Address [address] [place] [address] Care Team Providers Care K 9 Police Officer Name Role Phone Cliff Cruz M.D. Primary Care Provider +1 -[phone] Encounter Details Date Type Department Care Team (Late st Contact Info) Description 11/23/2011 [facility] Social Work [facility] Cancer and Blood Diseases [place] [address] [place] [phone] Lou Arboleda LISW Social History Tobacco [...] 11/23/2011 12:53 PM EDT Spoke with a [facility] media sales representative. She reported that they do [...] Health [facility] Division of Diabetes and Endocrinology [address] [place] [address] Cathleen Bajwa M.D. Endocrinology [address] [place] [address] [facility] [address] [place] [address] Discharge Disposition: Home or Self Care documented as of this encounter Visit Diagnoses Not on filedocumented in this encounter Care Teams K 9 Police Officer Relationship Specialty Start Date End Date Cliff Cruz M.D. Primary Care [address] [place] [address] PCP - General External Family Practice 12/22/15 documented as of this encounter
--- OUTSIDE RECORDS SUMMARY | 2024-12-24 21:04 | XMS_ITS | Encounter Summary ---
Author Organization [facility] Address [address] [place] [address] Care Team Providers Care Collective Bargaining Specialist Name Role Phone Cliff Cruz M.D. Primary Care Provider +1 -[phone] Encounter Details Date Type Department Care Team (Late st Contact Info) Description 07/24/2012 Telephone [facility] Cancer and Blood Diseases [place] [address] [place] [phone] Lou Arboleda LISW Social History Tobacco [...] school counselor. I told her about the [facility] Intensive Treatment Team program, and she expressed interest. I urged her to call Alma Franco and request a nomination be made. I told mom I would follow up with her in about a week or two. documented in this encounter Plan of Treatment Upcoming Encounters Date Type Department Care Team (Late st Contact Info) Description 02/12/2025 8:10 AM EST Appointment [facility] Division of Diabetes and Endocrinology [address] [place] [phone] Cathleen Bajwa M.D. Endocrinology [address] [place] [address] [place] [phone] Discharge Disposition: Home or Self Care documented as of this encounter Visit Diagnoses Not on filedocumented in this encounter Care Teams Collective Bargaining Specialist Relationship Specialty Start Date End Date Cliff rCuz M.D. BELLI: [id number] Primary Care [address] [place] [address] PCP - General External Family Practice 12/22/15 documented as of this encounter
--- OUTSIDE RECORDS SUMMARY | 2024-12-24 21:04 | XMS_ITS | Encounter Summary ---
Author Organization [facility] Address [address] [place] [address] Care Team Providers Care Suture Winder Hand Name Role Phone Cliff Cruz M.D. Primary Care Provider +1 -[phone] Encounter Details Date Type Department Care Team (Late st Contact Info) Description 05/31/2012 HemOn Social Work [facility] Cancer and Blood Diseases [place] [address] [place] [phone] Lou Arboleda LISW Social History Tobacco [...] EST Appointment [facility] Division of Diabetes and Endocrinology [address] [place] [address] [place] [address] Cathleen Bajwa M.D. Endocrinology [facility] [address] [place] [address] Discharge Disposition: Home or Self Care documented as of this encounter Visit Diagnoses Not on filedocumented in this encounter Care Teams Suture Winder Hand Relationship Specialty Start Date End Date Cliff Cruz M.D. Primary Care [address] [place] [address] PCP - General External Family Practice 12/22/15 documented as of this encounter
--- OUTSIDE RECORDS SUMMARY | 2024-12-24 21:04 | XMS_ITS | Encounter Summary ---
Author Organization [facility] Address [address] [place] [address] Care Team Providers Care Regional Safety Manager Name Role Phone Cliff Cruz M.D. Primary Care Provider +1 -[phone] Reason for Visit * Reason Onset Date Comments medications: medication refill 05/18/2013 Encounter Details Date Type Department Care Team (Late st Contact Info) Description 05/18/[address] [facility] Division of Diabetes and Endocrinology [address] [place] [phone] Lida Mak M.D. [address] [place], [place] [id number] medications: medication refill Social History Tobacco Use [...] refills: levothyroxine and Desmopressin. Please call them: [phone] fax: [phone]. Nubia has an appt scheduled with Dr. Mak 05/24/13. documented in this encounter Plan of Treatment Upcoming Encounters Date Type Department Care Team (Late st Contact Info) Description 02/12/2025 8:10 AM EST Appointment [facility] Division of Diabetes and Endocrinology [address] [place] [phone] Cathleen Bajwa M.D. 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 Primary Care [address] [place] [address] PCP - General External Family Practice 12/22/15 documented as of this encounter
--- OUTSIDE RECORDS SUMMARY | 2024-12-24 21:04 | XMS_ITS | Encounter Summary ---
Author Organization [facility] Address [address] [place] [address] Care Team Providers Care Opener Verifier Packer Customs Name Role Phone Cliff Cruz M.D. Primary Care Provider +1 -[phone] Encounter Details Date Type Department Care Team (Late st Contact Info) Description 07/18/2012 HemOnc Social Work [facility] Cancer and Blood Diseases [place] [address] [place] [phone] Lou Arboleda LISW Social History Tobacco [...] for the family. It is called the [facility] Intensive Treatment Team. It is offered [...] 02/12/2025 8:10 AM EST Appointment [facility] Division of Diabetes and Endocrinology [address] [place] [phone] Cathleen Bajwa M.D. Endocrinology [address] [place] [address] [place] [address] Discharge Disposition: Home or Self Care documented as of this encounter Visit Diagnoses Not on filedocumented in this encounter Care Teams Opener Verifier Packer Customs Relationship Specialty Start Date End Date Cliff Cruz M.D. Primary Care [address] [place] [address] PCP - General External Family Practice 12/22/15 documented as of this encounter
--- OUTSIDE RECORDS SUMMARY | 2024-12-24 21:04 | XMS_ITS | Encounter Summary ---
Author Organization [facility] Address [address] [place] [address] Care Team Providers Care Party Demonstrator Name Role Phone Cliff Cruz M.D. Primary Care Provider +1 -[phone] Encounter Details Date Type Department Care Team (Late st Contact Info) Description 02/14/2013 Telephone [facility] Division of Diabetes and Endocrinology [address] [place] [phone] Cathleen Gray M.D. Endocrinology [address] [place] [address] [place] [phone] Social History Tobacco Use Types Packs/Day [...] T4 and Renal function. Please fax to [phone]. Please call [phone] and let them know it has been faxed. documented in this encounter Plan of Treatment Upcoming Encounters Date Type Department Care Team (Late st Contact Info) Description 02/12/2025 8:10 AM EST Appointment [facility] Division of Diabetes and Endocrinology [address] [place] [phone] Cathleen Bajwa M.D. Endocrinology [address] [place] [phone] Discharge Disposition: Home or Self Care documented as of this encounter Visit Diagnoses Not on filedocumented in this encounter Care Teams Party Demonstrator Relationship Specialty Start Date End Date Cliff Cruz M.D. Primary Care [address] [place] [address] PCP - General External Family Practice 12/22/15 documented as of this encounter
--- OUTSIDE RECORDS SUMMARY | 2024-12-24 21:04 | XMS_ITS | Encounter Summary ---
Author Organization [facility] Address [address] [place] [address] Care Team Providers Care Kinesiologist Name Role Phone Cliff Cruz M.D. Primary Care Provider +1 -[phone] Reason for Visit * Reason Comments Medication Refill Encounter Details Date Type Department Care Team (Late st Contact Info) Description 05/27/2020 Refill [facility] Division of Diabetes and Endocrinology [address] [place] [phone] Cathleen Gray M.D. Endocrinology [address] [place] [address] 7[address] [place] [address] Medication Refill Social History Tobacco [...] [facility] [address] [place] [phone] Cathleen Bajwa M.D. 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 Primary Care [address] [place] [address] PCP - General External Family Practice 12/22/15 documented as of this encounter
--- OUTSIDE RECORDS SUMMARY | 2024-12-24 21:04 | XMS_ITS | Encounter Summary ---
Author Organization [facility] Address [address] [place] [address] Care Team Providers Care Colon And Rectal Surgeon Name Role Phone Cliff Cruz M.D. Primary Care Provider +1 -[phone] Reason for Visit * Reason Comments Medication Refill Encounter Details Date Type Department Care Team (Late st Contact Info) Description 03/11/2020 Refill [facility] Division of Diabetes and Endocrinology [address] [place] [phone] Cathleen Gray M.D. Endocrinology [address] [place] [address] [address] [place] [address] Medication Refill Social History Tobacco [...] not want to transfer care to or Or. Location. [place]. She stated Nubia has not had periods yet and has not seen a Hospice Care Transitions Coordinator as recommended. She agreed to follow up on this before her follow up in Apr. documented in this encounter Plan of Treatment Upcoming Encounters Date Type Department Care Team (Late st Contact Info) Description 02/12/2025 8:10 AM EST Appointment [facility] Division of Diabetes and Endocrinology [address] [place] [phone] Cathleen Bajwa M.D. 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 BELLI: [id number] Primary Care [address] [place] [address] PCP - General External Family Practice 12/22/15 documented as of this encounter
--- OUTSIDE RECORDS SUMMARY | 2024-12-24 21:04 | XMS_ITS | Encounter Summary ---
Author Organization [facility] Address [address] [place] [address] Care Team Providers Care Interventional Cardiologist Name Role Phone Cliff Cruz M.D. Primary Care Provider +1 [phone] Encounter Details Date Type Department Care Team (Late st Contact Info) Description 12/09/2015 Abstract [facility] Cancer and Blood Diseases [place] [address] [place] [phone] Emma Syed R.N. Social History Tobacco [...] Info) Description 02/12/2025 8:10 AM EST Appointment [facility] Division of Diabetes and Endocrinology [address] [place] [phone] Cathleen Bajwa M.D. Endocrinology [address] [place] [address] 7[address] [place] [address] Discharge Disposition: Home or Self Care documented as of this encounter Visit Diagnoses Not on filedocumented in this encounter Care Teams Interventional Cardiologist Relationship Specialty Start Date End Date Cliff Cruz M.D. Primary Care [address] [place] [address] PCP - General External Family Practice 12/22/15 documented as of this encounter
--- OUTSIDE RECORDS SUMMARY | 2024-12-24 21:04 | XMS_ITS | Encounter Summary ---
Author Organization [facility] Address [address] [place] [address] Care Team Providers Care Log Marker Name Role Phone Cliff Cruz M.D. Primary Care Provider +1 -[phone] Reason for Visit * Reason Onset Date Comments Schedule Appointment 06/14/2016 Have made n umerous attempts to contact patient to schedule and havent been able to get ahold of them. Multiple numbers on [employer] don't work. Will go ahead and schedule and mail itinerary. Ricky [phone] Encounter Details Date Type Department Care Team (Late st Contact Info) Description 06/14/2016 Telephone [facility] Cancer and Blood Diseases [place] [address] [place] [phone] Anand Magana M.D. Hematology-Oncology [address] [place] [address] [address] [place] [address] Schedule Appointment (Have made numerous attempts to contact patient to schedule and havent been able to get ahold of them. Multiple numbers on [employer] don't work. Will go ahead and schedule and mail itinerary. Ricky [phone]) Social History Tobacco Use Types Packs/Day Years [...] [facility] Division of [facility] Endocrinology [address] [place] [phone] Cathleen Bajwa M.D. Endocrinology [address] [place] [address] [place] [phone] Discharge Disposition: Home or Self Care documented as of this encounter Visit Diagnoses Not on filedocumented in this encounter Care Teams Log Marker Relationship Specialty Start Date End Date Cliff Cruz M.D. Primary Care [address] [place] [address] PCP - General External Family Practice 12/22/15 documented as of this encounter
--- OUTSIDE RECORDS SUMMARY | 2024-12-24 21:04 | XMS_ITS | Encounter Summary ---
Author Organization [facility] Address [address] [place] [address] Care Team Providers Care Operations Officer Afloat Name Role Phone Cliff Cruz M.D. Primary Care Provider +1 -[phone] Encounter Details Date Type Department Care Team (Late st Contact Info) Description 07/24/2012 Telephone [facility] Cancer and Blood Diseases [place] [address] [place] [phone] Lou Arboleda LISW Social History Tobacco [...] Appointment [facility] Division of Diabetes and Endocrinology [address] [place] [address] Cathleen Bajwa M.D. Endocrinology [address] [place], [place] [address] [address] [place] [address] Discharge Disposition: Home or Self Care documented as of this encounter Visit Diagnoses Not on filedocumented in this encounter Care Teams Operations Officer Afloat Relationship Specialty Start Date End Date Cliff Cruz M.D. BELLI: [id number] Primary Care [address] [place] [address] PCP - General External Family Practice 12/22/15 documented as of this encounter
[2024-12-24 21:05] VITALS: BP 133/84; PULSE 101; RESP 20; TEMP 36.8; O2SAT 99
--- OUTSIDE RECORDS SUMMARY | 2024-12-24 21:05 | XMS_ITS | Encounter Summary ---
Author Organization [facility] Address [address] [place] [address] Care Team Providers Care Builder Beam Name Role Phone Cliff Cruz M.D. Primary Care Provider +1 -[phone] Reason for Visit * Reason Comments Medication Refill Encounter Details Date Type Department Care Team (Late st Contact Info) Description 12/11/2019 Refill [facility] Division of Diabetes and Endocrinology [address] [place] [phone] Cathleen Gray M.D. Endocrinology [address] [place] [address] [place] [phone] Medication Refill Social History Tobacco Use [...] Info) Description 02/12/2025 8:10 AM EST Appointment [facility] Division of Diabetes and Endocrinology [address] [place] [phone] Cathleen Bajwa M.D. 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 Primary Care [address] [place] [address] PCP - General External Family Practice 12/22/15 documented as of this encounter
--- OUTSIDE RECORDS SUMMARY | 2024-12-24 21:05 | XMS_ITS | Encounter Summary ---
Author Organization [facility] Address [address] [place] [address] Care Team Providers Care Supervisor Boat Outfitting Name Role Phone Cliff Cruz M.D. Primary Care Provider +1 -[phone] Encounter Details Date Type Department Care Team (Late st Contact Info) Description 02/20/2010 Abstract [facility] Division of Diabetes and Endocrinology [address] [place] [phone] Lida Gonzalez, RJamesN. Social History Tobacco [...] Description 02/12/2025 8:10 AM EST Appointment [facility] Division of Diabetes and Endocrinology [address] [place] [address] Cathleen Bajwa M.D. Endocrinology [address] [place] [address] [facility] [address] [place] [address] Discharge Disposition: Home or Self Care documented as of this encounter Visit Diagnoses Not on filedocumented in this encounter Care Teams Supervisor Boat Outfitting Relationship Specialty Start Date End Date Cliff Cruz M.D. Primary Care [address] [place] [address] PCP - General External Family Practice 12/22/15 documented as of this encounter
--- OUTSIDE RECORDS SUMMARY | 2024-12-24 21:05 | XMS_ITS | Clinical Summary ---
Author Organization [facility] Address [address] [place] [address] Care Team Providers Care Office Machines Sales Representative Name Role Phone Cliff Cruz M.D. Primary Care Provider +1 [phone] Source Comments [facility] is fully rolled out with thefollowing exceptions:General [facility] Allergies No known active allergies Medications ARIPiprazole [...] Type Department Care Team Description 10/11/2024 Telephone [facility] Division of Diabetes and Endocrinology [address] [place] [phone] Delilah Mujica, Aerosol Line Operator medication/supply question:Other (Patient calling and didn't know if medication needs a PA for Synthroid and desmopressin.) 10/10/2024 Orders Only [facility] Division of Endocrinology [address] [place] [address] Jerica Nichols, R.N. 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 Medication Refill from Last 3 Months Immunizations Immunization Administration [...] Info) Description 02/12/2025 8:10 AM EST Appointment [facility] Division of Diabetes and Endocrinology [address] [place] [phone] Cathleen Bajwa M.D. Endocrinology [address] [place] [address] [place] [phone] Discharge Disposition: Home or Self Care Health Maintenance Due Date Last Done Comments MENINGOCOCCAL B VACCINE (1 of 2 - Standard) 2018 DTAP/Tdap/Td IMMUNIZATION (7 - Td or Tdap) 08/25/2023 08/24/2013, 06/10/2006, 05/14/2004, Additional history exists HPV IMMUNIZATION (3 - 3-dose series) 10/25/2024 05/24/2024, 04/27/2024 AMB SEASONAL FLU VACCINE (#1) 11/26/2024 01/11/2018, 01/08/2016, 03/02/2013, Additional history exists COVID-19 Vaccine (2023- season) 2024 PNEUMOCOCCAL IMMUNIZATION Aged Out 2003, 2002, 2002, [...] this topic Medical Devices Implanted Type Area Dietary Server Device Identifier Shelf Expiration Date Model / Serial / Lot Screws Self Drilling 3mm Implanted:Qty: 13 on 10/25/2008 at [facility] [employer] [facility] 04. [id number] / / Description:SCREWS SELF DRIL LING 3MM Screw Empergency 4mm Implanted:Qty: 1 on 10/25/2008 at [employer] [facility] .503 .[id number]. [id number] / / Description:SCREW EMPERGENCY 4MM Plate -X 14mm X 14m Implanted:Qty: 1 on 10/25/2008 at [facility] [employer] [facility] 04.503 .065 / / Description:PLATE -X 14MM X 14M Plate Adaption 7 Holes Implanted:Qty: 1 on 10/25/2008 at [employer] [facility] 04.503 .071 / / Description:PLATE ADAPTION 7 HOLES Insurance [facility] [employer] BAKARI Lange [address] [facility] [place] [address] Care Teams Office Machines Sales Representative Relationship Specialty Start Date End Date Cliff Cruz M.D. Primary Care [address] [place] [address] PCP - General External Family Practice 12/22/15
--- OUTSIDE RECORDS SUMMARY | 2024-12-24 21:05 | XMS_ITS | Clinical Summary ---
Author Organization [facility] Address [address] [place] [address] Care Team Providers Care Devulcanizer Loader Name Role Phone Cliff Cruz MD Primary Care Provider [phone] Source Comments This information has been disclosed [...] therelease of HIV test results or diagnoses. [id number] Allergies No known active allergies Medications [...] (05/19/2018): Added automatically from request for surgery [id number] Family History Medical History Relation Comments Hypertension [...] Comments Diabetes Screening 2002 Hepatitis C Screening (Preferred [employer]) 2002 Immunization: HPV (1 - 3-dose series) 2017 Immunization: Meningococcal B (1 of 2 - Standard) 2018 Alcohol Misuse Screening 2020 HIV Screening 2020 Immunization: Pneumococcal (1 of 2 - PCV) 2021 04/23/2003, 2002, 2002, Additional history exists Cervical Cancer Screening/Pap Smear (Preferred [employer]) 2023 Immunization: DTaP/Tdap/Td (7 - Td or Tdap) 08/25/2023 08/24/2013, 06/10/2006, 05/14/2004, Additional history exists Depression Screening 01/28/2024 01/27/2023 Immunization: COVID-19 ( season) 2024 Immunization: Influenza (Preferred [employer]) (#1) 2024 01/11/2018, 01/08/2016, 03/02/2013, Additional history exists Immunization: Hepatitis B Completed 2003, 2002, 2002 Immunization: Meningococcal ACWY Aged Out 08/24/2013 No longer eligible based on patient's age to complete this topic Medical Devices Implanted Type Area Overlock Collar Setter Device Identifier Shelf Expiration Date Model / Serial / Lot Gft Sft Tis 3x3in Drfrm Spng - [id number] Implanted:Qty: 1 on 06/21/2018 by Hernandez Phillips MD at [facility] Main Graft Brain [employer] 10/26/2019 [id number] / / [id number] Plt .4mm Strg Crnmxf Ti 2 Hl - [id number] Implanted:Qty: 1 on 06/21/2018 by Hernandez Phillips MD at [facility] Main Plate Right: Brain [employer] [id number] / / Plt 62x30x.3mm Sm Suboccipital - [id number] Implanted:Qty: 1 on 06/21/2018 by Hernandez Phillips MD at [facility] Main Plate Right: Brain [employer] [id number] / / Scr Bn 4mm 1.5mm Slf Drl Ax - [id number] Implanted:Qty: 9 on 06/21/2018 by Hernandez Phillips MD at [facility] Main Screw Right: Brain [employer] [id number] / / Insurance [employer] MD[employer] Advance Directives For more information, please contact: [phone] * Full Code (Latest Code Status on File) Date Activated Date Inactivated Comments 06/21/2018 7:28 PM 06/26/2018 8:02 PM * Full Code Date Activated Date Inactivated Comments 06/20/2018 7:33 PM 06/21/2018 7:28 PM Care Teams Devulcanizer Loader Relationship Specialty Start Date End Date Cliff Cruz MD [address] [place] [address] PCP - General Emergency Medicine 05/22/18
--- OUTSIDE RECORDS SUMMARY | 2024-12-24 21:05 | XMS_ITS | Encounter Summary ---
Author Organization [facility] Address [address] [place] [address] Care Team Providers Care Immigration Specialist Name Role Phone Cliff Cruz M.D. Primary Care Provider [phone] [phone] Reason for Visit * Reason Comments Medication Refill Encounter Details Date Type Department Care Team (Late st Contact Info) Description 12/11/2019 Refill [facility] Division of Diabetes and Endocrinology [address] [place] [phone] Ara Vasquez M.D. Endocrinology [address] [place] [address] [place] [phone] Medication Refill Social History Tobacco Use [...] 02/12/2025 8:10 AM EST Appointment [facility] Division of Diabetes and Endocrinology [address] [place] [phone] Cathleen Bajwa M.D. 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 Primary Care [address] [place] [address] PCP - General External Family Practice 12/22/15 documented as of this encounter
--- OUTSIDE RECORDS SUMMARY | 2024-12-24 21:05 | XMS_ITS | Encounter Summary ---
Author Organization [facility] Address [address] [place] [address] Care Team Providers Care Sticker On Name Role Phone Cliff Cruz M.D. Primary Care Provider [phone] [phone] Reason for Visit * Reason Comments Medication Refill Encounter Details Date Type Department Care Team (Late st Contact Info) Description 01/09/2020 Refill [facility] Division of Neurology [address] [place] [phone] Dania Arce M.D. Neurology [address] [place] [address] [place] [address] Medication Refill Social History Tobacco [...] Refill pended to nurse for review. Pharmacy: [facility] documented in this encounter Plan of Treatment Upcoming Encounters Date Type Department Care Team (Late st Contact Info) Description 02/12/2025 8:10 AM EST Appointment [facility] Division of Diabetes and Endocrinology [address] [place] [phone] Cathleen Bajwa M.D. Endocrinology [address] [place] [phone] Discharge Disposition: Home or Self Care documented as of this encounter Visit Diagnoses Diagnosis Migraine without aura and without status migrainosus, not intractable Migraine without aura, without mention of intractable migraine without mention of status migrainosus documented in this encounter Care Teams Sticker On Relationship Specialty Start Date End Date Cliff Cruz M.D. Primary Care [address] [place] [address] PCP - General External Family Practice 12/22/15 documented as of this encounter
--- OUTSIDE RECORDS SUMMARY | 2024-12-24 21:05 | XMS_ITS | Encounter Summary ---
Author Organization [facility] Address [address] [place] [address] Care Team Providers Care Brush Filler Hand Name Role Phone Cliff Cruz M.D. Primary Care Provider [phone] [phone] Reason for Visit * Reason Comments Medication Refill Encounter Details Date Type Department Care Team (Late st Contact Info) Description 06/22/2019 Refill [facility] [place] [facility] Division of Diabetes and Endocrinology [address] [place] [phone] Humera Dolan M.D. Endocrinology [address] [place] [address] [address] [place] [address] Medication Refill Social History Tobacco [...] [facility] [address] [place] [phone] Cathleen Bajwa M.D. 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 Primary Care [address] [place] [address] PCP - General External Family Practice 12/22/15 documented as of this encounter
== END 2024-12-24 21:07 | disposition home or self-care (01) ==
LOC: ER 21:02
PROVIDERS: Emergency Provider Student in an Organized Health Care Education/Training Program; PCP Family Medicine
DX: B37.2 Candidiasis of skin and nail (principal)
CPT/HCPCS: 99282; 99283

== ENCOUNTER 2025-01-04 16:47 | Emergency (ER) | payer OTHER, SELFPAY ==
[2025-01-04 16:59] VITALS: BP 128/82; PULSE 89; RESP 18; TEMP 36.8; O2SAT 98; BMI 41.8
--- NOTE | 2025-01-04 17:02 | XR_ITS ---
PROCEDURE INFORMATION: Exam: XR Right Foot Exam date and time: 01/04/2025 5:34 PM Age: 24 years old Clinical indication: Pain; Foot; Right; Additional info: Right foot injury TECHNIQUE: Imaging protocol: Radiologic exam of the right foot. Views: 3 or more views. COMPARISON: CR XR FOOT RT MIN 3V 11/28/2023 5:13 PM FINDINGS: Bones/joints: No evidence of acute fracture or malalignment. Lisfranc joint appears normal. Soft tissues: Unremarkable. IMPRESSION: No evidence of acute osseous abnormality in the right foot.
--- NOTE | 2025-01-04 17:02 | XR_ITS ---
PROCEDURE INFORMATION: Exam: XR Right Ankle Exam date and time: 01/04/2025 5:33 PM Age: 24 years old Clinical indication: Pain; Ankle; Right; Additional info: Right foot injury TECHNIQUE: Imaging protocol: Radiologic exam of the right ankle. Views: 3 or more views. COMPARISON: CR XR ANKLE RT MIN 3V 11/28/2023 5:14 PM FINDINGS: Bones/joints: Chronic post-traumatic changes noted in the lateral malleolus. No evidence of acute fracture or malalignment. Ankle mortise appears intact. No ankle joint effusion. Soft tissues: Unremarkable. IMPRESSION: No evidence of acute osseous abnormality in the right ankle.
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
[2025-01-04] MEDS: IBUPROFEN 600 MG TABLET PO (18:07)
[2025-01-04] MEDS: ACETAMINOPHEN 500MG TAB 500 MG PO (18:07)
[2025-01-04 19:33] VITALS: BP 122/78; PULSE 78; RESP 18; TEMP 36.8; O2SAT 98
== END 2025-01-04 19:33 | disposition home or self-care (01) ==
PROVIDERS: Emergency Provider Student in an Organized Health Care Education/Training Program; PCP Family Medicine
DX: S90.934A Unspecified superficial injury of right lesser toe(s), initial encounter (principal); W22.8XXA Striking against or struck by other objects, initial encounter
CPT/HCPCS: 73610; 73630; 99282; 99283

== ENCOUNTER 2025-01-15 11:00 | Emergency (ER) | payer OTHER, SELFPAY ==
[2025-01-15 11:07] VITALS: BP 115/80; PULSE 91; RESP 15; TEMP 36.6; O2SAT 99; BMI 41.8
--- OUTSIDE RECORDS SUMMARY | 2025-01-15 11:07 | XMS_ITS | Encounter Summary ---
Author Organization [facility] Address [address] [place] [id number] Care Team Providers Care Site Surveyor Name Role Phone Cliff Cruz MD Primary Care Provider Encounter Details Date Type Department Care Team (Late st Contact Info) Description 04/22/2018 Abstract [facility] Cancer and Blood Diseases [place] [address] [place] [phone] Anand Magana MD Hematology-Oncology [address] [place], [place] [address]KE[place] [address] [place] [address] Social History Tobacco Use Types [...] Info) Description 02/12/2025 8:10 AM EST Appointment [facility] Division of Diabetes and Endocrinology [address] [place] [phone] Cathleen Bajwa MD Endocrinology [facility] [address] [place] [phone] Discharge Disposition: Home or Self Care documented as of this encounter Visit Diagnoses Not on filedocumented in this encounter Care Teams Site Surveyor Relationship Specialty Start Date End Date Cliff Cruz MD Primary Care [address] [place] [address] PCP - General External Family Practice 12/22/15 documented as of this encounter
--- OUTSIDE RECORDS SUMMARY | 2025-01-15 11:07 | XMS_ITS | Encounter Summary ---
Author Organization [facility] Address [address] [place] [address] Care Team Providers Care Electrocardiograph Operator Name Role Phone Cliff Cruz MD Primary Care Provider [phone] Reason for Visit * Reason Onset Date Comments medications: medication refill 05/18/2013 Encounter Details Date Type Department Care Team (Late st Contact Info) Description 05/18/[address] [facility] Division of Diabetes and Endocrinology [address] [place] [phone] [place] [address] [place] [address] medications: medication refill Social History Tobacco Use Types Packs/Day Years Used Date Smoking Tobacco: Never Assessed Intimate Partner Violence Answer Date R ecorded [...] Notes * Telephone Encounter - Camila Tavera RN - 05/18/2013 3:38 PM EST Dose confirmed * Telephone Encounter - Dania Astudillo - 05/18/2013 2:51 PM EST Pharmacy is calling for (2) refills: levothyroxine and Desmopressin. Please call them: [phone] fax: [phone]. Nubia has an appt scheduled with Dr. Mak 05/24/13. documented in this encounter Plan of Treatment Upcoming Encounters Date Type Department Care Team (Late st Contact Info) Description 02/12/2025 8:[address] 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
--- OUTSIDE RECORDS SUMMARY | 2025-01-15 11:07 | XMS_ITS | Encounter Summary ---
Author Organization [facility] Address [address] [place] [address] Care Team Providers Care Marzipan Molder Name Role Phone Cliff Cruz MD Primary Care Provider [phone] Encounter Details Date Type Department Care Team (Late st Contact Info) Description 07/24/2012 Telephone [facility] Cancer and Blood Diseases [place] [address] [place] [phone] Lou Arboleda LISW Social History Tobacco [...] school counselor. I told her about the [facility] program, and she expressed [...] Center Division of Diabetes and Endocrinology [address] [place] [phone] Cathleen Bajwa MD Endocrinology [address] [place] [address] [place] [phone] Discharge Disposition: Home or Self Care documented as of this encounter Visit Diagnoses Not on filedocumented in this encounter Care Teams Marzipan Molder Relationship Specialty Start Date End Date Cliff Cruz MD Primary Care [address] [place] [address] PCP - General External Family Practice 12/22/15 documented as of this encounter
--- OUTSIDE RECORDS SUMMARY | 2025-01-15 11:07 | XMS_ITS | Encounter Summary ---
Author Organization [facility] Address [address] [place] [address] Care Team Providers Care Prepared Foods Production Team Member Name Role Phone Cliff Cruz MD Primary Care Provider Encounter Details Date Type Department Care Team (Late st Contact Info) Description 07/24/2012 Telephone [facility] Cancer and Blood Diseases [place] [address] [place] [phone] Lou Arboleda LISW Social History Tobacco [...] Info) Description 02/12/2025 8:10 AM EST Appointment [facility] Division of Diabetes and Endocrinology [address] [place] [address] Cathleen Bajwa MD Endocrinology [address] [place] [address] 7[address] [place] [address] Discharge Disposition: Home or Self Care documented as of this encounter Visit Diagnoses Not on filedocumented in this encounter Care Teams Prepared Foods Production Team Member Relationship Specialty Start Date End Date Cliff Cruz MD Primary Care [address] [place] [address] PCP - General External Family Practice 12/22/15 documented as of this encounter
--- OUTSIDE RECORDS SUMMARY | 2025-01-15 11:07 | XMS_ITS | Encounter Summary ---
Author Organization [facility] Address [address] [place] [address] Care Team Providers Care Ela Teacher Name Role Phone Cliff Cruz MD Primary Care Provider [phone] Encounter Details Date Type Department Care Team (Late st Contact Info) Description 05/01/2009 Abstract [facility] Cancer and Blood Diseases [place] [address] [place] [phone] Channel Business Manager, [facility] Social History Tobacco Use Types Packs/Day [...] 03/06/2009 4:2 1 PM EST Growth Chart: [facility] (Girls, 2- 20 Years) documented in this encounter Plan of Treatment Upcoming Encounters Date Type Department Care Team (Late st Contact Info) Description 02/12/2025 8:10 AM EST Appointment [facility] Division of Diabetes and Endocrinology [address] [place] [address] Cathleen Bajwa MD Endocrinology [facility] [address] [place] [address] Discharge Disposition: Home or Self Care documented as of this encounter Visit Diagnoses Not on filedocumented in this encounter Care Teams Ela Teacher Relationship Specialty Start Date End Date Cliff Cruz MD Primary Care [address] [place] [address] PCP - General External Family Practice 12/22/15 documented as of this encounter
--- OUTSIDE RECORDS SUMMARY | 2025-01-15 11:07 | XMS_ITS | Encounter Summary ---
Author Organization [facility] Address [address] [place] [address] Care Team Providers Care Solar Tech Name Role Phone Cliff Cruz MD Primary Care Provider [phone] Reason for Visit * Reason Onset Date Comments Schedule Appointment 06/14/2016 Have made n umerous attempts to contact patient to schedule and havent been able to get ahold of them. Multiple numbers on [employer] don't work. Will go ahead and schedule and mail itinerary. Ricky [id number] Encounter Details Date Type Department Care Team (Late st Contact Info) Description 06/14/2016 Telephone [facility] Cancer and Blood Diseases [place] [address] [place] [phone] Anand Magana MD Hematology-Oncology [address] [place] [address] 3[address] [place] [address] Schedule Appointment (Have made numerous attempts to contact patient to schedule and havent been able to get ahold of them. Multiple numbers on [employer] don't work. Will go ahead and schedule and mail itinerary. Ricky [id number]) Social History Tobacco Use Types Packs/Day Years [...] EST Appointment [facility] Division of Diabetes and Endocrinology [address] [place] [address] Cathleen Bajwa MD Endocrinology [address] [place] [address] [place] [phone] Discharge Disposition: Home or Self Care documented as of this encounter Visit Diagnoses Not on filedocumented in this encounter Care Teams Solar Tech Relationship Specialty Start Date End Date Cliff Cruz MD Primary Care [address] [place] [address] PCP - General External Family Practice 12/22/15 documented as of this encounter
--- OUTSIDE RECORDS SUMMARY | 2025-01-15 11:07 | XMS_ITS | Encounter Summary ---
Author Organization [facility] Address [address] [place] [address] Care Team Providers Care Private Investigator Name Role Phone Cliff Cruz MD Primary Care Provider [phone] Encounter Details Date Type Department Care Team (Late st Contact Info) Description 02/15/2013 Abstract [facility] Division of Diabetes and Endocrinology [address] [place] [phone] Cathleen Gray MD Endocrinology [address] [place] [address] [place] [phone] Social History Tobacco Use Types Packs/Day [...] 08/29/2024 Historical abuse worry Not on file 06/04/202 5 If you have firearms in the home, [...] AM EST Appointment [facility] Division of Diabetes and Endocrinology [address] [place] [phone] Cathleen Bajwa MD Endocrinology [address] [place] [address], [address] [place] [address] Discharge Disposition: Home or Self [...] EXTERNAL LAB - 02/07/2013 4:43 PM EST [facility] Laboratory [address] [facility] [address] [place] [address] us Historical Provider EXTERNAL LAB ORDERABLES Maria Elena l Result EXTERNAL LAB documented in this encounter Visit Diagnoses Not on filedocumented in this encounter Care Teams Private Investigator Relationship Specialty Start Date End Date Cliff Cruz MD Primary Care [address] [place] [address] PCP - General External Family Practice 12/22/15 documented as of this encounter
--- OUTSIDE RECORDS SUMMARY | 2025-01-15 11:07 | XMS_ITS | Encounter Summary ---
Author Organization [facility] Address [address] [place] [address] Care Team Providers Care Dispensing Operator Name Role Phone Cliff Cruz MD Primary Care Provider [phone] Encounter Details Date Type Department Care Team (Late st Contact Info) Description 07/18/2012 HemOnc Social Work [facility] Cancer and Blood Diseases [place] [address] [place] [phone] Lou Arboleda LISW Social History Tobacco [...] for the family. It is called the [facility]. It is offered as [...] EST Appointment [facility] Division of Diabetes and Endocrinology [address] [place] [phone] Cathleen Bajwa MD Endocrinology [address] [place] [address] [place] [phone] Discharge Disposition: Home or Self Care documented as of this encounter Visit Diagnoses Not on filedocumented in this encounter Care Teams Dispensing Operator Relationship Specialty Start Date End Date Cliff Cruz MD Primary Care [address] [place] [address] PCP - General External Family Practice 12/22/15 documented as of this encounter
--- OUTSIDE RECORDS SUMMARY | 2025-01-15 11:07 | XMS_ITS | Encounter Summary ---
Author Organization [facility] Address [address] [place] [address] Care Team Providers Care Unit Control Worker Name Role Phone Cliff Cruz MD Primary Care Provider [phone] Encounter Details Date Type Department Care Team (Late st Contact Info) Description 02/14/2013 Telephone [facility] Division of Diabetes and Endocrinology [address] [place] [phone] Cathleen Gray MD Endocrinology [address] [place] [address] [place] [phone] Social History Tobacco Use Types Packs/Day Years Used Date Smoking Tobacco: Never Assessed Comments Unknown Sex and Gender Information Value Date Recorded Sex Assigned at Not on file Legal Sex Female 5:31 AM EST Gender Identity Not on file Sexual Orientation Not on file documented as of this encounter Miscellaneous Notes * Telephone Encounter - Darlene Lin RN - 02/14/2013 2:41 PM EST Faxed for the second time * Telephone Encounter - Beverley Abarca - 02/14/2013 1:35 PM EST Lab calling for orders. Free T4 and Renal function. Please fax to [phone]. Please call [phone] and let them know it has been faxed. documented in this encounter Plan of Treatment Upcoming Encounters Date Type Department Care Team (Late st Contact Info) Description 02/12/2025 8:10 AM EST Appointment [facility] Division of Diabetes and Endocrinology [address] [place] [phone] Cathleen Bajwa MD Endocrinology [address] [place] [address] [place] [phone] Discharge Disposition: Home or Self Care documented as of this encounter Visit Diagnoses Not on filedocumented in this encounter Care Teams Unit Control Worker Relationship Specialty Start Date End Date Cliff Cruz MD Primary Care [address] [place] [address] PCP - General External Family Practice 12/22/15 documented as of this encounter
--- OUTSIDE RECORDS SUMMARY | 2025-01-15 11:07 | XMS_ITS | Encounter Summary ---
Author Organization [facility] Address [address] [place] [address] Care Team Providers Care School Examiner Name Role Phone Cliff Cruz MD Primary Care Provider [phone] Reason for Visit * Reason Comments Medication Refill Encounter Details Date Type Department Care Team (Late st Contact Info) Description 10/05/2024 Refill [facility] Division of Diabetes and Endocrinology [address] [place] [phone] Cathleen Bajwa MD Endocrinology [address] [place] [address] 7012 [place] [address] Medication Refill Social History Tobacco [...] Notes * Telephone Encounter - Nalini Rivero RN - 10/05/2024 4:46 PM EDT 11 refills sent last month documented in this encounter Plan of Treatment Upcoming Encounters Date Type Department Care Team (Late st Contact Info) Description 02/12/2025 8:10 AM EST Appointment [facility] Division of Diabetes and Endocrinology [address] [place] [phone] Cathleen Bajwa MD Endocrinology [address] [place] [address] [place] [phone] Discharge Disposition: Home or Self Care documented as of this encounter Visit Diagnoses Diagnosis Central hypothyroidism Unspecified hypothyroidism 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
--- OUTSIDE RECORDS SUMMARY | 2025-01-15 11:08 | XMS_ITS | Encounter Summary ---
Author Organization [facility] Address [address] [place] [address] Care Team Providers Care Traffic Investigator Name Role Phone Cliff Cruz MD Primary Care Provider [phone] Reason for Visit * Reason Comments Medication Refill Encounter Details Date Type Department Care Team (Late st Contact Info) Description 11/29/2020 Refill [facility] Division of Neurology [address] [place] [phone] Dania Arce MD Neurology [address] [place] [address] [place] [address] Medication Refill Social History Tobacco [...] Notes * Telephone Encounter - Dania Guan Regional Manager - 12/02/2020 4:16 PM EDT Called [facility] the pharmacy verified that they have 5 refills on file. documented in this encounter Plan of Treatment Upcoming Encounters Date Type Department Care Team (Late st Contact Info) Description 02/12/2025 8:10 AM EST Appointment [facility] Division of Diabetes and Endocrinology [address] [place] [phone] Cathleen Bajwa MD Endocrinology [address] [place] [phone] Discharge Disposition: Home or Self Care documented as of this encounter Visit Diagnoses Diagnosis Migraine without aura and without status migrainosus, not intractable Migraine without aura, without mention of intractable migraine without mention of status migrainosus documented in this encounter Care Teams Traffic Investigator Relationship Specialty Start Date End Date Cliff Cruz MD Primary Care [address] [place] [address] PCP - General External Family Practice 12/22/15 documented as of this encounter
--- OUTSIDE RECORDS SUMMARY | 2025-01-15 11:08 | XMS_ITS | Encounter Summary ---
Author Organization [facility] Address [address] [place] [address] Care Team Providers Care Histopathology Technician Name Role Phone Cliff Cruz MD Primary Care Provider [phone] Encounter Details Date Type Department Care Team (Late st Contact Info) Description 07/01/2020 Abstract [facility] Cancer and Blood Diseases [place] [address] [place] [phone] Emma Syed RN Social History Tobacco Use Types Packs/Day Years [...] 02/12/2025 8:10 AM EST Appointment [facility] Division of Diabetes and Endocrinology [address] [place] [phone] Cathleen Bajwa MD Endocrinology [address] [place] [address] [place] [phone] Discharge Disposition: Home or Self Care documented as of this encounter Visit Diagnoses Not on filedocumented in this encounter Care Teams Histopathology Technician Relationship Specialty Start Date End Date Cliff Cruz MD Primary Care [address] [place] [address] PCP - General External Family Practice 12/22/15 documented as of this encounter
--- OUTSIDE RECORDS SUMMARY | 2025-01-15 11:08 | XMS_ITS | Encounter Summary ---
Author Organization [facility] Address [address] [place] [address] Care Team Providers Care Ob Scrub Tech Name Role Phone Cliff Cruz MD Primary Care Provider Encounter Details Date Type Department Care Team (Late st Contact Info) Description [facility]/23/2011 [facility] Cancer and Blood Diseases [place] [address] [place] [phone] Lou Arboleda LISW Social History Tobacco [...] 11/23/2011 12:53 PM EDT Spoke with a [facility] sales representative church furniture. She reported that they do not have any counseling resources in the [facility] area. They only have access to local resources. I attempted to call Nubia Prado's mother, to discuss progress in locating counseling resources. documented in this encounter Plan of Treatment Upcoming Encounters Date Type Department Care Team (Late st Contact Info) Description 02/12/2025 8:10 AM EST Appointment [facility] Division of Diabetes and Endocrinology [address] [place] [address] Cathleen Bajwa MD Endocrinology [facility] [place] [facility] [address] [place] [address] Discharge Disposition: Home or Self Care documented as of this encounter Visit Diagnoses Not on filedocumented in this encounter Care Teams Ob Scrub Tech Relationship Specialty Start Date End Date Cliff Cruz MD Primary Care [address] [place] [address] PCP - General External Family Practice 12/22/15 documented as of this encounter
--- OUTSIDE RECORDS SUMMARY | 2025-01-15 11:08 | XMS_ITS | Encounter Summary ---
Author Organization [facility] Address [address] [place] [address] Care Team Providers Care Cell Biology Scientist Name Role Phone Cliff Cruz MD Primary Care Provider [phone] Reason for Visit * Reason Comments Medication Refill Encounter Details Date Type Department Care Team (Late st Contact Info) Description 03/11/[address] [facility] Division of Diabetes and Endocrinology [address] [place] [phone] Cathleen Gray MD Endocrinology [address] [place] [address] 7[address] [place] [address] Medication Refill Social History Tobacco [...] Notes * Telephone Encounter - Ai Gonzalez RN - 03/11/2020 5:23 PM EST Spoke to patient's mother after refill requested for DDAVP. She does not want to transfer care to or [facility] Location. [place]. She stated Nubia has not had periods yet and has not seen a Field Service Analyst as recommended. She agreed to follow up on this before her follow up in Apr. documented in this encounter Plan of Treatment Upcoming Encounters Date Type Department Care Team (Late st Contact Info) Description 02/12/2025 8:[address] 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
--- OUTSIDE RECORDS SUMMARY | 2025-01-15 11:08 | XMS_ITS | Clinical Summary ---
Author Organization [facility] Address [address] [place] [address] Care Team Providers Care Chopped Strand Operator Name Role Phone Cliff Cruz MD Primary Care Provider [phone] [facility] is fully rolled out with thefollowing exceptions:[facility] Allergies No known active allergies [...] up soon Regular astigmatism 10/09/2008 05/15/19 11 Immunizations Immunization Administration Dates Next Due Dtap, [...] Info) Description 02/12/2025 8:10 AM EST Appointment [facility] Division of Diabetes and Endocrinology [address] [place] [address] Cathleen Bajwa MD Endocrinology [address] [place] [address] Rebecca, [address] [place] [address] Discharge Disposition: Home or Self Care Health Maintenance Due Date Last Done Comments MENINGOCOCCAL B VACCINE (1 of 2 - Standard) 2018 DTAP/Tdap/Td IMMUNIZATION (7 - Td or Tdap) 08/25/2023 08/24/2013, 06/10/2006, 05/14/2004, Additional history exists HPV IMMUNIZATION (3 - 3-dose series) 10/25/2024 05/24/2024, 04/27/2024 AMB SEASONAL FLU VACCINE (#1) 11/26/2024 01/11/2018, 01/08/2016, 03/02/2013, Additional history exists COVID-19 Vaccine ( season) 2024 PNEUMOCOCCAL IMMUNIZATION Aged Out 2003, [...] this topic Medical Devices Implanted Type Area Fitness Worker Device Identifier Shelf Expiration Date Model / Serial / Lot Screws Self Drilling 3mm Implanted:Qty: 13 on 10/25/2008 at [facility] [employer] [facility] 04. [id number] / / Description:SCREWS SELF DRIL LING 3MM Screw Empergency 4mm Implanted:Qty: 1 on 10/25/2008 at [facility] [employer] [facility] 503 [id number]. [id number] / / Description:SCREW EMPERGENCY 4MM Plate -X 14mm X 14m Implanted:Qty: 1 on 10/25/2008 at [facility] [employer] [facility] 503 .065 / / Description:PLATE -X 14MM X 14M Plate Adaption 7 Holes Implanted:Qty: 1 on 10/25/2008 at [facility] [employer] [facility] 503 .071 / / Description:PLATE ADAPTION 7 [employer] Insurance [facility] Care Teams Chopped Strand Operator Relationship Specialty Start Date End Date Cliff Cruz MD Primary Care [address] [place], [place] [address] PCP - General External Family Practice 12/22/15
--- OUTSIDE RECORDS SUMMARY | 2025-01-15 11:08 | XMS_ITS | Encounter Summary ---
Author Organization [facility] Address [address] [place] [address] Care Team Providers Care Harness Repairer Name Role Phone Cliff Cruz MD Primary Care Provider [phone] Reason for Visit * Reason Comments Medication Refill Encounter Details Date Type Department Care Team (Late st Contact Info) Description 12/11/2019 Refill [facility] Division of Diabetes and Endocrinology [address] [place] [phone] Ara Vasquez MD Endocrinology [address] [place] [address] [address] [place] [address] Medication Refill Social History Tobacco [...] Telephone Encounter - Darlene Lin RN - 12/11/2019 1:45 PM EDT Limited refilll documented in this encounter Plan of Treatment Upcoming Encounters Date Type Department Care Team (Late st Contact Info) Description 02/12/2025 8:10 AM EST Appointment [facility] Division of Diabetes and Endocrinology [address] [place] [phone] Cathleen Bajwa MD Endocrinology [address] [place] [address] [place] [phone] Discharge Disposition: Home or Self Care documented as of this encounter Visit Diagnoses Diagnosis 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
--- OUTSIDE RECORDS SUMMARY | 2025-01-15 11:08 | XMS_ITS | Encounter Summary ---
Author Organization [facility] Address [address] [place] [address] Care Team Providers Care Recreation Program Specialist Name Role Phone Cliff Cruz MD Primary Care Provider [phone] Reason for Visit * Reason Comments Medication Refill Encounter Details Date Type Department Care Team (Late st Contact Info) Description 01/09/2020 Refill [facility] Division of Neurology [address] [place] [phone] Dania Arce MD Neurology [address] [place] [address] [place] [address] Medication Refill Social History Tobacco [...] Notes * Telephone Encounter - Dania Arce MD - 01/11/2020 12:12 PM EDT I refilled [...] Refill pended to nurse for review. Pharmacy: [facility] documented in this encounter Plan of Treatment Upcoming Encounters Date Type Department Care Team (Late st Contact Info) Description 02/12/2025 8:10 AM EST Appointment [facility] Division of Diabetes and Endocrinology [address] [place] [phone] Cathleen Bajwa MD Endocrinology [address] [place] [address], [address] [place] [address] Discharge Disposition: Home or Self Care documented as of this encounter Visit Diagnoses Diagnosis Migraine without aura and without status migrainosus, not intractable Migraine without aura, without mention of intractable migraine without mention of status migrainosus documented in this encounter Care Teams Recreation Program Specialist Relationship Specialty Start Date End Date Cliff Cruz MD Primary Care [address] [place], [place] [id number] PCP - General External Family Practice 12/22/15 documented as of this encounter
--- OUTSIDE RECORDS SUMMARY | 2025-01-15 11:08 | XMS_ITS | Encounter Summary ---
Author Organization [facility] Address [address] [place] [address] Care Team Providers Care Senior Oracle Applications Developer Name Role Phone Cliff Cruz MD Primary Care Provider Reason for Visit * Reason Comments Medication Refill Encounter Details Date Type Department Care Team (Late st Contact Info) Description 06/22/2019 Refill [facility] Division of Diabetes and Endocrinology [address] [place] [phone] Humera Dolan MD Endocrinology [address] [place] [address] [address] [place] [address] Medication Refill Social History Tobacco [...] Description 02/12/2025 8:10 AM EST Appointment [facility] Division of Diabetes and Endocrinology [address] [place] [phone] Cathleen Bajwa MD Endocrinology [address], [place] [address] [place] [address] Discharge Disposition: Home or Self Care documented as of this encounter Visit Diagnoses Diagnosis 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
--- OUTSIDE RECORDS SUMMARY | 2025-01-15 11:08 | XMS_ITS | Encounter Summary ---
Author Organization [facility] Address [address] [place] [address] Care Team Providers Care Appliance Adjuster Name Role Phone Cliff Cruz MD Primary Care Provider [phone] Encounter Details Date Type Department Care Team (Late st Contact Info) Description 12/09/[address] [facility] Cancer and Blood Diseases [place] [address] [place] [phone] Emma Syed RN Social History Tobacco [...] Description 02/12/2025 8:[address] [facility] Division of Diabetes and Endocrinology [address] [place] [phone] Cathleen Bajwa MD Endocrinology [address] [place] [address] [address] [place] [address] Discharge Disposition: Home or Self Care documented as of this encounter Visit Diagnoses Not on filedocumented in this encounter Care Teams Appliance Adjuster Relationship Specialty Start Date End Date Cliff Cruz MD Primary Care [address] [place] [address] PCP - General External Family Practice 12/22/15 documented as of this encounter
--- OUTSIDE RECORDS SUMMARY | 2025-01-15 11:08 | XMS_ITS | Encounter Summary ---
Author Organization [facility] Address [address] [place] [address] Care Team Providers Care Toe Lining Closer Name Role Phone Cliff Cruz MD Primary Care Provider [phone] Reason for Visit * Reason Comments Medication Refill Encounter Details Date Type Department Care Team (Late st Contact Info) Description 05/27/2020 Refill [facility] Division of Diabetes and Endocrinology [address] [place] [phone] Cathleen Gray MD Endocrinology [address] [place] [address] [address] [place] [address] Medication Refill Social History Tobacco [...] Info) Description 02/12/2025 8:10 AM EST Appointment [facility] Division of Diabetes and Endocrinology [address] [place] [phone] Cathleen Bajwa MD Endocrinology [address] [place] [address] [place] [phone] Discharge Disposition: Home or Self Care documented as of this encounter Visit Diagnoses Diagnosis 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
--- OUTSIDE RECORDS SUMMARY | 2025-01-15 11:08 | XMS_ITS | Clinical Summary ---
Author Organization [facility] Address [address] [place] [address] Care Team Providers Care Color Consultant Name Role Phone Cliff Cruz MD Primary Care Provider [phone] Source Comments This information has been disclosed [...] therelease of HIV test results or diagnoses. [id number] Allergies No known active allergies Medications [...] (05/19/2018): Added automatically from request for surgery [id number] Family History Medical History Relation Comments Hypertension [...] Comments Diabetes Screening 2002 Hepatitis C Screening (CONEXANCE MDhart) 2002 Immunization: HPV (1 - 3-dose series) 2017 Immunization: Meningococcal B (1 of 2 - Standard) 2018 Alcohol Misuse Screening 2020 HIV Screening 2020 Immunization: Pneumococcal (1 of 2 - PCV) 2021 04/23/2003, 2002, 2002, Additional history exists Cervical Cancer Screening/Pap Smear (CONEXANCE MDhart) 2023 Immunization: DTaP/Tdap/Td (7 - Td or Tdap) 08/25/2023 08/24/2013, 06/10/2006, 05/14/2004, Additional history exists Depression Screening 01/28/2024 01/27/2023 Immunization: COVID-19 ( season) 2024 Immunization: Influenza (CONEXANCE MDhart) (#1) 2024 01/11/2018, 01/08/2016, 03/02/2013, Additional history exists Immunization: Hepatitis B Completed 2003, 2002, 2002 Immunization: Meningococcal ACWY Aged Out 08/24/2013 No longer eligible based on patient's age to complete this topic Medical Devices Implanted Type Area Band Saw Marker Device Identifier Shelf Expiration Date Model / Serial / Lot Gft Sft Tis 3x3in Drfrm Spng - [id number] Implanted:Qty: 1 on 06/21/2018 by Hernandez Phillips MD at [facility] Main Graft Brain [employer] 10/26/2019 [id number] / / [id number] Plt .4mm Strg Crnmxf Ti 2 Hl - [id number] Implanted:Qty: 1 on 06/21/2018 by Hernandez Phillips MD at [facility] Main Plate Right: Brain CHITO LEIBINGER [id number] / / Plt 62x30x.3mm Sm Suboccipital - [id number] Implanted:Qty: 1 on 06/21/2018 by Hernandez Phillips MD at [facility] Main Plate Right: Brain CHITO LEIBINGER [id number] / / Scr Bn 4mm 1.5mm Slf Drl Ax - [id number] Implanted:Qty: 9 on 06/21/2018 by Hernandez Phillips MD at [facility] Main Screw Right: Brain CHITO LEIBINGER [id number] / / Insurance [employer] Advance Directives For more information, please contact: [phone] * Full Code (Latest Code Status on File) Date Activated Date Inactivated Comments 06/21/2018 7:28 PM 06/26/2018 8:02 PM * Full Code Date Activated Date Inactivated Comments 06/20/2018 7:33 PM 06/21/2018 7:28 PM Care Teams Color Consultant Relationship Specialty Start Date End Date Cliff Cruz MD [address] [place] [address] PCP - General Emergency Medicine 05/22/18
--- OUTSIDE RECORDS SUMMARY | 2025-01-15 11:08 | XMS_ITS | Encounter Summary ---
Author Organization [facility] Address [address] [place] [address] Care Team Providers Care Spindle Frame Carver Name Role Phone Cliff Cruz MD Primary Care Provider [phone] Reason for Visit * Reason Comments Medication Refill Encounter Details Date Type Department Care Team (Late st Contact Info) Description 12/11/2019 Refill [facility] Division of Diabetes and Endocrinology [address] [place] [phone] Cathleen Gray MD Endocrinology [address] [place] [address] [address] [place] [address] Medication Refill Social History Tobacco [...] Encounter - Darlene Lin RN - 12/11/2019 1:40 PM EDT Limited refills documented in this encounter Plan of Treatment Upcoming Encounters Date Type Department Care Team (Late st Contact Info) Description 02/12/2025 8:10 AM EST Appointment [facility] Division of Diabetes and Endocrinology [address] [place] [phone] Cathleen Bajwa MD Endocrinology [address] [place] [address] [place] [phone] Discharge Disposition: Home or Self Care documented as of this encounter Visit Diagnoses Diagnosis 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
--- OUTSIDE RECORDS SUMMARY | 2025-01-15 11:08 | XMS_ITS | Encounter Summary ---
Author Organization [facility] Address [address] [place] [address] Care Team Providers Care Manager Content Name Role Phone Cliff Cruz MD Primary Care Provider [phone] Reason for Visit * Reason Comments Medication Refill Encounter Details Date Type Department Care Team (Late st Contact Info) Description 05/27/2020 Refill [facility] Division of Diabetes and Endocrinology [address] [place] [phone] Cathleen Bajwa MD Endocrinology [address] [place] [address] [address] [place] [address] Medication Refill Social History Tobacco [...] 02/12/2025 8:10 AM EST Appointment [facility] Division of Diabetes and Endocrinology [address] [place] [phone] Cathleen Bajwa MD Endocrinology [address] [place] [address] [place] [phone] Discharge Disposition: Home or Self Care documented as of this encounter Visit Diagnoses Diagnosis Attention deficit disorder with hyperactivity Attention deficit disorder Attention deficit disorder without mention of hyperactivity documented in this encounter Care Teams Manager Content Relationship Specialty Start Date End Date Cliff Cruz MD Primary Care [address] [place] [address] PCP - General External Family Practice 12/22/15 documented as of this encounter
--- OUTSIDE RECORDS SUMMARY | 2025-01-15 11:08 | XMS_ITS | Encounter Summary ---
Author Organization [facility] Address [address] [place] [address] Care Team Providers Care Executive Vice President Name Role Phone Cliff Cruz MD Primary Care Provider [phone] Source Comments This information has been disclosed [...] release of HIV test results or diagnoses. [id number] Health Encounter Details Date Type Department Care Team (Late st Contact Info) Description 06/22/2018 Ophth Exam [facility] Ophthalmology at [address] [place] [address] Jerson Nielsen MD [address] [place] [address] Social History Tobacco Use Types Packs/Day [...] on filedocumented in this encounter Care Teams Executive Vice President Relationship Specialty Start Date End Date Cliff Cruz MD [address] [place] [id number] PCP - General Emergency Medicine 05/22/18 documented as of this encounter
--- OUTSIDE RECORDS SUMMARY | 2025-01-15 11:08 | XMS_ITS | Clinical Summary ---
Author Organization [facility] Address [address] [place] [address] Care Team Providers Care Fuel Conversion Technician Name Role Phone Cliff Cruz MD Primary Care Provider [phone] Allergies No known active allergies Medications methocarbamol [...] 08/25/2023 08/24/2013, 06/10/2006, 05/14/2004, Additional history exists [id number] Vaccine (1 - 2023- season) 2024 UKY-Influenza [...] age to complete this topic Insurance AETNA [facility] MEDICAID Care Teams Fuel Conversion Technician Relationship Specialty Start Date End Date Cliff Cruz MD [address] [place] [address] PCP - General 08/08/20
--- OUTSIDE RECORDS SUMMARY | 2025-01-15 11:08 | XMS_ITS | Encounter Summary ---
Author Organization [facility] Address [address] [place] [address] Care Team Providers Care Shipping Track Supervisor Name Role Phone Cliff Cruz MD Primary Care Provider [phone] Reason for Visit * Reason Comments Medication Refill Elavil and motrin Encounter Details Date Type Department Care Team (Late st Contact Info) Description 01/28/2021 Refill [facility] Division of Neurology [address] [place] [phone] Dania Arce MD Neurology [address] [place] [address] [place] [address] Medication Refill (Elavil and motrin) [...] Notes * Telephone Encounter - Agustina Mak RN - 01/28/2021 3:20 PM EDT Both numbers on file are out of service. Patient was last seen by Dr. Arce in 2019. RN will refuse Rxs and request family to contact neurology in regards to establishing care with newneurologist. * Telephone Encounter - Yun Bauer, Vacuum Caster - 01/28/2021 3:03 PM EDT Please review, [...] Description 02/12/2025 8:10 AM EST Appointment [facility] Division of Diabetes and Endocrinology [address] [place] [phone] Cathleen Bajwa MD Endocrinology [address] [place] [address] [place] [phone] Discharge Disposition: Home or Self Care documented as of this encounter Visit Diagnoses Diagnosis Migraine without aura and without status migrainosus, not intractable Migraine without aura, without mention of intractable migraine without mention of status migrainosus documented in this encounter Care Teams Shipping Track Supervisor Relationship Specialty Start Date End Date Cliff Cruz MD Primary Care [address] [place] [address] PCP - General External Family Practice 12/22/15 documented as of this encounter
--- OUTSIDE RECORDS SUMMARY | 2025-01-15 11:08 | XMS_ITS | Encounter Summary ---
Author Organization [facility] Address [address] [place] [address] Care Team Providers Care Public Weigher Name Role Phone Cliff Cruz MD Primary Care Provider Encounter Details Date Type Department Care Team (Late st Contact Info) Description 05/31/2012 HemOnc Social Work [facility] Cancer and Blood Diseases [place] [address] [place] [phone] Lou Arboleda LISW Social History Tobacco [...] [facility] Division of Diabetes and Endocrinology [address] [place] [phone] Cathleen Bajwa MD Endocrinology [address], [address] [place] [address] Discharge Disposition: Home or Self Care documented as of this encounter Visit Diagnoses Not on filedocumented in this encounter Care Teams Public Weigher Relationship Specialty Start Date End Date Cliff Cruz MD Primary Care [address] [place] [address] PCP - General External Family Practice 12/22/15 documented as of this encounter
--- OUTSIDE RECORDS SUMMARY | 2025-01-15 11:08 | XMS_ITS | Encounter Summary ---
Author Organization [facility] Address [address] [place] [address] Care Team Providers Care Cosmetic Sales Advisor Name Role Phone Cliff Cruz MD Primary Care Provider Encounter Details Date Type Department Care Team (Late st Contact Info) Description 12/09/2015 Abstract [facility] Cancer and Blood Diseases [place] [address] [place] [phone] Emma Syed RN Social History Tobacco [...] Info) Description 02/12/2025 8:10 AM EST Appointment [facility] Division of Diabetes and Endocrinology [address] [place] [phone] Cathleen Bajwa MD Endocrinology [address] [place] [address] [address] [place] [address] Discharge Disposition: Home or Self Care documented as of this encounter Visit Diagnoses Not on filedocumented in this encounter Care Teams Cosmetic Sales Advisor Relationship Specialty Start Date End Date Cliff Cruz MD Primary Care [address] [place] [address] PCP - General External Family Practice 12/22/15 documented as of this encounter
--- OUTSIDE RECORDS SUMMARY | 2025-01-15 11:08 | XMS_ITS | Encounter Summary ---
Author Organization [facility] Address [address] [place] [address] Care Team Providers Care Oil Heater Installer Name Role Phone Cliff Cruz MD Primary Care Provider [phone] Encounter Details Date Type Department Care Team (Late st Contact Info) Description 02/20/2010 Abstract [facility] Division of Diabetes and Endocrinology [address] [place] [phone] Lida Gonzalez RN Social History Tobacco Use Types Packs/Day [...] 06/26/2009 12: 46 PM EDT Growth Chart: [facility] (Girls, 2- 20 Years) documented in this encounter Plan of Treatment Upcoming Encounters Date Type Department Care Team (Late st Contact Info) Description 02/12/2025 8:10 AM EST Appointment [facility] Division of Diabetes and Endocrinology [address] [place] [phone] Cathleen Bajwa MD Endocrinology [address] [place] [address] [place] [phone] Discharge Disposition: Home or Self Care documented as of this encounter Visit Diagnoses Not on filedocumented in this encounter Care Teams Oil Heater Installer Relationship Specialty Start Date End Date Cliff Cruz MD Primary Care [address] [place] [address] PCP - General External Family Practice 12/22/15 documented as of this encounter
[2025-01-15] MEDS: LIDOCAINE 1% W/EPI 1:100,000 20ML VIAL 20 ML SQ (11:16)
[2025-01-15] MEDS: TET/DIPHTH/PERT-ADULT 0.5ML SYRINGE 0.5 ML IM (11:17)
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
[2025-01-15 11:49] VITALS: BP 115/80; PULSE 90; RESP 15; TEMP 36.6; O2SAT 99
== END 2025-01-15 11:51 | disposition home or self-care (01) ==
PROVIDERS: Emergency Provider Student in an Organized Health Care Education/Training Program; PCP Family Medicine
DX: S61.211A Laceration without foreign body of left index finger without damage to nail, initial encounter (principal); S61.213A Laceration without foreign body of left middle finger without damage to nail, initial encounter; W26.8XXA Contact with other sharp object(s), not elsewhere classified, initial encounter
CPT/HCPCS: 12001; 90471; 90715; 99283; 99284; J2004

== ENCOUNTER 2025-02-06 08:28 | Emergency (ER) | payer OTHER, SELFPAY ==
--- OUTSIDE RECORDS SUMMARY | 2025-01-03 06:42 | XMS_ITS | Continuity of Care Document ---
Author Organization [facility] Phone Care Team Providers Care Cheese Wrapper Name Role Phone LITO HANSON Unavailable ELIUD DAVENPORT Primary Care LITO HANSON Admitting LITO HANSON Primary Attending ALLERGIES AND ADVERSE REACTIONS ALLERGIES AND ADVERSE REACTIONS Code System Allergy Substance Adverse Reaction Date Reaction (Severity) Comment Status Reported By Updated By No Known Allergies [id number] on January 01, 2025 9:49:02 PM [facility] [[email or web address]] RESULTS Patient: SOILA Villegas Date of : April [birth year] LABORATORY RESULTS Information is not available LABORATORY NARRATIVE RESULTS Information is not available RADIOLOGY RESULTS ORDER 100: KNEE 3V RT (LOINC : 37719-4) ORDER DATE: January 01, 2025 8:52:00 PM [facility] [[email or web address]] PERFORMING LAB: [address] [id number] Final Result Date: December 8:55:[address] [place] [address] Name: ODILON CM Exam Date: 01/01/2025 : 2000 Age 24 years Gender: F Physician: Facility: [facility] Facility HSV: Outpatient Exam: KNEE 3V RT RIGHT KNEE RADIOGRAPHS, 3 VIEWS CLINICAL HISTORY: Pain with trauma/injury. FINDINGS: Frontal, lateral, and oblique views of the right knee are reviewed. No comparison images. No acute bony fracture or malalignment is identified involving the right knee. Overall anatomic position of the distal femur/proximal tibia appears satisfactory on the provided projections. The medial, lateral, and patellofemoral compartment spaces are well-maintained. No suspicious calcifications are noted involving the joint space. No significant joint effusion is present. The remaining soft tissues unremarkable. IMPRESSION: No acute bony injury of the right knee. Electronically signed by: Sharda Vann MD 01/01/2025 05:36 PM EDT RP Dictated By: Sharda Vann Transcribed By: Transcribed On: 01/01/2025 4:55 PM Electronically signed by: Sharda Vann 01/01/2025 Thank you for referring ODILON CM to [facility]. Legally authenticated by ROSALIE CIFUENTES MD 2025-01-01 16:55:52 PATHOLOGY NARRATIVE RESULTS Information is not available MICROBIOLOGY RESULTS No Micro Labs/Results Exist for Patient BLOOD ADMIN RESULTS Information is not available MEDICATIONS HOME MEDICATIONS Status RXNORM NDC Medication Dose Route Frequency Dates Comments Reported By Updated By Active [id number] 98451 aripiprazole 5 mg tablet 2.0 TAB ORAL DAILY Last Dose: [id number] on January 01, 2025 9:49:02 PM [facility] [[email or web address]] Active 296822 493393 01119 desmopressin 0.2 mg tablet 3.0 TAB ORAL QAMHS Last Dose: [id number] on January 01, 2025 9:49:03 PM [facility] [[email or web address]] Active 772628 040726 63525 hydroxyzine HCl 25 mg tablet 1.0 TAB ORAL TID Last Dose: [email or web address] on January 01, 2025 9:49:03 PM [facility] [[email or web address]] Active 081894 467987 08921 levothyroxin e 125 mcg tablet 1.0 TAB ORAL DAILY Last Dose: [id number] on January 01, 2025 9:49:03 PM [facility] [[email or web address]] DISCHARGE MEDICATIONS Status RXNORM NDC Medication Dose Route Frequency Dates Dis pense Data Comments Physician Updated By No Discharge Medication Info rmation Available INPATIENT MEDICATIONS Status RXNORM NDC Medication Dose Route Frequency Rat e Quantity Dates Indication Dispense Data Comments Physician Updated By No Inpatient Medication Info rmation Available SOCIAL HISTORY SOCIAL HISTORY - Smoking Status SNOMED-CT Social History Element Description Effective Dates Offered Cessation Comment Updated By [id number] Current Tobacco smoking status Unknown If Ever Smoked [email or web address] on January 01, 2025 8:50:35 PM UTC [id number] Historical Tobacco smoking status Current Every Day Smoker [email or web address] on August 08, 2024 9:18:24 PM UTC SOCIAL HISTORY - Gender Sex: Female SOCIAL HISTORY - Status : status i nformation is not available Intention in Next Year: intention information is not available SOCIAL HISTORY - Assessments Code System Description Status Date Value of Assessment Updated By Comment Assessment Information is no t available SOCIAL HISTORY - [place] Affiliation [place] information is not av ailable SOCIAL HISTORY - Legal Sex Legal Sex information is not available SOCIAL HISTORY - Sexual Behavior Sexual Orientation Gender Identity SNOMED-CT Description SNO MED -CT Description Activity Level No of Partners Partner Type UpdatedBy Information is not available SOCIAL HISTORY - Occupation Occupation information is no t available VITAL SIGNS PATIENT VITAL SIGNS This section displays the mo st recent value for each vital sign as of January 03, 2025 11:42:31 AM UTC Loinc Code Vital Sign Activity Date Result Updated By 8310-5 Body temperature January 01, 2025 8:45:22 PM UTC 97.7 [degF] 39877-4 Body weight Measured January 01, 2025 8:46:16 PM UTC 100.0 kg (220.0 lb) [id number] on January 01, 2025 8:46:16 PM UTC 8462-4 Diastolic blood pressure January 01, 2025 8:45:22 PM UTC 78.0 mm[Hg] 8867-4 Heart rate January 01, 2025 8:45:22 PM UTC 82 /min 98810-7 Oxygen saturation in Arterial blood by Pulse oximetry January 01, 2025 8:45:22 PM UTC 98.0 % 9279-1 Respiratory rate January 01, 2025 8:45:22 PM UTC 18 /min 8480-6 Systolic blood pressure January 01, 2025 8:45:22 PM UTC 122.0 mm[Hg] PEDIATRIC GROWTH CHART - VITAL SIGNS This section displays Head C ircumference Percentile, Weight for Length Percentile and BMI Percentile Loinc Code Pediatric Measure Age (Months) Result Updat ed By No Pediatric Growth Chart Pe rcentile Information Available. HEALTH CONCERNS Problems Concern Status Health Concern problem infor mation not available. Smoking Status Status Years Used Consumed packs p er day Health Concern smoking histo ry information not available. Family History Concern Status Health Concern family histor y information not available. ENCOUNTERS ENCOUNTER INFORMATION Reason for Visit FALL INJURY Admission January 01, 2025 8:39:00 PM UTC [facility] [address] [facility] [address] Discharge January 01, 2025 9:49:00 PM UTC D ISCHARGED TO HOME OR SELF CARE ENCOUNTER DIAGNOSES Notes information is not kelli ilable. Code System Diagnosis Onset Date Diagnosis information is not available. ABSTRACT DIAGNOSES Code System Diagnosis Updated By Abatement Date M25.561 ICD10 PAIN IN RIGHT KNEE [id number] o n January 03, 2025 11:42:10 AM [place] M25.561 ICD10 PAIN IN RIGHT KNEE [id number] o n January 03, 2025 11:42:10 AM [facility] [[email or web address]] M25.461 ICD10 EFFUSION, RIGHT KNEE [id number] on January 03, 2025 11:42:10 AM [facility] [[email or web address]] CARE TEAM Care Cheese Wrapper Role LITO HANSON Referring ELIUD DAVENPORT Primary Care LITO HANSON Admitting LITO HANSON Primary Attending CARE TEAM CARE night clerk Role on Team Location Telecom Status Start Date End Kyrie e Updated By MARGIE Luevano MD Referring normal January 01, 2025 9:47:44 PM [facility] [[email or web address]] January 01, 2025 9:49:00 PM [place] [id number] on January 01, 2025 9:47:44 PM [facility] [[email or web address]] MARGIE Luevano MD Attending normal January 01, 2025 9:47:44 PM [facility] [[email or web address]] January 01, 2025 9:49:00 PM [place] [id number] on January 01, 2025 9:47:44 PM [facility] [[email or web address]] MARGIE Luevano MD Admitting normal January 01, 2025 9:47:44 PM [facility] [[email or web address]] January 01, 2025 9:49:00 PM [place] [id number] on January 01, 2025 9:47:44 PM [facility] [[email or web address]] ETHEL [employer] PCP normal January 01, 2025 8:39:29 PM [place] January 01, 2025 9:49:00 PM [place] [id number] on January 01, 2025 9:47:44 PM [facility] [[email or web address]]
[2025-02-06 08:42] VITALS: BP 137/90; PULSE 96; RESP 15; TEMP 36.6; O2SAT 98; BMI 39.3
[2025-02-06 08:48] LABS: Coronavirus 19, PCR Not Detected (NotDetected); Influenza A, PCR Not Detected (NotDetected); Influenza B, PCR Not Detected (NotDetected)
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
[2025-02-06] MEDS: KETOROLAC 15MG/ML VIAL 15 MG IM (09:18)
[2025-02-06 09:19] LABS: Strep Scrn Group A (Rapid) Negative (Negative)
[2025-02-06] MEDS: ACETAMINOPHEN 500MG TAB 1000 MG PO (09:19)
[2025-02-06] MEDS: ONDANSETRON 4MG ODT 4 MG SL (09:19)
[2025-02-06 09:30] VITALS: BP 122/80; PULSE 78; RESP 16; TEMP 36.9; O2SAT 98
== END 2025-02-06 09:30 | disposition home or self-care (01) ==
PROVIDERS: Emergency Provider Emergency Medicine; PCP Family Medicine
DX: B34.9 Viral infection, unspecified (principal)
CPT/HCPCS: 87430; 87636; 96372; 99284; J1885; Q0162